=== PATIENT | male | born 1960 | race Caucasian/White ===

== ENCOUNTER 2024-06-27 13:46 | Outpatient (AMB) | payer MEDICARE, MEDICAID, SELFPAY ==
--- NOTE | 2024-06-27 13:50 | A.OFFPC_ITS ---
Vital Signs 06/27/24 13:55 Height 5 ft 8 in Weight 158 lb 8.198 oz BMI 24.1 BP 132/86 Blood Pressure Location Lt brachial Position Sitting Pulse 59 Pulse Source Pulse Oximeter Pulse Oximetry (%) 97 Oxygen Delivery Method Room Air Intake Visit Reasons: establish care Section Housekeeper Required: No Accompanied by: Nephew or Niece Allergies No Known Allergies Allergy (Verified 06/27/24 14:40) Medication List - Last Reconciled 06/27/24 by Kvng Brown MD atorvastatin 20 mg PO DAILY lisinopril 40 mg PO DAILY oxycodone 10 mg PO Q3H PRN pantoprazole 40 mg PO DAILY triamterene 50 mg PO DAILY Tobacco use date assessed: 06/27/24 Fall risk assessment: 1 Fall in past year Last assessed Fall Risk: 06/27/24 Dental Screening Dental Screen Date: 06/27/24 Did you have a dental visit in the last 12 months?: No Did you have a dental problem in the last 6 months where you did not have access to dental care?: No Was dental information given to patient?: No HPI establish care HPI Details Patient comes in today to establish care - is a new patient to the practice Patient states that he moved here recently from [facility] States that his mother has been helping take care of him for years as he is legally blind (lost his eyesight at 32 y/o) but his mother a few months ago and he now has no one to take care of him so he has to move here to [facility] where he has some family He is currently in the office today accompanied by his niece He relates that he's had severe lumbar degenerative disc disease for years (has had 4 disc replacement surgeries in the past) and he has been on his current dose of Oxycodone for the past 17 years now States that he is currently still going to [facility] every 3 months to get his Rx refilled from his previous doctor until he is able to get established with a PCP here He also has (+) Hx of hypertension, hyperlipidemia and GERD and is on medications for these conditions as well Adds that he was getting ready for RTC cuff surgery on his left shoulder last year but had to move when his mother passed so this was done pursued further - he would like to see orthopedics here and revisit the possibility for RTC surgery for his left shoulder Patient denies any headaches or dizziness Denies any chest pains, no increased SOB No nausea/vomiting, no abdominal pain No change in bowel habits noted He denies any acute urinary symptoms Will need most of his current Rx refilled States that he just had his repeat colonoscopy done last year with his previous PCP and will have his next colonoscopy in 10 years (2033) [facility] Medical History (Updated 07/04/24 @ 03:18 by Kvng Brown MD) Legally blind Impaired fasting glucose GERD without esophagitis Pure hypercholesterolemia Essential hypertension Degenerative joint disease of shoulder Lumbar degenerative disc disease Surgical History (Updated 06/27/24 @ 14:59 by Kvng Brown MD) History of umbilical hernia repair History of ankle surgery History of lumbar discectomy History of colonoscopy Family History (Updated 06/27/24 @ 14:03 by OSCAR Branham) Other Diabetes Heart attack Hypertension Prostate cancer Skin cancer Social History Housing: House Patient Tobacco Use Status: Former Tobacco user e-Cigarette/Vaping Use: Never Used service: Yes Current occupational status: disabled Current occupational exposures/hazards: No Cognitive needs: No Hearing needs: No Vision needs: Yes Questionnaire PHQ-9 Over the last 2 weeks, how often have you been bothered by any of the following problems? 1. Little interest or pleasure in doing things: not at all 2. Feeling down, depressed, or hopeless: not at all 3. Trouble falling or staying asleep, or sleeping too much: not at all 4. Feeling tired or having little energy: not at all 5. Poor appetite or overeating: not at all 6. Feeling bad about yourself - or that you are a failure or have let yourself or your family down: not at all 7. Trouble concentrating on things, such as reading the newspaper or watching television: not at all 8. Moving or speaking so slowly that other people could have noticed. Or the opposite - being so fidgety or restless that you have been moving around a lot m ore than usual: not at all 9. Thoughts that you would be better off or of hurting yourself in some way: not at all Total score: 0 Depression Screening Interpretation: Negative Depression Screening Done: Yes 89228 - PHQ-9 Billing: Yes Source: Developed by Drs. Alexi Etienne, Edison Sandy and colleagues, with an educational mai from [employer]. Thrive Questionnaire Date Thrive assessed: 06/27/24 I am a: Patient What is your living situation today?: I have a steady place to live Within the past 12 months, did the food you bought not last and you didn't have the money to get more?: Never true Within the past 12 months, did you worry whether your food would run out before you got money to buy more?: Never true Do you have trouble paying for medicines?: No Do you have trouble getting transportation to medical appointments?: No Do you have trouble paying your heating and electricity bill?: No Do you have trouble taking care of your child, family member or friend?: No Do you have trouble with day-to-day activities such as bathing, preparing meals, shopping, managing finances, etc.?: No Are you currently unemployed and looking for a job?: No Are you interested in more education?: No Please select the resources that you would like help with: None Currently or been in a relationship where the following occur: No concerns reported THRIVE Score: 0 AUDIT C Alcohol Use Questionnaire (AUDIT-C) 1. How often do you have a drink containing alcohol?: Never 3. How often do you have six or more drinks on one occasion?: Never Total Score: 0 Score Reviewed/Action Taken: Yes AILEEN-7 AMB Questionnaire AILEEN-7 Date AILEEN - 7 assessed: 06/27/24 Feeling nervous, anxious, or on edge: 0 = Not at all Not being able to stop or control worryin = Not at all Worrying too much about different things: 0 = Not at all Trouble relaxin = Not at all Being so restless that it is hard to sit still: 0 = Not at all Becoming easily annoyed or irritable: 0 = Not at all Feeling afraid as if something awful might happen: 0 = Not at all Total AILEEN-7 score (0-4 normal; 5-9 mild; 10-14 moderate; 15-21 severe): 0 Source: Developed by Drs. Alexi Etienne, Edison Sandy and colleagues, with an educational mai from [employer]. Review of Systems Const Denies chills, Denies fatigue, Denies fever(s), Denies headache(s), Denies m alaise and Denies weakness Eyes Denies change in vision, Denies irritation, Denies itchy eyes and Reports loss of vision (is legally blind in both eyes - has only light perception) ENT Denies dysphagia, Denies dizziness, Denies otalgia, Denies headache(s), Denies nasal congestion, Denies neck pain, Denies odynophagia and Denies sore throat Card Denies rapid heart rate, Denies irregular heart rhythm, Denies palpitations and Denies dyspnea Resp Denies chest congestion, Denies cough, Denies dyspnea and Denies wheezing GI Denies abdominal pain, Denies bloating, Denies constipation, Denies dysphagia, Denies heartburn, Denies diarrhea, Denies nausea, Denies odynophagia and Denies vomiting Denies hematuria, Denies difficulty urinating, Denies dysuria, Denies urinary frequency and Denies urinary urgency Musc Reports back pain (over the lower back - chronic), Reports arthralgias (both shoulders), Denies joint swelling, Denies muscle weakness and Denies neck pain Skin/Breast Denies change in pigmentation, Denies lesions, Denies rash and Denies unusual bruising Neuro Denies dizziness, Denies headache(s), Reports loss of vision (is legally blind in both eyes - has only light perception), Denies paresthesias and Denies weakness Psych Denies anxiety and Denies depression Endo Denies fatigue and Denies palpitations Aller/Immun Denies itchy eyes and Denies wheezing Physical exam (Primary Care) Vital Signs: Last Vital Signs Pulse 59 06/27/24 13:55 BP 132/86 06/27/24 13:55 Pulse Ox 97 06/27/24 13:55 Oxygen Delivery Method Room Air 06/27/24 13:55 BMI result Body Mass Index 24.1 Tobacco/Smoking Status: Tobacco use Status Tobacco use date assessed 06/27/24 06/27/24 13:52 Patient Tobacco Use Status Former Tobacco user 06/27/24 14:05 e-Cigarette/Vaping Use Never Used 06/27/24 14:05 PHQ-9: PHQ-9 Score PHQ-9: Total score 0 05/20/25 14:46 Depression Screening Interpretation: Negative Thrive Assessment: Date of Thrive Assessment Date Thrive assessed 06/27/24 06/27/24 13:52 Currently or been in a relationship where the following occur: No concerns reported Const General: no acute distress, alert and awake Orientation/consciousness: patient oriented x3 HENMT Head: Yes normocephalic and Yes atraumatic Ears: external ears normal, TM's normal bilaterally and EAC's normal General nose exam: No nasal discharge present Face and sinus: Yes normal facial exam and Yes sinuses nontender Teeth and gingiva: dentition normal Throat: Yes posterior oropharynx normal and Yes tonsils normal (no TP congestion) Eyes Other: eye exam is limited as patient is legally blind Eyelids: Yes eyelids normal Conjunctivae: conjunctivae normal Neck Neck: Yes no lymphadenopathy and Yes supple Thyroid: Thyroid normal Resp Auscultation: clear to auscultation bilaterally, no rales and no wheezes Cardio Rate: regular rate Rhythm: regular rhythm Heart sounds: Murmur heart sound present systolic soft and II/ GI Palpation (GI): Soft to palpation, nontender and No hepatosplenomegaly present Auscultation: normal bowel sounds General: Yes no CVA tenderness Back/Spine/Pelvis Back: no CVA tenderness Thoracic/Lumbar Spine: thoracic and lumbar spine normal to inspection Skin Lesions: no lesions Rashes: no rashes Neuro General: patient oriented x3, moves all extremities, no focal motor deficits and CN's II-XI intact bilaterally Cognition (Neuro): normal cognition Gait exam (Neuro): Normal gait present Extrem General: Yes no clubbing, cyanosis or edema Coding Level of Care Code New Pt Prev Care 40-64y(23822) Diagnoses Annual physical exam Z00.00 Essential hypertension I10 Pure hypercholesterolemia E78.00 GERD without esophagitis K21.9 Cardiac murmur R01.1 Impaired fasting glucose R73.01 Degeneration of intervertebral disc of lumbar region with discogenic back pain M51.360 Disc-related pain type: discogenic back pain only Osteoarthritis of both shoulders, unspecified osteoarthritis type M19.011; M19.012 Osteoarthritis type: unspecified Laterality: bilateral Legally blind H54.8 Additional Codes PHQ-9 - 44962 - PHQ-9 Billing: Yes ([id number]) Assessment & Plan Assessment & Plan (1) Annual physical exam: Code(s): Z00.00 - Encounter for general adult medical examination without abnormal findings Category: Medical Plan: Check labs He is up-to-date with his colon cancer screening - just had his repeat colonoscopy done last year (2023) and he will be due for repeat colonoscopy in 10 years (2033) (2) Essential hypertension: Code(s): I10 - Essential (primary) hypertension Category: Medical Plan: Reinforced low sodium diet - goal is systolic BP of at least 120 mm or less Continue Lisinopril 40 mg QD and Triamterene 50 mg QD (3) Pure hypercholesterolemia: Code(s): E78.00 - Pure hypercholesterolemia, unspecified Category: Medical Plan: Reinforced low cholesterol diet Continue Atorvastatin 20 mg QD Will have patient recheck his labs and fasting lipids TERRI for follow up (4) GERD without esophagitis: Code(s): K21.9 - Gastro-esophageal reflux disease without esophagitis Category: Medical Plan: Dietary restrictions reinforced Continue Pantoprazole 40 mg QD (5) Cardiac murmur: Code(s): R01.1 - Cardiac murmur, unspecified Category: Medical Plan: Patient has a soft, systolic murmur heard on auscultation today, especially over the right sternal border Will send him for echocardiogram for further evaluation (6) Impaired fasting glucose: Code(s): R73.01 - Impaired fasting glucose Category: Medical Plan: Reinforced low carb/low calorie diet Will check his FBS and HgbA1c for further evaluation (7) Lumbar degenerative disc disease: Code(s): M51.369 - Other intervertebral disc degeneration, lumbar region without mention of lumbar back pain or lower extremity pain Category: Medical Qualifiers: Disc-related pain type: discogenic back pain only Qualified Code(s): M51.360 - Other intervertebral disc degeneration, lumbar region with discogenic back pain only Plan: Reinforced activity and weight-lifting restrictions Contine Oxycodone 10 mg Q 3 hours PRN - patient is advised that his current dosing is much higher than what I normally prescribe and much more than what I am comfortable prescribing Will refer him to pain management here for further evaluation and management Have advised patient in the meantime to continue getting his pain med Rx refilled by his previous PCP for now until we can get him to pain management and we receive a copy of his previous medical records for review (8) Degenerative joint disease of shoulder: Code(s): M19.019 - Primary osteoarthritis, unspecified shoulder Category: Medical Qualifiers: Osteoarthritis type: unspecified Laterality: bilateral Qualified Code(s): M19.011 - Primary osteoarthritis, right shoulder; M19.012 - Primary osteoarthritis, left shoulder Plan: Patient states that he was getting ready for rotator cuff surgery in [facility] last year but this did not occur as he had to move over here to [facility] following the passing of his mother He would currently like to revisit this - we will refer him to [facility] for further evaluation and management of his bilateral shoulder issues (9) Legally blind: Code(s): H54.8 - Legal blindness, as defined in [place] Category: Medical Plan: Patient currently only has light perception in both eyes - states that he lost his eyesight at the age of 32 Plan Follow up in 3 months Orders: Orders TSH reflex Free T4 06/27/24 E78.00 - Pure hypercholesterolemia, unspecified Vitamin D 25-OH Total 06/27/24 E55.9 - Vitamin D deficiency, unspecified Prostate Specific Antigen 06/27/24 N40.0 - Benign prostatic hyperplasia without lower urinary tract symptoms Hemoglobin A1c 06/27/24 E11.9 - Type 2 diabetes mellitus without complications Microalbumin, Random (w Creat) 06/27/24 E11.9 - Type 2 diabetes mellitus without complications Complete Blood Count Auto Diff 06/27/24 D64.9 - Anemia, unspecified Comprehensive [place]. Panel Fast 06/27/24 E78.00 - Pure hypercholesterolemia, unspecified Lipid Panel 06/27/24 E78.00 - Pure hypercholesterolemia, unspecified UA CC w/rflx Micro + Cult 06/27/24 R30.0 - Dysuria Vitamin B12 and Folate 06/27/24 E53.8 - Deficiency of other specified B group vitamins CA echo transthoracic complete 06/27/24 R01.1 - Cardiac murmur, unspecified Referrals Pain Management Referral M51.369 - Other intervertebral disc degeneration, lumbar region without mention of lumbar back pain or lower extremity pain Orthopedics Referral M19.019 - Primary osteoarthritis, unspecified shoulder Medications: New atorvastatin 20 mg PO DAILY 90 days 90 tabs 0RF pantoprazole 40 mg PO DAILY 90 days 90 tabs 0RF triamterene 50 mg PO DAILY 90 days 90 caps 0RF lisinopril 40 mg PO DAILY 90 days 90 tabs 0RF
[2024-06-27 13:55] VITALS: BP 132/86; PULSE 59; O2SAT 97; BMI 24.1
--- OUTSIDE RECORDS SUMMARY | 2024-06-27 15:02 | XMS_ITS | Continuity of Care Document ---
Author Organization [facility] Address [address] [place] [address] Phone Care Team Providers Care Senior Integration Developer Name Role Phone Yoly Cunningham MD Unavailable [...] Diagnoses Date Provider [facility] , [address] [place] [address], [facility], tel:[phone] Benign neoplasm of choroid 2012 Octavio Frederick. [address] [place] [address], [facility], . tel:[phone] [facility] , [address] [place] [address], [facility], tel:[phone] Benign neoplasm of choroidBenign neoplasm of choroid 2012 Octavio Frederick. [address] [place] [address], [facility], . tel:[phone] [facility] , [address] [place] [address], [facility], tel:[phone] Acute angle-closure glaucomaAcute angle-closure glaucoma 2010 Elise Yañez. [address] [place] [address], [facility], [place]. tel:[phone] Family History Family Member Type Diagnosis Age At Onset Problem (finding) Family history of catar act Problem (finding) Family history of glauc jackie Payers Payer name Insurance type Covered alliance party ID Authorkelliea tievelyn(s) [place] Medicaid MC [id number] Social History Type Description Quantity Date Captured [...]
== END 2024-06-27 15:15 | disposition home or self-care (01) ==
LOC: HO.HMCH 13:47
PROVIDERS: Visit Provider Internal Medicine
DX: Z00.00 Encounter for general adult medical examination without abnormal findings (principal); I10 Essential (primary) hypertension; E78.00 Pure hypercholesterolemia, unspecified; K21.9 Gastro-esophageal reflux disease without esophagitis; R01.1 Cardiac murmur, unspecified; R73.01 Impaired fasting glucose; M51.360 Other intervertebral disc degeneration, lumbar region with discogenic back pain only; M19.011 Primary osteoarthritis, right shoulder; M19.012 Primary osteoarthritis, left shoulder; H54.8 Legal blindness, as defined in USA

== ENCOUNTER → 2024-06-27 13:46 | Outpatient (BNVA) | payer MEDICARE, MEDICAID, SELFPAY | PROVIDERS: Visit Provider Internal Medicine | DX: Z00.00 Encounter for general adult medical examination without abnormal findings (principal); I10 Essential (primary) hypertension; E78.00 Pure hypercholesterolemia, unspecified; K21.9 Gastro-esophageal reflux disease without esophagitis; R01.1 Cardiac murmur, unspecified; R73.01 Impaired fasting glucose; M51.360 Other intervertebral disc degeneration, lumbar region with discogenic back pain only; M19.011 Primary osteoarthritis, right shoulder; M19.012 Primary osteoarthritis, left shoulder; H54.8 Legal blindness, as defined in USA | CPT/HCPCS: 96127; 99386 ==

== ENCOUNTER 2024-07-06 08:44 | Outpatient (REF) | payer MEDICARE, MEDICAID, SELFPAY ==
--- OUTSIDE RECORDS SUMMARY | 2024-07-06 08:59 | XMS_ITS | Continuity of Care Document ---
Author Organization [facility] Address [address] [place] [address] Phone Care Team Providers Care Deliver Driver Name Role Phone Yoly Cunningham MD Unavailable [...] Date Provider [facility] , [address] [place] [address], [facility], tel:[phone] Benign neoplasm of choroid 2012 Octavio Frederick. [address] [place] [address], [facility], . tel:[phone] [facility] , [address] [place] [address], [facility], tel:[phone] Benign neoplasm of choroidBenign neoplasm of choroid 2012 Octavio Frederick. [address] [place] [address], [facility], . tel:[phone] [facility] , [address] [place] [address], [facility], tel:[phone] Acute angle-closure glaucomaAcute angle-closure glaucoma 2010 Elise Yañez. [address] [place] [address], [facility], [place]. tel:[phone] Family History Family Member Type Diagnosis Age At Onset Problem (finding) Family history of catar act Problem (finding) Family history of glauc jackie Payers Payer name Insurance type Covered libertarian ID Authorkelliea tievelyn(s) [place] MC [id number] Social History Type Description Quantity Date Captured [...]
[2024-07-06 09:05] LABS: MANUAL DIFF FLAG NO
[2024-07-06 09:37] LABS: Basophils Absolute Auto 0.1 X10*3/uL (0.0-0.2); Basophils Percent Auto 1.1 % (0-2); Eosinophils Absolute Auto 0.5 X10*3/uL (0.0-0.4); Eosinophils Percent Auto 6.2 % (0-4); Hemoglobin 14.1 g/dl (14.0-18.0); Imm Gran Abs Auto 0.03 X10*3/uL (0.00-0.03); Imm Gran Pct Auto 0.4 % (0.0-0.4); Lymphocytes Absolute Auto 1.5 X10*3/uL (1.2-4.9); Lymphocytes Percent Auto 18.3 % (20-40); Mean Corpuscular HGB Conc 34.4 g/dl (31.0-36.0); Mean Corpuscular Hemoglobin 32.9 pg (27.0-33.0); Mean Corpuscular Volume 95.8 fL (80.0-98.0); Mean Platelet Volume 9.9 fL (9.4-12.4); Monocytes Absolute Auto 0.9 X10*3/uL (0.1-1.2); Monocytes Percent Auto 11.3 % (2-11); Neutrophils Absolute Auto 5.2 x10*3/uL (2.0-8.3); Neutrophils Percent Auto 62.7 % (45-73); Platelet Count 288 X10*3/uL (160-400); Red Blood Count 4.28 X10*6/uL (4.60-5.80); Red Cell Distribution Width 12.6 % (11.0-16.0); White Blood Count 8.2 X10*3/uL (4.8-10.8)
[2024-07-06 09:49] LABS: Estimated Average Glucose 120 mg/dL; Hemoglobin A1c % 5.8 % (<6.0)
[2024-07-06 10:10] LABS: Alanine Aminotransferase 26 U/L (0-40); Albumin Level 4.6 g/dL (3.5-5.0); Alkaline Phosphatase 91 U/L (39-117); Anion Gap 14 (12-20); Aspartate Amino Transferase 27 U/L (5-37); Bilirubin Total 0.5 mg/dL (0.0-1.0); Blood Urea Nitrogen 32 mg/dL (9-16); Calcium 9.7 mg/dL (8.4-10.2); Carbon Dioxide 26 mmol/L (22-29); Chloride 103 mmol/L (96-108); Cholesterol 162 mg/dL (<200); Estimated Glomerular Filt Rate 40; Glucose Fasting 101 mg/dL (60-99); HDL Cholesterol 52 mg/dL (>40); LDL Cholesterol Calculated 93 mg/dL (<100); Potassium 4.4 mmol/L (3.3-5.1); Sodium 139 mmol/L (135-145); Total Protein 7.3 g/dL (6.5-8.0); Triglycerides 88 mg/dL (<150)
[2024-07-06 10:21] LABS: Appearance Urine Clear; Color Urine Yellow; Glucose Urine UA Negative (Negative); Leukocyte Esterase Urine Negative (Negative); Nitrite Urine Negative (Negative); PH 6.5 (5.0-9.0); Specific Gravity - Urine 1.015 (1.005-1.025); Urine Blood Negative (Negative); Urine Ketones Negative (Negative); Urine Protein Negative (Neg-Trace)
[2024-07-06 10:31] LABS: TSH reflex Free T4 1.52 uIU/mL (0.32-4.0); Vitamin D 25-OH Total 29.7 ng/mL (>30)
[2024-07-06 10:32] LABS: Folate 8.1 ng/mL (> or = 4.0); Prostate Specific Antigen 1.75 ng/mL (<0.05-4.0); Vitamin B12 452 pg/mL (200-900)
[2024-07-06 10:43] LABS: Creatinine Urine 83.43 mg/dL; Microalbumin Urine < 5.0 mg/L
== END 2024-07-06 08:45 | disposition home or self-care (01) ==
LOC: HO.LAB 08:44
PROVIDERS: PCP Internal Medicine; Visit Provider Internal Medicine
DX: D64.9 Anemia, unspecified (principal); E78.00 Pure hypercholesterolemia, unspecified; R30.0 Dysuria; E53.8 Deficiency of other specified B group vitamins; E55.9 Vitamin D deficiency, unspecified; N40.0 Benign prostatic hyperplasia without lower urinary tract symptoms; E11.9 Type 2 diabetes mellitus without complications; Z12.5 Encounter for screening for malignant neoplasm of prostate
CPT/HCPCS: 36415; 80053; 80061; 81003; 82043; 82306; 82570; 82607; 82746; 83036; 84153; 84443; 85025

== ENCOUNTER 2024-08-16 09:52 | Outpatient (AMB) | payer MEDICARE, MEDICAID, SELFPAY ==
--- OUTSIDE RECORDS SUMMARY | 2012-10-28 09:51 | XMS_ITS | Continuity of Care Document ---
Author Organization [facility] Address [address] [place] [address] Phone Care Team Providers Care Nurse Receptionist Name Role Phone Yoly Cunningham MD Unavailable [...] Diagnoses Date Provider [facility] , [address] [place] [address], [facility], tel:[phone] Benign neoplasm of choroid 2012 Octavio Frederick. [address] [place] [address], [facility], . tel:[phone] [facility] , [address] [place] [address], [facility], tel:[phone] Benign neoplasm of choroidBenign neoplasm of choroid 2012 Octavio Frederick. [address] [place] [address], [facility], . tel:[phone] [facility] , [address] [place] [address], [facility], tel:[phone] Acute angle-closure glaucomaAcute angle-closure glaucoma 2010 Elise Yañez. [address] [place] [address], [facility], [place]. tel:[phone] Family History Family Member Type Diagnosis Age At Onset Problem (finding) Family history of catar act Problem (finding) Family history of glauc jackie Payers Payer name Insurance type Covered alliance party ID Authorkelliea tievelyn(s) [place] [id number] Social History Type Description Quantity Date Captured [...]
--- NOTE | 2024-08-16 09:56 | MHC.OFFVIS ---
Vital Signs 08/16/24 09:58 Height 5 ft 8 in Weight 173 lb BMI 26.3 BP 145/69 H Blood Pressure Location Rt brachial Position Sitting Respiration 16 Pulse 74 Pulse Source Pulse Oximeter Pulse Oximetry (%) 95 Oxygen Delivery Method Room Air Intake Visit Reasons: Chronic back pain General Technician Required: No Accompanied by: Nephew or Niece Allergies yellow jackets bees Adverse Reaction (Mild, Uncoded 08/16/24 10:02) Unknown HPI Comments Details: The patient is a 64-year-old male presenting with chronic low back pain. The pain began approximately 17 years ago and has been managed with oxycodone since then. The patient reports that the pain is severe enough to have required frequent emergency room visits in the past. He has also undergone interventional management in the past, did not tolerate well. States he had reactions to injections and he does not wish to retry. He is also not interested in implantable devices. The patient also reports a severe shoulder tear that has been present for over a year, causing significant pain and functional limitation. Additionally, there are two missing cervical discs, which may be contributing to difficulty swallowing liquids and eating. The patient has a history of arthritis, which has led to bone deterioration and has been described as making the bones disappear. The arthritis has been managed with medication, but surgical interventions have been avoided due to the risk of exacerbating the condition. The patient has a congenital heart murmur and reports experiencing chest pains, which are being monitored. The patient has a history of glaucoma, which has resulted in significant vision loss, leaving only partial vision in the left eye. The vision loss has been progressive since childhood, and surgical intervention was not performed early enough to prevent it. - Onset: Pain began approximately 17 years ago. - Quality: Described as severe, burning, and aching like a toothache. - Location: Primarily in the back, with radiation to the leg. - Exacerbating factors: Movement and inability to walk. - Relieving factors: Oxycodone provides some relief. - Interference: Pain interferes with mobility and daily activities. - Affect: Pain impacts mood, causing frustration and irritability. - Analgesia: Managed with oxycodone for 17 years, providing partial relief. - Adverse Effects: Cannot take Aleve, Aspirin, or caffeine due to blood pressure concerns. - Activities of Daily Living: Pain limits mobility and ability to perform daily tasks. - Aberrant Drug Related Behaviors: No evidence of misuse, but reliance on oxycodone noted. [facility] Medical History (Updated 08/16/24 @ 11:40 by Misty Salmeron APRN, ADZING AND BORING MACHINE OPERATOR) Legally blind Impaired fasting glucose GERD without esophagitis Pure hypercholesterolemia Essential hypertension Degenerative joint disease of shoulder Lumbar degenerative disc disease Surgical History (Updated 06/27/24 @ 14:59 by Kvng Brown MD) History of umbilical hernia repair History of ankle surgery History of lumbar discectomy History of colonoscopy Family History (Updated 06/27/24 @ 14:03 by OSCAR Branham) Other Diabetes Heart attack Hypertension Prostate cancer Skin cancer Social History Housing: House Patient Tobacco Use Status: Former Tobacco user e-Cigarette/Vaping Use: Never Used service: Yes Current occupational status: disabled Current occupational exposures/hazards: No Cognitive needs: No Hearing needs: No Vision needs: Yes Review of Systems Const Details: - Musculoskeletal: Reports chronic low back pain and severe shoulder pain. - Neurological: Reports difficulty swallowing liquids and vision loss. - Cardiovascular: Reports chest pain and a history of heart murmur. Physical Exam Vital Signs: Last Vital Signs Pulse 74 08/16/24 09:58 Resp 16 08/16/24 09:58 BP 145/69 H 08/16/24 09:58 Pulse Ox 95 08/16/24 09:58 Oxygen Delivery Method Room Air 08/16/24 09:58 BMI result Body Mass Index 26.3 General: awake, alert, oriented. Answers questions appropriately. Fully engaged in examination. Skin: warm, dry, intact HEENT: Normocephalic. Hearing intact. Legally blind. Cardiac: External chest normal in appearance. Respiratory: No cough, audible wheezing or stridor. Abdomen: without gross distension. MS: No obvious swelling or deformities. Neurological: Oriented to person, place, time and situation. Thought process intact. Ambulates with walking stick. Assisted by family member due to vision impairment. Psychiatric: Appropriate mood and affect. Good judgment and insight. Assessment & Plan Assessment & Plan (1) Chronic back pain: Code(s): M54.9 - Dorsalgia, unspecified; G89.29 - Other chronic pain Category: Medical (2) Chronic prescription opiate use: Code(s): Z79.891 - exterminator helper termite (current) use of opiate analgesic Category: Medical (3) Chronic pain syndrome: Code(s): G89.4 - Chronic pain syndrome Category: Medical (4) Post laminectomy syndrome: Code(s): M96.1 - Postlaminectomy syndrome, not elsewhere classified Category: Medical (5) Lumbar degenerative disc disease: Code(s): M51.369 - Other intervertebral disc degeneration, lumbar region without mention of lumbar back pain or lower extremity pain Category: Medical Qualifiers: Disc-related pain type: discogenic back pain only Qualified Code(s): M51.360 - Other intervertebral disc degeneration, lumbar region with discogenic back pain only Plan The management of the patient's chronic low back pain involves continued use of oxycodone, which has been effective in providing partial relief over the past 17 years. Due to adverse reactions to other medications such as Aleve and Aspirin, alternative pain management strategies are limited. The patient has expressed a strong preference against interventional procedures such as injections or implantable devices due to past negative experiences and personal beliefs. Currently we are not enrolling in a chronic opioid program, he was advised to follow up with his PCP so they can continue to prescribe this for him. Follow up with Orthopedics for his left shoulder pain. The patient's arthritis management will continue with a focus on maintaining comfort and avoiding surgical interventions that could exacerbate the condition. Monitoring of the heart murmur and chest pain is necessary, with potential follow-up with a aircraft machinist helper if symptoms persist or worsen. The patient's glaucoma and vision loss are longstanding issues, and no further surgical interventions are planned at this time. Patient was informed and verbally consented to the use of an ambient scribe for clinic note documentation during this visit. Patient Instructions: - Continue taking oxycodone as prescribed by PCP for pain management. - Avoid Aleve, Aspirin, and caffeine to prevent adverse reactions. - Monitor for any worsening of chest pain or heart murmur symptoms and seek medical attention if needed. - contact the office if you wish to proceed with any interventional management for your chronic back pain Coding Level of Care Code New Pt Level 4 (38318) Complex EM visit Add On G2211 Diagnoses Chronic back pain M54.9; G89.29 Chronic prescription opiate use Z79.891 Chronic pain syndrome G89.4 Post laminectomy syndrome M96.1 Degeneration of intervertebral disc of lumbar region with discogenic back pain M51.360 Disc-related pain type: discogenic back pain only
[2024-08-16 09:58] VITALS: BP 145/69; PULSE 74; RESP 16; O2SAT 95; BMI 26.3
== END 2024-08-16 10:38 | disposition home or self-care (01) ==
LOC: HO.PMC 09:54
PROVIDERS: PCP Internal Medicine; Visit Provider Registered Nurse Emergency
DX: M54.9 Dorsalgia, unspecified (principal); G89.29 Other chronic pain; Z79.891 Long term (current) use of opiate analgesic; G89.4 Chronic pain syndrome; M96.1 Postlaminectomy syndrome, not elsewhere classified; M51.360 Other intervertebral disc degeneration, lumbar region with discogenic back pain only
CPT/HCPCS: 99204; G2211

== ENCOUNTER → 2024-08-16 09:52 | Outpatient (BNVA) | payer OTHER, SELFPAY | PROVIDERS: PCP Internal Medicine; Visit Provider Registered Nurse Emergency | DX: M51.360 Other intervertebral disc degeneration, lumbar region with discogenic back pain only (principal); M96.1 Postlaminectomy syndrome, not elsewhere classified; G89.29 Other chronic pain; Z79.891 Long term (current) use of opiate analgesic | CPT/HCPCS: 99202 ==

== ENCOUNTER → 2024-08-22 07:55 | Outpatient (REF) | payer OTHER, SELFPAY ==
--- OUTSIDE RECORDS SUMMARY | 2012-10-28 09:51 | XMS_ITS | Continuity of Care Document ---
Author Organization [facility] Address [address] [place] [address] Phone Care Team Providers Care Gluten Settling Tender Name Role Phone Yoly Cunningham MD Unavailable [...] Diagnoses Date Provider [facility] , [address] [place] [address], [facility], tel:[phone] Benign neoplasm of choroid 2012 Octavio Frederick. [address] [place] [address], [facility], . tel:[phone] [facility] , [address] [place] [address], [facility], tel:[phone] Benign neoplasm of choroidBenign neoplasm of choroid 2012 Octavio Frederick. [address] [place] [address], [facility], . tel:[phone] [facility] , [address] [place] [address], [facility], tel:[phone] Acute angle-closure glaucomaAcute angle-closure glaucoma 2010 Elise Yañez. [address] [place] [address], [facility], [place]. tel:[phone] Family History Family Member Type Diagnosis Age At Onset Problem (finding) Family history of catar act Problem (finding) Family history of glauc jackie Payers Payer name Insurance type Covered libertarian ID Authorkelliea tievelyn(s) [place] MC [id number] Social History Type Description Quantity Date Captured [...]
--- NOTE | 2024-08-22 07:59 | CA_ITS ---
Transthoracic Echocardiogram Patient (Last, First, Middle): Jean Jewell, Gender: Male Date of : 1960 Age: 64 Procedure Date: 08/22/2024 Procedure Type: Transthoracic Echocardiogram Location: OP Height: 172.72 cm Weight: 78.47 kg BSA: 1.92 m2 Heart Rate: bpm BP: 145 / 69 mmHg Physical Security Specialist: TYRON Referring MD: Kvng Brown MD Symptoms: R01.1 - Cardiac murmur, unspecified Study Quality: Adequate ECG Rhythm: Sinus bradycardia Conclusions: - The left ventricular systolic function is normal. The calculated ejection fraction is 58% by biplane method. - No obvious valvular pathology seen on this study. Findings Left Ventricle Normal left ventricular cavity size. There is normal left ventricular wall thickness. The left ventricular systolic function is normal. The calculated ejection fraction is 58% by biplane method. There is no evidence of regional wall motion abnormalities. Diastolic function is normal for age. Right Ventricle Normal right ventricular cavity size and systolic function. Atria Both atria are normal in size. Aortic Valve There is a normal trileaflet aortic valve. There is no aortic valve stenosis. There is no aortic valve regurgitation. Mitral Valve The mitral valve appears normal. There is trace mitral valve regurgitation. There is no mitral valve stenosis. Pulmonic Valve The pulmonic valve is likely normal. Tricuspid Valve There is mild tricuspid valve regurgitation. There is no evidence of pulmonary hypertension. Great Vessels The asc aorta is normal in size. Venous The inferior vena cava is normal in size and collapses greater than 50% with inspiration. Pericardium/Pleural There is no evidence of pericardial effusion. Prior Study Comparison No prior study available for comparison. Recommendations, Care & Conclusions No obvious valvular pathology seen on this study. Measurements 2D Linear Measurements IVSd: 0.92 0.6-0.9/0.6-1.0 cm LVIDd: 4.61 3.9-5.3/4.2-5.9 cm LVIDd Index: 2.40 2.4-3.2/2.2-3.1 cm/m2 LVIDs: 3.30 2.0-3.6 cm LVPWd: 0.84 0.7-1.1 cm LA Diam: 3.50 2.7-3.8/3.0-4.0 cm LAIDs Index: 1.82 1.5-2.3 cm/m2 LV Mass: 167.56 67-162/88-224 g LV Mass Index: 87.27 43-95/49-115 g/m2 LVOT Diam: 2.10 3.0+(-)1.3 cm 2D Systolic Function EF 4C: 50.50 >55% EF 2C: 63.40 >55% EF BiP: 58.00 >55% Mitral Valve MV Pk E: 0.95 MV PK A: 0.61 MV Decel Time: 201.00 E/A: 1.60 E'Lateral: 15.10 E'Medial: 9.25 E/E' Med: 10.20 E/E' Lat: 6.30 PHT: 59.00 MVA PHT: 3.73 Decel Bath: 4.70 Aortic Valve AoV Pk Justin: 1.34 AoV Mn Justin: 0.91 AoV VTI: 0.36 AoV Pk Grad: 7.00 Aov Mn Grad: 4.00 SERENA Cont.VTI: 2.19 LVOT LVOT Pk Justin: 0.94 LVOT Mn Justin: 0.59 LVOT VTI: 0.23 LVOT Pk Grad: 4.00 LVOT Mn Grad: 2.00 LVOT Diam: 2.10 LVOT Area: 3.46 Diastolic Function MV Pk E: 0.95 MV Pk A: 0.61 E/A: 1.60 E'Medial: 9.25 E/E' Med: 10.20 E' Laterial: 15.10 E/E' Lat: 6.30 Right Ventricle TAPSE (mm): 23.90 TVS' Justin: 11.50 Tricuspid Valve TR Pk Justin: 2.43 TR Pk Grad: 24.00 RA Press: 3.00 RVSP: 27.00 Great Vessels Aorta Sinus of Valsalva: 3.06 2.0-3.[address] [place]: 2.06 1.7-3.4 cm Ao Asc: 2.90 2.1-3.4 cm Updated in Other Vendor System with Status of Final Andrés Lopez MD electronically signed on 08/23/2024 2:05:32 PM with status of Final
== END ==
LOC: HO.CARD 07:55
PROVIDERS: PCP Internal Medicine; Visit Provider Internal Medicine
DX: R01.1 Cardiac murmur, unspecified (principal)
CPT/HCPCS: 93306

== ENCOUNTER → 2024-08-22 07:59 | Outpatient (BNV) | payer OTHER, SELFPAY | PROVIDERS: PCP Internal Medicine; Visit Provider Internal Medicine | DX: R01.1 Cardiac murmur, unspecified (principal); I36.1 Nonrheumatic tricuspid (valve) insufficiency | CPT/HCPCS: 93306 ==

== ENCOUNTER 2024-10-13 06:40 | Outpatient (REF) | payer OTHER, SELFPAY ==
--- OUTSIDE RECORDS SUMMARY | 2007-11-02 09:20 | XMS_ITS | Encounter Summary ---
Author Organization [facility] Address [address] [place] [address] Care Team Providers Care Aoc Plans Intelligence Officer Name Role Phone Unavailable Primary Care Provider Unavailabl e Encounter Details Date Type Department Care Team (Late st Contact Info) Description 11/02/2007 9:20 EDT Hospital Encounter [facility] [address] [place] [address] Rylan Molina MD [address] [facility], [address] [place] [address] Social History Tobacco Use Types [...] place to sleep or slept in a fpc (including now)? No 01/12/2023 Interpersonal Safety Answer [...] your living situation today? I have a [facility] place to live 09/16/2023 Think about [...] does anyone, bj hall family and friends, threaten you with harm? [...] the past 12 months has th e [employer], gas, oil, or water [employer] threatened to shut off services in your home? No 09/16/2023 Education Answer Date Recorded Do you speak a language other than Slovenian at [facility]? No 09/16/2023 Do you want help with [...]
--- OUTSIDE RECORDS SUMMARY | 2008-03-05 08:13 | XMS_ITS | Encounter Summary ---
Author Organization [facility] Address [address] [place] [address] Care Team Providers Care Keymodule Assembly Machine Tender Name Role Phone Unavailable Primary Care Provider Unavailabl e Encounter Details Date Type Department Care Team (Late st Contact Info) Description 03/05/2008 7:13 EST Hospital Encounter [facility] - [place] [address] [place] [address] Ed Lerma MD [address] [place] [address] Social History Tobacco Use Types Packs/Day Years [...] place to sleep or slept in a custodial (including now)? No 01/12/2023 Interpersonal Safety Answer [...] your living situation today? I have a [facility] place to live 09/16/2023 Think about the [...] does anyone, inclu ding family and friends, scream or curse at [...] the past 12 months has th e [employer], gas, oil, or water company threatened to shut off services in your home? No 09/16/2023 Education Answer Date Recorded Do you speak a language other than Citizen [place] at [facility]? No 09/16/2023 Do you want help [...] on file documented as of this encounter Procedures Procedure Name Priority Date/Time Associated Diagnosis Comments NM NUCLEAR STRESS EXERCISE 03/05/2008 10:36 EST NM NUCLEAR STRESS EXERCISE 03/05/2008 8:45 EST documented in this encounter Results * NUCLEAR STRESS TEST (03/05/2008 10:36 EST) Anatomical Region Laterality Modality Other 03/05/2008 10:3 6 EST Narrative 06/25/2008 9:07 EDT chest pain Rest and Stress SPECT Cardiolite Study: If you need to receive a hard copy of this report immediately, please contact the [facility] Cardiology Report line at [phone]. A copy of the CardioChart report will be faxed to the attending, referring, and primary care providers within 48 hours of the date of service. Procedure Note Kev Molina MD - 06/25/2008 chest pain Rest and Stress SPECT Cardiolite Study: If you need to receive a hard copy of this report immediately, please contact the [facility] Cardiology Report line at [phone]. A copy of the CardioChart report will be faxed to the attending, referring, and primary care providers within 48 hours of the date of service. us Ed Lerma MD CARDIAC NM ORDERABLES Claudia wilson Result * NM NUCLEAR STRESS EXERCISE (03/05/2008 8:45 EST) Anatomical Region Laterality Modality Other 03/05/2008 8:45 EST Narrative 03/05/2008 15:31 EST Final Stress Myocardial Perfusion Imaging Report --- PATIENT PRESENTATION --- : 1960 Age: 47 Sex: male Height: 69 in Weight: 185 lb BSA: 2 Pt Type: OP History: 47yo male with recent sx of nocturnal chest pains that awaken him. Discomfort feels like a cramp in the center of his chest ,relieved by drinking ice water or pacing around awhile. Pt is legally blind. PMH of DJD of spine .No pain now Medications: Beta blockers, Omeprazole Cardiovascular Risk Factors: Family history of CAD, Hypertension, Past Smoker (quit > 6 mos ago) Reason for Study: Atypical Chest Pain, ASX with Risk Factors Referring Physician: ED LERMA MD FAX: [phone] --- NUCLEAR IMAGING RESULTS --- PERFUSION AND WALL MOTION Myocardial Perfusion: Normal Ventricular Function (Wall Motion): Global Left: normal Global Right: normal Regional: normal LVEF(%):55 IMPRESSION > normal perfusion and contraction by Nuclear SPECT imaging _ _ _ _ _ _ _ _ _ _ _ _ _ _ _ _ _ _ _ _ _ _ _ _ _ _ _ _ _ _ _ _ _ IA - myocardial infarction JVM - jeopardized viable myocardium LAD - left anterior descending artery RCA - right coronary artery LCx - left circumflex artery _ _ _ _ _ _ _ _ _ _ _ _ _ _ _ _ _ _ _ _ _ _ _ _ _ _ _ _ _ _ _ _ _ PERFUSION AGENT AND IMAGING Stress Protocol: Adenosine Rest Rest Dose (+/- 10%): 10 mCi Tc-99m Sestamibi Imaging Protocol: Rest/Stress 1-day Stress Dose (+/- 10%): 30 mCi Tc-99m Sestamibi Acquisition: SPECT Gated Attenuation Corrected --- STRESS ELECTROCARDIOGRAPHY --- BASELINE Supine HR: 49 Supine BP: 146 / 90 Upright HR: 53 Upright BP: 162 / 92 STRESS TEST Peak HR: 93 Peak BP: 144 / 84 MPHR: 54% Peak Rate-Pressure Product: 40246 Test Stopped Due To: Protocol Symptoms / Pre Scale / Post Scale: Chest pain/neck/bilat arm 5/10 spontaneously 0/10 Comments: Pt given O2 preventitively nasal at 2l during VADIM test.Sats 99-100% ECG Changes: None Performed By: Leonor Burk RN Pre-imaging likelihood of CAD: 16% Post-imaging likelihood of CAD: 3% --- STRESS SUMMARY --- 1. Normal heart rate and normal blood pressure response to Adenosine ,hypertensive at baseline 2. EXERCISE CAPACITY FOR AGE: Not applicable 3. CHEST PAIN: Stress induced anginal quality chest pain SHORTNESS OF BREATH: None 4. STRESS ECG: Negative 5. ARRHYTHMIA: isolated PVC Image Interpretation By: Tracy FULLER, Kev - Attending Radiologist Steven FULLER, Franklin - Attending Nuclear Casket Inspector Stress ECG Interpretation By: Franklin Harris MD - Attending Casket Inspector Kev Molina MD Electronically Signed on 03/05/2008 Finalized on: 03/05/2008 3:31:52 PM This procedure was conducted under the supervision of Rajiv Lozano MD who was readily available at all points throughout the procedure. Copy Report To: Procedure Note 07/24/2009 Final Stress Myocardial Perfusion Imaging Report --- PATIENT PRESENTATION --- : 1960 Age: 47 Sex: male Height: 69 in Weight: 185lb BSA: 2 Pt Type: OP History: 47yo male with recent sx of nocturnal chest pains that awakenhim. Discomfort feels like a cramp in the center of his chest ,relieved bydrinking ice water or pacing around awhile. Pt is legally blind. PMH of DIANA [facility] .No pain now Medications: Beta blockers, Omeprazole Cardiovascular Risk Factors: Family history of CAD, Hypertension, PastSmoker (quit > 6 mos ago) Reason for Study: Atypical Chest Pain, ASX with Risk Factors Referring Physician: ED LERMA MD FAX: [phone] --- NUCLEAR IMAGING RESULTS --- PERFUSION AND WALL MOTION Myocardial Perfusion: Normal Ventricular Function (Wall Motion): Global Left: normal Global Right: normal Regional: normal LVEF(%):55 IMPRESSION > normal perfusion and contraction by Nuclear SPECT imaging _ _ _ _ _ _ _ _ _ _ _ _ _ _ _ _ _ _ _ _ _ _ _ _ _ _ _ _ _ _ _ _ _ IA - myocardial infarction JVM - jeopardized viable myocardium LAD - left anterior descending artery RCA - right coronary artery LCx - left circumflex artery _ _ _ _ _ _ _ _ _ _ _ _ _ _ _ _ _ _ _ _ _ _ _ _ _ _ _ _ _ _ _ _ _ PERFUSION AGENT AND IMAGING Stress Protocol: Adenosine Rest Rest Dose (+/- 10%): 10 mCiTc-99m Sestamibi Imaging Protocol: Rest/Stress 1-day Stress Dose (+/- 10%): 30 mCiTc-99m Sestamibi Acquisition: SPECT Gated Attenuation Corrected --- STRESS ELECTROCARDIOGRAPHY --- BASELINE Supine HR: 49 Supine BP: 146 / 90 Upright HR: 53 Upright BP: 162 / 92 STRESS TEST Peak HR: 93 Peak BP: 144 / 84 MPHR: 54% Peak Rate-Pressure Product: [id number] Test Stopped Due To: Protocol Symptoms / Pre Scale / Post Scale: Chest pain/neck/bilat arm 5/10 spontaneously 0/10 Comments: Pt given O2 preventitively nasal at 2l during VADIM test.[id number]% ECG Changes: None Performed By: Leonor Burk RN Pre-imaging likelihood of CAD: 16% Post-imaging likelihood of CAD:3% --- STRESS SUMMARY --- 1. Normal heart rate and normal blood pressure response to Adenosine ,hypertensive at baseline 2. EXERCISE CAPACITY FOR AGE: Not applicable 3. CHEST PAIN: Stress induced anginal quality chest pain SHORTNESS OF BREATH: None 4. STRESS ECG: Negative 5. ARRHYTHMIA: isolated PVC Image Interpretation By: Kev Molina MD - Attending Radiologist Steven FULLER, Franklin - Attending Nuclear Casket Inspector Stress ECG Interpretation By: Franklin Harris MD - AttendingCardiologist Kev Molina MD Electronically Signed on 03/05/2008 Finalized on: 03/05/2008 3:31:52 PM This procedure was conducted under the supervision of Blake FULLER, Marcwho was readily available at all points throughout the procedure. Copy Report To: us [place] Provider [id number] CARDIAC NM [place] Final Result documented in this encounter Visit Diagnoses Not on filedocumented in this encounter
--- OUTSIDE RECORDS SUMMARY | 2012-10-28 09:51 | XMS_ITS | Continuity of Care Document ---
Author Organization [facility] Address [address] [place] [address] Phone Care Team Providers Care Solution Make Up Operator Name Role Phone Yoly Cunningham MD Unavailable Unavailable Allergies, Adverse Reactions, Alerts Substance Reaction Status Criticality bee venom protein (honey bee) Active No Information Medications Medication Instructions Dosage Effective Dates (start - stop) Status Comments LISINOPRIL (unknown strength) Not Available - Active ATENOLOL (unknown strength) Not Available - Active PRILOSEC (unknown strength) Not Available - Active Procedures Procedure Date EYE EXAM & TREATMENT EYE EXAM WITH PHOTOS Advance Directives Directive Yes / No Effective Date File Name No Information Encounters Encounter Description Practice Location Reason(s) For Visit Diagnoses Date Provider [facility] , [address] [place] [address], [facility], tel:[phone] Benign neoplasm of choroid 2012 Octavio Frederick. [address] [place] [address], [facility], . tel:[phone] [facility] , [address] [place] [address], [facility], tel:[phone] Benign neoplasm of choroidBenign neoplasm of choroid 2012 Octavio Frederick. [address] [place] [address], [facility], . tel:[phone] [facility] , [address] [place] [address], [facility], tel:[phone] Acute angle-closure glaucomaAcute angle-closure glaucoma 2010 Elise Yañez. [address] [place] [address], [facility], [place]. tel:[phone] Family History Family Member Type Diagnosis Age At Onset Problem (finding) Family history of catar act Problem (finding) Family history of glauc jackie Payers Payer name Insurance type Covered alliance party ID Authorkelliea tievelyn(s) [place] MC [id number] Social History Type Description Quantity Date Captured Comments Alcohol Use Details No Caffeine Use Details Unknown Tobacco Use Status No Information Smoking Status No Information Sex Male Chief Complaint And Reason For Visit No Information History Of Present Illness Encounter Date Complaint History Of Prese nt Illness No Information Instructions Date Instruction Additional Infor mation - Return in [address] Cunningham for Complete Exam/DFE. 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 fundus photos today show nevus OD and will plan to follow for change. Related to Choroidal Nevus - Return in [address] 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 appears benign. will recheck and get fundus photo OD in 4 weeks. 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 Vision: NLP OU ?. Symptoms: will continue to monitor. Patient has normal pupil reaction to light - OU: Discussed diagnosis in detail with patient. No treatment is required at this time. Advised patient of condition. Will continue to observe condition and or symptoms. Return in 1 year for cx Related to Angle Closure Glaucoma Assessments Type Assessment Date No Information
--- OUTSIDE RECORDS SUMMARY | 2024-10-11 12:00 | XMS_ITS | Encounter Summary ---
Author Organization [facility] Address [address] [facility] [address] [place] [phone] Phone Care Team Providers Care Foreclosure Clerk Name Role Phone Clarence Goodman DO Primary Care Provider [phone] Reason for Referral * Hospital - Outpatient - Closed Specialty Diagnoses / Procedures Referred By Contac t Referred To Contact Radiology Diagnoses Encounter for abdominal aortic aneurysm (AAA) screening Procedures US Abdominal Aortic Screening Clarence Goodman DO [address] [facility] [address] [place] [address] Phone: tel: fax: [email or web address] Referral ID Status Reason Start Date Expiration Date Visits Re quested Visits Authorized [id number] Closed 10/11/2024 1 1 * Consultation (Within 2 weeks) - New Request Specialty Diagnoses / Procedures Referred By Contac t Referred To Contact Diagnoses Chronic midline low back pain without sciatica Clarence Goodman DO [address] [facility] [address] [place] [address] Phone: tel: fax: [email or web address] Alexei Vargas MD [address] [place] [address] [place] [address] Phone: tel: fax: Referral ID Status Reason Start Date Expiration Date V isits Requested Visits Authorized [id number] New Request 10/11/2024 10/11/2025 1 1 * Consultation (Within 2 weeks) - New Request Specialty Diagnoses / Procedures Referred By Carl gregg Referred To Contact Pain Medicine Diagnoses Chronic midline low back pain without sciatica Clarence Goodman DO [address] [facility] [address] [place] [address] Phone: tel: fax: [email or web address] [address] Phone: tel: Referral ID Status Reason Start Date Expiration Date V isits Requested Visits Authorized [id number] New Request 10/11/2024 10/11/2025 1 1 Reason for Visit * Reason Comments New Patient Encounter Details Date Type Department Care Team (Latest Contact Info) Description 10/11/2024 12:00 PM EDT Office Visit [facility] Medicine [address] [place] [address] Clarence Goodman DO [address] [address] [email or web address] Chronic midline low back pain without sciatica (Primary Dx); Primary hypertension; Dyslipidemia; Overweight; Encounter for abdominal aortic aneurysm (AAA) screening; Need for prophylactic vaccination against Streptococcus pneumoniae (pneumococcus); Screening for prostate cancer; Laboratory examination ordered as part of a routine general medical examination; Screening for condition; Need for hepatitis C screening test; Screening for human immunodeficiency virus; Blindness of left eye, unspecified right eye visual impairment category Social History Tobacco Use Types Packs/Day Years Used Date Smoking Tobacco: Former Cigarettes 0.5 17 1 971 - 1987 Smokeless Tobacco: Never Alcohol Use Standard Drinks/Week Comments Not Currently 0 (1 standard drink = 0.6 oz pur e alcohol) Child or Family Care Answer Date Record ed Do you have problems with on e of the following making it difficult for you to work, study, or receive health care? No 10/11/2024 Education Answer Date Recorded Are you interested in help w ith more adult education (for example, completing high school, GED, job training, learning the Irish language, technical skills, or developing parenting skills)? No 10/11/2024 Are you concerned about learning? Not on file 10/11/2024 No 10/11/2024 Yes 10/11/2024 Food Answer Date Recorded Within the past 6 months we worried whether our food would run out before we got money to buy more. Never True 10/11/2024 Within the past 6 months the food we bought just didn't last and we didn't have enough money to get more. Never True Residential Stability Answer Date Recor ded What is your housing situation today? I am stayi ng with others 10/11/2024 How many times have you move d in the past 12 months? One time 10/11/2024 Paying for Meds Answer Date Recorded Do you have trouble paying for medicines? No 10/11/2024 Paying Utility Bills Answer Date Record ed Do you have trouble paying your heating or elect ricity bill? No 10/11/2024 Transportation Answer Date Recorded Has the lack of transportati on kept you from medical appointments or from getting medications? Yes 10/11/2024 Digital Access Answer Date Recorded No 10/11/2024 Yes 10/11/2024 Do you have reliable internet access at home? Ye s 10/11/2024 Do you have a device (e.g., phone, tablet, computer) with a working camera? Yes 10/11/2024 Intimate Partner Violence Answer Date R ecorded Denied Basic Needs Not on file 10/11/2024 In the past 12 months have y ou been in a relationship with a person who hurts, threatens, or tries to control you? No 10/11/2024 Worried food would run out Not on file 10/11 In the past 12 months have y ou been in a relationship with a person who hurts, threatens, or tries to control you? No 10/11/2024 Sex and Gender Information Value Date Recorded Sex Assigned at Not on file Legal Sex Male 12:30 PM EDT Gender Identity Not on file Sexual Orientation Not on file Occupation Industry Job Start Date Job End Date retired since age of 32- blindness Not on file Not on file Not on file documented as of this encounter Last Filed Vital Signs Vital Sign Reading Time Taken Comments Blood Pressure 124/64 10/11/2024 11:51 AM EDT Pulse 89 10/11/2024 11:51 AM EDT Temperature 36.4 C (97.6 F) 10/11/2024 11:51 AM EDT Respiratory Rate - - Oxygen Saturation 97% 10/11/2024 11:51 AM EDT Inhaled Oxygen Concentration - - Weight 77.7 kg (171 lb 6.4 oz) 10/11/2024 11:51 AM EDT Height 170.2 cm (5' 7.01 ) 10/11/2024 11:51 AM E DT Body Mass Index 26.84 10/11/2024 11:51 AM EDT documented in this encounter Progress Notes * Clarence Goodman, DO - 10/11/2024 12:00 PM EDT HERMANN Jewell presents as a new patient to [place]. he was a previous patient of a PCP in [place]. He then saw a doc in [place] as well. He notes that he is blind. He notes that he gets around with his sister or niece. He lives with his sister. He notes that he needs a primary. He has not been on his oxy for 30 days. He takes the pain meds for back pain- severe and he has arthritis. He is not taking anything for pain right now. He tired gabapentin for pain- no help at all. The oxycodone works best for him. 10 mg 6 a day. He has been to pain management in the past. He has left shoulder pain, he will see a surgeon this Wednesday. He has high blood pressure. He takes meds for this. He has acid reflux- he takes pantoprazole for this. He takes cholesterol meds as well. I reviewed his adult health database form today. he has no other concerns today. Review of Systems Constitutional: Negative. Negative for chills, fever and unexpected weight change. HENT: Negative. Negative for changes in hearing. Eyes: Blind in both eyes. Respiratory: Negative. Negative for cough and shortness of breath. Cardiovascular: Negative. Negative for chest pain and palpitations. Gastrointestinal: Negative for abdominal pain, blood in stool, constipation and diarrhea. Genitourinary: Negative for problems with urination, blood in urine and erectile dysfunction. Neurological: Negative for dizziness, headaches and changes in memory. Psychiatric/Behavioral: Negative. Skin: Negative for persistent rash. Musculoskeletal: Positive for joint pain and back pain. Social History Social History Narrative Retired. He lives with his sister. He likes to draw and he cooks. Vitals: 10/11/24 1151 BP: 124/64 BP Location: Right arm Pulse: 89 Temp: 36.4 ??C (97.6 ??F) SpO2: 97% Weight: 77.7 kg (171 lb 6.4 oz) Height: 170.2 cm (5' 7.01 ) Physical Exam Constitutional: Appearance: Normal appearance. Comments: Male wearing sunglasses and present with a site impaired walking stick, present with his niece today. HENT: Head: Normocephalic. Eyes: Comments: Wearing sunglasses-blind in both eyes. Cardiovascular: Rate and Rhythm: Normal rate and regular rhythm. Pulses: Normal pulses. Heart sounds: Normal heart sounds. No murmur heard. No friction rub. No gallop. Pulmonary: Effort: Pulmonary effort is normal. Breath sounds: Normal breath sounds. No wheezing or rhonchi. Musculoskeletal: General: Tenderness (Of the lower lumbar spine to palpation-light palpation.) present. No swelling or signs of injury. Cervical back: Neck supple. Skin: General: Skin is warm. Neurological: Mental Status: He is alert. Psychiatric: Mood and Affect: Mood normal. Assessment and Plan Hypertension Jean has a history of hypertension he is taking lisinopril as well as triamterene-this is working well for him. His blood pressure is within normal limits and stable. I ordered labs today to be done prior to next [id number] in 2 months for CPE. He understands and agrees. Dyslipidemia Jean has a history of hyperlipidemia-currently not on any medication-I ordered labs to be done prior to next visit and I will update him with the result. He understands and agrees. Overweight Jean has a BMI of 26-he has lost weight recently and is undergoing intermittent fasting. Labs [id number] in 2 months for CPE. He understands and agrees. Backache Jean presents as a new patient to [facility]. I will review his previous medical records in detail once faxed over. I reviewed some of his labs today. He notes that he has chronic low back pain and was taking oxycodone-10 mg tablets up to 6 times a day. He has been without this medication for the past 30 days. He is requesting a refill but I advised him to follow-up with pain manage ment and to see a back specialist regarding his previous MRI of his lower lumbar spine roughly 2-1/2 years ago. I offered gabapentin and other nonopioid medications to help with pain but he declined all of these. He notes that he has tried all these medications in the past and oxycodone works the best. I informed him that I am not comfortable refilling oxycodone today and due to the fact that he has been 30 days without this medication there is no need to refill it urgently. I will see him backin 2 months for a follow-up visit. I informed him to call if there are any other issues or concerns. He understands and agrees. Encounter for abdominal aortic aneurysm (AAA) screening Jean is a male, over 65M with a history of smoking-I ordered an AAA ultrasound today and I will update him with the result. He is appreciative. Laboratory examination ordered as part of a routine general medical examination Jean is due for blood work-he will get this done and I will update him of the result. Need for hepatitis C screening test Jean is due for blood work-he will get this done and I will update him of the result. Need for prophylactic vaccination against Streptococcus pneumoniae (pneumococcus) Jean is due for a pneumonia vaccine-he was in agreement with getting this done today. This was given today in the office. No complications. He was appreciative. Screening for condition Jean is due for blood work-he will get this done and I will update him of the result. Screening for human immunodeficiency virus Jean is due for blood work-he will get this done and I will update him of the result. Screening for prostate cancer Jean is due for blood work-he will get this done and I will update him of the result. Blindness Blind in both eyes. Currently wearing sunglasses. No future appointments. Orders Placed This Encounter Procedures Hepatitis C antibody, qualitative Standing Status: Future Expected Date: 10/11/2024 Expiration Date: 10/11/2025 HIV-1/2 antigen/antibody Standing Status: Future Expected Date: 10/11/2024 Expiration Date: 10/11/2025 Person obtaining voluntary and knowing verbal consent from Patient/Guardian/Health Care Agent:: Obtained by PROVIDER SIGNING ORDER US Abdominal Aortic Screening Standing Status: Future Expected Date: 10/11/2024 Expiration Date: 01/10/2025 Please provide any additional clinical context for this exam (additional indications, different diagnoses, other relevant history):: male, 64, H/O smoking. Where should this procedure be performed?: [facility] Pneumococcal conjugate vaccine PCV20 Comprehensive metabolic panel Standing Status: Future Expected Date: 10/11/2024 Expiration Date: 10/11/2025 Lipid panel Standing Status: Future Expected Date: 10/11/2024 Expiration Date: 10/11/2025 CBC Standing Status: Future Expected Date: 10/11/2024 Expiration Date: 10/11/2025 PSA (screening) Standing Status: Future Expected Date: 10/11/2024 Expiration Date: 10/11/2025 Ambulatory referral to [facility] Referral Priority: Within 2 weeks Referral Type: Consultation Referral Location: [facility] Requested Specialty: Pain Medicine Number of Visits Requested: 1 Expiration Date: 10/11/2025 Ambulatory referral to External Neurology Referral Priority: Within 2 weeks Referral Type: Consultation Referred to Provider: Alexei Vargas MD Number of Visits Requested: 1 Expiration Date: 10/11/2025 Current Outpatient Medications Medication Sig Dispense Refill Last Dispense atorvastatin (LIPITOR) 20 MG tablet Take 20 mg by mouth daily. Unknown (patient-reported) lisinopril (PRINIVIL,ZESTRIL) 40 MG tablet Take 1 tablet by mouth every morning. Unknown (patient-reported) oxyCODONE HCl 10 mg Tab Take 10 mg by mouth every 3 (three) hours as needed. Unknown (patient-reported) pantoprazole (PROTONIX) 40 MG tablet Take 2 tablets by mouth every morning. Unknown (patient-reported) triamterene (DYRENIUM) 50 MG capsule Take 1 capsule by mouth every morning. Unknown (patient-reported) No current facility-administered medications for this visit. documented in this encounter Miscellaneous Notes * Assessment & Plan Note - Clarence Goodman DO - 10/11/2024 12:34 PM EDTAssociated Problem(s): Blindness Blind in both eyes. Currently wearing sunglasses. * Assessment & Plan Note - Clarence Goodman DO - 10/11/2024 12:34 PM EDTAssociated Problem(s): Screening for prostate cancer Jean is due for blood work-he will get this done and I will update him of the result. * Assessment & Plan Note - Clarence Goodman DO - 10/11/2024 12:34 PM EDTAssociated Problem(s): Screening for human immunodeficiency virus Jean is due for blood work-he will get this done and I will update him of the result. * Assessment & Plan Note - Clarence Goodman DO - 10/11/2024 12:34 PM EDTAssociated Problem(s): Screening for condition Jean is due for blood work-he will get this done and I will update him of the result. * Assessment & Plan Note - Clarence Goodman DO - 10/11/2024 12:34 PM EDTAssociated Problem(s): Need for prophylactic vaccination against Streptococcus pneumoniae (pneumococcus) Jean is due for a pneumonia vaccine-he was in agreement with getting this done today. This was given today in the office. No complications. He was appreciative. * Assessment & Plan Note - Clarence Goodman DO - 10/11/2024 12:33 PM EDTAssociated Problem(s): Need for hepatitis C screening test Jean is due for blood work-he will get this done and I will update him of the result. * Assessment & Plan Note - Clarence Goodman DO - 10/11/2024 12:33 PM EDTAssociated Problem(s): Laboratory examination ordered as part of a routine general medical examination Jean is due for blood work-he will get this done and I will update him of the result. * Assessment & Plan Note - Clarence Goodman DO - 10/11/2024 12:33 PM EDTAssociated Problem(s): Encounter for abdominal aortic aneurysm (AAA) screening Jean is a male, over 64M with a history of smoking-I ordered an AAA ultrasound today and I will update him with the result. He is appreciative. * Assessment & Plan Note - Clarence Goodman DO - 10/11/2024 12:33 PM EDTAssociated Problem(s): Backache Jean presents as a new patient to [facility]. I will review his previous medical records in detail once faxed over. I reviewed some of his labs today. He notes that he has chronic low back pain and was taking oxycodone-10 mg tablets up to 6 times a day. He has been without this medication for the past 30 days. He is requesting a refill but I advised him to follow-up with pain manage ment and to see a back specialist regarding his previous MRI of his lower lumbar spine roughly 2-1/2 years ago. I offered gabapentin and other nonopioid medications to help with pain but he declined all of these. He notes that he has tried all these medications in the past and oxycodone works the best. I informed him that I am not comfortable refilling oxycodone today and due to the fact that he has been 30 days without this medication there is no need to refill it urgently. I will see him backin 2 months for a follow-up visit. I informed him to call if there are any other issues or concerns. He understands and agrees. * Assessment & Plan Note - Clarence Goodman DO - 10/11/2024 12:31 PM EDTAssociated Problem(s): Overweight Jean has a BMI of 26-he has lost weight recently and is undergoing intermittent fasting. Labs [id number] in 2 months for CPE. He understands and agrees. * Assessment & Plan Note - Clarence Goodman DO - 10/11/2024 12:31 PM EDTAssociated Problem(s): Dyslipidemia Jean has a history of hyperlipidemia-currently not on any medication-I ordered labs to be done prior to next visit and I will update him with the result. He understands and agrees. * Assessment & Plan Note - Clarence Goodman DO - 10/11/2024 12:30 PM EDTAssociated Problem(s): Hypertension Jean has a history of hypertension he is taking lisinopril as well as triamterene-this is working well for him. His blood pressure is within normal limits and stable. I ordered labs today to be done prior to next [id number] in 2 months for CPE. He understands and agrees. documented in this encounter Plan of Treatment Upcoming Encounters Date Type Department Care Team (Late st Contact Info) Description 10/18/2024 8:15 AM EDT Appointment [address] [address] Clarence Goodman DO [address] [facility] [place] [address] [email or web address] Scheduled Orders Name Type Priority Associated Diagnoses Orde r Schedule Comprehensive metabolic panel Lab Routine Laboratory examination ordered as part of a routine general medical examination Expected: 10/11/2024, Expires: 10/11/2025 Lipid panel Lab Routine Laboratory examination ordered as part of a routine general medical examination Expected: 10/11/2024, Expires: 10/11/2025 CBC Lab Routine Laboratory examination ordered as part of a routine general medical examination Expected: 10/11/2024, Expires: 10/11/2025 PSA (screening) Lab Routine Screening for prostate cancer Expected: 10/11/2024, Expires: 10/11/2025 Hepatitis C antibody, qualitative Microbiology Routine Need for hepatitis C screening test Expected: 10/11/2024, Expires: 10/11/2025 HIV-1/2 antigen/antibody Microbiology Routine Screening for human immunodeficiency virus Expected: 10/11/2024, Expires: 10/11/2025 US Abdominal Aortic Screening Imaging Routine Encounter for abdominal aortic aneurysm (AAA) screening Expected: 10/11/2024, Expires: 01/10/2025 Scheduled Referrals Name Type Priority Associated Diagnoses Order Schedule Ambulatory referral to [facility] Outpatient Referral Routine Chronic midline low back pain without sciatica Ordered: 10/11/2024 Ambulatory referral to External Neurology Outpatient Referral Routine Chronic midline low back pain without sciatica Ordered: 10/11/2024 documented as of this encounter Visit Diagnoses Diagnosis Chronic midline low back pain without sciatica- Primary Primary hypertension Unspecified essential hypertension Dyslipidemia Other and unspecified hyperlipidemia Overweight Encounter for abdominal aortic aneurysm (AAA) screening Need for prophylactic vaccination against Streptococcus pneumoniae (pneumococcus) Need for prophylactic vaccination against streptococcus pneumoniae (pneumococcus) Screening for prostate cancer Special screening for malignant neoplasm of prostate Laboratory examination ordered as part of a routine general medical examination Screening for condition Screening for unspecified condition Need for hepatitis C screening test Special screening examination for other specified viral diseases Screening for human immunodeficiency virus Special screening examination for other specified viral diseases Blindness of left eye, unspecified right eye visual impairment category documented in this encounter Additional Health Concerns Assessment Noted Time PHQ-2 Depression Total Score: 0 10/12/19 25 12:21 PM EDT documented as of this encounter Care Teams Foreclosure Clerk Relationship Specialty Start Date End Date Rex Clarence YueDO [address] [place] [address], [address] [place] [address] [email or web address] PCP - General Family Medicine 10/11/24 documented as of this encounter Additional Source Comments The information contained in this document represents components of the legal health record. It is not the complete legal health record.[facility]
--- OUTSIDE RECORDS SUMMARY | 2024-10-13 06:45 | XMS_ITS | Encounter Summary ---
Author Organization [facility] Address [address] [place] [address] Care Team Providers Care Instructional Materials Director Name Role Phone Vania Larson MD Primary Care Provider [phone] Vania Larson MD Primary Care Provider [phone] Theresa Roberts MD Unavailable [phone] Reason for Visit * Reason Onset Date Comments Medications Refill 06/09/2023 Encounter Details Date Type Department Care Team (Late st Contact Info) Description 06/09/2023 Refill [facility] Primary Care [address] [address] Vania Larson MD [address] [facility] [address] [phone] Medications Refill Social History Tobacco Use Types Packs/Day Years [...] PHQ-2 Answer Date Recorded PHQ-2 SUBTOTAL 0 01/12/2023 Hunger Vital Sign Answer Date Recorded Within [...] place to sleep or slept in a retirement (including now)? No 01/12/2023 Interpersonal Safety Answer Date Record ed How often does anyone, inclmyesha isabel family, hit, punch or physically hurt you? Never 01/12/2023 How often does anyone, rejimyesha isabel family, insult, scream, curse or threaten to hurt you? Never 01/12/2023 Sex and Gender Information Value Date Recorded Sex Assigned at Male 08/19/2022 12:26 EDT Legal Sex Male 18:43 EST Gender Identity Male 06/23/2021 9:01 EDT Sexual Orientation Straight 08/19/2022 12 :26 EDT documented as of this encounter Functional Status * Are you deaf or do you have serious difficulty hearing? Answer Date of Assessment Author No 11/23/2022 14:50 Marlin Galindo RN * Are you blind or do you have serious difficulty seeing, even when wearing glasses? Answer Date of Assessment Author Yes 11/23/2022 14:50 Marlin Galindo RN * Do you have serious difficulty walking or climbing stairs? (5 years old or older) Answer Date of Assessment Author Yes 11/23/2022 14:50 Marlin Galindo RN * Do you have difficulty dressing or bathing? (5 years old or older) Answer Date of Assessment Author No 11/23/2022 14:50 EDT Marlin Lowry RN * Because of a physical, mental, or emotional condition, do you have difficulty doing errands alone such as visiting a doctor's office or shopping? (15 years old or older) Answer Date of Assessment Author Yes 11/23/2022 14:50 EDT Marlin Lowry RN documented as of this encounter Mental Status * Because of a physical, mental, or emotional condition, do you have serious difficulty concentrating, remembering, or making decisions? (5 years old or older) Answer Entry Date Author No 11/23/2022 14:50 EDT Marlin Lowry RN documented in this encounter Ordered Prescriptions Prescription Sig Dispense Quantity Refills Last Filled Start Date End Date oxyCODONE (ROXICODONE) 10 mg immediate release tablet Take 1 Tablet by mouth every 4 hours as needed for Pain. Daily Max: 60 mg 180 Tablet 06/09/2023 07/08/2023 documented in this encounter Miscellaneous Notes * Telephone Encounter - Alena Correa RN - 06/09/2023 1630 EDT This report was requested by: Alena Correa Reference #: [id number] last filled 05/13/23 OV utd Has appt 07/15/23 Last uds 04/13/23 CSA on file * Telephone Encounter - Amanda Buitrago - 06/09/2023 0849 EDT Patient called requesting refill of Oxycodone documented in this encounter Plan of Treatment Not on file documented as of this encounter Visit Diagnoses Not on filedocumented in this encounter Discontinued Medications Medication Sig Discontinue Reason Start Date End Da te oxyCODONE (ROXICODONE) 10 mg immediate release tablet Take 1 Tablet by mouth every 4 hours as needed for Pain. Daily Max: 60 mg Reorder 05/12/2023 06/09/2023 documented as of this encounter Care Teams Instructional Materials Director Relationship Specialty Start Date End Date Vania Larson MD [address] [facility] [address] [place] [address] PCP - General Family Medicine - Primary Care 12/25/21 06/15/23 Vania Larson MD [address] [facility] [address] [place] [address] PCP - General Family Medicine - Primary Care 06/16/23 08/30/24 Theresa Roberts MD [address] [place] [phone] Orthopaedic Surgery 01/18/24 08/30/24 documented as of this encounter
--- OUTSIDE RECORDS SUMMARY | 2024-10-13 06:45 | XMS_ITS | Encounter Summary ---
Author Organization [facility] Address [address] [place] [address] Care Team Providers Care Head Of Global Strategic Partnerships Name Role Phone Vania Larson MD Primary Care Provider [phone] Vania Larson MD Primary Care Provider [phone] Theresa Roberts MD Unavailable [phone] Reason for Visit * Reason Onset Date Comments Medications Refill 02/09/2023 Encounter Details Date Type Department Care Team (Late st Contact Info) Description 02/09/2023 Refill [facility] Primary Care [address] [address] Vania Larson MD [address] [facility] [address], [place] [phone] Medications Refill Social History Tobacco Use Types [...] place to sleep or slept in a residential (including now)? No 01/12/2023 Interpersonal Safety Answer [...] No 11/23/2022 14:50 Marlin Galindo RN * Because of a physical, mental, or emotional condition, do you have difficulty doing errands alone such as visiting a doctor's office or shopping? (15 years old or older) Answer Date of Assessment Author Yes 11/23/2022 14:50 Marlin Galindo RN documented as of this encounter Mental Status * Because of a physical, mental, or emotional condition, do you have serious difficulty concentrating, remembering, or making decisions? (5 years old or older) Answer Entry Date Author No 11/23/2022 14:50 Marlin Galindo RN documented in this encounter Ordered Prescriptions Prescription Sig Dispense Quantity Refills Last Filled Start Date End Date oxyCODONE (ROXICODONE) 10 mg immediate release tablet Take 1 Tablet by mouth every 4 hours as needed for Pain. Daily Max: 60 mg 180 Tablet 02/09/2023 03/12/2023 documented in this encounter Miscellaneous Notes * Telephone Encounter - Brenda Nowak LPN - 02/09/2023 1131 EST Handle Turner checked no concerns * Telephone Encounter - Amanda Buitrago - 02/09/2023 0908 EST Patient called requesting refill of Oxycodone. documented in this encounter Plan of Treatment Not on file documented as of this encounter Visit Diagnoses Not on filedocumented in this encounter Discontinued Medications Medication Sig Discontinue Reason Start Date End Da te oxyCODONE (ROXICODONE) 10 mg immediate release tablet Take 1 Tablet by mouth every 4 hours as needed for Pain. Daily Max: 60 mg Reorder 01/12/2023 02/09/2023 documented as of this encounter Care Teams Head Of Global Strategic Partnerships Relationship Specialty Start Date End Date Vania Larson MD [address] [facility] [address], [place] [address] PCP - General Family Medicine - Primary Care 12/25/21 06/15/23 Vania Larson MD [address] [facility] [address], [place] [address] PCP - General Family Medicine - Primary Care 06/16/23 08/30/24 Theresa Roberts MD [address] [place] [phone] Orthopaedic Surgery 01/18/24 08/30/24 documented as of this encounter
--- OUTSIDE RECORDS SUMMARY | 2024-10-13 06:45 | XMS_ITS | Encounter Summary ---
Author Organization [facility] Address [address] [place] [address] Care Team Providers Care Shop Repairer Name Role Phone Carlos Manuel Cardoso MD Primary Care Provide r Vania Larson MD Primary Care Provider Vania Larson MD Primary Care Provider Vania Larson MD Primary Care Provider Theresa Roberts MD Unavailable [phone] Reason for Visit * Reason Onset Date Comments Medications Refill 07/11/2021 Encounter Details Date Type Department Care Team (Late st Contact Info) Description 07/11/2021 Refill [facility] Primary Care [facility] [address] [facility] [place] [address] Vania Larson MD [address] [facility] [address] [place] [phone] Medications Refill Social History Tobacco Use Types Packs/Day Years Used Date Smoking Tobacco: Former Cigarettes 3 28 0 02/14/1967 - 02/14/1995 Smokeless Tobacco: Never Alcohol Use Standard Drinks/Week Comments Yes 1 (1 standard drink = 0.6 oz pur e alcohol) Sex and Gender Information Value Date Recorded Sex Assigned at Male 08/19/2022 12:26 EDT Legal Sex Male 18:43 EST Gender Identity Male 06/23/2021 9:01 EDT Sexual Orientation Straight 08/19/2022 12 :26 EDT COVID-19 Exposure Response Date Recorded In the last 10 days, have yo u been in contact with someone who was confirmed or suspected to have Coronavirus/COVID-19? No / Unsure 06/24/2021 8:00 EDT documented as of this encounter Ordered Prescriptions Prescription Sig Dispense Quantity Refills Last Filled Start Date End Date oxyCODONE (ROXICODONE) 10 mg immediate release tablet TAKE 1 TABLET BY MOUTH 6 TIMES A DAY. MAXIMUM DAILY DOSE IS 6 TABLETS 180 Tablet 07/14/2021 documented in this encounter Miscellaneous Notes * Telephone Encounter - Brenda Nowak LPN - 07/11/2021 0939 EDT dental services director checked no concerns documented in this encounter Plan of Treatment Not on file documented as of this encounter Visit Diagnoses Not on filedocumented in this encounter Discontinued Medications Medication Sig Discontinue Reason Start Date End Da te oxyCODONE (ROXICODONE) 10 mg immediate release tablet TAKE 1 TABLET BY MOUTH 6 TIMES A DAY. MAXIMUM DAILY DOSE IS 6 TABLETS Reorder 06/12/2021 07/11/2021 documented as of this encounter Care Teams Shop Repairer Relationship Specialty Start Date End Date Carlos Manuel Cardoso MD [address] [place] [address] PCP - General 01/18/12 08/31/21 Vania Larson MD [address] [place] [address], [place] [address] PCP - General Family Medicine - Primary Care 09/01/21 11/12/21 Vania Larson MD [address] [place] [address] [place] [address] PCP - General Family Medicine - Primary Care 12/25/21 06/15/23 Vania Larson MD [address] [address] PCP - General Family Medicine - Primary Care 06/16/23 08/30/24 Theresa Roberts MD [address] [place] [phone] Orthopaedic Surgery 01/18/24 08/30/24 documented as of this encounter
--- OUTSIDE RECORDS SUMMARY | 2024-10-13 06:45 | XMS_ITS | Encounter Summary ---
Author Organization [facility] Address [address] [place] [address] Care Team Providers Care Special Education Associate Name Role Phone Vania Larson MD Primary Care Provider [phone] Theresa Roberts MD Unavailable [phone] Reason for Visit * Reason Onset Date Comments Medications Refill 07/08/2023 Encounter Details Date Type Department Care Team (Late st Contact Info) Description 07/08/2023 Refill [facility] Primary Care [address] [phone] Vania Larson MD [address] [facility] [address], [place] [phone] Medications Refill Social History Tobacco Use Types [...] place to sleep or slept in a intermediate (including now)? No 01/12/2023 Interpersonal Safety Answer Date Record ed How often does anyone, bj isabel family, hit, punch or physically hurt [...] 11/23/2022 14:50 EDT Marlin Lowry RN * Are you blind or do you have serious difficulty seeing, even when wearing glasses? Answer Date of Assessment Author Yes 11/23/2022 14:50 Marlin Galindo RN * Do you have serious difficulty walking or climbing stairs? (5 years old or older) Answer Date of Assessment Author Yes 11/23/2022 14:50 EDT Marlin Lowry RN * Do you have difficulty dressing [...] Date oxyCODONE (ROXICODONE) 10 mg immediate release tabletIndications: Low back pain with sciatica, sciatica laterality unspecified, unspecified back pain laterality, unspecified chronicity Take 1 Tablet by mouth every 4 hours as needed for Pain. Daily Max: 60 mg 180 Tablet 07/08/2023 07/29/2023 documented in this encounter Miscellaneous Notes * Telephone Encounter - Alena Correa RN - 07/08/2023 0933 EDT This report was requested by: Alena Correa Reference #: [id number] Oxycodone last filled 06/11/23 #180 for a 30 day Last pain visit was 06/28/23 Next visit is 07/15/23 Last UDS 04/13/23, pos for oxycodone and MJ CSA on file from 04/13/23 * Telephone Encounter - Amanda Buitrago - 07/08/2023 0848 EDT Patient called requesting refill of Oxycodone documented in this encounter Plan of Treatment Not on file documented as of this encounter Visit Diagnoses Diagnosis Low back pain with sciatica, sciatica laterality unspecified, unspecified back pain laterality, unspecified chronicity- Primary documented in this encounter Discontinued Medications Medication Sig Discontinue Reason Start Date End Da te oxyCODONE (ROXICODONE) 10 mg immediate release tablet Take 1 Tablet by mouth every 4 hours as needed for Pain. Daily Max: 60 mg Reorder 06/09/2023 07/08/2023 documented as of this encounter Care Teams Special Education Associate Relationship Specialty Start Date End Date Vania Larson MD [address] [facility] [address], [place] [address] PCP - General Family Medicine - Primary Care 06/16/23 08/30/24 Theresa Roberts MD [address] [phone] Orthopaedic Surgery 01/18/24 08/30/24 documented as of this encounter
--- OUTSIDE RECORDS SUMMARY | 2024-10-13 06:45 | XMS_ITS | Encounter Summary ---
Author Organization [facility] Address [address] [facility] [address] [place] [address] Phone Care Team Providers Care Skate Hop Name Role Phone Kvng Brown MD Primary Care Provider [phone] Clarence Goodman DO Primary Care Provider [phone] Reason for Visit * Reason Onset Date Yudy Bridge appt 09/14/2024 Encounter Details Date Type Department Care Team (Late st Contact Info) Description 09/14/2024 Telephone [facility] [address] [place] [address] Unknown, Unknown, MD Marlow appt Social History Tobacco Use Types Packs/Day Years Used Date Smoking Tobacco: Never Assessed Child or Family Care Answer Date Record ed Do you have problems with on e of the following making it difficult for you to work, study, or receive health care? No 10/11/2024 Education Answer Date Recorded Are you interested in help w ith more adult education (for example, completing high school, GED, job training, learning the [place] language, technical skills, or developing parenting skills)? [...] on file Sexual Orientation Not on file documented as of this encounter Progress Notes * Addis Milton RN - 10/11/2024 11:17 AM EDT Patient is coming in today. * Christiana Leonardo - 10/11/2024 8:45 AM EDT Pt called back today stating concern about his appointment being switched and wants to make sure that he is fine with today's appointment with .Please contact and advise pt prior to this appointment at noon as pt is blind so needs call. Central Support Video Manager (Please do not reply to this user; this inbox is not monitored.) Thank you. * Clarence Goodman DO - 09/14/2024 2:38 PM EDT Have the patient follow-up with his current PCP on record regarding this. Thank you. To the ED if there are any other issues or concerns. * Mary Lou Olsen LPN - 09/14/2024 2:11 PM EDT How should we proceed with this request? Thanks * Maria Isabel Cross - 09/14/2024 1:24 PM EDT Pt called in stated he was just seen in [facility] ED pt is in withdrawal from Oxycodone. Pt stated that he is on 80 MG of this pt stated he has been on this medication 15-17 Years. Pt stated former refused to continue any further medication Central Support Video Manager (Please do not reply to this user; this inbox is not monitored.) Thank you. documented in this encounter Plan of Treatment Upcoming Encounters Date Type Department Care Team (Late st Contact Info) Description 10/18/2024 8:15 AM EDT Appointment [facility] [address] [place] [address] Clarence Goodman DO [address] [facility], [address] [place] [address] [email or web address] documented as of this encounter Visit Diagnoses Not on filedocumented in this encounter Care Teams Skate Hop Relationship Specialty Start Date End Date Kvng Brown MD [address] [place] [address] Dr RuddILDIA NUNEZ [address] PCP - General Internal Medicine 09/11/24 10/10/24 Clarence Goodman DO [address] [place] [address], [address] [place] [address] [email or web address] PCP - General Family Medicine 10/11/24 documented as of this encounter Additional Source Comments The information contained in this document represents components of the legal health record. It is not the complete legal health record.[facility]
--- OUTSIDE RECORDS SUMMARY | 2024-10-13 06:45 | XMS_ITS | Clinical Summary ---
Author Organization [facility] Address [address] [address] Phone Care Team Providers Care Shuttle Preparation Supervisor Name Role Phone Clarence Goodman DO Primary Care Provider [phone] Allergies Active Allergy Reactions Criticality Noted Date Comments Bee Venom Protein (Honey Bee) Anaphylaxis High 09/14/2024 Corticosteroids (Glucocorticoids) 01/25/2018 Swelling and discoloration Nsaids (Non-Steroidal Anti-Inflammatory Drug) 11/23/2022 [id number] blood pressure Medications atorvastatin (LIPITOR) 20 MG tablet Take 20 mg by mouth daily. 09/13/2024 Active lisinopril (PRINIVIL,ZESTR IL) 40 MG tablet Take 1 tablet by mouth every morning. 08/06/2024 Active oxyCODONE HCl 10 mg Tab Take 10 mg by mouth every 3 (three) hours as needed. 08/10/2024 Active pantoprazole (PROTONIX) 40 MG tablet Take 2 tablets by mouth every morning. 08/13/2024 Active triamterene (DYRENIUM) 50 MG capsule Take 1 capsule by mouth every morning. 09/10/2024 Active Active Problems Problem Noted Date Diagnosed Date Need for hepatitis C screening test 10/11/2024 Assessment & Plan (10/11/2024 12:33 PM EDT): Jean is due for blood work-he will get this done and I will update him of the result. Screening for human immunodeficiency virus 10/11 Assessment & Plan (10/11/2024 12:34 PM EDT): Jean is due for blood work-he will get this done and I will update him of the result. Screening for prostate cancer 10/11/2024 Assessment & Plan (10/11/2024 12:34 PM EDT): Jean is due for blood work-he will get this done and I will update him of the result. Laboratory examination order ed as part of a routine general medical examination 10/11/2024 Assessment & Plan (10/11/2024 12:33 PM EDT): Jean is due for blood work-he will get this done and I will update him of the result. Need for prophylactic vaccin ation against Streptococcus pneumoniae (pneumococcus) 10/11/2024 Assessment & Plan (10/11/2024 12:34 PM EDT): Jean is due for a pneumonia vaccine-he was in agreement with getting this done today. This was given today in the office. No complications. He was appreciative. Screening for condition 10/11/2024 Assessment & Plan (10/11/2024 12:34 PM EDT): Jean is due for blood work-he will get this done and I will update him of the result. Encounter for abdominal aortic aneurysm (AAA) sc reening 10/11/2024 Assessment & Plan (10/11/2024 12:33 PM EDT): Jean is a male, over 65M with a history of smoking-I ordered an AAA ultrasound today and I will update him with the result. He is appreciative. Chronic left shoulder pain 10/26/2023 Pain of left hand 09/16/2023 Hyperglycemia 01/12/2023 Renal insufficiency 01/12/2023 Lumbar radiculopathy 08/19/2022 Prediabetes 08/19/2022 Dyslipidemia 12/26/2021 Assessment & Plan (10/11/2024 12:31 PM EDT): Jean has a history of hyperlipidemia-currently not on any medication-I ordered labs to be done prior to next visit and I will update him with the result. He understands and agrees. 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 Hypertension 06/03/2017 Assessment & Plan (10/11/2024 12:30 PM EDT): Jean has a history of hypertension he is taking lisinopril as well as triamterene-this is working well for him. His blood pressure is within normal limits and stable. I ordered labs today to be done prior to next [id number] in 2 months for CPE. He understands and agrees. Overweight 06/03/2017 Assessment & Plan (10/11/2024 12:31 PM EDT): Jean has a BMI of 26-he has lost weight recently and is undergoing intermittent fasting. Labs [id number] in 2 months for CPE. He understands and agrees. Glaucoma 06/12/2013 Backache 02/15/2012 Assessment & Plan (10/11/2024 12:33 PM EDT): Jean presents as a new patient to [facility]. I will review his previous medical records [...] I advised him to follow-up with pain management and to see a back specialist regarding [...] refill it urgently. I will see him back in 2 months for a follow-up visit. I informed him to call if there are any other issues or concerns. He understands and agrees. Gastroesophageal reflux disease 07/12/2008 Encounters Date Type Department Care Team Description 10/11/2024 12:00 PM EDT Office Visit [facility] [address] [place] [address] Clarence Goodman DO Chronic midline low back pain without sciatica [...] eye, unspecified right eye visual impairment category 09/14/2024 Telephone [facility] [address] [place] [address] Unknown, Unknown, MD Bridge appt 09/11/2024 Nurse Triage [facility] [address] [place] [address] Kerry Tadeo MD Triage (Red+withdrawl); Shaking from Last 3 Months Immunizations Immunization Administration Dates Next Due Pneumococcal conjugate PCV20 10/11/2024 Social History Tobacco Use Types Packs/Day Years [...] high school, GED, job training, learning the [place] language, technical skills, or developing parenting skills)? [...] file Not on file Not on file Last Filed Vital Signs Vital Sign Reading [...] Mass Index 26.84 10/11/2024 11:51 AM EDT Plan of Treatment Upcoming Encounters Date Type Department Care Team (Late st Contact Info) Description 10/18/2024 8:15 AM EDT Appointment [address] [address] Clarence Goodman, DO [address] [facility], [address] [place] [address] [email or web address] Health Maintenance Due Date Last Done Comments Adult Td,Tdap Booster 1959 CREATININE LEVEL 1959 LIPID PANEL 1959 POTASSIUM LEVEL 1959 HEPATITIS C SCREENING 07/06/1977 HIV ONE-TIME SCREENING (18-6 5 YEARS) 07/06/1977 COLOGUARD 07/06/2004 COLONOSCOPY 07/06/2004 FIT TEST 07/06/2004 FOBT 07/06/2004 SIGMOIDOSCOPY 07/06/2004 VIRTUAL COLONOSCOPY 07/06/2004 ZOSTER VACCINES (1 of 2) 07/06/2009 ABDOMINAL AORTIC ANEURYSM (A AA) SCREENING 07/06/2024 INFLUENZA VACCINE (#1) 2024 BLOOD PRESSURE 04/10/2025 10/11/2024 COLORECTAL CANCER SCREENING 10/09/2025 Postponed from 07/06/2004 (Patient Declines / Guardian Declines) COVID-19 VACCINE (2023-2 5 season) 2025 Postponed from 10/09 (Patient Declines / Guardian Declines) DEPRESSION SCREENING 10/11/2025 10/11/2024 SCREENING FOR DIABETES 09/15/2026 09/16/2023 RSV VACCINE (1 - 1-dose 75+ series) 07/06/2034 PNEUMOCOCCAL VACCINES (50+ years) Completed 025 SMOKING STATUS SCREENING (On ce After 26 Yrs) Completed 10/11/2024 HEPATITIS A VACCINES Aged Out No long er eligible based on patient's age to complete this topic HIB VACCINES Aged Out No longer eligi ble based on patient's age to complete this topic MENINGOCOCCAL VACCINES (ACWY) Aged Out No longer eligible based on patient's age to complete this topic MENINGOCOCCAL VACCINES (B) Aged Out N o longer eligible based on patient's age to complete this topic Medical Devices Not on file Insurance [facility] MEDICARE REPLACEMENT Member Subscriber Plan / Payer (Ef fective 2024-Present) Name:Jean Jewell Relation to Subscriber:Self Name:Jean Jewell Payer ID:[id number] (NAIC) Group ID:Not on file Type:Medicare Address: [place] [phone] MEDICARE PART A & B [facility] MEDICARE REPLACEMENT MEDICARE PART A & B [facility] MEDICARE REPLACEMENT MEDICARE PART A & B [facility] MEDICARE REPLACEMENT MEDICARE PART A & B [facility] MEDICARE REPLACEMENT MEDICARE PART A & B [facility] MEDICARE REPLACEMENT MEDICARE PART A & B Care Teams Shuttle Preparation Supervisor Relationship Specialty Start Date End Date Clarence Goodman DO [address] [place] [address] [address] [place] [address] [email or web address] PCP - General Family Medicine 10/11/24 Additional Source Comments The information contained in this document represents components of the legal health record. It is not the complete legal health record.[facility]
--- OUTSIDE RECORDS SUMMARY | 2024-10-13 06:45 | XMS_ITS | Encounter Summary ---
Author Organization [facility] Address [address] [place] [address] Care Team Providers Care Academic Assistant Name Role Phone Vania Larson MD Primary Care Provider [phone] Vania Larson MD Primary Care Provider [phone] Theresa Roberts MD Unavailable [phone] Reason for Visit * Reason Onset Date Comments Medications Refill 03/12/2023 Encounter Details Date Type Department Care Team (Late st Contact Info) Description 03/12/2023 Refill [facility] Primary Care - [place] [address] [place], [place] [phone] Vania Larson MD [address] [facility] [address] [place] [phone] Medications Refill Social History Tobacco Use Types [...] Date Record ed How often does anyone, rejimyesha isabel family, hit, punch or physically hurt [...] Pain. Daily Max: 60 mg 180 Tablet 03/12/2023 04/13/2023 documented in this encounter Miscellaneous Notes * Telephone Encounter - Barbra Fritz LPN - 03/12/2023 1039 EST Last Office Visit: 01/12/2023 Last Urine Drug Screen: not collected Prescription Agreement: 08/19/2022 Next Office Visit: 04/13/2023 TAIL BOARD WORKER checked no concerns noted This report was requested by: Barbra Fritz Reference #: [id number] * Telephone Encounter - Misty Bacon - 03/12/2023 0903 EST Oxycodone jonatan documented in this encounter Plan of Treatment Not on file documented as of this encounter Visit Diagnoses Not on filedocumented in this encounter Discontinued Medications Medication Sig Discontinue Reason Start Date End Da te oxyCODONE (ROXICODONE) 10 mg immediate release tablet Take 1 Tablet by mouth every 4 hours as needed for Pain. Daily Max: 60 mg Reorder 02/09/2023 03/12/2023 documented as of this encounter Care Teams Academic Assistant Relationship Specialty Start Date End Date Vania Larson MD [address] [facility] [address] [place] [address] PCP - General Family Medicine - Primary Care 12/25/21 06/15/23 Vania Larson MD [address] [facility] [address] [place] [address] PCP - General Family Medicine - Primary Care 06/16/23 08/30/24 Theresa Roberts MD [address] [place] [phone] Orthopaedic Surgery 01/18/24 08/30/24 documented as of this encounter
--- OUTSIDE RECORDS SUMMARY | 2024-10-13 06:45 | XMS_ITS | Encounter Summary ---
Author Organization [facility] Address [address] [place] [address] Care Team Providers Care Machine Fur Cleaner Name Role Phone Vania Larson MD Primary Care Provider [phone] Vania Larson MD Primary Care Provider [phone] Theresa Roberts MD Unavailable [phone] Reason for Visit * Reason Onset Date Comments Medication Questions 04/10/2022 Encounter Details Date Type Department Care Team (Late st Contact Info) Description 04/10/2022 Telephone [facility] Primary Care - [address] [place] [address] Jil Beard Medication Questions Social History Tobacco Use Types Packs/Day Years Used Date Smoking Tobacco: Former Cigarettes 3 28 0 02/14/1967 - 02/14/1995 Smokeless Tobacco: Never Alcohol Use Standard Drinks/Week Comments Yes 1 (1 standard drink = 0.6 oz pur e alcohol) PHQ-2 Answer Date Recorded PHQ-2 SUBTOTAL 0 04/08/2022 Sex and Gender Information Value Date Recorded Sex Assigned at Male 08/19/2022 12:26 EDT Legal Sex Male 18:43 EST Gender Identity Male 06/23/2021 9:01 EDT Sexual Orientation Straight 08/19/2022 12 :26 EDT COVID-19 Exposure Response Date Recorded In the last 10 days, have yo u been in contact with someone who was confirmed or suspected to have Coronavirus/COVID-19? No / Unsure 04/08/2022 10:13 EST documented as of this encounter Functional Status * Are you deaf or do you have serious difficulty hearing? Answer Date of Assessment Author No 08/30/2021 7:06 Khoi Price RN * Is this person blind or does he/she have serious difficulty seeing even when wearing glasses? Answer Date of Assessment Author Yes 04/08/2022 10:13 EST * Because of a physical, mental, or emotional condition, does this person have difficulty doing errands alone such as visiting a doctor's office or shopping? Answer Date of Assessment Author No 04/08/2022 10:13 EST documented as of this encounter Mental Status * Because of a physical, mental, or emotional condition, does this person have serious difficulty concentrating, remembering, or making decisions? Answer Entry Date Author No 04/08/2022 10:13 EST documented in this encounter Miscellaneous Notes * Telephone Encounter - Brenda Nowak LPN - 04/16/2022 1357 EST Pt aware * Telephone Encounter - Jil Beard - 04/10/2022 0831 EST Pt's insurance does not cover Lidocaine patches that were prescribed. Is there something else that could be prescribed for pt? [facility] [place] documented in this encounter Plan of Treatment Not on file documented as of this encounter Visit Diagnoses Not on filedocumented in this encounter Care Teams Machine Fur Cleaner Relationship Specialty Start Date End Date Vania Larson MD [address] [facility] [address] [address] PCP - General Family Medicine - Primary Care 12/25/21 06/15/23 Vania Larson MD [address] [facility] [address] [place] [address] PCP - General Family Medicine - Primary Care 06/16/23 08/30/24 Theresa Roberts MD [address] [place] [phone] Orthopaedic Surgery 01/18/24 08/30/24 documented as of this encounter
--- OUTSIDE RECORDS SUMMARY | 2024-10-13 06:45 | XMS_ITS | Encounter Summary ---
Author Organization [facility] Address [address] [place] [address] Care Team Providers Care Grinding And Polishing Laborer Name Role Phone Vania Larson MD Primary Care Provider [phone] Vania Larson MD Primary Care Provider Theresa Roberts MD Unavailable [phone] Reason for Visit * Reason Onset Date Comments Medications Refill 03/17/2022 Encounter Details Date Type Department Care Team (Late st Contact Info) Description 03/17/[address] [facility] Primary Care - [place] [address] [place] [address] Vania Larson MD [address] [facility] [address] [place] [phone] Medications Refill Social History Tobacco Use Types Packs/Day Years Used Date Smoking Tobacco: Former Cigarettes 3 28 0 02/14/1967 - 02/14/1995 Smokeless Tobacco: Never Alcohol Use Standard Drinks/Week Comments Yes 1 (1 standard drink = 0.6 oz pur e alcohol) PHQ-2 Answer Date Recorded PHQ-2 SUBTOTAL 0 09/24/2021 Sex and Gender Information Value Date Recorded Sex Assigned at Male 08/19/2022 12:26 EDT Legal Sex Male 18:43 EST Gender Identity Male 06/23/2021 9:01 EDT Sexual Orientation Straight 08/19/2022 12 :26 EDT documented as of this encounter Functional Status * Are you deaf or do you have serious difficulty hearing? Answer Date of Assessment Author No 08/30/2021 7:06 DANIELT Khoi Lopez, RN documented as of this encounter Plan of Treatment Not on file documented as of this encounter Visit Diagnoses Not on filedocumented in this encounter Care Teams Grinding And Polishing Laborer Relationship Specialty Start Date End Date Vania Larson MD [address] [facility] [address] [place] [address] PCP - General Family Medicine - Primary Care 12/25/21 06/15/23 Vania Larson MD [address] [facility] [address] [place] [address] PCP - General Family Medicine - Primary Care 06/16/23 08/30/24 Theresa Roberts MD [address] [place] [phone] Orthopaedic Surgery 01/18/24 08/30/24 documented as of this encounter
--- OUTSIDE RECORDS SUMMARY | 2024-10-13 06:45 | XMS_ITS | Encounter Summary ---
Author Organization [facility] Address [address] [place] [address] Care Team Providers Care Edge Bander Hand Name Role Phone Vania Larson MD Primary Care Provider [phone] Vania Larson MD Primary Care Provider [phone] Theresa Roberts MD Unavailable [phone] Reason for Visit * Reason Onset Date Comments Medications Refill 05/12/2023 Encounter Details Date Type Department Care Team (Late st Contact Info) Description 05/12/2023 Refill [facility] Primary Care [address] [address] Vania Larson MD [address] [facility] [address], [place] [phone] Medications Refill Social History Tobacco Use Types [...] place to sleep or slept in a [place] health care facility (including now)? No 01/12/2023 Interpersonal Safety Answer [...] Pain. Daily Max: 60 mg 180 Tablet 05/12/2023 06/09/2023 documented in this encounter Miscellaneous Notes * Telephone Encounter - Roberto Max MA - 05/12/2023 1309 EDT This report was requested by: Roberto Middleton Reference #: [id number] [facility] database for controlled substances checked. No concerns noted. This report was requested by: ROBERTO MAX MA Reference #: Last Fill:04/14/2023 Last Office Visit: 04/13/2023 Next Office Visit: 07/15/2023 Last Urine Drug Screen:04/13/2023 Prescription Agreement:04/13/2023 * Telephone Encounter - Amanda Buitrago - 05/12/2023 0923 EDT Patient called requesting refill of Oxycodone to be sent to [facility] in [place] documented in this encounter Plan of Treatment Not on file documented as of this encounter Visit Diagnoses Not on filedocumented in this encounter Discontinued Medications Medication Sig Discontinue Reason Start Date End Da te oxyCODONE (ROXICODONE) 10 mg immediate release tablet Take 1 Tablet by mouth every 4 hours as needed for Pain. Daily Max: 60 mg Reorder 04/13/2023 05/12/2023 documented as of this encounter Care Teams Edge Bander Hand Relationship Specialty Start Date End Date Vania Larson MD [address] [facility] [address] [place] [address] PCP - General Family Medicine - Primary Care 12/25/21 06/15/23 Vania Larson MD [address] [address] PCP - General Family Medicine - Primary Care 06/16/23 08/30/24 Theresa Roberts MD [address] [place] [phone] Orthopaedic Surgery 01/18/24 08/30/24 documented as of this encounter
--- OUTSIDE RECORDS SUMMARY | 2024-10-13 06:45 | XMS_ITS | Encounter Summary ---
Author Organization [facility] Address [address] [place] [address] Care Team Providers Care Elderly Companion Name Role Phone Vania Larson MD Primary Care Provider [phone] Vania Larson MD Primary Care Provider [phone] Theresa Roberts MD Unavailable [phone] Reason for Visit * Reason Onset Date Comments Other 05/04/2022 Pt called he is very upset- His mother just . Just wanted to let you be aware. Encounter Details Date Type Department Care Team (Late st Contact Info) Description 05/04/2022 Telephone [facility] Primary Care - [place] [address] [facility] [place] [address] Vania Larson MD [address] [facility] [address] [place] [phone] Other (Pt called he is very upset- His mother just . Just wanted to let you be aware. ) Social History Tobacco Use Types Packs/Day Years [...] Date of Assessment Author No 08/30/2021 7:06 EDT Khoi Lopez RN * Is this person blind or [...] 04/08/2022 10:13 EST documented in this encounter Plan of Treatment Not on file documented as of this encounter Visit Diagnoses Not on filedocumented in this encounter Care Teams Elderly Companion Relationship Specialty Start Date End Date Vania Larson MD [address] [facility] [address] [place] [address] PCP - General Family Medicine - Primary Care 12/25/21 06/15/23 Vania Larson MD [address] [facility] [address] [place] [address] PCP - General Family Medicine - Primary Care 06/16/23 08/30/24 Theresa Roberts MD [address] [facility] [address] [place] [phone] Orthopaedic Surgery 01/18/24 08/30/24 documented as of this encounter
--- OUTSIDE RECORDS SUMMARY | 2024-10-13 06:45 | XMS_ITS | Encounter Summary ---
Author Organization [facility] Address [address] [place] [address] Care Team Providers Care Duplicating Machine Operator Name Role Phone Vania Larson MD Primary Care Provider [phone] Theresa Roberts MD Unavailable [phone] Reason for Visit * Reason Onset Date Comments Medications Refill 07/29/2023 Encounter Details Date Type Department Care Team (Late st Contact Info) Description 07/29/[address] [facility] Primary Care [address] [phone] Vania Larson MD [address] [facility] [address], [place] [phone] Medications Refill Social History Tobacco Use Types [...] place to sleep or slept in a halfway (including now)? No 01/12/2023 Interpersonal Safety Answer [...] Pain. Daily Max: 60 mg 180 Tablet 07/29/2023 08/27/2023 documented in this encounter Miscellaneous Notes * Telephone Encounter - Alena Correa RN - 07/29/2023 1037 EDT This report was requested by: Alena Correa Reference #: [id number] oxycodone last filled 07/09/23 # 150 for a 25 day Last OV 07/15/23 Next OV 09/16/23 Last UDS pos for oxycodone, [facility]J CSA on file from 07/15/23 * Telephone Encounter - Amanda Buitrago - 07/29/2023 0924 EDT Patient called requesting refill of Oxycodone documented in this encounter Plan of Treatment Not on file documented as of this encounter Visit Diagnoses Diagnosis Low back pain with sciatica, sciatica laterality unspecified, unspecified back pain laterality, unspecified chronicity documented in this encounter Discontinued Medications Medication Sig Discontinue Reason Start Date End Da te oxyCODONE (ROXICODONE) 10 mg immediate release tabletIndications:Low back pain with sciatica, sciatica laterality unspecified, unspecified back pain laterality, unspecified chronicity Take 1 Tablet by mouth every 4 hours as needed for Pain. Daily Max: 60 mg Reorder 07/08/2023 07/29/2023 documented as of this encounter Care Teams Duplicating Machine Operator Relationship Specialty Start Date End Date Vania Larson MD [address] [facility] [address], [place] [address] PCP - General Family Medicine - Primary Care 06/16/23 08/30/24 Theresa Roberts MD [address] [place] [phone] Orthopaedic Surgery 01/18/24 08/30/24 documented as of this encounter
--- OUTSIDE RECORDS SUMMARY | 2024-10-13 06:45 | XMS_ITS | Encounter Summary ---
Author Organization [facility] Address [address] [place] [address] Care Team Providers Care Com Writer Name Role Phone Carlos Manuel Cardoso MD Primary Care Provide r Vania Larson MD Primary Care Provider Vania Larson MD Primary Care Provider Vania Larson MD Primary Care Provider Theresa Roberts MD Unavailable [phone] Reason for Visit * Reason Comments Other Encounter Details Date Type Department Care Team (Late st Contact Info) Description 08/07/2021 [facility] - [place] [address] [facility] [place] [address] Vania Larson MD [address] [facility] [address] [place] [phone] Other Social History Tobacco Use Types Packs/Day Years [...] :26 EDT documented as of this encounter Ordered Prescriptions Prescription Sig Dispense Quantity Refills Last Filled Start Date End Date pantoprazole (PROTONIX) 40 mg tablet TAKE 2 TABLETS BY MOUTH EVERY DAY 180 Tablet 2 08/08/2021 2 documented in this encounter Plan of Treatment Not on file documented as of this encounter Visit Diagnoses Not on filedocumented in this encounter Discontinued Medications Medication Sig Discontinue Reason Start Date End Da te pantoprazole (PROTONIX) 40 mg tablet Take 80 mg by mouth daily. 05/09/2021 08/07/2021 documented as of this encounter Care Teams Com Writer Relationship Specialty Start Date End Date Carlos Manuel Cardoso MD [address] [place] [address] PCP - General 01/18/12 08/31/21 Vania Larson MD [address] [address] PCP - General Family Medicine - Primary Care 09/01/21 11/12/21 Vania Larson MD [address] [address] PCP - General Family Medicine - Primary Care 12/25/21 06/15/23 Vania Larson MD [address] [address] PCP - General Family Medicine - Primary Care 06/16/23 08/30/24 Theresa Roberts MD [address] [place] [phone] Orthopaedic Surgery 01/18/24 08/30/24 documented as of this encounter
--- OUTSIDE RECORDS SUMMARY | 2024-10-13 06:45 | XMS_ITS | Encounter Summary ---
Author Organization [facility] Address [address] [place] [address] Care Team Providers Care Office Machine Installer Name Role Phone Carlos Manuel Cardoso MD Primary Care Provide r Vania Larson MD Primary Care Provider Vania Larson MD Primary Care Provider Vania Larson MD Primary Care Provider Theresa Roberts MD Unavailable [phone] Reason for Visit * Reason Onset Date Comments Medications Refill 08/08/2021 Encounter Details Date Type Department Care Team (Late st Contact Info) Description 08/08/2021 Refill [facility] Primary Care [facility] [address] [facility] [place] [address] Vania Larson MD [address] [facility] [address] [place] [phone] Medications Refill Social History Tobacco Use Types [...] DAILY DOSE IS 6 TABLETS 180 Tablet 08/09/2021 documented in this encounter Plan of Treatment Not on file documented as of this encounter Visit Diagnoses Not on filedocumented in this encounter Discontinued Medications Medication Sig Discontinue Reason Start Date End Da te oxyCODONE (ROXICODONE) 10 mg immediate release tablet TAKE 1 TABLET BY MOUTH 6 TIMES A DAY. MAXIMUM DAILY DOSE IS 6 TABLETS Reorder 07/14/2021 08/08/2021 documented as of this encounter Care Teams Office Machine Installer Relationship Specialty Start Date End Date Carlos Manuel Cardoso MD [address] [place] [address] PCP - General 01/18/12 08/31/21 Vania Larson MD [address] [facility] [address] [place] [address] PCP - General Family Medicine - Primary Care 09/01/21 11/12/21 Vania Larson MD [address] [facility] [address] [place] [address] PCP - General Family Medicine - Primary Care 12/25/21 06/15/23 Vania Larson MD [address] [facility] [address] [place] [address] PCP - General Family Medicine - Primary Care 06/16/23 08/30/24 Theresa Roberts MD [address] [place] [phone] Orthopaedic Surgery 01/18/24 08/30/24 documented as of this encounter
--- OUTSIDE RECORDS SUMMARY | 2024-10-13 06:46 | XMS_ITS | Encounter Summary ---
Author Organization [facility] Address [address] [place] [address] Care Team Providers Care Naturalist Name Role Phone Vania Larson MD Primary Care Provider [phone] Theresa Roberts MD Unavailable [phone] Reason for Visit * Reason Comments Medications Refill Encounter Details Date Type Department Care Team (Late st Contact Info) Description 10/30/2023 Refill [facility] Primary Care [facility] [address] [facility] [place] [address] Vania Larson MD [address] [facility] [address] [place] [phone] Medications Refill Social History Tobacco Use Types [...] place to sleep or slept in a mcc (including now)? No 01/12/2023 Interpersonal Safety Answer [...] your living situation today? I have a [facility] place to live 09/16/2023 Think about [...] harm? Never 09/16/2023 How often does anyone, bj hall family and friends, scream or curse at [...] In the past 12 months has th [employer], [employer], oil, or water [employer] threatened to shut off services in your home? No 09/16/2023 Education Answer Date Recorded Do you speak a language other than Kiswahili at [facility]? No [...] Refills Last Filled Start Date End Date triamterene-hydroc hlorothiazide (DYAZIDE) 37.5-25 mg per capsule TAKE 1 CAPSULE BY MOUTH EVERY DAY 90 Capsule 3 11/01/2023 documented in this encounter Plan of Treatment Not on file documented as of this encounter Visit Diagnoses Not on filedocumented in this encounter Discontinued Medications Medication Sig Discontinue Reason Start Date End Da te triamterene-hydrochlorot hiazide (DYAZIDE) 37.5-25 mg per capsule TAKE 1 CAPSULE BY MOUTH EVERY DAY 11/06/2022 11/01/2023 documented as of this encounter Care Teams Naturalist Relationship Specialty Start Date End Date Vania Larson MD [address] [facility] [address] [place] [address] PCP - General Family Medicine - Primary Care 06/16/23 08/30/24 Theresa Roberts MD [address] [phone] Orthopaedic Surgery 01/18/24 08/30/24 documented as of this encounter
--- OUTSIDE RECORDS SUMMARY | 2024-10-13 06:46 | XMS_ITS | Encounter Summary ---
Author Organization [facility] Address [address] [place] [address] Care Team Providers Care Photographer Apprentice Name Role Phone Carlos Manuel Cardoso MD Primary Care Provide r Vania Larson MD Primary Care Provider Vania Larson MD Primary Care Provider Vania Larson MD Primary Care Provider Theresa Roberts MD Unavailable [phone] Encounter Details Date Type Department Care Team (Late st Contact Info) Description 03/25/2021 Historical Results Only [facility] HIST DATA CONV MS Unknown, Provider, MD Social History Tobacco Use Types Packs/Day Years Used Date Smoking Tobacco: Former Cigarettes 3 28 0 02/14/1967 - 02/14/1995 Alcohol Use Standard Drinks/Week Comments Yes 1 (1 standard drink = 0.6 oz pur e alcohol) Sex and Gender Information Value Date Recorded Sex Assigned at Male 08/19/2022 12:26 EDT Legal Sex Male 18:43 EST Gender Identity Male 06/23/2021 9:01 EDT Sexual Orientation Straight 08/19/2022 12 :26 EDT documented as of this encounter Plan of Treatment Not on file documented as of this encounter Procedures Procedure Name Priority Date/Time Associated Diagnosis Comments TSH W/ REFLEX FT4 - [facility] Routine 03/25/2021 9:00 EST documented in this encounter Results * TSH W/ REFLEX FT4 - [facility] (03/25/2021 9:00 EST) TSH W FT4 REFLEX - [facility] 1.82 L=0.36 H=3.74 uIU/mL [facility] Comment:03/25/21.1259.AM .CO MPLETE 03/25/2021 9:00 EST us Provider Unknown CHEMISTRY & BLOOD GAS ORDERA BLES Final Result [facility] [address] [place] [address] documented in this encounter Visit Diagnoses Not on filedocumented in this encounter Care Teams Photographer Apprentice Relationship Specialty Start Date End Date Carlos Manuel Cardoso MD [address] [place] [address] PCP - General 01/18/12 08/31/21 Vania Larson MD [address] [facility] [address] [place] [address] PCP - General Family Medicine - Primary Care 09/01/21 11/12/21 Vania Larson MD [address] [facility] [address] [place] [address] PCP - General Family Medicine - Primary Care 12/25/21 06/15/23 Vania Larson MD [address] [facility] [address] [place] [address] PCP - General Family Medicine - Primary Care 06/16/23 08/30/24 Theresa Roberts MD [address] [phone] Orthopaedic Surgery 01/18/24 08/30/24 documented as of this encounter
--- OUTSIDE RECORDS SUMMARY | 2024-10-13 06:46 | XMS_ITS | Encounter Summary ---
Author Organization [facility] Address [address] [place] [address] Care Team Providers Care Music Artist Name Role Phone Vania Larson MD Primary Care Provider [phone] Theresa Roberts MD Unavailable [phone] Reason for Visit * Reason Onset Date Comments Medications Refill 06/13/2024 Encounter Details Date Type Department Care Team (Late st Contact Info) Description 06/13/2024 Refill [facility] Primary Care - [place] [address] [facility] [place] [address] Vania Larson MD [address] [facility] [address] [place] [address] Medications Refill Social History Tobacco Use Types [...] place to sleep or slept in a fci (including now)? No 01/12/2023 Interpersonal Safety Answer [...] your living situation today? I have a [facility] place to live 09/16/2023 Think [...] Recorded In the past 12 months has [employer], [employer], oil, or water [employer] threatened to shut off services in your home? No 09/16/2023 Education Answer Date Recorded Do you speak a language other than Vietnamese at [facility]? No 09/16/2023 Do you want help with [...] Refills Last Filled Start Date End Date atorvastatin (LIPITOR) 20 mg tablet Take 1 Tablet by mouth daily. 90 Tablet 3 06/13/2024 documented in this encounter Miscellaneous Notes * Telephone Encounter - Misty Bacon - 06/13/2024 1332 EDT Atorvastatin [id number] - [place] - [address] [facility] SUN[facility] [[id number]] documented in this encounter Plan of Treatment Not on file documented as of this encounter Visit Diagnoses Not on filedocumented in this encounter Discontinued Medications Medication Sig Discontinue Reason Start Date End Da te atorvastatin (LIPITOR) 20 mg tablet Take 1 Tablet by mouth daily. Reorder 05/10/2024 06/13/2024 documented as of this encounter Care Teams Music Artist Relationship Specialty Start Date End Date Vania Larson MD [address] [facility] [address] [place] [address] PCP - General Family Medicine - Primary Care 06/16/23 08/30/24 Theresa Roberts MD [address] [facility] [address] [place] [phone] Orthopaedic Surgery 01/18/24 08/30/24 documented as of this encounter
--- OUTSIDE RECORDS SUMMARY | 2024-10-13 06:46 | XMS_ITS | Encounter Summary ---
Author Organization [facility] Address [address] [place] [address] Care Team Providers Care Adobe Flex Developer Name Role Phone Vania Larson MD Primary Care Provider [phone] Theresa Roberts MD Unavailable [phone] Reason for Visit * Reason Comments Medications Refill Encounter Details Date Type Department Care Team (Late st Contact Info) Description 08/01/2023 Refill [facility] Primary Care [facility] [address] [facility] [place] [address] Vania Larson MD [address] [facility] [address] [place] [phone] Medications Refill Social History Tobacco Use Types [...] place to sleep or slept in a alf (including now)? No 01/12/2023 Interpersonal Safety Answer Date Record ed How often does anyone, rejimyesha isabel family, hit, punch or physically hurt you? Never 01/12/2023 How often does anyone, inclmyesha isabel family, insult, scream, curse or threaten [...] End Date pantoprazole (PROTONIX) 40 mg tablet Take 2 Tablets by mouth daily. 180 Tablet 3 08/02/2023 documented in this encounter Plan of Treatment Not on file documented as of this encounter Visit Diagnoses Not on filedocumented in this encounter Discontinued Medications Medication Sig Discontinue Reason Start Date End Da te pantoprazole (PROTONIX) 40 mg tablet TAKE 2 TABLETS BY MOUTH DAILY 08/12/2022 08/02/2023 documented as of this encounter Care Teams Adobe Flex Developer Relationship Specialty Start Date End Date Vania Larson MD [address] [address] PCP - General Family Medicine - Primary Care 06/16/23 08/30/24 Theresa Roberts MD [address] [place] [phone] Orthopaedic Surgery 01/18/24 08/30/24 documented as of this encounter
--- OUTSIDE RECORDS SUMMARY | 2024-10-13 06:46 | XMS_ITS | Encounter Summary ---
Author Organization [facility] Address [address] [place] [address] Care Team Providers Care Manager Paid Name Role Phone Vania Larson MD Primary Care Provider [phone] Vania Larson MD Primary Care Provider [phone] Theresa Roberts MD Unavailable [phone] Reason for Visit * Reason Onset Date Comments Medications Refill 12/09/2022 Encounter Details Date Type Department Care Team (Late st Contact Info) Description 12/09/2022 Telephone [facility] Primary Care - [address] [place] [address] Jil Beard Medications Refill Social History Tobacco Use Types [...] food, housing, medical care, and heating? Not very hard 07/09/2022 PHQ-2 Answer Date Recorded PHQ-2 SUBTOTAL 0 11/11/2022 Hunger Vital Sign Answer Date Recorded Within the past 12 months, y ou worried that your food would run out before you got the money to buy more. Never true Within the past 12 months, t he food you bought just didn't last and you didn't have money to get more. Sometimes true 02/2022 PRAPARE - Transportation Answer Date Re corded In the past 12 months, has l ack of transportation kept you from medical appointments or from getting medications? No 02/2022 In the past 12 months, has l ack of transportation kept you from meetings, work, or from getting things needed for daily living? No 07/09/2022 Housing Stability Vital Sign Answer Parker e Recorded In the last 12 months, was t here a time when you were not able to pay the mortgage or rent on time? No 07/09/2022 Number of Places Lived in the Last Year Not on f ile 07/09/2022 In the last 12 months, was t here a time when you did not have a steady place to sleep or slept in a intermediate (including now)? No 07/09/2022 Interpersonal Safety Answer Date Record ed How often does anyone, bj hall family, hit, punch or physically hurt you? Never 11/11/2022 How often does anyone, bj isabel family, insult, scream, curse or threaten to hurt you? Never 11/11/2022 Sex and Gender Information Value Date Recorded [...] of Assessment Author Yes 11/23/2022 14:50 Marlin Galinod RN * Do you have serious difficulty [...] Marlin Lowry RN documented in this encounter Miscellaneous Notes * Telephone Encounter - Barbra Fritz LPN - 12/09/2022 1639 EDT Pt made aware he is too early * Telephone Encounter - Jil Beard - 12/09/2022 0805 EDT Refill of oxycodone sent to [facility] [place] documented in this encounter Plan of Treatment Not on file documented as of this encounter Visit Diagnoses Not on filedocumented in this encounter Care Teams Manager Paid Relationship Specialty Start Date End Date Vania Larson MD [address] [facility] [address] [place] [address] PCP - General Family Medicine - Primary Care 12/25/21 06/15/23 Vania Larson MD [address] [facility] [address] [place] [address] PCP - General Family Medicine - Primary Care 06/16/23 08/30/24 Theresa Roberts MD [address] [place] [address] [place] [phone] Orthopaedic Surgery 01/18/24 08/30/24 documented as of this encounter
--- OUTSIDE RECORDS SUMMARY | 2024-10-13 06:46 | XMS_ITS | Encounter Summary ---
Author Organization [facility] Address [address] [place] [address] Care Team Providers Care Mds Nurse Name Role Phone Carlos Manuel Cardoso MD Primary Care Provide r Vania Larson MD Primary Care Provider Vania Larson MD Primary Care Provider Vania Larson MD Primary Care Provider Theresa Roberts MD Unavailable [phone] Encounter Details Date Type Department Care Team (Late st Contact Info) Description 2018 Historical Results Only [facility] Radiology Results [address] [place] [address] Mayela Gibbons MD [address] [place] [address] Social History Tobacco Use Types Packs/Day Years [...] Procedure Name Priority Date/Time Associated Diagnosis Comments BASIC METABOLIC PANEL,RANDOM - PMC Routine 2018 1:35 EDT TROPONIN I Routine 2018 1:35 EDT COMPLETE BLOOD COUNT AND DIFFERENTIAL Routine 2018 1:[address] HEAD WO CONTRAST 2018 1 :05 EDT documented in this encounter Results * (ABNORMAL) COMPLETE BLOOD COUNT AND DIFFERENTIAL (2018 1:35 EDT) WBC 9.1 4.0 - 10.5 2018 1:44 [facility] RBC 4.32(L) 4.70 - 6.00 2018 1:44 [facility] Hemoglobin 14.4 13.5 - 18.0 2018 1:44 [facility] HCT 40.9(L) 42.0 - 52.0 2018 1:44 [facility] MCV 94.7 78 - 100 2018 1:44 [facility] MCH 33.3(H) 27 - 31 2018 1:44 [facility] MCHC 35.2 32 - 36 2018 1:44 [facility] RDW-CV - PMC 12.2 11.5 - 14.0 2018 1:44 [facility] PLATELET COUNT - PMC 248 150 - 450 2018 1:44 [facility] NEUTROPHILS % (AUTO) - PMC 69.9 42.0 - 75.0 2018 1:44 [facility] LYMPHOCYTES % (AUTO) - PMC 16.4 16.0 - 52.0 2018 1:44 [facility] MONOCYTES % (AUTO) - PMC 10.6 1.0 - 11.0 2018 1:44 [facility] EOSINOPHILS % (AUTO) - PMC 1.4 0.0 - 7.0 2018 1:44 [facility] BASOPHILS % (AUTO) - PMC 1.0 0.0 - 4.0 2018 1:44 [facility] NUCLEATED RBC % (AUTO) - PMC 0.0 <1 2018 1:44 [facility] NEUTROPHILS # (AUTO) - PMC 6.3 1.5 - 6.6 2018 1:44 [facility] LYMPHOCYTES # (AUTO) - PMC 1.5 1.0 - 3.5 2018 1:44 [facility] MONOCYTES # (AUTO) - PMC 1.0 <1.0 2018 1:44 [facility] EOSINOPHILS # (AUTO) - PMC 0.1 <0.7 2018 1:44 [facility] BASOPHILS # (AUTO) - PMC 0.1 <0.1 2018 1:44 [facility] NUCLEATED RBC # (AUTO) - PMC 0.00 <1 2018 1:44 [facility] 2018 1:35 EDT 2018 1:40 EDT us Mayela Gibbons MD PACKAGES & DNA PROBE ORDERA BLES Final Result [facility] * TROPONIN I (2018 1:35 EDT) Troponin I (ng/mL) <0.05 <0.10 2018 2:07 T [facility] Comment: REFERENCE RANGE: Negative: <0.10 ng/mL Indeterminate: 0.10-0.80 ng/mL Positive: >0.80 ng/mL ........................................... The results of this assay can be falsely decreased due to the consumption of Biotin. 2018 1:35 EDT 2018 1:41 EDT [facility] - 2018 2:16 EDT Collected by venipuncture by a member of the ED staff. us Mayela Gibbons MD CHEMISTRY & BLOOD GAS ORDER MADELIN Final Result [facility] * (ABNORMAL) BASIC METABOLIC PANEL,RANDOM - PMC (2018 1:35 EDT) Sodium 138 136 - 145 2018 2:07 [facility] Potassium 3.5 3.5 - 5.1 2018 2:07 [facility] Chloride 104 96 - 107 2018 2:07 [facility] CO2 Total 22.3 21 - 32 2018 2:07 [facility] Anion Gap 11.7 2018 2:07 [facility] BUN 20 7 - 25 2018 2:07 [facility] Creatinine 0.99 0.7 - 1.30 2018 2:07 [facility] Estimated GFR >60 >60 2018 2:07 [facility] Comment: EGFR UNITS: mL/min/1.73 m 2 CKD-EPI Equation used to calculate. Glucose 118 70 - 180 2018 2:07 [facility] Calcium 8.4(L) 8.5 - 10.5 2018 2:07 [facility] 2018 1:35 EDT 2018 1:41 EDT [facility] - 2018 2:16 EDT Collected by venipuncture by a member of the ED staff. us Mayela Gibbons MD CHEMISTRY & BLOOD GAS ORDER MADELIN Final Result Performing Organization Address City/[facility]/ZIP Co de Phone Number [facility] * CT HEAD WO CONTRAST (2018 1:05 EDT) Anatomical Region Laterality Modality Head Other 2018 1:05 EDT Narrative 2018 1:05 EDT [facility] [address] [address] Diagnostic Imaging Report Signed Patient Name:JEAN JEWELL JR Date of :1960 MR Number:[id number] Age:58 Sex:M Category: CT Date of Exam:07/07/18 Procedure: CT: Head; without contrast Ordering Physician: Mayela Gibbons MD CC: Provider, Optional Mayela Gibbons MD EXAM: CT Head Without Contrast EXAM DATE/TIME: 2018 1:05 AM CLINICAL HISTORY: 58 years old, male; Signs and symptoms; Dizziness; Additional info: Vertigo TECHNIQUE: Imaging protocol: Axial computed tomography images of the head without contrast. Coronal and sagittal reformatted images were created and reviewed. Radiation optimization: All CT scans at this facility use at least one of these dose optimization techniques: automated exposure control; mA and/or kV adjustment per patient size (includes targeted exams where dose is matched to clinical indication); or iterative reconstruction. COMPARISON: No relevant prior studies available. FINDINGS: Brain: There is mild diffuse heterogeneity of the white matter attenuation, consistent with chronic white matter microangiopathic ischemic changes. There is mild diffuse cerebral atrophy present. There is no evidence of intracranial hemorrhage. There is no evidence of acute intracranial injury or other pathologic process. There is no evidence of an acute ischemic event. Ventricles: The ventricular system is normal in size and distribution. Bones/joints: The orbits are normal without evidence of fracture. The bony cranium shows no evidence of injury or other acute pathologic processes. Sinuses: There is no evidence of fluid levels, mucoperiosteal thickening, or opacification to suggest acute or chronic sinusitis. Mastoid air cells: The mastoid aircells are normal. Orbits: There is no evidence of retro-bulbar hemorrhage. There is no evidence of globe or lens injury. Soft tissues: The extracranial soft tissues are normal. IMPRESSION: No evidence of an acute intracranial abnormality. Report signed by: Ladarius Phillips On 2018 01:50:00 Dictated by: Ladarius Phillips MD D/ 0105 Transcribed by: YENNY DamianT: E-Signed by: Ladarius Phillips MD D/ 0150 Procedure Note Ladarius Phillips MD - 11/08/2018 [facility] [address] [id number] Diagnostic Imaging Report Signed Patient Name:JEAN JEWELL JRAccount Number:[id number] Date of :1960 MRNumber:[id number] Age:58 Sex:M Category: CT Date ofExam:07/07/18 Procedure: CT: Head; without contrastAccession: [id number] Ordering Physician: Mayela Gibbons MD CC: Provider, Optional Mayela Gibbons MD EXAM: CT Head Without Contrast EXAM DATE/TIME: 2018 1:05 AM CLINICAL HISTORY: 58 years old, male; Signs and symptoms; Dizziness; Additional info:Vertigo TECHNIQUE: Imaging protocol: Axial computed tomography images of the head without contrast. Coronal and sagittal reformatted images were created andreviewed. Radiation optimization: All CT scans at this facility use at least oneof these dose optimization techniques: automated exposure control; mA and/orkV adjustment per patient size (includes targeted exams where dose is matchedto clinical indication); or iterative reconstruction. COMPARISON: No relevant prior studies available. FINDINGS: Brain: There is mild diffuse heterogeneity of the white matterattenuation, consistent with chronic white matter microangiopathic ischemic changes.There is mild diffuse cerebral atrophy present. There is no evidence ofintracranial hemorrhage. There is no evidence of acute intracranial injury or other pathologic process. There is no evidence of an acute ischemic event. Ventricles: The ventricular system is normal in size and distribution. Bones/joints: The orbits are normal without evidence of fracture. Thebony cranium shows no evidence of injury or other acute pathologic processes. Sinuses: There is no evidence of fluid levels, mucoperiosteal thickening,or opacification to suggest acute or chronic sinusitis. Mastoid air cells: The mastoid aircells are normal. Orbits: There is no evidence of retro-bulbar hemorrhage. There is noevidence of globe or lens injury. Soft tissues: The extracranial soft tissues are normal. IMPRESSION: No evidence of an acute intracranial abnormality. Report signed by: Ladarius Phillips On 2018 01:50:00 Dictated by: Ladarius Phillips MDD/ 0105 Transcribed by: FLAVIA/T: E-Signed by: Ladarius Phillips MDD/ 0150 us Mayela Gibbons MD IMG CT ORDERABLES Final Res ult documented in this encounter Visit Diagnoses Not on filedocumented in this encounter Care Teams Mds Nurse Relationship Specialty Start Date End Date Carlos Manuel Cardoso MD [address] [place] [phone] PCP - General 01/18/12 08/31/21 Vania Larson MD [address] [facility] [address] [place] [address] PCP - General Family Medicine - Primary Care 09/01/21 11/12/21 Vania Larson MD [address] [facility] [address] [place] [address] PCP - General Family Medicine - Primary Care 12/25/21 06/15/23 Vania Larson MD [address] [facility] [address] [place] [address] PCP - General Family Medicine - Primary Care 06/16/23 08/30/24 Theresa Roberts MD [address] [place] [phone] Orthopaedic Surgery 01/18/24 08/30/24 documented as of this encounter
--- OUTSIDE RECORDS SUMMARY | 2024-10-13 06:46 | XMS_ITS | Encounter Summary ---
Author Organization [facility] Address [address] [place] [address] Care Team Providers Care School Fundraising Director Name Role Phone Vania Larson MD Primary Care Provider [phone] Theresa Roberts MD Unavailable [phone] Reason for Visit * Reason Onset Date Comments Medications Refill 09/27/2023 Orders (Non Pre-visit) 09/27/2023 Encounter Details Date Type Department Care Team (Late st Contact Info) Description 09/27/2023 Refill [facility] Primary Care [address] [phone] Vania Larson MD [address] [facility] [address] [place] [phone] Medications Refill; Orders (Non Pre-visit) Social History Tobacco Use Types Packs/Day Years [...] place to sleep or slept in a longterm (including now)? No 01/12/2023 Interpersonal Safety Answer [...] your living situation today? I have a [facility] place to live 09/16/2023 Think about [...] Recorded In the past 12 months has iodine, gas, oil, or water [employer] threatened to shut off services in your home? No 09/16/2023 Education Answer Date Recorded Do you speak a language other than Italian at [facility]? No 09/16/2023 Do you want [...] Pain. Daily Max: 60 mg 180 Tablet 09/27/2023 10/26/2023 documented in this encounter Miscellaneous Notes * Telephone Encounter - Alena Correa RN - 09/27/2023 1246 EDT This report was requested by: Alena Correa Reference #: [id number] Oxycodone last filled 09/01/23 Last OV 09/16/2023 Next OV 12/15/2023 Last UDS 07/16/23, pos for oxycodone and MJ Last CSA signed 07/15/2023 * Telephone Encounter - BriannaKeeley Amanda - 09/27/2023 0843 EDT Patient called requesting refill of Oxycodone. Patient is also requesting an order for MRI of his left shoulder based on 09/16/23 visit. documented in this encounter Plan of Treatment [...] for Pain. Daily Max: 60 mg Reorder 08/31/2023 09/27/2023 documented as of this encounter Care Teams School Fundraising Director Relationship Specialty Start Date End Date Vania Larson MD [address] [address] PCP - General Family Medicine - Primary Care 06/16/23 08/30/24 Theresa Roberts MD [address] [place] [phone] Orthopaedic Surgery 01/18/24 08/30/24 documented as of this encounter
--- OUTSIDE RECORDS SUMMARY | 2024-10-13 06:46 | XMS_ITS | Encounter Summary ---
Author Organization [facility] Address [address] [place] [address] Care Team Providers Care Trailer Steerer Name Role Phone Vania Larson MD Primary Care Provider [phone] Theresa Roberts MD Unavailable [phone] Reason for Visit * Reason Onset Date Comments Medications Refill 12/20/2023 Encounter Details Date Type Department Care Team (Late st Contact Info) Description 12/20/2023 Refill [facility] Primary Care [address] [phone] Vania Larson MD [address] [facility] [address], [place] [phone] Medications Refill Social History Tobacco Use Types [...] your living situation today? I have a [facility] place to live 09/16/2023 Think [...] Date Record ed How often does anyone, inclu ding family and friends, physically hurt you? Never [...] Recorded In the past 12 months has [employer], [employer], oil, or water [employer] threatened to shut off services in your home? No 09/16/2023 Education Answer Date Recorded Do you speak a language other than Ivorian at [facility]? No 09/16/2023 Do you want help with [...] Pain. Daily Max: 60 mg 180 Tablet 12/20/2023 01/18/2024 documented in this encounter Miscellaneous Notes * Telephone Encounter - Alena Correa RN - 12/20/2023 1324 EST This report was requested by: lAena Correa Reference #: [id number] Oxycodone last filled 11/24/2023 Last OV 10/26/2023 Next OV 12/24/2023 Last UDS 07/16/2023 positive for oxycodone and cannabinoids Last CSA signed 07/15/2023 * Telephone Encounter - BriannaCrowAquilesAmanda gregg - 12/20/2023 1314 EST Patient requesting refill of Oxycodone to be sent to [facility] documented in this encounter Plan of Treatment [...] for Pain. Daily Max: 60 mg Reorder 11/22/2023 12/20/2023 documented as of this encounter Care Teams Trailer Steerer Relationship Specialty Start Date End Date Vania Larson MD [address] [facility] [address], [place] [address] PCP - General Family Medicine - Primary Care 06/16/23 08/30/24 Theresa Roberts MD [address] [place] [address] [place] [phone] Orthopaedic Surgery 01/18/24 08/30/24 documented as of this encounter
--- OUTSIDE RECORDS SUMMARY | 2024-10-13 06:46 | XMS_ITS | Encounter Summary ---
Author Organization [facility] Address [address] [place] [address] Care Team Providers Care Patroller Name Role Phone Carlos Manuel Cardoso MD Primary Care Provide r Vania Larson MD Primary Care Provider [phone] Vania Larson MD Primary Care Provider Vania Larson MD Primary Care Provider Theresa Roberts MD Unavailable [phone] Encounter Details Date Type Department Care Team (Late st Contact Info) Description 12/25/2020 Historical Results Only [facility] HIST DATA CONV OR Unknown, Provider, MD Social History Tobacco Use [...] Procedure Name Priority Date/Time Associated Diagnosis Comments TROPONIN I HS - [facility] Routine 12/25/2020 9:00 EST documented in this encounter Results * TROPONIN I HS - [facility] (12/25/2020 9:00 EST) Troponin I (ng/L) <60 L=0 H=60 ng/L [facility] Comment: Normal <60 ng/L Greater than or equal to 60ng/L Value consistent with myocardial injury,clinical and laboratory correlation is recommended. 120ng/L Critical Highly predictive value for Myocardial Infarction, clinical and laboratory correlation is recommended. Biotin, dextrose, mouse monoclonal antibody interference (For patients being administered mouse monoclonal antibodies interpret results with care. Recommend serial testing to verify results). 12/25/20.1246.KM .COMPLETE 12/25/2020 9:00 EST us Provider Unknown CHEMISTRY & BLOOD GAS ORDERA BLES Final Result [facility] [address] [place] [address] documented in this encounter Visit Diagnoses Not on filedocumented in this encounter Care Teams Patroller Relationship Specialty Start Date End Date Carlos Manuel Cardoso MD [address] [place] [address] PCP - General 01/18/12 08/31/21 Vania Larson MD [address] [place] [address] [place] [address] PCP - General Family Medicine - Primary Care 09/01/21 11/12/21 Vania Larson MD [address] [place] [address], [place] [address] PCP - General Family Medicine - Primary Care 12/25/21 06/15/23 Vania Larson MD [address] [place] [address], [place] [address] PCP - General Family Medicine - Primary Care 06/16/23 08/30/24 Theresa Roberts MD [address] [place] [phone] Orthopaedic Surgery 01/18/24 08/30/24 documented as of this encounter
--- OUTSIDE RECORDS SUMMARY | 2024-10-13 06:46 | XMS_ITS | Encounter Summary ---
Author Organization [facility] Address [address] [place] [address] Care Team Providers Care Customer Service Engineer Name Role Phone Carlos Manuel Cardoso MD Primary Care Provide r Vania Larson MD Primary Care Provider Vania Larson MD Primary Care Provider Vania Larson MD Primary Care Provider Theresa Roberts MD Unavailable [phone] Encounter Details Date Type Department Care Team (Late st Contact Info) Description 10/19/2018 Historical Results Only [facility] HIST DATA CONV ME Unknown, Provider, MD Social History Tobacco Use [...] Procedure Name Priority Date/Time Associated Diagnosis Comments MR LUMBAR SPINE WO CONTRAST 10/19/2018 0:00 EDT documented in this encounter Results * MR LUMBAR SPINE WO CONTRAST (10/19/2018 0:00 EDT) Anatomical Region Laterality Modality Spine Magnetic Resonan ce 10/19/2018 us Provider Unknown MD [facility] MRI ORDERABLES Final Res ult documented in this encounter Visit Diagnoses Not on filedocumented in this encounter Care Teams Customer Service Engineer Relationship Specialty Start Date End Date Carlos Manuel Cardoso MD [address] [place] [address] PCP - General 01/18/12 08/31/21 Vania Larson MD [address] [facility] [address] [place] [address] PCP - General Family Medicine - Primary Care 09/01/21 11/12/21 Vania Larson MD [address] [facility] [address] [place] [address] PCP - General Family Medicine - Primary Care 12/25/21 06/15/23 Vania Larson MD [address] [facility] [address] [place] [address] PCP - General Family Medicine - Primary Care 06/16/23 08/30/24 Theresa Roberts MD [address] [place] [phone] Orthopaedic Surgery 01/18/24 08/30/24 documented as of this encounter
--- OUTSIDE RECORDS SUMMARY | 2024-10-13 06:46 | XMS_ITS | Encounter Summary ---
Author Organization [facility] Address [address] [place] [address] Care Team Providers Care Reprographics Associate Name Role Phone Vania Larson MD Primary Care Provider [phone] Theresa Roberts MD Unavailable [phone] Reason for Visit * Reason Comments Medications Refill Encounter Details Date Type Department Care Team (Late st Contact Info) Description 05/01/2024 Refill [facility] [facility] [place] [address] Vania Larson MD [address] [facility] [address] [place] [phone] Medications Refill Social History Tobacco Use Types [...] place to sleep or slept in a usp (including now)? No 01/12/2023 Interpersonal Safety Answer [...] your living situation today? I have a [facility] place to live 09/16/2023 Think about [...] In the past 12 months has th [employer], [employer], oil, or water [employer] threatened to shut off services in your home? No 09/16/2023 Education Answer Date Recorded Do you speak a language other than Polish at [facility]? No 09/16/2023 Do you want help with [...] End Date atorvastatin (LIPITOR) 20 mg tablet TAKE 1 TABLET BY MOUTH DAILY 90 Tablet 3 05/01/2024 05/10/2024 documented in this encounter Plan of Treatment Not on file documented as of this encounter Visit Diagnoses Not on filedocumented in this encounter Discontinued Medications Medication Sig Discontinue Reason Start Date End Da te atorvastatin (LIPITOR) 20 mg tablet TAKE 1 TABLET BY MOUTH DAILY 11/01/2023 05/01/2024 documented as of this encounter Care Teams Reprographics Associate Relationship Specialty Start Date End Date Vania Larson MD [address] [facility] [address] [place] [address] PCP - General Family Medicine - Primary Care 06/16/23 08/30/24 Theresa Roberts MD [address] [place] [address] [place] [phone] Orthopaedic Surgery 01/18/24 08/30/24 documented as of this encounter
--- OUTSIDE RECORDS SUMMARY | 2024-10-13 06:46 | XMS_ITS | Encounter Summary ---
Author Organization [facility] Address [address] [place] [address] Care Team Providers Care Decay Control Operator Name Role Phone Carlos Manuel Cardoso MD Primary Care Provide r Vania Larson MD Primary Care Provider [phone] Vania Larson MD Primary Care Provider Vania Larson MD Primary Care Provider [phone] Theresa Roberts MD Unavailable [phone] Encounter Details Date Type Department Care Team (Late st Contact Info) Description 01/14/2018 Historical Results Only [facility] HIST DATA CONV PA Unknown, Provider, MD Social History Tobacco Use [...] Procedure Name Priority Date/Time Associated Diagnosis Comments XR THORACIC SPINE 2 VIEWS 01/14/2018 0:00 EST documented in this encounter Results * XR THORACIC SPINE 2 VIEWS (01/14/2018 0:00 EST) Anatomical Region Laterality Modality Spine Computed Radiogr aphy 01/14/2018 us Provider Unknown MD [facility] ORDER MADELIN Final Result documented in this encounter Visit Diagnoses Not on filedocumented in this encounter Care Teams Decay Control Operator Relationship Specialty Start Date End Date Carlos Manuel Cardoso MD [address] [place] [address] PCP - General 01/18/12 08/31/21 Vania Larson MD [address] [facility] [address] [place] [address] PCP - General Family Medicine - Primary Care 09/01/21 11/12/21 Vania Larson MD [address] [facility] [address] [place] [address] PCP - General Family Medicine - Primary Care 12/25/21 06/15/23 Vania Larson MD [address] [facility] [address] [place] [address] PCP - General Family Medicine - Primary Care 06/16/23 08/30/24 Theresa Roberts MD [address] [place] [phone] Orthopaedic Surgery 01/18/24 08/30/24 documented as of this encounter
--- OUTSIDE RECORDS SUMMARY | 2024-10-13 06:46 | XMS_ITS | Encounter Summary ---
Author Organization [facility] Address [address] [place] [address] Care Team Providers Care Mems Integration Engineer Name Role Phone Vania Larson MD Primary Care Provider [phone] Theresa Roberts MD Unavailable [phone] Reason for Visit * Reason Comments Medications Refill Encounter Details Date Type Department Care Team (Late st Contact Info) Description 02/01/2024 Refill [facility] Primary Care [facility] [address] [facility] [place] [address] Vania Larson MD [address] [facility] [address] [place] [phone] Medications Refill Social History Tobacco Use Types [...] place to sleep or slept in a nursing home (including now)? No 01/12/2023 Interpersonal Safety [...] your living situation today? I have a [facility] place to live 09/16/2023 Think about [...] In the past 12 months has th [employer], [employer], oil, or water [employer] threatened to shut off services in your home? No 09/16/2023 Education Answer Date Recorded Do you speak a language other than Yi at [facility]? No 09/16/2023 Do you want help with [...] Refills Last Filled Start Date End Date lisinopriL (PRINIVIL) 40 mg tablet TAKE 1 TABLET BY MOUTH DAILY 90 Tablet 3 02/01/2024 05/01/2024 documented in this encounter Plan of Treatment Not on file documented as of this encounter Visit Diagnoses Not on filedocumented in this encounter Discontinued Medications Medication Sig Discontinue Reason Start Date End Da te lisinopriL (PRINIVIL) 40 mg tablet Take 1 Tablet by mouth daily. 01/12/2023 02/01/2024 documented as of this encounter Care Teams Mems Integration Engineer Relationship Specialty Start Date End Date Vania Larson MD [address] [facility] [address], [place] [address] PCP - General Family Medicine - Primary Care 06/16/23 08/30/24 Theresa Roberts MD [address] [place] [phone] Orthopaedic Surgery 01/18/24 08/30/24 documented as of this encounter
--- OUTSIDE RECORDS SUMMARY | 2024-10-13 06:46 | XMS_ITS | Encounter Summary ---
Author Organization [facility] Address [address] [place] [address] Care Team Providers Care Vocational Examiner Name Role Phone Vania Larson MD Primary Care Provider [phone] Theresa Roberts MD Unavailable [phone] Reason for Visit * Reason Comments Medications Refill Encounter Details Date Type Department Care Team (Late st Contact Info) Description 11/01/2023 Refill [facility] Primary Care [facility] [address] [facility] [place] [address] Vania Larson MD [address] [facility] [address] [place] [phone] Medications Refill Social History Tobacco Use Types [...] your living situation today? I have a [facility] place to live 09/16/2023 Think about the [...] In the past 12 months has th [employer], [employer], oil, or water [employer] threatened to shut off services in your home? No 09/16/2023 Education Answer Date Recorded Do you speak a language other than Tamazight at [facility]? No 09/16/2023 Do you want help [...] TABLET BY MOUTH DAILY 90 Tablet 3 11/01/2023 05/01/2024 documented in this encounter Plan of Treatment Not on file documented as of this encounter Visit Diagnoses Not on filedocumented in this encounter Discontinued Medications Medication Sig Discontinue Reason Start Date End Da te atorvastatin (LIPITOR) 20 mg tablet TAKE 1 TABLET BY MOUTH DAILY 11/06/2022 11/01/2023 documented as of this encounter Care Teams Vocational Examiner Relationship Specialty Start Date End Date Vania Larson MD [address] [facility] [address] [place] [address] PCP - General Family Medicine - Primary Care 06/16/23 08/30/24 Theresa Roberts MD [address] [place] [address] [place] [phone] Orthopaedic Surgery 01/18/24 08/30/24 documented as of this encounter
--- OUTSIDE RECORDS SUMMARY | 2024-10-13 06:46 | XMS_ITS | Encounter Summary ---
Author Organization [facility] Address [address] [place] [address] Care Team Providers Care Offset Press Assistant Name Role Phone Carlos Manuel Cardoso MD Primary Care Provide r Vania Larson MD Primary Care Provider Vania Larson MD Primary Care Provider Vania Larson MD Primary Care Provider Theresa Roberts MD Unavailable [phone] Encounter Details Date Type Department Care Team (Late st Contact Info) Description 12/25/2020 Historical Results Only [facility] HIST DATA CONV CT Unknown, Provider, MD Social History Tobacco Use [...] Procedure Name Priority Date/Time Associated Diagnosis Comments T4 FREE Routine 12/25/2020 9:00 EST documented in this encounter Results * T4 FREE (12/25/2020 9:00 EST) T4, Free 1.05 L=0.76 H=1.46 ng/dL [facility] Comment:12/25/20.1301.KM .CO MPLETE 12/25/2020 9:00 EST us Provider Unknown MD CHEMISTRY & BLOOD GAS ORDERA BLES Final Result [facility] [address] [place] [address] documented in this encounter Visit Diagnoses Not on filedocumented in this encounter Care Teams Offset Press Assistant Relationship Specialty Start Date End Date Carlos Manuel Cardoso MD [address] [place] [address] PCP - General 01/18/12 08/31/21 Vania Larson MD [address] [facility] [address] [place] [address] PCP - General Family Medicine - Primary Care 09/01/21 11/12/21 Vania Larson MD [address] [facility] [address] [place] [address] PCP - General Family Medicine - Primary Care 12/25/21 06/15/23 Vania Larson MD [address] [facility] [address] [place] [address] PCP - General Family Medicine - Primary Care 06/16/23 08/30/24 Theresa Roberts MD [address] [place] [phone] Orthopaedic Surgery 01/18/24 08/30/24 documented as of this encounter
--- OUTSIDE RECORDS SUMMARY | 2024-10-13 06:46 | XMS_ITS | Encounter Summary ---
Author Organization [facility] Address [address] [place] [address] Care Team Providers Care Pediatric Dermatologist Name Role Phone Carlos Manuel Cardoso MD Primary Care Provide r Vania Larson MD Primary Care Provider Vania Larson MD Primary Care Provider Vania Larson MD Primary Care Provider [phone] Theresa Roberts MD Unavailable [phone] Encounter Details Date Type Department Care Team (Late st Contact Info) Description 12/25/2020 Historical Results Only [facility] HIST DATA CONV [place] Unknown, Provider, MD Social History Tobacco Use [...] TSH W/ REFLEX FT4 - [facility] Routine 12/25/2020 9:00 EST documented in this encounter Results * (ABNORMAL) TSH W/ REFLEX FT4 - [facility] (12/25/2020 9:00 EST) TSH W FT4 REFLEX - [facility] 4.88(H) L=0.36 H=3.74 uIU/mL [facility] Comment:12/25/20.1246.KM .CO MPLETE 12/25/2020 9:00 EST us Provider Unknown MD CHEMISTRY & BLOOD GAS ORDERA BLES Final Result [facility] [address] [place] [address] documented in this encounter Visit Diagnoses Not on filedocumented in this encounter Care Teams Pediatric Dermatologist Relationship Specialty Start Date End Date Carlos Manuel Cardoso MD [address] [place] [phone] PCP - General 01/18/12 08/31/21 Vania Larson MD [address] [facility] [address] [place] [address] PCP - General Family Medicine - Primary Care 09/01/21 11/12/21 Vania Larson MD [address] [facility] [address] [place] [address] PCP - General Family Medicine - Primary Care 12/25/21 06/15/23 Vania Larson MD [address] [facility] [address] [place] [address] PCP - General Family Medicine - Primary Care 06/16/23 08/30/24 Theresa Roberts MD [address] [place] [phone] Orthopaedic Surgery 01/18/24 08/30/24 documented as of this encounter
--- OUTSIDE RECORDS SUMMARY | 2024-10-13 06:46 | XMS_ITS | Encounter Summary ---
Author Organization [facility] Address [address] [place] [address] Care Team Providers Care Director Fixed Income Name Role Phone Vania Larson MD Primary Care Provider [phone] Theresa Roberts MD Unavailable [phone] Reason for Visit * Reason Onset Date Comments Orders (Non Pre-visit) 10/07/2023 Encounter Details Date Type Department Care Team (Late st Contact Info) Description 10/07/2023 Telephone [facility] Primary Care [address] [phone] Vania Larson MD [address] [facility] [address] [place] [phone] Orders (Non Pre-visit) Social History Tobacco Use [...] your living situation today? I have a [facility] place to live 09/16/2023 Think about the [...] Recorded In the past 12 months has [employer], gas, oil, or water [employer] threatened to shut off services in your home? No 09/16/2023 Education Answer Date Recorded Do you speak a language other than Hebrew at [facility]? No 09/16/2023 Do you want help [...] Marlin Galindo RN documented in this encounter Miscellaneous Notes * Telephone Encounter - Amanda Buitrago - 10/07/2023 0850 EDT Patient called requesting MRI of left shoulder documented in this encounter Plan of Treatment Not on file documented as of this encounter Visit Diagnoses Not on filedocumented in this encounter Care Teams Director Fixed Income Relationship Specialty Start Date End Date Vania Larson MD [address] [facility] [address], [place] [address] PCP - General Family Medicine - Primary Care 06/16/23 08/30/24 Theresa Roberts MD [address] [place] [phone] Orthopaedic Surgery 01/18/24 08/30/24 documented as of this encounter
--- OUTSIDE RECORDS SUMMARY | 2024-10-13 06:46 | XMS_ITS | Encounter Summary ---
Author Organization [facility] Address [address] [place] [address] Care Team Providers Care Cosmetic Counselor Name Role Phone Carlos Manuel Cardoso MD Primary Care Provide r Vania Larson MD Primary Care Provider Vania Larson MD Primary Care Provider Vania Larson MD Primary Care Provider [phone] Theresa Roberts MD Unavailable [phone] Encounter Details Date Type Department Care Team (Late st Contact Info) Description 04/01/2020 Historical Results Only [facility] HIST DATA CONV [...] Name Priority Date/Time Associated Diagnosis Comments XR HIP 1 VIEW WITH ORTHOPELVIS RIGHT 04/01/2020 0:00 EST documented in this encounter Results * XR HIP 1 VIEW WITH ORTHOPELVIS RIGHT (04/01/2020 0:00 EST) Anatomical Region Laterality Modality Lower Extremities Right Computed Radio graphy 04/01/2020 us Provider Unknown MD [facility] ORDER MADELIN Final Result documented in this encounter Visit Diagnoses Not on filedocumented in this encounter Care Teams Cosmetic Counselor Relationship Specialty Start Date End Date Carlos Manuel Cardoso MD [address] [place] [address] PCP - General 01/18/12 08/31/21 Vania Larson MD [address] [facility] [address] [place] [address] PCP - General Family Medicine - Primary Care 09/01/21 11/12/21 Vania Larson MD [address] [facility] [address] [place] [address] PCP - General Family Medicine - Primary Care 12/25/21 06/15/23 Vania Larson MD [address] [address] PCP - General Family Medicine - Primary Care 06/16/23 08/30/24 Theresa Roberts MD [address] [place] [phone] Orthopaedic Surgery 01/18/24 08/30/24 documented as of this encounter
--- OUTSIDE RECORDS SUMMARY | 2024-10-13 06:46 | XMS_ITS | Encounter Summary ---
Author Organization [facility] Address [address] [place] [address] Care Team Providers Care Mixer Operator Tablets Name Role Phone Carlos Manuel Cardoso MD Primary Care Provide r Vania Larson MD Primary Care Provider Vania Larson MD Primary Care Provider Vania Larson MD Primary Care Provider Theresa Roberts MD Unavailable [phone] Encounter Details Date Type Department Care Team (Late st Contact Info) Description 12/25/2020 Historical Results Only [facility] HIST DATA CONV [place] Unknown, Provider, MD Social History Tobacco Use [...] Procedure Name Priority Date/Time Associated Diagnosis Comments COMPLETE BLOOD COUNT AND DIFFERENTIAL Routine 12/25/2020 9:00 EST documented in this encounter Results * (ABNORMAL) COMPLETE BLOOD COUNT AND DIFFERENTIAL (12/25/2020 9:00 EST) WBC 8 L=4.0 H=10.5 10^3/uL [facility] RBC 4.56(L) L=4.70 H=6.00 10^6/uL [facility] Hemoglobin 14.7 L=13.5 H=18.0 g/dl [facility] HCT 45.2 L=42.0 H=52.0 % [facility] MCV 99 L=78 H=100 fl [facility] MCH 32(H) L=27 H=31 pg [facility] MCHC 33 L=32 H=36 g/dl [facility] RDW-SD 13.5 L=11.5 H=14.0 % [facility] PLT 279 L=150 H=450 10^3 [facility] % Neutrophils 53 L=36.0 H=66.0 % [facility] Lymphocytes 28.8 L=24.0 H=44.0 % [facility] % Monocytes 13.6(H) L=0.0 H=10.0 % [facility] % Eosinophils 3.3(H) L=0.0 H=3.0 % [facility] % Basophils 0.9 L=0.0 H=1.0 % [facility] Immature Grans 0.4 L=0.0 H=2.0 % [facility] ABS Neutrophils 4.24 L=1.500 H=7.200 10^3 [facility] Diff Type NOT INDICATED [facility] Comment: IG% equals immature granulocyte which are metas, myelos, and pros. Performed at [place] [address] [address] [place] [address] 12/25/20.1845.CB .COMPLETE 12/25/2020 9:00 EST Narrative [facility] - 12/25/2020 18:45 EST M COMPLETE BLOOD COUNT us Provider Unknown PACKAGES & DNA PROBE ORDERAB LES Final Result [facility] [address] [place] [address] documented in this encounter Visit Diagnoses Not on filedocumented in this encounter Care Teams Mixer Operator Tablets Relationship Specialty Start Date End Date Carlos Manuel Cardoso MD [address] [place] [address] PCP - General 01/18/12 08/31/21 Vania Larson MD [address] [address] PCP - General Family Medicine - Primary Care 09/01/21 11/12/21 Vania Larson MD [address] [address] PCP - General Family Medicine - Primary Care 12/25/21 06/15/23 Vania Larson MD [address] [address] PCP - General Family Medicine - Primary Care 06/16/23 08/30/24 Theresa Roberts MD [address] [place] [phone] Orthopaedic Surgery 01/18/24 08/30/24 documented as of this encounter
--- OUTSIDE RECORDS SUMMARY | 2024-10-13 06:46 | XMS_ITS | Encounter Summary ---
Author Organization [facility] Address [address] [place] [address] Care Team Providers Care Wet Process Miller Name Role Phone Vania Larson MD Primary Care Provider [phone] Theresa Roberts MD Unavailable [phone] Reason for Visit * Reason Onset Date Comments Medications Refill 01/18/2024 Medication Management 01/18/2024 Encounter Details Date Type Department Care Team (Late st Contact Info) Description 01/18/2024 Refill [facility] Primary Care [address] [address] Vania Larson MD [address] [facility] [address] [place] [phone] Medications Refill; Medication Management Social History Tobacco Use Types Packs/Day Years [...] your living situation today? I have a [facility] place to live 09/16/2023 Think about the [...] Recorded In the past 12 months has [employer], gas, oil, or water [employer] threatened to shut off services in your home? No 09/16/2023 Education Answer Date Recorded Do you speak a language other than South Korean at [facility]? No 09/16/2023 Do you want help [...] Pain. Daily Max: 60 mg 180 Tablet 01/19/2024 02/15/2024 oxyCODONE (ROXICODONE) 10 mg immediate release tabletIndications: Low back pain with sciatica, sciatica laterality unspecified, unspecified back pain laterality, unspecified chronicity Take 1 Tablet by mouth every 4 hours as needed for Pain. Daily Max: 60 mg 180 Tablet 01/18/2024 01/18/2024 documented in this encounter Miscellaneous Notes * Telephone Encounter - Christal Wilkes - 01/18/2024 4899 EST [facility] in [place] calls because they do not have the Oxycodone 10 mg in stock. The patient doesn't want to wait until they can get it. Verde Information Operator Mamadou LEWIS, I added to his list of pharmacies. * Telephone Encounter - Alena Correa RN - 01/18/2024 1050 EST This report was requested by: Alena Correa Reference #: [id number] Oxycodone last filled Last OV 12/24/2023 Next OV 03/23/2024 Last UDS 07/16/2023 pos for oxycodone and cannabinoids Last CSA signed 07/15/2023 * Telephone Encounter - Amanda Buitrago - 01/18/2024 0948 EST Patient called requesting refill of Oxycodone to be sent to Ellie at [address] [facility] [address] documented in this encounter Plan of Treatment [...] for Pain. Daily Max: 60 mg Reorder 12/20/2023 01/18/2024 oxyCODONE (ROXICODONE) 10 mg immediate release tabletIndications:Low back pain with sciatica, sciatica laterality unspecified, unspecified back pain laterality, unspecified chronicity Take 1 Tablet by mouth every 4 hours as needed for Pain. Daily Max: 60 mg Reorder 01/18/2024 01/18/2024 documented as of this encounter Care Teams Wet Process Miller Relationship Specialty Start Date End Date Vanai Larson MD 6097 [facility] 9[place], [place] [address] PCP - General Family Medicine - Primary Care 06/16/23 08/30/24 Theresa Roberts MD [address] [place] [phone] Orthopaedic Surgery 01/18/24 08/30/24 documented as of this encounter
--- OUTSIDE RECORDS SUMMARY | 2024-10-13 06:46 | XMS_ITS | Encounter Summary ---
Author Organization [facility] Address [address] [place] [address] Care Team Providers Care Dobby Loom Chain Pegger Name Role Phone Vania Larson MD Primary Care Provider [phone] Theresa Roberts MD Unavailable [phone] Reason for Visit * Reason Onset Date Comments Medications Refill 02/17/2024 Encounter Details Date Type Department Care Team (Late st Contact Info) Description 02/17/2024 Refill [facility] Primary Care [address] [phone] Vania Larson MD 6[address] [facility] 9[place], [place] [phone] Medications Refill Social History Tobacco Use Types [...] your living situation today? I have a [facility] place to live 09/16/2023 Think about the [...] Recorded In the past 12 months has [employer], [facility], oil, or water [employer] threatened to shut off services in your home? No 09/16/2023 Education Answer Date Recorded Do you speak a language other than Namibian at [facility]? No 09/16/2023 Do you want help [...] Date triamterene-hydroc hlorothiazide (DYAZIDE) 37.5-25 mg per capsuleIndications :Hypertension, unspecified type TAKE 1 CAPSULE BY MOUTH EVERY DAY 90 Capsule 3 02/17/2024 documented in this encounter Miscellaneous Notes * Telephone Encounter - Amanda Buitrago - 02/17/2024 1144 EST Patient called requesting refill of Triamterene to be sent to [facility] in [facility] documented in this encounter Plan of Treatment Not on file documented as of this encounter Visit Diagnoses Diagnosis Hypertension, unspecified type- Primary documented in this encounter Discontinued Medications Medication Sig Discontinue Reason Start Date End Da te triamterene-hydrochlorot hiazide (DYAZIDE) 37.5-25 mg per capsule TAKE 1 CAPSULE BY MOUTH EVERY DAY Reorder 11/01/2023 02/17/2024 documented as of this encounter Care Teams Dobby Loom Chain Pegger Relationship Specialty Start Date End Date Vania Larson MD [address] [facility] [address], [place] [address] PCP - General Family Medicine - Primary Care 06/16/23 08/30/24 Theresa Roberts MD [address] [place] [phone] Orthopaedic Surgery 01/18/24 08/30/24 documented as of this encounter
--- OUTSIDE RECORDS SUMMARY | 2024-10-13 06:46 | XMS_ITS | Encounter Summary ---
Author Organization [facility] Address [address] [place] [address] Care Team Providers Care Inside Steward/Stewardess Name Role Phone Vania Larson MD Primary Care Provider [phone] Theresa Roberts MD Unavailable [phone] Reason for Visit * Reason Onset Date Comments Medications Refill 11/22/2023 Encounter Details Date Type Department Care Team (Late st Contact Info) Description 11/22/2023 Refill [facility] Primary Care [address] [phone] Vania Larson MD [address] [facility] 9[place], [place] [phone] Medications Refill Social History Tobacco Use Types [...] place to sleep or slept in a prison (including now)? No 01/12/2023 Interpersonal Safety Answer [...] your living situation today? I have a [facility] place to live 09/16/2023 Think about [...] Recorded In the past 12 months has [employer], [employer], oil, or water [employer] threatened to shut off services in your home? No 09/16/2023 Education Answer Date Recorded Do you speak a language other than Scottish at [facility]? No 09/16/2023 Do you want [...] Pain. Daily Max: 60 mg 180 Tablet 11/22/2023 12/20/2023 documented in this encounter Miscellaneous Notes * Telephone Encounter - Floridalma Benoit RN - 11/22/2023 1224 EDT Patient requesting refill of Oxycodone 10mg This report was requested by: Alena Correa Reference #: [id number] canvas marker checked no discrepancies noted. Last Fill:10/26/23 Next office visit Next Appointment: 12/15/23 Last Office Visit: 09/16/23 UDS:07/16/23 positive for oxy and cannabinoids Controlled substance agreement: 07/15/23 FLORIDALMA BENOIT RN 11/22/2023 12:25 * Telephone Encounter - BriannaTorie Cottrellily - 11/22/2023 0817 EDT Patient called requesting refill of Oxycodone to be sent to [facility] documented in this encounter Plan [...] for Pain. Daily Max: 60 mg Reorder 10/26/2023 11/22/2023 documented as of this encounter Care Teams Inside Steward/Stewardess Relationship Specialty Start Date End Date Vania Larson MD [address] [facility] [address], [place] [address] PCP - General Family Medicine - Primary Care 06/16/23 08/30/24 Theresa Roberts MD [address] [place] [phone] Orthopaedic Surgery 01/18/24 08/30/24 documented as of this encounter
--- OUTSIDE RECORDS SUMMARY | 2024-10-13 06:46 | XMS_ITS | Encounter Summary ---
Author Organization [facility] Address [address] [place] [address] Care Team Providers Care Bio Medical Technician Name Role Phone Carlos Manuel Cardoso MD Primary Care Provide r Vania Larson MD Primary Care Provider Vania Larson MD Primary Care Provider Vania Larson MD Primary Care Provider Theresa Roberts MD Unavailable [phone] Encounter Details Date Type Department Care Team (Late st Contact Info) Description 12/25/2020 Historical Results Only [facility] HIST DATA CONV TN Unknown, Provider, MD Social History Tobacco Use [...] Procedure Name Priority Date/Time Associated Diagnosis Comments HEMOGLOBIN A1C Routine 12/25/2020 9:00 EST documented in this encounter Results * (ABNORMAL) HEMOGLOBIN A1C (12/25/2020 9:00 EST) Hemoglobin A1c 6(H) L=3.8 H=5.6 % [facility] Comment: New ranges are effective 05/04/2019. The Guidelines remain the same If your A1C is this: Your average mean daily plasma blood sugar approximately this: % mg/dl 12.0% 345 11.0% 310 10.0% 275 9.0% 240 8.0% 205 7.0% 170 6.0% 135 5.0% 100 4.0% 65 Source:[place] [employer].\ITLo\Diabetes Care\ITLx\25:275-278,2002. 12/25/20.1258.KM .COMPLETE 12/25/2020 9:00 EST us Provider Unknown CHEMISTRY & BLOOD GAS ORDERA BLES Final Result [facility] [address] [place] [address] documented in this encounter Visit Diagnoses Not on filedocumented in this encounter Care Teams Bio Medical Technician Relationship Specialty Start Date End Date Carlos Manuel Cardoso MD [address] [place] [address] PCP - General 01/18/12 08/31/21 Vania Larson MD [address] [facility] [address] [place] [address] PCP - General Family Medicine - Primary Care 09/01/21 11/12/21 Vania Larson MD [address] [facility] [address] [place] [address] PCP - General Family Medicine - Primary Care 12/25/21 06/15/23 Vania Larson MD [address] [place] [address] [place] [address] PCP - General Family Medicine - Primary Care 06/16/23 08/30/24 Theresa Roberts MD [address] [place] [phone] Orthopaedic Surgery 01/18/24 08/30/24 documented as of this encounter
--- OUTSIDE RECORDS SUMMARY | 2024-10-13 06:46 | XMS_ITS | Clinical Summary ---
Author Organization [facility] Address [address] [place] [address] Care Team Providers Care Clinical Manager Name Role Phone Unavailable Primary Care Provider Unavailabl e Allergies Active Allergy Reactions Criticality Noted Date Comments Corticosteroids (Glucocorticoids) 01/25/2018 Swelling and discoloration Nsaids (Non-Steroidal Anti-Inflammatory Drug) 11/23/2022 [id number] blood pressure Other - See Comments High 01/25/2018 Other reaction(s): swelling and discoloration Other reaction(s): swelling and respiratory distress Yellow jackets swelling and respiratiory distress- 01/25/2018 Venom-Honey Bee Anaphylaxis High 08/04/2010 Medications senna (SENOKOT) 8.6 mg tablet Take 1 Tablet by mouth 2 times daily. 30 Tablet 1 3 Active polyethylene glycol 3350 (MIRALAX) 17 gram packet Take 17 g by mouth 2 times daily. You may take as needed rather than daily once regular bowel movements restored. 20 Packet 1 3 Active EPINEPHrine (EPIPEN) 0.3 mg/0.3 mL injection Use as directed 2 Each 1 4 Active triamterene-hydr ochlorothiazide (DYAZIDE) 37.5-25 mg per capsuleIndicatio ns:Hypertension, unspecified type TAKE 1 CAPSULE BY MOUTH EVERY DAY 90 Capsule 3 5 Active pantoprazole (PROTONIX) 40 mg tablet Take 2 Tablets by mouth daily. 180 Tablet 3 5 Active lisinopriL (PRINIVIL) 40 mg tablet Take 1 Tablet by mouth daily. 90 Tablet 3 5 Active docusate sodium (COLACE) 100 mg capsule Take 1 Capsule by mouth 2 times daily. 20 Capsule 1 5 Active atorvastatin (LIPITOR) 20 mg tablet Take 1 Tablet by mouth daily. 90 Tablet 3 5 Active oxyCODONE (ROXICODONE) 10 mg immediate release tabletIndication s:Low back pain with sciatica, sciatica laterality unspecified, unspecified back pain laterality, unspecified chronicity Take 1 Tablet by mouth every 3 hours as needed for up to 30 days for Pain. Daily Max: 80 mg 210 Tablet 5 Active Active Problems Patient Care Coordination No te Formatting of this note migh t be different from the original. Patient has given permission for the to verbally discuss the following information with Melida Milton and Shanelle Irvin who has the following relationship to the patient: [phone] sister [phone] niece Scheduling/Appt/Billing/Payment Information (does not include clinical information unless specifically indicated with separate option) Medical Information including symptoms, diagnosis, medications, test results and treatment plan (does not include Mental Health unless specifically indicated with separate option) Mental Health (Behavioral,Psychiatric,Chemical Dependency) health information, including my symptoms, diagnosis, medications and treatment plan Permission remains in effect until the patient elects to revoke it. Problem Noted Date Diagnosed Date Rhinosinusitis 12/24/2023 Right otitis media 12/24/2023 Chronic left shoulder pain 10/26/2023 Pain of left hand 09/16/2023 Initial Medicare annual wellness visit 4 Hyperglycemia 01/12/2023 Renal insufficiency 01/12/2023 Other spondylosis with radiculopathy, lumbar reg ion 11/23/2022 Preoperative examination 11/11/2022 Prediabetes 08/19/2022 Lumbar radiculopathy 08/19/2022 Dyslipidemia 12/26/2021 Abnormal thyroid function test 12/26/2021 Medication management 09/24/2021 Skin lesion 09/24/2021 Abnormal finding on thyroid function test 2021 Epigastric pain 12/25/2020 Chest pain 12/25/2020 Hip pain, right 03/29/2020 Encounter for other administrative examinations 06/19/2019 Encounter for wound re-check 06/19/2019 Dizziness 07/12/2018 Blindness 05/10/2018 Skin rash 05/02/2018 Hypertension 06/03/2017 Overweight 06/03/2017 Low back pain 06/03/2017 Glaucoma 06/12/2013 Sciatica 06/12/2013 Backache 02/15/2012 Abdominal pain, acute, generalized 08/04/2010 Overview (11/08/2014): ICD10 Update Auto Replacement Gastroesophageal reflux disease 07/12/2008 Noninfectious gastroenteritis 07/12/2008 Resolved Problems Problem Noted Date Diagnosed Date Resolved Date Chronic left shoulder pain 09/16/2023 0 10/26/2023 Hyperlipidemia 09/07/2008 12/26/2021 Encounters Date Type Department Care Team Description 08/31/[address] [place] [address] Vania Larson MD Medications Refill 08/03/[address] [place] [address] Vania Larson MD Medications Refill from Last 3 Months Immunizations Immunization Administration Dates Next Due Covid-19 mRNA Vaccine (MODER NA COVID-19) PF 0.5 ml IM (12 yrs+) 02/25/2021,05/22/2020,05/04/2020 Historical Influenza Vaccine , Unspecified 09/30/2023,11/19/2021,10/30/2020,2019,11/03/2018,10/27/2016,11/20/2011 Influenza Vaccine =>3yo Split IM 017,10/12/2015,09/17/2013,2011 Influenza Vaccine MDCK Quad (FLUCELVAX) PF 0.5 ml IM (6 mos+) 11/06/2022 Influenza Vaccine Quad (AFLU LESLIE) PF 0.5 ml IM (3 yrs+) 11/19/2021,10/30/2020,10/27/2016 RSV Vaccine, PreF, Subunit, Bivalent (ABRYSVO) PF 0.5 mL IM (60 yrs+, 32-36 wks preg) 09/30/2023 Shingrix (Zoster Vaccine, Recombinant) IM 01/22/2022,11/21/2021 Td (Adult) 5 Lf Vaccine (TEN IVAC) Preservative Free =>7yo IM 11/20/2004 Tdap Vaccine =>7YO IM 10/13/2018 Surgical History Surgery Date Site/Laterality Comments ANKLE SURGERY ANKLE SURGERY Right ankle ligament reconstruction HERNIA REPAIR WISDOM TOOTH EXTRACTION Medical History Medical History Date Comments Abdominal pain, other specified site 08/04/2010 GERD (gastroesophageal reflux disease) Hypertension Low back pain DDD/DDJ Blindness [place] History of general anesthesia Hyperlipidemia Heart murmur Back pain Arthritis Neck pain Family History Medical History Relation Comments Arthritis-Osteo Father Cancer Mother Heart Disease Mother Relation Status Comments Father Mother Social History Tobacco Use Types Packs/Day Years Used Date Smoking Tobacco: Former Cigarettes 3 28 0 02/14/1967 - 02/14/1995 Smokeless Tobacco: Never Tobacco Cessation:Counseling Given: Not Answered Alcohol Use Standard Drinks/Week Comments Not Currently [...] Never 01/12/2023 How often does anyone, bj ahll family, insult, scream, curse or threaten to [...] your living situation today? I have a [facility] place to live 09/16/2023 Think about [...] Recorded In the past 12 months has e electric, gas, oil, or water company threatened to shut off services in your home? No 09/16/2023 Education Answer Date Recorded Do you [facility] a language other than [facility]? No 09/16/2023 Do you want help [...] Sexual Orientation Straight 08/19/2022 12 :26 EDT Obstetrics History Last Filed Vital Signs Vital Sign Reading Time Taken Comments Blood Pressure 114/74 07/05/2024 1106 EDT Pulse 48 07/05/2024 1106 EDT Temperature 36.4 C (97.6 F) 07/05/2024 1106 EDT Respiratory Rate 20 07/05/2024 1106 EDT Oxygen Saturation 98% 07/05/2024 1106 EDT Inhaled Oxygen Concentration - - Weight 79.8 kg (176 lb) 07/05/2024 1106 EDT Height 172.7 cm (5' 8 ) 07/05/2024 1106 EDT Body Mass Index 26.76 07/05/2024 1106 EDT Plan of Treatment Health Maintenance Due Date Last Done Comments Hepatitis C Screen 1959 HIV Screening 1975 Preventive Care Visit 07/06/1977 Cologuard (Colon Cancer Screening) 07/06/2004 FIT Test (Colon Cancer Screening) 07/06/2004 Sigmoidoscopy (Colon Cancer Screening) 07/06/2004 Pneumococcal Immunization (50+) (1 of 1 - PCV) 07/06/2009 COVID-19 Vaccine ( - season) 2023 02/25/2021, 05/22/2020, 05/04/2020 Abdominal Aortic Aneurysm (AAA Screen) 07/06/2024 Fall Risk Screening 07/06/2024 06/28/2023 Urine Drug Screen 07/14/2024 07/15/2023, 04/13/2023 Depression Screening 09/15/2024 09/16/2023, 01/12/2023, 11/11/2022, Additional history exists Social Determinants Of Health (SDOH) 09/15/2024 09/16/2023, 01/12/2023, 01/12/2023 Influenza Immunization (Adult) (#1) 2024 09/30/2023, 11/06/2022, 11/19/2021, Additional history exists Advance Directive 12/23/2024 Postponed from 07/06/1977 (Other) Prescription Agreement 07/05/2025 , 07/15/2023, 04/13/2023, Additional history exists Colonoscopy (Colon Cancer Screening) 01/20/2028 01/19/2018 Colorectal Cancer Screening 01/20/2028 Lipid Profile Screening (Cholesterol) 07/15/2028 07/16/2023, 04/13/2023, 12/26/2021, Additional history exists Tetanus (Adult) Immunization 10/13/2028 10/13/2018, 11/20/2004 Pertussis (Adult) Immunization Completed 10/13/2018 Shingles Immunization Completed 01/22/2022, 022 RSV Immunization ( or 60+ Years) Completed 09/30/2023 Meningococcal B Vaccine Aged Out No l onger eligible based on patient's age to complete this topic Procedures Procedure Name Priority Date/Time Associated Diagnosis Comments LIPID PROFILE (INCLUDES CHOLESTEROL, TRIGLYCERIDES, HDL, LDL) Routine 07/16/2023 7:01 EDT Dyslipidemia from Last 3 Months or Most Recently Relevant to Health Maintenance Results * LIPID PROFILE (INCLUDES CHOLESTEROL, TRIGLYCERIDES, HDL, LDL) (07/16/2023 7:01 EDT) Cholesterol 184 <200 mg/dL 07/16/2023 7:41 EDT [facility] HDL 70 >=40 mg/dl 07/16/2023 7:41 [facility] LDL, Calculated 91 <160 mg/dL 7:41 [facility] Triglyceride 113 <=150 mg/dL 07/16/2023 7:41 [facility] Comment:Note that therapeuti c goals will differ between patients based on cardiac risk factors and current medical therapy. Chol/HDL Ratio 2.6 See Note 07/16/2023 7:41 [facility] Comment:No reference range h as been established for CHOL/HDL ratio. Non HDL Cholesterol 114 <160 mg/dL 07/16/2023 7:41 [facility] Blood VENOUS BLOOD / Unknown Venipuncture / Unknown 07/16/2023 7:01 EDT 07/16/2023 7:11 EDT Vania Larson MD CHEMISTRY & BLOOD GAS ORDER MADELIN Final Result [facility] [address] [place] [address] from Last 3 Months or Most Recently Relevant to Health Maintenance Insurance [employer] MEDICARE Advance Directives For more information, please contact: [phone] * Full Code (Latest Code Status on File) Date Activated Date Inactivated Comments 11/23/2022 6:05 11/26/2022 16:45 Question Answer Comments When the patient has NO PULSE: Full Code / CPR [facility]: Refer to current pap er/scanned MOLST for order details.
--- OUTSIDE RECORDS SUMMARY | 2024-10-13 06:46 | XMS_ITS | Encounter Summary ---
Author Organization [facility] Address [address] [place] [address] Care Team Providers Care Micro Computer Specialist Name Role Phone Carlos Manuel Cardoso MD Primary Care Provide r Vania Larson MD Primary Care Provider Vania Larson MD Primary Care Provider Vania Larson MD Primary Care Provider [phone] Theresa Roberts MD Unavailable [phone] Encounter Details Date Type Department Care Team (Late st Contact Info) Description 12/25/2020 Historical Results Only [facility] HIST DATA CONV ID Unknown, Provider, MD Social History Tobacco Use [...] PROFILE (INCLUDES CHOLESTEROL, TRIGLYCERIDES, HDL, LDL) Routine 12/25/2020 9:00 EST documented in this encounter Results * (ABNORMAL) LIPID PROFILE (INCLUDES CHOLESTEROL, TRIGLYCERIDES, HDL, LDL) (12/25/2020 9:00 EST) Fasting? R [facility] Cholesterol 191 L=100 H=200 mg/dL [facility] HDL 49 L=40 H=60 mg/dL [facility] Triglyceride 166(H) L=30 H=150 mg/dL [facility] LDL, Calculated 109(H) L=0 H=100 mg/dL [facility] Chol/HDL Ratio 3.9 [facility] LDL/HDL - ECH 2.22 [facility] Comment: ARTHEROSCLEROSIS RISK RATIOS FOR LDL, HDL & TOTAL CHOLESTEROL MALE FEMALE RISK LDL/HDL CHOL/HDL RISK LDL/HDL CHOL/HDL 1/2 AVG 1.00 3.43 1/2 AVG 1.47 3.27 AVERAGE 3.55 4.97 AVERAGE 3.22 4.44 2X AVG 6.25 9.55 2X AVG 5.03 7.05 3X AVG 7.99 13.39 3X AVG 6.14 11.04 Average risk implies a 20-25% chance of developing CHD by age 60. 12/25/20.1245.KM .COMPLETE 12/25/2020 9:00 EST Narrative [facility] - 12/25/2020 12:45 EST LIPID PANEL us Provider Unknown CHEMISTRY & BLOOD GAS ORDERA BLES Final Result [facility] [address] [place] [address] documented in this encounter Visit Diagnoses Not on filedocumented in this encounter Care Teams Micro Computer Specialist Relationship Specialty Start Date End Date Carlos Manuel Cardoso MD [address] [place] [phone] PCP - General 01/18/12 08/31/21 Vania Larson MD [address] [facility] [address] [place] [address] PCP - General Family Medicine - Primary Care 09/01/21 11/12/21 Vania Larson MD [address] [facility] [address] [place] [address] PCP - General Family Medicine - Primary Care 12/25/21 06/15/23 Vania Larson MD [address] [facility] [address] [place] [address] PCP - General Family Medicine - Primary Care 06/16/23 08/30/24 Theresa Roberts MD [address] [place] [phone] Orthopaedic Surgery 01/18/24 08/30/24 documented as of this encounter
--- OUTSIDE RECORDS SUMMARY | 2024-10-13 06:46 | XMS_ITS | Encounter Summary ---
Author Organization [facility] Address [address] [place] [address] Care Team Providers Care Piano Tuner Name Role Phone Carlos Manuel Cardoso MD Primary Care Provide r Vania Larson MD Primary Care Provider Vania Larson MD Primary Care Provider Vania Larson MD Primary Care Provider Theresa Roberts MD Unavailable [phone] Reason for Visit * Reason Comments Other Encounter Details Date Type Department Care Team (Late st Contact Info) Description 06/24/2021 [facility] Primary Care - [place] [address] [facility] [address] [place] [address] Vania Larson MD [address] [facility] [address] [place] [phone] Other Social History Tobacco Use Types Packs/Day [...] Refills Last Filled Start Date End Date nabumetone (RELAFEN) 500 mg tabletIndications: Chronic bilateral low back pain with right-sided sciatica Take 1 Tablet by mouth 3 times daily as needed for up to 180 days for Pain. 270 Tablet 1 06/24/2021 08/30/2021 documented in this encounter Plan of Treatment Not on file documented as of this encounter Visit Diagnoses Diagnosis Chronic bilateral low back pain with right-sided sciatica documented in this encounter Discontinued Medications Medication Sig Discontinue Reason Start Date End Da te nabumetone (RELAFEN) 500 mg tabletIndications:Chroni c bilateral low back pain with right-sided sciatica Take 1 Tablet by mouth 3 times daily as needed for up to 30 days for Pain. 06/24/2021 06/24/2021 documented as of this encounter Care Teams Piano Tuner Relationship Specialty Start Date End Date Carlos Manuel Cardoso MD [address] [place] [phone] PCP - General 01/18/12 08/31/21 Vania Larson MD [address] [facility] [address] [place] [address] PCP - General Family Medicine - Primary Care 09/01/21 11/12/21 Vania Larson MD [address] [facility] [address] [place] [address] PCP - General Family Medicine - Primary Care 12/25/21 06/15/23 Vania Larson MD [address] [facility] [address] [place] [address] PCP - General Family Medicine - Primary Care 06/16/23 08/30/24 Theresa Roberts MD [address] [place] [phone] Orthopaedic Surgery 01/18/24 08/30/24 documented as of this encounter
--- OUTSIDE RECORDS SUMMARY | 2024-10-13 06:46 | XMS_ITS | Encounter Summary ---
Author Organization [facility] Address [address] [place] [address] Care Team Providers Care Conditioning Coach Name Role Phone Vania Larson MD Primary Care Provider [phone] Vania Larson MD Primary Care Provider [phone] Vania Larson MD Primary Care Provider Theresa Roberts MD Unavailable [phone] Reason for Visit * Reason Onset Date Comments Follow-up 09/01/2021 Encounter Details Date Type Department Care Team ([facility] st Contact Info) Description 09/01/2021 Telephone [facility] Primary Care [address] [address] Karyna Stahl, MARCELA Follow-up Social History Tobacco Use Types Packs/Day Years [...] suspected to have Coronavirus/COVID-19? No / Unsure 08/30/2021 7:11 EDT documented as of this encounter Functional Status * Are you deaf or do you have serious difficulty hearing? Answer Date of Assessment Author No 08/30/2021 7:06 EDT Khoi Lopez RN documented as of this encounter Miscellaneous Notes * Telephone Encounter - Karyna Stahl RN - 09/01/2021 1058 EDT I called patient to check on him and he states he is doing much better. He informed me that we are no longer his PCP office anymore. He has an appt in September with is PCP * Telephone Encounter - Karyna Stahl RN - 09/01/2021 0831 EDT Need for ER visit follow up call ER visit date:08/30/21 Reason for Visit:Patient presents secondary to 4 days of chest pain. Patient notes he began across his chest and worse with breathing with acute onset. He notes with every deep breath the pain was worse. Intermittently the patient notes he is got pain on his left neck. Pain worse with motion and motor. Patient does not shortness of breath and episodes where it feels like his arms are cramping andnumb. He denies any fevers chills. Had nausea once. No vomiting. Baseline cough no change with thisevent. No production. No change in rhinorrhea. No radiation to his arms from his baseline rheumatoid arthritis. Patient is on oxycodone. Patient is non-smoker with a history of smoking in the past. Patient is on oxycodone 10 mg tablets patient notes he takes 2 at a time. He has not taken any pain medications for the last 4 days of unsure how it is going to affect his chest pain. Patient noted didwalk the dog today and ambulation walking the dog has no effect on his chest discomfort. Patient notes he is walking mowing the lawn even though he has difficulty seeing and normal activities with nochest pain prior to this event. ? Concerns: documented in this encounter Plan of Treatment Not on file documented as of this encounter Visit Diagnoses Not on filedocumented in this encounter Care Teams Conditioning Coach Relationship Specialty Start Date End Date Vania Larson MD [address] [facility] [address] [place] [address] PCP - General Family Medicine - Primary Care 09/01/21 11/12/21 Vania Larson MD 6[address] [facility] [address] [place] [address] PCP - General Family Medicine - Primary Care 12/25/21 06/15/23 Vania Larson MD [address] [facility] [address] [place] [address] PCP - General Family Medicine - Primary Care 06/16/23 08/30/24 Theresa Roberts MD [address] [place] [address] [place] [phone] Orthopaedic Surgery 01/18/24 08/30/24 documented as of this encounter
--- OUTSIDE RECORDS SUMMARY | 2024-10-13 06:46 | XMS_ITS | Encounter Summary ---
Author Organization [facility] Address [address] [place] [address] Care Team Providers Care Non Destructive Testing Inspector Name Role Phone Vania Larson MD Primary Care Provider [phone] Theresa Roberts MD Unavailable [phone] Reason for Visit * Reason Onset Date Comments Medications Refill 03/21/2024 Encounter Details Date Type Department Care Team (Late st Contact Info) Description 03/21/2024 Refill [facility] Primary Care [address] [id number] Vania Larson MD [address] [facility] [address] [phone] Medications Refill Social History Tobacco Use Types [...] place to sleep or slept in a assisted (including now)? No 01/12/2023 Interpersonal Safety Answer [...] your living situation today? I have a [facility] place to live 09/16/2023 Think [...] Recorded In the past 12 months has [employer], [employer], oil, or water [employer] threatened to shut off services in your home? No 09/16/2023 Education Answer Date Recorded Do you speak a language other than Mauritian at [facility]? No 09/16/2023 Do you want help [...] Entry Date Author No 11/23/2022 14:50 Marlin Glaindo RN documented in this encounter Ordered Prescriptions Prescription Sig Dispense Quantity Refills Last Filled Start Date End Date oxyCODONE (ROXICODONE) 10 mg immediate release tabletIndications: Low back pain with sciatica, sciatica laterality unspecified, unspecified back pain laterality, unspecified chronicity Take 1 Tablet by mouth every 4 hours as needed for Pain. Daily Max: 60 mg 180 Tablet 03/22/2024 04/03/2024 documented in this encounter Miscellaneous Notes * Telephone Encounter - Alena Correa RN - 03/21/2024 1537 EST This report was requested by: Alena Correa Reference #: [id number] Oxycodone last filled 02/20/24 Last OV 12/24/2023 Next OV 03/23/2024 Last UDS 07/16/23 pos for oxycodone and cannabinoids Last CSA signed 07/15/23 * Telephone Encounter - Brianna-Aquiles, Amanda - 03/21/2024 1436 EST Patient requesting refill of Oxycodone [facility] [place] documented in this encounter Plan of Treatment [...] for Pain. Daily Max: 60 mg Reorder 02/16/2024 03/21/2024 documented as of this encounter Care Teams Non Destructive Testing Inspector Relationship Specialty Start Date End Date Vania Larson MD [address] [facility] [address] [address] PCP - General Family Medicine - Primary Care 06/16/23 08/30/24 Theresa Roberts MD [address] [facility] [address] [place] [phone] Orthopaedic Surgery 01/18/24 08/30/24 documented as of this encounter
--- OUTSIDE RECORDS SUMMARY | 2024-10-13 06:46 | XMS_ITS | Encounter Summary ---
Author Organization [facility] Address [address] [place] [address] Care Team Providers Care Calliope Player Name Role Phone Carlos Manuel Cardoso MD Primary Care Provide r Vania Larson MD Primary Care Provider Vania Larson MD Primary Care Provider Vania Larson MD Primary Care Provider Theresa Roberts MD Unavailable [phone] Encounter Details Date Type Department Care Team (Late st Contact Info) Description 12/25/2020 Historical Results Only [facility] HIST DATA CONV LA Unknown, Provider, MD Social History Tobacco Use [...] Procedure Name Priority Date/Time Associated Diagnosis Comments COMPREHENSIVE METABOLIC PANEL (CMP) Routine 12/25/2020 9:00 EST documented in this encounter Results * (ABNORMAL) COMPREHENSIVE METABOLIC PANEL (CMP) (12/25/2020 9:00 EST) Fasting? R [facility] Total Protein 7.1 L=6.4 H=8.2 g/dL [facility] Albumin 4.2 L=3.4 H=5.0 g/dL [facility] GLOBULIN - ECH 2.9 L=1.5 H=4.5 g/dL [facility] TBI - ECH 0.5 L=0.2 H=1.0 mg/dL [facility] Alkaline Phosphatase 67 L=46 H=116 U/L [facility] AST 26 L=11 H=33 U/L [facility] ALT 40 L=12 H=78 U/L [facility] Glucose 86 L=74 H=106 mg/dL [facility] BUN 27(H) L=7 H=18 mg/dL [facility] Creatinine 1.35(H) L=0.70 H=1.30 mg/dL [facility] Calcium 8.8 L=8.5 H=10.1 mg/dL [facility] Sodium 137 L=136 H=145 mEq/L [facility] Potassium 4.2 L=3.5 H=5.1 mEq/L [facility] Chloride 101 L=98 H=107 mEq/L [facility] CO2 Total 27 L=21 H=32 mEq/L [facility] AGE - ECH 60 years [facility] GFR Afr-Am - ECH 65 L=60 H=137 [facility] GFR Non-AfrAm - ECH 54(L) L=60 H=137 [facility] Comment: Units for the GFR are defined as mL/min/1.73m2 12/25/20.1245.KM .COMPLETE 12/25/2020 9:00 EST Narrative [facility] - 12/25/2020 12:42 EST COMPREHENSIVE METABOLIC PANEL us Provider Unknown CHEMISTRY & BLOOD GAS ORDERA BLES Final Result [facility] [address] [place] [address] documented in this encounter Visit Diagnoses Not on filedocumented in this encounter Care Teams Calliope Player Relationship Specialty Start Date End Date Carlos Manuel Cardoso MD [address] [place] [phone] PCP - General 01/18/12 08/31/21 Vania Larson MD [address] [facility] [address] [place] [address] PCP - General Family Medicine - Primary Care 09/01/21 11/12/21 Vania Larson MD [address] [address] PCP - General Family Medicine - Primary Care 12/25/21 06/15/23 Vania Larson MD [address] [address] PCP - General Family Medicine - Primary Care 06/16/23 08/30/24 Theresa Roberts MD [address] [place] [phone] Orthopaedic Surgery 01/18/24 08/30/24 documented as of this encounter
--- OUTSIDE RECORDS SUMMARY | 2024-10-13 06:46 | XMS_ITS | Encounter Summary ---
Author Organization [facility] Address [address] [place] [address] Care Team Providers Care Sandwich Machine Operator Name Role Phone Vania Larson MD Primary Care Provider [phone] Theresa Roberts MD Unavailable [phone] Reason for Visit * Reason Onset Date Comments Medications Refill 02/15/2024 Encounter Details Date Type Department Care Team (Late st Contact Info) Description 02/15/2024 Refill [facility] Primary Care - [place] [address] [facility] [place] [address] Vania Larson MD [address] [facility] [address] [place] [address] Medications Refill Social History Tobacco Use Types [...] place to sleep or slept in a fdc (including now)? No 01/12/2023 Interpersonal Safety Answer [...] your living situation today? I have a [facility] place to live 09/16/2023 Think about [...] Recorded In the past 12 months has [employer], [employer], oil, or water [employer] threatened to shut off services in your home? No 09/16/2023 Education Answer Date Recorded Do you speak a language other than Welsh at [facility]? No 09/16/2023 [...] Pain. Daily Max: 60 mg 180 Tablet 02/16/2024 03/21/2024 oxyCODONE (ROXICODONE) 10 mg immediate release tabletIndications: Low back pain with sciatica, sciatica laterality unspecified, unspecified back pain laterality, unspecified chronicity Take 1 Tablet by mouth every 4 hours as needed for Pain. Daily Max: 60 mg 180 Tablet 02/15/2024 02/16/2024 documented in this encounter Miscellaneous Notes * Telephone Encounter - Alena Correa RN - 02/15/2024 1012 EST This report was requested by: Alena Correa Reference #: [id number] Oxycodone last filled 01/22/24 Last OV 12/24/2023 Next OV 03/23/2024 Last UDS 07/16/2023 pos for oxycodone and cannabinoids Last CSA signed 07/15/2023 * Telephone Encounter - Misty Bacon - 02/15/2024 0941 EST Oxycodone Lisinopril Atorvastatin documented in this encounter Plan of Treatment [...] for Pain. Daily Max: 60 mg Reorder 01/19/2024 02/15/2024 oxyCODONE (ROXICODONE) 10 mg immediate release tabletIndications:Low back pain with sciatica, sciatica laterality unspecified, unspecified back pain laterality, unspecified chronicity Take 1 Tablet by mouth every 4 hours as needed for Pain. Daily Max: 60 mg Reorder 02/15/2024 02/16/2024 documented as of this encounter Care Teams Sandwich Machine Operator Relationship Specialty Start Date End Date Vania Larson MD [address] [facility] [address], [place] [address] PCP - General Family Medicine - Primary Care 06/16/23 08/30/24 Theresa Roberts MD [address] [place] [address] [place] [phone] Orthopaedic Surgery 01/18/24 08/30/24 documented as of this encounter
--- OUTSIDE RECORDS SUMMARY | 2024-10-13 06:46 | XMS_ITS | Encounter Summary ---
Author Organization [facility] Address [address] [place] [address] Care Team Providers Care Test Skein Winder Name Role Phone Vania Larson MD Primary Care Provider [phone] Theresa Roberts MD Unavailable [phone] Reason for Visit * Reason Comments Medications Refill Encounter Details Date Type Department Care Team (Late st Contact Info) Description 05/01/2024 Refill [facility] Primary Care [facility] [address] [facility] [place] [address] Vania Larson MD [address] [facility] [address] [phone] Medications Refill Social History Tobacco Use Types [...] your living situation today? I have a [facility] place to live 09/16/2023 Think about [...] In the past 12 months has th [employer], [employer], oil, or water [employer] threatened to shut off services in your home? No 09/16/2023 Education Answer Date Recorded Do you speak a language other than [facility]? No 09/16/2023 Do you [...] BY MOUTH DAILY 90 Tablet 3 05/01/2024 5 pantoprazole (PROTONIX) 40 mg tablet TAKE 2 TABLETS BY MOUTH DAILY 180 Tablet 3 05/01/2024 5 documented in this encounter Plan of Treatment Not on file documented as of this encounter Visit Diagnoses Not on filedocumented in this encounter Discontinued Medications Medication Sig Discontinue Reason Start Date End Da te pantoprazole (PROTONIX) 40 mg tablet Take 2 Tablets by mouth daily. 08/02/2023 05/01/2024 lisinopriL (PRINIVIL) 40 mg tablet TAKE 1 TABLET BY MOUTH DAILY 02/01/2024 05/01/2024 documented as of this encounter Care Teams Test Skein Winder Relationship Specialty Start Date End Date Vania Larson MD [address] [facility] [address] [place] [address] PCP - General Family Medicine - Primary Care 06/16/23 08/30/24 Theresa Roberts MD [address] [place] [phone] Orthopaedic Surgery 01/18/24 08/30/24 documented as of this encounter
--- OUTSIDE RECORDS SUMMARY | 2024-10-13 06:46 | XMS_ITS | Encounter Summary ---
Author Organization [facility] Address [address] [place] [address] Care Team Providers Care Road Train Driver Name Role Phone Carlos Manuel Cardoso MD Primary Care Provide r Vania Larson MD Primary Care Provider Vania Larson MD Primary Care Provider Vania Larson MD Primary Care Provider Theresa Roberts MD Unavailable [phone] Encounter Details Date Type Department Care Team (Late st Contact Info) Description 05/24/2017 Historical Results Only [facility] HIST DATA CONV NE Unknown, Provider, MD Social History Tobacco Use [...] Diagnosis Comments MR LUMBAR SPINE WO CONTRAST 05/24/2017 0:00 EDT documented in this encounter Results * MR LUMBAR SPINE WO CONTRAST (05/24/2017 0:00 EDT) Anatomical Region Laterality Modality Spine Magnetic Resonan ce 05/24/2017 us Provider Unknown MD LUKE MRI ORDERABLES Final Res ult documented in this encounter Visit Diagnoses Not on filedocumented in this encounter Care Teams Road Train Driver Relationship Specialty Start Date End Date Calros Manuel Cardoso MD [address] [place] [address] PCP - General 01/18/12 08/31/21 Vania Larson MD [address] [facility] [address] [place] [address] PCP - General Family Medicine - Primary Care 09/01/21 11/12/21 Vania Larson MD [address] [facility] [address] [place] [address] PCP - General Family Medicine - Primary Care 12/25/21 06/15/23 Vania Larson MD [address] [facility] [address] [place] [address] PCP - General Family Medicine - Primary Care 06/16/23 08/30/24 Theresa Roberts MD [address] [place] [phone] Orthopaedic Surgery 01/18/24 08/30/24 documented as of this encounter
--- OUTSIDE RECORDS SUMMARY | 2024-10-13 06:46 | XMS_ITS | Clinical Summary ---
Author Organization [facility] Address [address] [place] [address] Phone Care Team Providers Care Manager Metal Name Role Phone Physician, No Pcp Primary Care Provider Unavaila ble Allergies Active Allergy Reactions Criticality Noted Date Comments Bee Venom Protein (Honey Bee) Anaphylaxis High 09/14 Medications No known medications Encounters Date Type Department Care Team Description 09/14/2024 12:05 PM EDT - 09/14/2024 1:14 PM EDT Emergency [facility] Emergency [address] [place] [address] Chronic low back pain without sciatica, unspecified back pain laterality (Primary Dx) Discharge Disposition: Home or Self Care from Last 3 Months Surgical History Surgery Date Site/Laterality Comments BACK SURGERY Medical History Medical History Date Comments Hypertension GERD (gastroesophageal reflux disease) Hypercholesteremia Back pain Social History Tobacco Use Types Packs/Day Years Used Date Smoking Tobacco: Every Day Cigarettes Smokeless Tobacco: Never Tobacco Cessation:Ready to Q uit: Not Asked; Counseling Given: Not Answered Alcohol Use Standard Drinks/Week Comments Not Currently 0 (1 standard drink = 0.6 oz pur e alcohol) Sex and Gender Information Value Date Recorded Sex Assigned at Not on file Legal Sex Male 11:50 AM EDT Gender Identity Not on file Sexual Orientation Not on file Obstetrics History Last Filed Vital Signs Vital Sign Reading Time Taken Comments Blood Pressure 143/78 09/14/2024 11:59 AM EDT Pulse 77 09/14/2024 11:59 AM EDT Temperature 36.7 C (98.1 F) 09/14/2024 11:59 AM EDT Respiratory Rate 16 09/14/2024 11:59 AM EDT Oxygen Saturation 99% 09/14/2024 11:59 AM EDT Inhaled Oxygen Concentration - - Weight 79.8 kg (176 lb) 09/14/2024 11:59 AM EDT Height 172.7 cm (5' 8 ) 09/14/2024 11:59 AM EDT Body Mass Index 26.76 09/14/2024 11:59 AM EDT Plan of Treatment Health Maintenance Due Date Last Done Comments Pneumococcal Vaccine: 50+ Years (1 of 2 - PCV) [birth year]06/1979 Depression Screening 02/09/2024 Abdominal Aortic Aneurysm (AAA) Screen 09/14/2024 Cholesterol Screening (Lipid Panel) 09/14/2024 Colorectal Cancer Screening: Colonoscopy 09/14/2024 Falls Risk Assessment 09/14/2024 Hepatitis C Screening 09/14/2024 Hypertension/CHF/CAD Annual BMP Blood Test 09/14/2024 Lung Cancer Screening (Low Dose CT) 09/14/2024 Medicare Annual Wellness Visit 09/14/2024 Social Influencers of Health Screening 09/14/2024 COVID-19 Vaccine ( season) 2024 02/25/2021, 05/22/2020, 05/04/2020 Influenza Vaccine (#1) 2024 , 11/06/2022, 11/19/2021, Additional history exists DTaP,Tdap,and Td Vaccines (3 - Td or Tdap) 10/13/2028 10/13/2018, 11/20/2004 Zoster Vaccines Completed 01/22/2022, 11/21/2021 RSV Immunization Adult Patients Completed 09/30/2023 HIB Vaccines Aged Out No longer eligi ble based on patient's age to complete this topic HPV Vaccines Aged Out No longer eligi ble based on patient's age to complete this topic Hepatitis A Vaccines Aged Out No long er eligible based on patient's age to complete this topic Hepatitis B Vaccines Aged Out No long er eligible based on patient's age to complete this topic IPV Vaccines Aged Out No longer eligi ble based on patient's age to complete this topic MMR Vaccines Aged Out No longer eligi ble based on patient's age to complete this topic Meningococcal ACWY Vaccine Aged Out N o longer eligible based on patient's age to complete this topic Meningococcal B Vaccine Aged Out No l onger eligible based on patient's age to complete this topic RSV Immunization Patients Under 20 months Aged Out No longer eligible based on patient's age to complete this topic Varicella Vaccines Aged Out No longer eligible based on patient's age to complete this topic Insurance MEDICAID - [place] [employer] MEDICARE Care Teams Manager Metal Relationship Specialty Start Date End Date Physician, No Pcp PCP - General 09/14/24
== END 2024-10-13 06:41 | disposition home or self-care (01) ==
LOC: HO.HOSX 06:40
PROVIDERS: Visit Provider Physician Assistant
DX: Z13.89 Encounter for screening for other disorder (principal)

== ENCOUNTER 2024-10-13 11:30 | Outpatient (AMB) | payer OTHER, SELFPAY ==
--- NOTE | 2024-10-13 11:38 | MHC.OFFVIS ---
Vital Signs 10/13/24 11:57 Height 5 ft 8 in Weight 173 lb BMI 26.3 Intake Visit Reasons: OCCUPATIONAL HEALTH SPECIALIST-Left shoulder Pain Intake Note: Jean is a 64 year old male who is visually impaired presents today as a new patient for an evaluation of left shoulder pain. MRI done in [place]. Patient reports that he injured his shoulder about 3 years ago after her was pulling on a rope. He was prescribed oxycodone previously that helped with his discomfort. He complains of constant pain and difficulty with sleeping. Limited ROM. He mentions 2 discs missing in his neck and a history of back surgery. Allergies Corticosteroids (Glucocorticoids) Adverse Reaction (Verified 10/13/24 12:00) swelling, discolored NSAIDS (Non-Steroidal Anti-Inflamma Adverse Reaction (Verified 10/13/24 12:00) elevated blood pressure yellow jackets bees Adverse Reaction (Mild, Uncoded 10/13/24 12:00) Unknown Medication List - Last Reconciled 10/13/24 by Dale Pollack PA-C atorvastatin 20 mg PO DAILY 90 days lisinopril 40 mg PO DAILY 90 days pantoprazole 40 mg PO DAILY 90 days triamterene 50 mg PO DAILY 90 days HPI HPI OCCUPATIONAL HEALTH SPECIALIST-Left shoulder Pain: Details: Patient is a 64-year-old gentleman with a longstanding history of opiate dependence on oxycodone times 15 years presents to the office today for ongoing left shoulder pain. Patient is legally blind as a result of glaucoma. Patient explains he has had multiple positions in the work force throughout his life that have apparently put a lot of strain on his body including his back and his shoulder. He was recently living in [place] when he was being treated for his left shoulder and had an MRI which was significant for a full-thickness rotator cuff tear with some retraction. He states he was scheduled for a surgery but move back to [place] and needed to reestablish himself with a provider. He was seeing Dr. Brown for his primary care whom the patient states refused to refill his oxycodone. The patient was also seen by pain management here at [facility]. Treatment options were discussed such as injections and also implantable devices which the patient declines. Pain management was also not willing to provide the patient with an opiate contract. Patient was then referred to our office for left shoulder pain. Patient states the pain is constant and it keeps him from performing daily activities. He states he is significantly limited in function with the left arm because he is unable to lift it off or carry objects. He needs to constantly keep his left arm close to his body. He states it does not sleep due to the pain. He states he can not take steroid injections because of a bad reaction. He can not take anti-inflammatories because of his blood pressure. States he has tried [id number] pain creams which are not helpful. [facility] Medical History (Updated 10/13/24 @ 12:51 by Dale Pollack PA-C) Legally blind Impaired fasting glucose GERD without esophagitis Pure hypercholesterolemia Essential hypertension Degenerative joint disease of shoulder Lumbar degenerative disc disease Surgical History History of umbilical hernia repair History of ankle surgery History of lumbar discectomy History of colonoscopy Family History (Updated 06/27/24 @ 14:03 by OSCAR Branham) Other Diabetes Heart attack Hypertension Prostate cancer Skin cancer Social History (Updated 10/13/24 @ 11:49 by OSCAR Martinez) Housing: House Patient Tobacco Use Status: Former Tobacco user e-Cigarette/Vaping Use: Never Used service: Yes Current occupational status: disabled Current occupation: right hand dominant Current occupational exposures/hazards: No Cognitive needs: No Hearing needs: No Vision needs: Yes Review of Systems Const All systems reviewed & are unremarkable except as noted in HPI and below Physical Exam Vital Signs: BMI result Body Mass Index 26.3 Const General: cooperative and no acute distress Orientation/consciousness: patient oriented x3 Resp Effort & Inspection: normal respiratory effort and able to speak in complete sentences Cardio Peripheral pulses: Peripheral pulses 2+ throughout Neuro General: patient oriented x3 Extrem Other: Patient in the office today seen holding his left arm in a guarded position trembling in pain. In an attempt to palpate the proximal humerus and biceps tendon the patient has severe hypersensitivity to touch. In an attempt to passively flex the arm to 90 degrees he is able to somewhat tolerate this but upon descending he has extreme pain. Results Reviewed Results Reviewed: X-rays of the left shoulder obtained in the office today and reviewed by me show some sclerotic changes under the acromion. Joint space is well-preserved. He does have some AC joint arthritis. Assessment & Plan Assessment & Plan (1) Left rotator cuff tear: Code(s): M75.102 - Unspecified rotator cuff tear or rupture of left shoulder, not specified as traumatic Category: Medical (2) Arthritis of left acromioclavicular joint: Code(s): M19.012 - Primary osteoarthritis, left shoulder Category: Medical Plan I explained to the patient controlling his pain is going to be relatively difficult because he has been on oxycodone for up to 15 years and he is unable to tolerate other treatment modalities such as injections or anti-inflammatories. I explained to the patient while a surgery may be possible it is often not successful when you are in constant pain. The patient did express understanding to the point. At the very least, we can order an MRI of the left shoulder to further evaluate the rotator cuff and determine to what extent it is retracted and if there is any fatty atrophy. This will allow me to better determine if there is in fact and treatment option. I did reiterate the fact that surgery would not be an option if he continues to have constant pain and expect surgery to cure his pain. Surgery is for function; not pain. Patient does express understanding. I told him to reach out to his primary care for any narcotic medication as we do not prescribe this. Patient understands and will see me back once the scan is complete. Orders: Orders MR shoulder LT wo con Today S46.009A - Unspecified injury of muscle(s) and tendon(s) of the rotator cuff of unspecified shoulder, initial encounter XR shoulder LT min 2V Today M25.512 - Pain in left shoulder Coding Level of Care Code New Pt Level 3 (24389) Complex EM visit Add On G2211 Diagnoses Left rotator cuff tear M75.102 Arthritis of left acromioclavicular joint M19.012
[2024-10-13 11:57] VITALS: BMI 26.3
== END 2024-10-13 12:12 | disposition home or self-care (01) ==
LOC: HO.HOS 11:30
PROVIDERS: PCP Internal Medicine; Visit Provider Physician Assistant
DX: M75.102 Unspecified rotator cuff tear or rupture of left shoulder, not specified as traumatic (principal); M19.012 Primary osteoarthritis, left shoulder
CPT/HCPCS: 99203

== ENCOUNTER → 2024-10-13 11:32 | Outpatient (BNV) | payer OTHER, SELFPAY | PROVIDERS: Visit Provider Radiology Diagnostic Radiology | DX: M25.512 Pain in left shoulder (principal) | CPT/HCPCS: 73030 ==

== ENCOUNTER → 2024-11-04 09:16 | Outpatient (BNV) | payer OTHER, SELFPAY | PROVIDERS: Visit Provider Radiology Diagnostic Radiology | DX: S46.812A Strain of other muscles, fascia and tendons at shoulder and upper arm level, left arm, initial encounter (principal); M19.012 Primary osteoarthritis, left shoulder | CPT/HCPCS: 73221 ==

== ENCOUNTER 2024-11-04 09:17 | Outpatient (REF) | payer OTHER, SELFPAY ==
--- OUTSIDE RECORDS SUMMARY | 2007-11-02 09:20 | XMS_ITS | Encounter Summary ---
Author Organization [facility] Address [address] [place] [address] Care Team Providers Care Director Hedis Name Role Phone Unavailable Primary Care Provider Unavailabl e Encounter Details Date Type Department Care Team (Late st Contact Info) Description 11/02/2007 9:20 EDT Hospital Encounter [facility] [address] [place] [address] Rylan Molina MD [address] [facility], [address] [place] [address] Social History Tobacco Use Types [...] your living situation today? I have a [facility] place to live 09/16/2023 Think about [...] the past 12 months has th e [employer], gas, oil, or water [employer] threatened to shut off services in your home? No 09/16/2023 Education Answer Date Recorded Do you speak a language other than Hebrew at [facility]? No 09/16/2023 Do you want help [...]
--- OUTSIDE RECORDS SUMMARY | 2008-03-05 08:13 | XMS_ITS | Encounter Summary ---
Author Organization [facility] Address [address] [place] [address] Care Team Providers Care Name Plate Stamping Machine Operator Name Role Phone Unavailable Primary Care Provider Unavailabl e Encounter Details Date Type Department Care Team (Late st Contact Info) Description 03/05/2008 7:13 EST Hospital Encounter [facility] - [place] [address] [place] [address] Ed Lerma MD [address] [place] [address] Social History Tobacco Use Types Packs/Day Years [...] your living situation today? I have a [facility] place to live 09/16/2023 Think about the [...] the past 12 months has th e [employer], gas, oil, or water company threatened to shut off services in your home? No 09/16/2023 Education Answer Date Recorded Do you speak a language other than Dominican at [facility]? No 09/16/2023 Do you want help with [...] of this report immediately, please contact the [facility] Cardiology Report line at [phone]. A copy of the CardioChart report will be faxed to the attending, referring, and primary care providers within 48 hours of the date of service. Procedure Note Kev Molina MD - 06/25/2008 chest pain Rest and Stress SPECT Cardiolite Study: If you need to receive a hard copy of this report immediately, please contact the [facility] Cardiology Report line at [phone]. A copy of the CardioChart report will [...] Factors Referring Physician: ED LERMA MD FAX: [phone] --- NUCLEAR IMAGING RESULTS --- PERFUSION AND [...] _ _ _ _ _ _ _ OK - myocardial infarction JVM - jeopardized viable [...] / 84 MPHR: 54% Peak Rate-Pressure Product: 48847 Test Stopped Due To: Protocol Symptoms / [...] Radiologist Steven FULLER, Franklin - Attending Nuclear Crown Wheel Assembler Stress ECG Interpretation By: Franklin Harris MD - Attending Crown Wheel Assembler Kev Molina MD Electronically Signed on 03/05/2008 [...] Pt is legally blind. PMH of DIANA [facility] .No pain now Medications: Beta blockers, Omeprazole Cardiovascular Risk Factors: Family history of CAD, Hypertension, PastSmoker (quit > 6 mos ago) Reason for Study: Atypical Chest Pain, ASX with Risk Factors Referring Physician: ED LERMA MD FAX: [phone] --- NUCLEAR IMAGING RESULTS --- PERFUSION AND [...] _ _ _ _ _ _ _ OK - myocardial infarction JVM - jeopardized viable [...] / 84 MPHR: 54% Peak Rate-Pressure Product: 41240 Test Stopped Due To: Protocol Symptoms / Pre Scale / Post Scale: Chest pain/neck/bilat arm 5/10 spontaneously 0/10 Comments: Pt given O2 preventitively nasal at 2l during VADIM test.[id number]% ECG Changes: None Performed By: Leonor Burk [...] Radiologist Steven FULLER, Franklin - Attending Nuclear Crown Wheel Assembler Stress ECG Interpretation By: Franklin Harris MD - AttendingCardiologist Kev Molina MD Electronically Signed on 03/05/2008 Finalized on: 03/05/2008 3:31:52 PM This procedure was conducted under the supervision of Blake FULLER, Rajivwho was readily available at all points throughout the procedure. Copy Report To: us [place] Provider [id number] CARDIAC NM [place] Final Result documented in this encounter Visit Diagnoses Not on filedocumented in this encounter
--- OUTSIDE RECORDS SUMMARY | 2012-10-28 09:51 | XMS_ITS | Continuity of Care Document ---
Author Organization [facility] Address [address] [place] [address] Phone Care Team Providers Care Treasury Director Name Role Phone Yoly Cunningham MD Unavailable [...] Diagnoses Date Provider [facility] , [address] [place] [address], [facility], tel:[phone] Benign neoplasm of choroid 2012 Octavio Frederick. [address] [place] [address], [facility], . tel:[phone] [facility] , [address] [place] [address], [facility], tel:[phone] Benign neoplasm of choroidBenign neoplasm of choroid 2012 Octavio Frederick. [address] [place] [address], [facility], . tel:[phone] [facility] , [address] [place] [address], [facility], tel:[phone] Acute angle-closure glaucomaAcute angle-closure glaucoma 2010 Elise Yañez. [address] [place] [address], [facility], [place]. tel:[phone] Family History Family Member Type Diagnosis Age At Onset Problem (finding) Family history of catar act Problem (finding) Family history of glauc jackie Payers Payer name Insurance type Covered green party ID Authorkelliea tievelyn(s) [place] MC [id number] Social History Type Description Quantity Date Captured [...]
--- NOTE | ~2024-11-04 | MR_ITS ---
CLINICAL HISTORY: S46.009A - Unspecified injury of muscle(s) and tendon(s) of the rotator ... Exam: MRI of the left shoulder without intravenous contrast. Comparison: Radiographs October 13, 2024. Findings: Extensive partial-thickness bursal surface tear seen at the far distal portion of the supraspinatus tendon of the rotator cuff. This involves approximately 80% of the tendon thickness. There is a small portion of the articular surface of the distal supraspinatus tendon which remains intact. There is moderate tendinopathy of the distal supraspinatus tendon with slight extension into the anterior fibers of the distal infraspinatus tendon. Teres minor and subscapularis tendons are intact. No tears of the glenoid labrum. The tendon of the long head of the biceps is appropriately positioned within the bicipital groove. Mild lateral downsloping of the acromion as seen on the patient's radiographs. There is a type 2 acromion. Moderate AC joint DJD with juxta-articular edema. Glenohumeral joint is well-maintained. Impression: 1. Extensive partial-thickness bursal surface tear of the distal supraspinatus tendon as above. Associated supraspinatus and infraspinatus tendinopathy. 2. Lateral downsloping of the acromion with moderate AC joint DJD. This document has been electronically signed by: Cristhian Walters MD on 11/06/2024 23:04:06
--- OUTSIDE RECORDS SUMMARY | 2024-11-04 09:23 | XMS_ITS | Encounter Summary ---
Author Organization [facility] Address [address] [place] [address] Care Team Providers Care Food Mobile Driver Name Role Phone Vania Larson MD Primary Care Provider [phone] Theresa Roberts MD Unavailable [phone] Reason for Visit * Reason Onset Date Comments Medications Refill 01/18/2024 Medication Management 01/18/2024 Encounter Details Date Type Department Care Team (Late st Contact Info) Description 01/18/2024 Refill [facility] Primary Care [address] [address] Vania Larson MD 1839 [facility] [address] [place] [phone] Medications Refill; Medication Management Social History Tobacco [...] place to sleep or slept in a mcfp (including now)? No 01/12/2023 Interpersonal Safety Answer [...] your living situation today? I have a [facility] place to live 09/16/2023 Think about [...] Recorded In the past 12 months has [employer], gas, oil, or water [employer] threatened to shut off services in your home? No 09/16/2023 Education Answer Date Recorded Do you speak a language other than Turkmen at [employer]? No 09/16/2023 Do you want help with [...] Telephone Encounter - Christal Wilkes - 01/18/2024 7139 EST Ellie in [place] calls because they do not have the Oxycodone 10 mg in stock. The patient doesn't want to wait until they can get it. Verde Quantitative Analyst Mamadou LEWIS, I added to his list of pharmacies. * Telephone Encounter - Alena Correa RN - 01/18/2024 1050 EST This report was requested by: Alena Correa Reference #: [id number] Oxycodone last filled Last OV 12/24/2023 Next OV 03/23/2024 Last UDS 07/16/2023 pos for oxycodone and cannabinoids Last CSA signed 07/15/2023 * Telephone Encounter - Amanda Buitrago - 01/18/2024 0948 EST Patient called requesting refill of Oxycodone to be sent to [facility] at [address] [facility] [address] documented in this encounter Plan of Treatment [...] documented as of this encounter Care Teams Food Mobile Driver Relationship Specialty Start Date End Date Vania Larson MD [address] [address] PCP - General Family Medicine - Primary Care 06/16/23 08/30/24 Theresa Roberts MD [address] [place] [phone] Orthopaedic Surgery 01/18/24 08/30/24 documented as of this encounter
--- OUTSIDE RECORDS SUMMARY | 2024-11-04 09:23 | XMS_ITS | Encounter Summary ---
Author Organization [facility] Address [address] [place] [address] Care Team Providers Care Russian Rubber Name Role Phone Vania Larson MD Primary Care Provider [phone] Vania Larson MD Primary Care Provider [phone] Theresa Roberts MD Unavailable [phone] Reason for Visit * Reason Onset Date Comments Medication Questions 04/10/2022 Encounter Details Date Type Department Care Team (Late st Contact Info) Description 04/10/2022 Telephone [facility] Primary Care - [address] [place] [address] Jil Beard Medication Questions Social History Tobacco [...] on filedocumented in this encounter Care Teams Russian Rubber Relationship Specialty Start Date End Date Vania Larson MD [address] [facility] [address], [place] [address] PCP - General Family Medicine - Primary Care 12/25/21 06/15/23 Vania Larson MD [address] [facility] [address], [place] [address] PCP - General Family Medicine - Primary Care 06/16/23 08/30/24 Theresa Roberts MD [address] [place] [phone] Orthopaedic Surgery 01/18/24 08/30/24 documented as of this encounter
--- OUTSIDE RECORDS SUMMARY | 2024-11-04 09:23 | XMS_ITS | Encounter Summary ---
Author Organization [facility] Address [address] [place] [address] Care Team Providers Care Fish Housekeeper Name Role Phone Carlos Manuel Cardoso MD Primary Care Provide r Vania Larson MD Primary Care Provider Vania Larson MD Primary Care Provider Vania Larson MD Primary Care Provider Theresa Roberts MD Unavailable [phone] Encounter Details Date Type Department Care Team (Late st Contact Info) Description 12/25/2020 Historical Results Only [facility] HIST DATA CONV SC Unknown, Provider, MD Social History Tobacco Use [...] 9:00 EST) WBC 8 L=4.0 H=10.5 10^3/uL [facility] RBC 4.56(L) L=4.70 H=6.00 10^6/uL [facility] Hemoglobin 14.7 L=13.5 H=18.0 g/dl [facility] HCT 45.2 L=42.0 H=52.0 % [facility] MCV 99 L=78 H=100 fl [facility] MCH 32(H) L=27 H=31 pg [facility] MCHC 33 L=32 H=36 g/dl [facility] RDW-SD 13.5 L=11.5 H=14.0 % [facility] PLT 279 L=150 H=450 10^3 [facility] % Neutrophils 53 L=36.0 H=66.0 % [facility] Lymphocytes 28.8 L=24.0 H=44.0 % [facility] % Monocytes 13.6(H) L=0.0 H=10.0 % [facility] % Eosinophils 3.3(H) L=0.0 H=3.0 % [facility] % Basophils 0.9 L=0.0 H=1.0 % [facility] Immature Grans 0.4 L=0.0 H=2.0 % [facility] ABS Neutrophils 4.24 L=1.500 H=7.200 10^3 [facility] Diff Type NOT INDICATED [facility] Comment: IG% equals immature granulocyte which are metas, myelos, and pros. Performed at [place] [address] [address] [place] [address] 12/25/20.1845.CB .COMPLETE 12/25/2020 9:00 EST Narrative [facility] - 12/25/2020 18:45 EST M COMPLETE BLOOD COUNT us Provider Unknown PACKAGES & DNA PROBE ORDERAB LES Final Result [facility] [address] [place] [address] documented in this encounter Visit Diagnoses Not on filedocumented in this encounter Care Teams Fish Housekeeper Relationship Specialty Start Date End Date Carlos Manuel Cardoso MD [address] [place] [address] PCP - General 01/18/12 08/31/21 Vania Larson MD 6097 [facility] [address] [place] [address] PCP - General Family Medicine - Primary Care 09/01/21 11/12/21 Vania Larson MD [address] [address] PCP - General Family Medicine - Primary Care 12/25/21 06/15/23 Vania Larson MD [address] [address] PCP - General Family Medicine - Primary Care 06/16/23 08/30/24 Theresa Roberts MD [address] [place] [phone] Orthopaedic Surgery 01/18/24 08/30/24 documented as of this encounter
--- OUTSIDE RECORDS SUMMARY | 2024-11-04 09:23 | XMS_ITS | Encounter Summary ---
Author Organization [facility] Address [address] [place] [address] Care Team Providers Care Environmental Maintenance Worker Name Role Phone Carlos Manuel Cardoso MD Primary Care Provide r Vania Larson MD Primary Care Provider Vania Larson MD Primary Care Provider Vania Larson MD Primary Care Provider Theresa Roberts MD Unavailable [phone] Encounter Details Date Type Department Care Team (Late st Contact Info) Description 04/01/2020 Historical Results Only [facility] HIST DATA CONV MA Unknown, Provider, MD Social History Tobacco Use [...] on filedocumented in this encounter Care Teams Environmental Maintenance Worker Relationship Specialty Start Date End Date Carlos Manuel Cardoso MD [address] [place] [address] PCP - General 01/18/12 08/31/21 Vania Larson MD 6[address] [facility] [address] [place] [address] PCP - General Family Medicine - Primary Care 09/01/21 11/12/21 Vania Larson MD 6[address] [facility] [address] [place] [address] PCP - General Family Medicine - Primary Care 12/25/21 06/15/23 Vania Larson MD [address] [address] PCP - General Family Medicine - Primary Care 06/16/23 08/30/24 Theresa Roberts MD [address] [place] [phone] Orthopaedic Surgery 01/18/24 08/30/24 documented as of this encounter
--- OUTSIDE RECORDS SUMMARY | 2024-11-04 09:23 | XMS_ITS | Encounter Summary ---
Author Organization [facility] Address [address] [place] [address] Care Team Providers Care Carton Lettering Machine Operator Name Role Phone Vania Larson MD Primary Care Provider [phone] Theresa Roberts MD Unavailable [phone] Reason for Visit * Reason Comments Medications Refill Encounter Details Date Type Department Care Team (Late st Contact Info) Description 05/01/2024 Refill [facility] Primary Care [facility] 6[address] [facility] [place] [address] Vania Larson MD 6[address] [facility] [address] [place] [phone] Medications Refill Social History Tobacco Use Types [...] Never 09/16/2023 How often does anyone, bj hlal family and friends, threaten you with harm? [...] the past 12 months has th e [employer], gas, oil, or water [employer] threatened to shut off services in your home? No 09/16/2023 Education Answer Date Recorded Do you speak a language other than Ukrainian at [facility]? No 09/16/2023 Do you want [...] documented as of this encounter Care Teams Carton Lettering Machine Operator Relationship Specialty Start Date End Date Vania Larson MD [address] [facility] [address], [place] [address] PCP - General Family Medicine - Primary Care 06/16/23 08/30/24 Theresa Roberts MD 206 [facility] [address] [place] [phone] Orthopaedic Surgery 01/18/24 08/30/24 documented as of this encounter
--- OUTSIDE RECORDS SUMMARY | 2024-11-04 09:23 | XMS_ITS | Encounter Summary ---
Author Organization [facility] Address [address] [place] [address] Care Team Providers Care Information Technology Architect Name Role Phone Carlos Manuel Cardoso MD Primary Care Provide r Vania Larson MD Primary Care Provider [phone] Vania Larson MD Primary Care Provider Vania Larson MD Primary Care Provider Theresa Roberts MD Unavailable [phone] Reason for Visit * Reason Comments Other Encounter Details Date Type Department Care Team (Late st Contact Info) Description 08/07/2021 [facility] Primary Care [facility] 6097 [facility] [place] [address] Vania Larson MD [address] [facility] [address] [place] [phone] Other Social History Tobacco Use Types Packs/Day [...] documented as of this encounter Care Teams Information Technology Architect Relationship Specialty Start Date End Date Carlos Manuel Cardoso MD [address] [place] [address] PCP - General 01/18/12 08/31/21 Vania Larson MD [address] [facility] [address] [place] [address] PCP - General Family Medicine - Primary Care 09/01/21 11/12/21 Vania Larson MD [address] [address] PCP - General Family Medicine - Primary Care 12/25/21 06/15/23 Vania Larson MD 6[address] [facility] [address] [place] [address] PCP - General Family Medicine - Primary Care 06/16/23 08/30/24 Theresa Roberts MD [address] [place] [phone] Orthopaedic Surgery 01/18/24 08/30/24 documented as of this encounter
--- OUTSIDE RECORDS SUMMARY | 2024-11-04 09:23 | XMS_ITS | Encounter Summary ---
Author Organization [facility] Address [address] [place] [address] Care Team Providers Care Cyber Incident Handler Name Role Phone Carlos Manuel Cardoso MD Primary Care Provide r Vania Larson MD Primary Care Provider Vania Larson MD Primary Care Provider [phone] Vania Larson MD Primary Care Provider Theresa Roberts MD Unavailable [phone] Encounter Details Date Type Department Care Team (Late st Contact Info) Description 2018 Historical Results Only [facility] Radiology Results [address] [place] [address] Mayela Gibbons MD [address] [place] [address] Social History Tobacco Use Types [...] WBC 9.1 4.0 - 10.5 2018 1:44 [facility] RBC 4.32(L) 4.70 - 6.00 2018 1:44 [facility] Hemoglobin 14.4 13.5 - 18.0 2018 1:44 [facility] HCT 40.9(L) 42.0 - 52.0 2018 1:44 [facility] MCV 94.7 78 - 100 2018 1:44 [facility] MCH 33.3(H) 27 - 31 2018 1:44 [facility] MCHC 35.2 32 - 36 2018 1:44 [facility] RDW-CV - PMC 12.2 11.5 - 14.0 2018 1:44 [facility] PLATELET COUNT - PMC 248 150 - 450 2018 1:44 [facility] NEUTROPHILS % (AUTO) - PMC 69.9 42.0 - 75.0 2018 1:44 [facility] LYMPHOCYTES % (AUTO) - PMC 16.4 16.0 - 52.0 2018 1:44 [facility] MONOCYTES % (AUTO) - PMC 10.6 1.0 - 11.0 2018 1:44 [facility] EOSINOPHILS % (AUTO) - PMC 1.4 0.0 - 7.0 2018 1:44 [facility] BASOPHILS % (AUTO) - PMC 1.0 0.0 - 4.0 2018 1:44 [facility] NUCLEATED RBC % (AUTO) - PMC 0.0 <1 2018 1:44 [facility] NEUTROPHILS # (AUTO) - PMC 6.3 1.5 - 6.6 2018 1:44 [facility] LYMPHOCYTES # (AUTO) - PMC 1.5 1.0 - 3.5 2018 1:44 [facility] MONOCYTES # (AUTO) - PMC 1.0 <1.0 2018 1:44 [facility] EOSINOPHILS # (AUTO) - PMC 0.1 <0.7 2018 1:44 [facility] BASOPHILS # (AUTO) - PMC 0.1 <0.1 2018 1:44 [facility] NUCLEATED RBC # (AUTO) - PMC 0.00 <1 2018 1:44 [facility] 2018 1:35 EDT 2018 1:40 EDT us Mayela Gibbons MD PACKAGES & DNA PROBE ORDERA BLES Final Result [facility] * TROPONIN I (2018 1:35 EDT) Troponin I (ng/mL) <0.05 <0.10 2018 2:07 T [facility] Comment: REFERENCE RANGE: Negative: <0.10 ng/mL Indeterminate: 0.10-0.80 ng/mL Positive: >0.80 ng/mL ........................................... The results of this assay can be falsely decreased due to the consumption of Biotin. 2018 1:35 EDT 2018 1:41 EDT [facility] - 2018 2:16 EDT Collected by venipuncture by a member of the ED staff. us Mayela Gibbons MD CHEMISTRY & BLOOD GAS ORDER MADELIN Final Result [facility] * (ABNORMAL) BASIC METABOLIC PANEL,RANDOM - PMC (2018 1:35 EDT) Sodium 138 136 - 145 2018 2:07 [facility] Potassium 3.5 3.5 - 5.1 2018 2:07 [facility] Chloride 104 96 - 107 2018 2:07 [facility] CO2 Total 22.3 21 - 32 2018 2:07 [facility] Anion Gap 11.7 2018 2:07 [facility] BUN 20 7 - 25 2018 2:07 [facility] Creatinine 0.99 0.7 - 1.30 2018 2:07 [facility] Estimated GFR >60 >60 2018 2:07 [facility] Comment: EGFR UNITS: mL/min/1.73 m 2 CKD-EPI Equation used to calculate. Glucose 118 70 - 180 2018 2:07 [facility] Calcium 8.4(L) 8.5 - 10.5 2018 2:07 [facility] 2018 1:35 EDT 2018 1:41 EDT [facility] - 2018 2:16 EDT Collected by venipuncture by a member of the ED staff. us Mayela Gibbons MD CHEMISTRY & BLOOD GAS ORDER MADELIN Final Result Performing Organization Address City/[facility]/ZIP Co de Phone Number [facility] * CT HEAD WO CONTRAST (2018 1:05 EDT) Anatomical Region Laterality Modality Head Other 2018 1:05 EDT Narrative 2018 1:05 EDT [facility] [address] [address] Diagnostic Imaging Report Signed Patient Name:JEAN JEWELL JR Date of :1960 MR Number:[id number] Age:58 Sex:M Category: CT Date of Exam:07/07/18 [...] Procedure Note Ladarius Phillips MD - 11/08/2018 [facility] [address] [id number] Diagnostic Imaging Report Signed Patient Name:JEAN JEWELL JRAccount Number:[id number] Date of :1960 MRNumber:[id number] Age:58 Sex:M Category: CT Date ofExam:07/07/18 Procedure: CT: Head; without contrastAccession: [id number] Ordering Physician: Mayela Gibbons MD CC: Provider, [...] by: Ladarius Phillips MDD/ 0105 Transcribed by: ANTHONYLED/T: E-Signed by: Ladarius Phillips MDD/ 0150 us Mayela Gibbons MD IMG CT ORDERABLES Final Res ult documented in this encounter Visit Diagnoses Not on filedocumented in this encounter Care Teams Cyber Incident Handler Relationship Specialty Start Date End Date Carlos Manuel Cardoso MD [address] [place] [address] PCP - General 01/18/12 08/31/21 Vania Larson MD 6097 [facility] [address] [place] [address] PCP - General Family Medicine - Primary Care 09/01/21 11/12/21 Vania Larson MD 6097 [facility] [address] [place] [address] PCP - General Family Medicine - Primary Care 12/25/21 06/15/23 Vania Larson MD 6097 [facility] [address] [place] [address] PCP - General Family Medicine - Primary Care 06/16/23 08/30/24 Theresa Roberts MD [address] [place] [phone] Orthopaedic Surgery 01/18/24 08/30/24 documented as of this encounter
--- OUTSIDE RECORDS SUMMARY | 2024-11-04 09:23 | XMS_ITS | Encounter Summary ---
Author Organization [facility] Address [address] [place] [address] Care Team Providers Care Title Abstractor Name Role Phone Carlos Manuel Cardoso MD Primary Care Provide r Vania Larson MD Primary Care Provider Vania Larson MD Primary Care Provider Vania Larson MD Primary Care Provider [phone] Theresa Roberts MD Unavailable [phone] Encounter Details Date Type Department Care Team (Late st Contact Info) Description 01/14/2018 Historical Results Only [facility] HIST DATA CONV GA Unknown, Provider, MD Social History Tobacco Use [...] on filedocumented in this encounter Care Teams Title Abstractor Relationship Specialty Start Date End Date Carlos Manuel Cardoso MD [address] [place] [address] PCP - General 01/18/12 08/31/21 Vania Larson MD [address] [facility] [address] [place] [address] PCP - General Family Medicine - Primary Care 09/01/21 11/12/21 Vania Larson MD [address] [facility] [address] [place] [address] PCP - General Family Medicine - Primary Care 12/25/21 06/15/23 Vania Larson MD [address] [facility] [address] [place] [address] PCP - General Family Medicine - Primary Care 06/16/23 08/30/24 Theresa Roberts MD [address] [place] [phone] Orthopaedic Surgery 01/18/24 08/30/24 documented as of this encounter
--- OUTSIDE RECORDS SUMMARY | 2024-11-04 09:23 | XMS_ITS | Encounter Summary ---
Author Organization [facility] Address [address] [place] [address] Care Team Providers Care Supervisor Metal Cans Name Role Phone Carlos Manuel Cardoso MD Primary Care Provide r Vania Larson MD Primary Care Provider [phone] Vania Larson MD Primary Care Provider Vania Larson MD Primary Care Provider Theresa Roberts MD Unavailable [phone] Reason for Visit * Reason Onset Date Comments Medications Refill 08/08/2021 Encounter Details Date Type Department Care Team (Late st Contact Info) Description 08/08/2021 Refill [facility] Primary Care [facility] 6097 [facility] [place] [address] Vania Larson MD 6097 [facility] [address] [place] [phone] Medications Refill Social History Tobacco Use Types [...] documented as of this encounter Care Teams Supervisor Metal Cans Relationship Specialty Start Date End Date Carlos Manuel Cardoso MD [address] [place] [address] PCP - General 01/18/12 08/31/21 Vania Larson MD 6097 [facility] [address] [place] [address] PCP - General Family Medicine - Primary Care 09/01/21 11/12/21 Vania Larson MD 6[address] [facility] [address] [place] [address] PCP - General Family Medicine - Primary Care 12/25/21 06/15/23 Vania Larson MD 6[address] [facility] [address] [place] [address] PCP - General Family Medicine - Primary Care 06/16/23 08/30/24 Theresa Roberts MD [address] [place] [phone] Orthopaedic Surgery 01/18/24 08/30/24 documented as of this encounter
--- OUTSIDE RECORDS SUMMARY | 2024-11-04 09:23 | XMS_ITS | Encounter Summary ---
Author Organization [facility] Address [address] [place] [address] Care Team Providers Care Peanut Picker Name Role Phone Vania Larson MD Primary Care Provider [phone] Theresa Roberts MD Unavailable [phone] Reason for Visit * Reason Onset Date Comments Medications Refill 07/08/2023 Encounter Details Date Type Department Care Team (Late st Contact Info) Description 07/08/2023 Refill [facility] Primary Care [address] [phone] Vania Larson MD 6037 [facility] [address] [phone] Medications Refill Social History Tobacco Use Types [...] Never 01/12/2023 How often does anyone, bj isabel family, [...] Date of Assessment Author Yes 11/23/2022 14:50 DANIELT Marlin Lowry RN documented as of this [...] was requested by: Alena Correa Reference #: [id number] Oxycodone last filled 06/11/23 #180 for a [...] documented as of this encounter Care Teams Peanut Picker Relationship Specialty Start Date End Date Vania Larson MD 6097 [facility] [address] [place] [address] PCP - General Family Medicine - Primary Care 06/16/23 08/30/24 Theresa Roberts MD [address] [place] [phone] Orthopaedic Surgery 01/18/24 08/30/24 documented as of this encounter
--- OUTSIDE RECORDS SUMMARY | 2024-11-04 09:23 | XMS_ITS | Encounter Summary ---
Author Organization [facility] Address [address] [place] [address] Care Team Providers Care Psychologist Experimental Name Role Phone Vania Larson MD Primary Care Provider [phone] Vania Larson MD Primary Care Provider [phone] Theresa Roberts MD Unavailable [phone] Reason for Visit * Reason Onset Date Comments Medications Refill 03/12/2023 Encounter Details Date Type Department Care Team (Late st Contact Info) Description 03/12/2023 Refill [facility] Primary Care - [place] [address] [place], [place] [phone] Vania Larson MD [address] [facility] [address] [place] [phone] Medications Refill Social History Tobacco Use Types [...] Prescription Agreement: 08/19/2022 Next Office Visit: 04/13/2023 ACCOUNTS RECEIVABLE EXECUTIVE checked no concerns noted This report was requested by: Barbra Fritz Reference #: [id number] * Telephone Encounter - Misty Bacon - [...] documented as of this encounter Care Teams Psychologist Experimental Relationship Specialty Start Date End Date Vania Larson MD [address] [facility] [address] [place] [address] PCP - General Family Medicine - Primary Care 12/25/21 06/15/23 Vania Larson MD [address] [facility] [address] [place] [address] PCP - General Family Medicine - Primary Care 06/16/23 08/30/24 Theresa Roberts MD [address] [place] [phone] Orthopaedic Surgery 01/18/24 08/30/24 documented as of this encounter
--- OUTSIDE RECORDS SUMMARY | 2024-11-04 09:23 | XMS_ITS | Encounter Summary ---
Author Organization [facility] Address [address] [place] [address] Care Team Providers Care Welfare Manager Name Role Phone Carlos Manuel Cardoso MD Primary Care Provide r Vania Larson MD Primary Care Provider Vania Larson MD Primary Care Provider [phone] Vania aLrson MD Primary Care Provider Theresa Roberts MD Unavailable [phone] Encounter Details Date Type Department Care [...] Magnetic Resonan ce 05/24/2017 us Provider Unknown IMKarina MRI ORDERABLES Final Res ult documented in this encounter Visit Diagnoses Not on filedocumented in this encounter Care Teams Welfare Manager Relationship Specialty Start Date End Date Carlos Manuel Cardoso MD [address] [place] [address] PCP - General 01/18/12 08/31/21 Vania Larson MD [address] [facility] [address] [place] [address] PCP - General Family Medicine - Primary Care 09/01/21 11/12/21 Vania Larson MD [address] [facility] [address] [place] [address] PCP - General Family Medicine - Primary Care 12/25/21 06/15/23 Vania Larson MD [address] [facility] [address] [place] [address] PCP - General Family Medicine - Primary Care 06/16/23 08/30/24 Theresa Roberts MD [address] [place] [phone] Orthopaedic Surgery 01/18/24 08/30/24 documented as of this encounter
--- OUTSIDE RECORDS SUMMARY | 2024-11-04 09:23 | XMS_ITS | Encounter Summary ---
Author Organization [facility] Address [address] [place] [address] Care Team Providers Care Lacemaker Name Role Phone Carlos Manuel Cardoso MD Primary Care Provide r Vania Larson MD Primary Care Provider Vania Larson MD Primary Care Provider [phone] Vania Larson MD Primary Care Provider Theresa Roberts MD Unavailable [phone] Encounter Details Date Type Department Care Team (Late st Contact Info) Description 12/25/2020 Historical Results Only [facility] HIST DATA CONV [place] Unknown, Provider, MD Social History Tobacco Use [...] EST) T4, Free 1.05 L=0.76 H=1.46 ng/dL [facility] Comment:12/25/20.1301.KM .CO MPLETE 12/25/2020 9:00 EST us Provider Unknown MD CHEMISTRY & BLOOD GAS ORDERA BLES Final Result [facility] [address] [place] [address] documented in this encounter Visit Diagnoses Not on filedocumented in this encounter Care Teams Lacemaker Relationship Specialty Start Date End Date Carlos Manuel Cardoso MD [address] [place] [address] PCP - General 01/18/12 08/31/21 Vania Larson MD 6097 [facility] [address] [place] [address] PCP - General Family Medicine - Primary Care 09/01/21 11/12/21 Vania Larson MD 6[address] [facility] [address] [place] [address] PCP - General Family Medicine - Primary Care 12/25/21 06/15/23 Vania Larson MD 6[address] [facility] [address] [place] [address] PCP - General Family Medicine - Primary Care 06/16/23 08/30/24 Theresa Roberts MD [address] [place] [phone] Orthopaedic Surgery 01/18/24 08/30/24 documented as of this encounter
--- OUTSIDE RECORDS SUMMARY | 2024-11-04 09:23 | XMS_ITS | Encounter Summary ---
Author Organization [facility] Address [address] [place] [address] Care Team Providers Care Cleaning Validation Consultant Name Role Phone Carlos Manuel Cardoso MD Primary Care Provide r Vania Larson MD Primary Care Provider Vania Larson MD Primary Care Provider Vania Larson MD Primary Care Provider Theresa Roberts MD Unavailable [phone] Encounter Details Date Type Department Care Team (Late st Contact Info) Description 12/25/2020 Historical Results Only [facility] HIST DATA CONV [place] Unknown, Provider, MD Social History Tobacco Use [...] EST) Hemoglobin A1c 6(H) L=3.8 H=5.6 % [facility] Comment: New ranges are effective 05/04/2019. The Guidelines remain the same If your A1C is this: Your average mean daily plasma blood sugar approximately this: % mg/dl 12.0% 345 11.0% 310 10.0% 275 9.0% 240 8.0% 205 7.0% 170 6.0% 135 5.0% 100 4.0% 65 Source:[place] [employer].\ITLo\Diabetes Care\ITLx\25:275-278,2002. 12/25/20.1258.KM .COMPLETE 12/25/2020 9:00 EST us Provider Unknown CHEMISTRY & BLOOD GAS ORDERA BLES Final Result [facility] [address] [place] [address] documented in this encounter Visit Diagnoses Not on filedocumented in this encounter Care Teams Cleaning Validation Consultant Relationship Specialty Start Date End Date Carlos Manuel Cardoso MD [address] [place] [address] PCP - General 01/18/12 08/31/21 Vania Larson MD 6097 [facility] [address] [place] [address] PCP - General Family Medicine - Primary Care 09/01/21 11/12/21 Vania Larson MD 6[address] [facility] [address] [place] [address] PCP - General Family Medicine - Primary Care 12/25/21 06/15/23 Vania Larson MD 6[address] [facility] [address] [place] [address] PCP - General Family Medicine - Primary Care 06/16/23 08/30/24 Theresa Roberts MD [address] [place] [phone] Orthopaedic Surgery 01/18/24 08/30/24 documented as of this encounter
--- OUTSIDE RECORDS SUMMARY | 2024-11-04 09:23 | XMS_ITS | Encounter Summary ---
Author Organization [facility] Address [address] [place] [address] Care Team Providers Care Senior Business Process Analyst Name Role Phone aVnia Larson MD Primary Care Provider [phone] Vania Larson MD Primary Care Provider [phone]- [phone] Theresa Roberts MD Unavailable [phone] Reason for Visit * Reason Onset Date Comments Medications Refill 06/09/2023 Encounter Details Date Type Department Care Team (Late st Contact Info) Description 06/09/2023 Refill [facility] Primary Care [address] [phone] Vania Larson MD [address] [facility] [address] [place] [phone] Medications Refill Social History Tobacco Use Types [...] was requested by: Alena Correa Reference #: [id number] last filled 05/13/23 OV utd Has appt [...] documented as of this encounter Care Teams Senior Business Process Analyst Relationship Specialty Start Date End Date Vania Larson MD 6[address] [facility] [address] [place] [address] PCP - General Family Medicine - Primary Care 12/25/21 06/15/23 Vania Larson MD 6[address] [facility] [address] [place] [address] PCP - General Family Medicine - Primary Care 06/16/23 08/30/24 Theresa Roberts MD [address] [place] [phone] Orthopaedic Surgery 01/18/24 08/30/24 documented as of this encounter
--- OUTSIDE RECORDS SUMMARY | 2024-11-04 09:23 | XMS_ITS | Encounter Summary ---
Author Organization [facility] Address [address] [place] [address] Care Team Providers Care Mincemeat Maker Name Role Phone Vania Larson MD Primary Care Provider [phone] Vania Larson MD Primary Care Provider [phone] Theresa Roberts MD Unavailable [phone] Reason for Visit * Reason Onset Date Comments Medications Refill 02/09/2023 Encounter Details Date Type Department Care Team (Late st Contact Info) Description 02/09/2023 Refill [facility] Primary Care [address] [phone] Vania Larson MD [address] [facility] [address] [place] [phone] Medications Refill Social History Tobacco Use Types [...] Brenda Nowak LPN - 02/09/2023 1131 EST Foreign Banknote Teller checked no concerns * Telephone Encounter - [...] documented as of this encounter Care Teams Mincemeat Maker Relationship Specialty Start Date End Date Vania Larson MD [address] [facility] [address] [address] PCP - General Family Medicine - Primary Care 12/25/21 06/15/23 Vania Larson MD [address] [facility] [address] [address] PCP - General Family Medicine - Primary Care 06/16/23 08/30/24 Theresa Roberts MD [address] [place] [phone] Orthopaedic Surgery 01/18/24 08/30/24 documented as of this encounter
--- OUTSIDE RECORDS SUMMARY | 2024-11-04 09:23 | XMS_ITS | Encounter Summary ---
Author Organization [facility] Address [address] [place] [address] Care Team Providers Care Director Mission Name Role Phone Vania Larson MD Primary Care Provider [phone] Theresa Roberts MD Unavailable [phone] Reason for Visit * Reason Onset Date Comments Medications Refill 07/29/2023 Encounter Details Date Type Department Care Team (Late st Contact Info) Description 07/29/[address] [facility] Primary Care [address] [phone] Vania Larson MD 6059 [facility] [address] [phone] Medications Refill Social History Tobacco Use Types [...] was requested by: Alena Correa Reference #: [id number] oxycodone last filled 07/09/23 # 150 for [...] documented as of this encounter Care Teams Director Mission Relationship Specialty Start Date End Date Vania Larson MD 6097 [facility] [address] [address] PCP - General Family Medicine - Primary Care 06/16/23 08/30/24 Theresa Roberts MD [address] [place] [phone] Orthopaedic Surgery 01/18/24 08/30/24 documented as of this encounter
--- OUTSIDE RECORDS SUMMARY | 2024-11-04 09:23 | XMS_ITS | Encounter Summary ---
Author Organization [facility] Address [address] [place] [address] Care Team Providers Care Lockstitch Zipper Setter Name Role Phone Carlos Manuel Cardoso MD Primary Care Provide r Vania Larson MD Primary Care Provider Vania Larson MD Primary Care Provider Vania Larson MD Primary Care Provider Theresa Roberts MD Unavailable [phone] Reason for Visit * Reason Onset Date Comments Medications Refill 07/11/2021 Encounter Details Date Type Department Care Team (Late st Contact Info) Description 07/11/2021 Refill [facility] Primary Care [facility] 6097 [facility] [place] [address] Vania Larson MD 6097 [facility] [address] [place] [phone] Medications Refill Social History Tobacco Use Types [...] Brenda Nowak LPN - 07/11/2021 0939 EDT hatchery 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 documented in this encounter [...] documented as of this encounter Care Teams Lockstitch Zipper Setter Relationship Specialty Start Date End Date Carlos Manuel Cardoso MD [address] [place] [address] PCP - General 01/18/12 08/31/21 Vania Larson MD [address] [place] [address] [place] [address] PCP - General Family Medicine - Primary Care 09/01/21 11/12/21 Vania Larson MD [address] [place] [address] [place] [address] PCP - General Family Medicine - Primary Care 12/25/21 06/15/23 Vania Larson MD [address] [address] PCP - General Family Medicine - Primary Care 06/16/23 08/30/24 Theresa Roberts MD [address] [place] [phone] Orthopaedic Surgery 01/18/24 08/30/24 documented as of this encounter
--- OUTSIDE RECORDS SUMMARY | 2024-11-04 09:23 | XMS_ITS | Encounter Summary ---
Author Organization [facility] Address [address] [place] [address] Care Team Providers Care Oven Operator Automatic Name Role Phone Carlos Manuel Cardoso MD Primary Care Provide r Vania Larson MD Primary Care Provider Vania Larson MD Primary Care Provider Vania Larson MD Primary Care Provider Theresa Roberts MD Unavailable [phone] Reason for Visit * Reason Comments Other Encounter Details Date Type Department Care Team (Late st Contact Info) Description [facility] 6097 [facility] [place] [address] Vania Larson MD [address] [facility] [address] [place] [phone] Other Social History Tobacco Use Types Packs/Day [...] documented as of this encounter Care Teams Oven Operator Automatic Relationship Specialty Start Date End Date Carlos Manuel Cardoso MD [address] [place] [address] PCP - General 01/18/12 08/31/21 Vania Larson MD [address] [facility] [address] [place] [address] PCP - General Family Medicine - Primary Care 09/01/21 11/12/21 Vania Larson MD [address] [facility] [address] [place] [address] PCP - General Family Medicine - Primary Care 12/25/21 06/15/23 Vania Larson MD [address] [facility] [address] [place] [address] PCP - General Family Medicine - Primary Care 06/16/23 08/30/24 Theresa Roberts MD [address] [place] [phone] Orthopaedic Surgery 01/18/24 08/30/24 documented as of this encounter
--- OUTSIDE RECORDS SUMMARY | 2024-11-04 09:23 | XMS_ITS | Encounter Summary ---
Author Organization [facility] Address [address] [place] [address] Care Team Providers Care Scheduling Administrator Name Role Phone Vania Larson MD Primary Care Provider [phone] Vania aLrson MD Primary Care Provider [phone] Theresa Roberts MD Unavailable [phone] Reason for Visit * Reason Onset Date Comments Medications Refill 05/12/2023 Encounter Details Date Type Department Care Team (Late st Contact Info) Description 05/12/2023 Refill [facility] Primary Care [address] [phone] Vania Larson MD [address] [facility] [address] [place] [phone] Medications Refill Social History Tobacco Use Types [...] place to sleep or slept in a care home (including now)? No 01/12/2023 Interpersonal Safety [...] was requested by: Roberto Middleton Reference #: [id number] [facility] database for controlled substances checked. No concerns noted. This report was requested by: ROBERTO MAX MA Reference #: Last Fill:04/14/2023 Last Office Visit: 04/13/2023 Next Office Visit: 07/15/2023 Last Urine Drug Screen:04/13/2023 Prescription Agreement:04/13/2023 * Telephone Encounter - Amanda Buitrago - 05/12/2023 0911 EDT Patient called requesting refill of Oxycodone to be sent to [facility] in [place] documented in this encounter Plan of Treatment [...] documented as of this encounter Care Teams Scheduling Administrator Relationship Specialty Start Date End Date Vania Larson MD 6097 [facility] [address] [place] [address] PCP - General Family Medicine - Primary Care 12/25/21 06/15/23 Vania Larson MD [address] [address] PCP - General Family Medicine - Primary Care 06/16/23 08/30/24 Theresa Roberts MD [address] [place] [phone] Orthopaedic Surgery 01/18/24 08/30/24 documented as of this encounter
--- OUTSIDE RECORDS SUMMARY | 2024-11-04 09:23 | XMS_ITS | Encounter Summary ---
Author Organization [facility] Address [address] [place] [address] Care Team Providers Care Care Specialist Name Role Phone Vania Larson MD Primary Care Provider [phone]- [phone] Vania Larson MD Primary Care Provider [phone]- [phone] Theresa Roberts MD Unavailable [phone] Reason for Visit * Reason Onset Date Comments Medications Refill 12/09/2022 Encounter Details Date Type Department Care Team (Late st Contact Info) Description 12/09/2022 Telephone [facility] Primary Care - [address] [place] [address] Jil Beard Medications Refill Social History Tobacco [...] slept in a fci (including now)? No 07/09/2022 Interpersonal Safety Answer Date Record ed How often does anyone, bj hall family, hit, punch or physically hurt you? Never 11/11/2022 How often does anyone, bj hall family, [...] 0805 EDT Refill of oxycodone sent to [facility] [place] documented in this encounter Plan of Treatment Not on file documented as of this encounter Visit Diagnoses Not on filedocumented in this encounter Care Teams Care Specialist Relationship Specialty Start Date End Date Vania Larson MD 6097 [facility] [address] [place] [address] PCP - General Family Medicine - Primary Care 12/25/21 06/15/23 Vania Larson MD 6097 [facility] [address] [place] [address] PCP - General Family Medicine - Primary Care 06/16/23 08/30/24 Theresa Roberts MD [address] [facility] [address] [place] [phone] Orthopaedic Surgery 01/18/24 08/30/24 documented as of this encounter
--- OUTSIDE RECORDS SUMMARY | 2024-11-04 09:23 | XMS_ITS | Encounter Summary ---
Author Organization [facility] Address [address] [place] [address] Care Team Providers Care Hand Router Operator Name Role Phone Vania Larson MD Primary Care Provider [phone] Vania Larson MD Primary Care Provider Theresa Roberts MD Unavailable [phone] Reason for Visit * Reason Onset Date Comments Medications Refill 03/17/2022 Encounter Details Date Type Department Care Team (Late st Contact Info) Description 03/17/2022 Refill [facility] Primary Care - [place] [address] [place] [address] Vania Larson MD 6097 [facility] [address] [place] [address] Medications Refill Social History Tobacco Use Types [...] of Assessment Author No 08/30/2021 7:06 Khoi Price, MARCELA documented as of this encounter Plan of Treatment Not on file documented as of this encounter Visit Diagnoses Not on filedocumented in this encounter Care Teams Hand Router Operator Relationship Specialty Start Date End Date Vania Larson MD 6097 [facility] [address] [place] [address] PCP - General Family Medicine - Primary Care 12/25/21 06/15/23 Vania Larson MD 6[address] [facility] [address] [place] [address] PCP - General Family Medicine - Primary Care 06/16/23 08/30/24 Theresa Roberts MD [address] [place] [phone] Orthopaedic Surgery 01/18/24 08/30/24 documented as of this encounter
--- OUTSIDE RECORDS SUMMARY | 2024-11-04 09:23 | XMS_ITS | Encounter Summary ---
Author Organization [facility] Address [address] [place] [address] Care Team Providers Care Director Franchise Sales Name Role Phone Carlos Manuel Cardoso MD Primary Care Provide r Vania Larson MD Primary Care Provider Vania Larson MD Primary Care Provider Vania Larson MD Primary Care Provider Theresa Roberts MD Unavailable [phone] Encounter Details Date Type Department Care Team (Late st Contact Info) Description 12/25/2020 Historical Results Only [facility] HIST DATA CONV [place] Unknown, Provider, MD Social History Tobacco Use [...] Troponin I (ng/L) <60 L=0 H=60 ng/L [facility] Comment: Normal <60 ng/L Greater than [...] & BLOOD GAS ORDERA BLES Final Result [facility] [address] [place] [address] documented in this encounter Visit Diagnoses Not on filedocumented in this encounter Care Teams Director Franchise Sales Relationship Specialty Start Date End Date Carlos Manuel Cardoso MD [address] [place] [address] PCP - General 01/18/12 08/31/21 Vania Larson MD [address] [place] [address], [place] [address] PCP - General Family Medicine - Primary Care 09/01/21 11/12/21 Vania Larson MD [address] [address], [place] [address] PCP - General Family Medicine - Primary Care 12/25/21 06/15/23 Vania Larson MD [address] [place] [address], [place] [address] PCP - General Family Medicine - Primary Care 06/16/23 08/30/24 Theresa Roberts MD [address] [place] [phone] Orthopaedic Surgery 01/18/24 08/30/24 documented as of this encounter
--- OUTSIDE RECORDS SUMMARY | 2024-11-04 09:23 | XMS_ITS | Encounter Summary ---
Author Organization [facility] Address [address] [place] [address] Care Team Providers Care Reference Librarian Name Role Phone Carlos Manuel Cardoso MD Primary Care Provide r Vania Larson MD Primary Care Provider Vania Larson MD Primary Care Provider Vania Larson MD Primary Care Provider [phone] Theresa Roberts MD Unavailable [phone] Encounter Details Date Type Department Care Team (Late st Contact Info) Description 12/25/2020 Historical Results Only [facility] HIST DATA CONV [place] Unknown, Provider, MD Social History Tobacco Use [...] REFLEX - ECH 4.88(H) L=0.36 H=3.74 uIU/mL [facility] Comment:12/25/20.1246.KM .CO MPLETE 12/25/2020 9:00 EST us Provider Unknown CHEMISTRY & BLOOD GAS ORDERA BLES Final Result [facility] [address] [place] [address] documented in this encounter Visit Diagnoses Not on filedocumented in this encounter Care Teams Reference Librarian Relationship Specialty Start Date End Date Carlos Manuel Cardoso MD [address] [place] [address] PCP - General 01/18/12 08/31/21 Vania Larson MD 6[address] [facility] [address] [place] [address] PCP - General Family Medicine - Primary Care 09/01/21 11/12/21 Vania Larson MD [address] [facility] [address] [place] [address] PCP - General Family Medicine - Primary Care 12/25/21 06/15/23 Vania Larson MD [address] [facility] [address] [place] [address] PCP - General Family Medicine - Primary Care 06/16/23 08/30/24 Theresa Roberts MD [address] [place] [phone] Orthopaedic Surgery 01/18/24 08/30/24 documented as of this encounter
--- OUTSIDE RECORDS SUMMARY | 2024-11-04 09:23 | XMS_ITS | Encounter Summary ---
Author Organization [facility] Address [address] [place] [address] Care Team Providers Care Mule Operator Name Role Phone Vania Larson MD Primary Care Provider [phone] Vania Larson MD Primary Care Provider [phone] Theresa Roberts MD Unavailable [phone] Reason for Visit * Reason Onset Date Comments Other 05/04/2022 Pt called he is very upset- His mother just . Just wanted to let you be aware. Encounter Details Date Type Department Care Team (Late st Contact Info) Description 05/04/2022 Telephone [facility] Primary Care - [place] 6097 [facility] [place] [address] Vania Larson MD 6[address] [facility] [address] [place] [address] Other (Pt called he is very upset- [...] on filedocumented in this encounter Care Teams Mule Operator Relationship Specialty Start Date End Date Vania Larson MD 6097 [facility] [address] [place] [address] PCP - General Family Medicine - Primary Care 12/25/21 06/15/23 Vania Larson MD [address] [facility] [address] [place] [address] PCP - General Family Medicine - Primary Care 06/16/23 08/30/24 Theresa Roberts MD [address] [place] [phone] Orthopaedic Surgery 01/18/24 08/30/24 documented as of this encounter
--- OUTSIDE RECORDS SUMMARY | 2024-11-04 09:23 | XMS_ITS | Encounter Summary ---
Author Organization [facility] Address [address] [place] [address] Care Team Providers Care Biosolids Management Technician Name Role Phone Carlos Manuel Cardoso MD Primary Care Provide r Vania Larson MD Primary Care Provider Vania Larson MD Primary Care Provider Vania Larson MD Primary Care Provider Theresa Roberts MD Unavailable [phone] Encounter Details Date Type Department Care Team (Late st Contact Info) Description 12/25/2020 Historical Results Only E[facility] HIST DATA CONV [place] Unknown, Provider, MD Social History Tobacco Use [...] PANEL (CMP) (12/25/2020 9:00 EST) Fasting? R [facility] Total Protein 7.1 L=6.4 H=8.2 g/dL [facility] Albumin 4.2 L=3.4 H=5.0 g/dL [facility] GLOBULIN - ECH 2.9 L=1.5 H=4.5 g/dL [facility] TBI - ECH 0.5 L=0.2 H=1.0 mg/dL [facility] Alkaline Phosphatase 67 L=46 H=116 U/L [facility] AST 26 L=11 H=33 U/L [facility] ALT 40 L=12 H=78 U/L [facility] Glucose 86 L=74 H=106 mg/dL [facility] BUN 27(H) L=7 H=18 mg/dL [facility] Creatinine 1.35(H) L=0.70 H=1.30 mg/dL [facility] Calcium 8.8 L=8.5 H=10.1 mg/dL [facility] Sodium 137 L=136 H=145 mEq/L [facility] Potassium 4.2 L=3.5 H=5.1 mEq/L [facility] Chloride 101 L=98 H=107 mEq/L [facility] CO2 Total 27 L=21 H=32 mEq/L [facility] AGE - ECH 60 years [facility] GFR Afr-Am - ECH 65 L=60 H=137 [facility] GFR Non-AfrAm - ECH 54(L) L=60 H=137 [facility] Comment: Units for the GFR are defined as mL/min/1.73m2 12/25/20.1245.KM .COMPLETE 12/25/2020 9:00 EST Narrative [facility] - 12/25/2020 12:42 EST COMPREHENSIVE METABOLIC PANEL us Provider Unknown CHEMISTRY & BLOOD GAS ORDERA BLES Final Result [facility] [address] [place] [address] documented in this encounter Visit Diagnoses Not on filedocumented in this encounter Care Teams Biosolids Management Technician Relationship Specialty Start Date End Date Carlos Manuel Cardoso MD [address] [place] [address] PCP - General 01/18/12 08/31/21 Vania Larson MD [address] [facility] [address] [place] [address] PCP - General Family Medicine - Primary Care 09/01/21 11/12/21 Vania Larson MD [address] [address] PCP - General Family Medicine - Primary Care 12/25/21 06/15/23 Vania Larson MD [address] [address] PCP - General Family Medicine - Primary Care 06/16/23 08/30/24 Theresa Roberts MD [address] [place] [phone] Orthopaedic Surgery 01/18/24 08/30/24 documented as of this encounter
--- OUTSIDE RECORDS SUMMARY | 2024-11-04 09:23 | XMS_ITS | Encounter Summary ---
Author Organization [facility] Address [address] [place] [address] Care Team Providers Care Avionics Installer Name Role Phone Carlos Manuel Cardoso MD Primary Care Provide r Vania Larson MD Primary Care Provider Vania Larson MD Primary Care Provider Vania Larson MD Primary Care Provider Theresa Roberts MD Unavailable [phone] Encounter Details Date Type Department Care Team (Late st Contact Info) Description 10/19/2018 Historical Results Only E[facility] HIST DATA CONV [place] Unknown, Provider, MD Social History Tobacco Use [...] Magnetic Resonan ce 10/19/2018 us Provider Unknown IMKarina MRI ORDERABLES Final Res ult documented in this encounter Visit Diagnoses Not on filedocumented in this encounter Care Teams Avionics Installer Relationship Specialty Start Date End Date Carlos Manuel Cardoso MD [address] [place] [address] PCP - General 01/18/12 08/31/21 Vania Larson MD [address] [facility] [address] [place] [address] PCP - General Family Medicine - Primary Care 09/01/21 11/12/21 Vania Larson MD [address] [facility] [address] [place] [address] PCP - General Family Medicine - Primary Care 12/25/21 06/15/23 Vania Larson MD [address] [facility] [address] [place] [address] PCP - General Family Medicine - Primary Care 06/16/23 08/30/24 Theresa Roberts MD [address] [place] [phone] Orthopaedic Surgery 01/18/24 08/30/24 documented as of this encounter
--- OUTSIDE RECORDS SUMMARY | 2024-11-04 09:23 | XMS_ITS | Encounter Summary ---
Author Organization [facility] Address [address] [place] [address] Care Team Providers Care Welder Railcar Mechanic Name Role Phone Vania Larson MD Primary Care Provider [phone] Theresa Roberts MD Unavailable [phone] Reason for Visit * Reason Onset Date Comments Medications Refill 06/13/2024 Encounter Details Date Type Department Care Team (Late st Contact Info) Description 06/13/[address] [facility] Primary Care - [place] [address] [facility] [place] [address] Vania Larson MD [address] [facility] [address] [place] [address] Medications Refill Social History Tobacco Use Types [...] the money to buy more. Never true 12/05/20 23 Within the past 12 months, t [...] place to sleep or slept in a skilled nursing (including now)? No 01/12/2023 Interpersonal Safety Answer [...] your living situation today? I have a [facility] place to live 09/16/2023 Think about [...] Recorded In the past 12 months has [employer], [employer], oil, or water [employer] threatened to shut off services in your home? No 09/16/2023 Education Answer Date Recorded Do you speak a language other than Italian at [facility]? No 09/16/2023 Do you want [...] Misty Bacon - 06/13/2024 1332 EDT Atorvastatin [id number] - [place] - [address] SUN[address] [facility] SUNDAY [[id number]] documented in this encounter Plan of Treatment Not on file documented as of this encounter Visit Diagnoses Not on filedocumented in this encounter Discontinued Medications Medication Sig Discontinue Reason Start Date End Da te atorvastatin (LIPITOR) 20 mg tablet Take 1 Tablet by mouth daily. Reorder 05/10/2024 06/13/2024 documented as of this encounter Care Teams Welder Railcar Mechanic Relationship Specialty Start Date End Date Vania Larson MD [address] [facility] [address] [place] [address] PCP - General Family Medicine - Primary Care 06/16/23 08/30/24 Theresa Roberts MD [address] [facility] [address] [place] [phone] Orthopaedic Surgery 01/18/24 08/30/24 documented as of this encounter
--- OUTSIDE RECORDS SUMMARY | 2024-11-04 09:23 | XMS_ITS | Encounter Summary ---
Author Organization [facility] Address [address] [place] [address] Care Team Providers Care Church History Teacher Name Role Phone Vania Larson MD Primary Care Provider [phone] Theresa Roberts MD Unavailable [phone] Reason for Visit * Reason Onset Date Comments Medications Refill 03/21/2024 Encounter Details Date Type Department Care Team (Late st Contact Info) Description 03/21/2024 Refill [facility] Primary Care [address] [phone] Vania Larson MD 6009 [facility] [address], [place] [phone] Medications Refill Social History Tobacco Use Types [...] place to sleep or slept in a half-way (including now)? No 01/12/2023 Interpersonal Safety Answer [...] your living situation today? I have a [facility] place to live 09/16/2023 Think about [...] Recorded In the past 12 months has [employer], oil, or water [employer] threatened to shut off services in your home? No 09/16/2023 Education Answer Date Recorded Do you speak a language other than Macedonian at [facility]? No 09/16/2023 Do you want help [...] was requested by: Alena Correa Reference #: [id number] Oxycodone last filled 02/20/24 Last OV 12/24/2023 Next OV 03/23/2024 Last UDS 07/16/23 pos for oxycodone and cannabinoids Last CSA signed 07/15/23 * Telephone Encounter - Torie Buitragoily - 03/21/2024 1436 EST Patient requesting ref[facility] of [facility] [place] documented in this encounter Plan of Treatment [...] documented as of this encounter Care Teams Church History Teacher Relationship Specialty Start Date End Date Vania Larson MD [address] [address] PCP - General Family Medicine - Primary Care 06/16/23 08/30/24 Theresa Roberts MD [address] [phone] Orthopaedic Surgery 01/18/24 08/30/24 documented as of this encounter
--- OUTSIDE RECORDS SUMMARY | 2024-11-04 09:23 | XMS_ITS | Encounter Summary ---
Author Organization [facility] Address [address] [place] [address] Care Team Providers Care Drying Room Supervisor Name Role Phone Vania Larson MD Primary Care Provider [phone] Theresa Roberts MD Unavailable [phone] Reason for Visit * Reason Onset Date Comments Medications Refill 02/15/2024 Encounter Details Date Type Department Care Team (Late st Contact Info) Description 02/15/2024 Refill [facility] Primary Care - [place] 6097 [facility] [place] [address] Vania Larson MD [address] [facility] [address] [place] [address] Medications Refill Social History Tobacco Use Types [...] your living situation today? I have a [facility] place to live 09/16/2023 Think about [...] Recorded In the past 12 months has [employer], [employer], oil, or water [employer] threatened to shut off services in your home? No 09/16/2023 Education Answer Date Recorded Do you speak a language other than Nigerian at [facility]? No 09/16/2023 Do you [...] was requested by: Alena Correa Reference #: [id number] Oxycodone last filled 01/22/24 Last OV 12/24/2023 Next OV 03/23/2024 Last UDS 07/16/2023 pos for oxycodone and cannabinoids Last CSA signed 07/15/2023 * Telephone Encounter - [place] SummitMisty Fernández - 02/15/2024 0940 EST Oxycodone Lisinopril Atorvastatin documented in this [...] documented as of this encounter Care Teams Drying Room Supervisor Relationship Specialty Start Date End Date Vania Larson MD [address] [facility] [address] [address] PCP - General Family Medicine - Primary Care 06/16/23 08/30/24 Theresa Roberts MD [address] [place] [address] [place] [phone] Orthopaedic Surgery 01/18/24 08/30/24 documented as of this encounter
--- OUTSIDE RECORDS SUMMARY | 2024-11-04 09:23 | XMS_ITS | Encounter Summary ---
Author Organization [facility] Address [address] [place] [address] Care Team Providers Care Clerk Cashier Name Role Phone Vania Larson MD Primary Care Provider [phone] Vania Larson MD Primary Care Provider [phone] Vania Larson MD Primary Care Provider Theresa Roberts MD Unavailable [phone] Reason for Visit * Reason Onset Date Comments Follow-up 09/01/2021 Encounter Details Date Type Department Care Team (Late st Contact Info) Description 09/01/2021 Telephone [facility] Primary Care [address] [address] Karyna Stahl, MARCELA Follow-up Social History Tobacco [...] on filedocumented in this encounter Care Teams Clerk Cashier Relationship Specialty Start Date End Date Vania Larson MD 6097 [facility] [address] [place] [address] PCP - General Family Medicine - Primary Care 09/01/21 11/12/21 Vania Larson MD 6[address] [facility] [address] [place] [address] PCP - General Family Medicine - Primary Care 12/25/21 06/15/23 Vania Larson MD 6[address] [facility] [address] [place] [address] PCP - General Family Medicine - Primary Care 06/16/23 08/30/24 Theresa Roberts MD [address] [place] [phone] Orthopaedic Surgery 01/18/24 08/30/24 documented as of this encounter
--- OUTSIDE RECORDS SUMMARY | 2024-11-04 09:23 | XMS_ITS | Encounter Summary ---
Author Organization [facility] Address [address] [place] [address] Care Team Providers Care Finisher Accordion Name Role Phone Vania Larson MD Primary Care Provider [phone] Theresa Roberts MD Unavailable [phone] Reason for Visit * Reason Comments Medications Refill Encounter Details Date Type Department Care Team (Late st Contact Info) Description 02/01/2024 Refill [facility] Primary Care [facility] 6097 [facility] [place] [address] Vania Larson MD 6[address] [facility] [address] [place] [phone] Medications Refill Social History Tobacco Use Types [...] your living situation today? I have a [facility] place to live 09/16/2023 Think [...] the past 12 months has th e [employer]), gas, oil, or water [employer] threatened to shut off services in your home? No 09/16/2023 Education Answer Date Recorded Do you speak a language other than Swedish at [facility]? No 09/16/2023 Do you want help [...] documented as of this encounter Care Teams Finisher Accordion Relationship Specialty Start Date End Date Vania Larson MD 6097 [facility] 9[place], [place] [address] PCP - General Family Medicine - Primary Care 06/16/23 08/30/24 Theresa Roberts MD [address] [place] [phone] Orthopaedic Surgery 01/18/24 08/30/24 documented as of this encounter
--- OUTSIDE RECORDS SUMMARY | 2024-11-04 09:23 | XMS_ITS | Clinical Summary ---
Author Organization [facility] Address [address] [place] [address] Care Team Providers Care Can Sealer Name Role Phone Unavailable Primary Care Provider Unavailabl e Allergies Active Allergy Reactions Criticality Noted Date Comments Corticosteroids (Glucocorticoids) 01/25/2018 Swelling and discoloration Nsaids (Non-Steroidal Anti-Inflammatory Drug) 11/23/2022 [id number] blood pressure Other - See Comments High [...] original. Patient has given permission for the [facility] to verbally discuss the following information with Melida Milton and Shanelle Irvin who has the following relationship to the patient: [phone] sister [phone] niece Scheduling/Appt/Billing/Payment Information (does not include clinical [...] Type Department Care Team Description 08/31/2024 Telephone [facility] [address] [place] [place] [address] Vania Larson MD Medications Refill from Last [...] place to sleep or slept in a long-term (including now)? No 01/12/2023 Interpersonal Safety Answer [...] your living situation today? I have a [facility] place to live 09/16/2023 Think about [...] Recorded In the past 12 months has [employer], gas, oil, or water company threatened to shut off services in your home? No 09/16/2023 Education Answer Date Recorded Do you speak a language other than Ukrainian at [facility]? No 09/16/2023 Do you [...] 1 - PCV) 07/06/2009 COVID-19 Vaccine ( season) 2023 02/25/2021, 05/22/2020, 05/04/2020 Abdominal Aortic [...] Cholesterol 184 <200 mg/dL 07/16/2023 7:41 EDT [facility] HDL 70 >=40 mg/dl 07/16/2023 7:41 [facility] LDL, Calculated 91 <160 mg/dL 7:41 [facility] Triglyceride 113 <=150 mg/dL 07/16/2023 7:41 [facility] Comment:Note that therapeuti c goals will differ between patients based on cardiac risk factors and current medical therapy. Chol/HDL Ratio 2.6 See Note 07/16/2023 7:41 [facility] Comment:No reference range h as been established for CHOL/HDL ratio. Non HDL Cholesterol 114 <160 mg/dL 07/16/2023 7:41 [facility] Blood VENOUS BLOOD / Unknown Venipuncture / Unknown 07/16/2023 7:01 EDT 07/16/2023 7:11 EDT Vania Larson MD CHEMISTRY & BLOOD GAS ORDER MADELIN Final Result [facility] [address] [place] [address] from Last 3 Months or Most Recently Relevant to Health Maintenance Insurance [facility] Advance Directives For more information, please contact: [phone] * Full Code (Latest Code Status on File) Date Activated Date Inactivated Comments 11/23/2022 6:05 11/26/2022 16:45 Question Answer Comments When the patient has NO PULSE: Full Code / CPR [facility]: Refer to current pap er/scanned MOLST for order details.
--- OUTSIDE RECORDS SUMMARY | 2024-11-04 09:23 | XMS_ITS | Encounter Summary ---
Author Organization [facility] Address [address] [place] [address] Care Team Providers Care Bushing And Broach Operator Name Role Phone Vania Larson MD Primary Care Provider [phone] Theresa Roberts MD Unavailable [phone] Reason for Visit * Reason Onset Date Comments Medications Refill 02/17/2024 Encounter Details Date Type Department Care Team (Late st Contact Info) Description 02/17/2024 Refill [facility] Primary Care [address] [phone] Vania Larson MD 6068 [facility] 9[place], [place] [phone] Medications Refill Social History Tobacco Use Types [...] place to sleep or slept in a jail (including now)? No 01/12/2023 Interpersonal Safety Answer [...] your living situation today? I have a [facility] place to live 09/16/2023 Think about [...] Recorded In the past 12 months has [employer], [employer], oil, or water [employer] threatened to shut off services in your home? No 09/16/2023 Education Answer Date Recorded Do you speak a language other than Urdu at [facility]? No 09/16/2023 Do [...] refill of Triamterene to be sent to [facility] in [facility] documented in this encounter Plan of Treatment Not on file documented as of this encounter Visit Diagnoses Diagnosis Hypertension, unspecified type- Primary documented in this encounter Discontinued Medications Medication Sig Discontinue Reason Start Date End Da te triamterene-hydrochlorot hiazide (DYAZIDE) 37.5-25 mg per capsule TAKE 1 CAPSULE BY MOUTH EVERY DAY Reorder 11/01/2023 02/17/2024 documented as of this encounter Care Teams Bushing And Broach Operator Relationship Specialty Start Date End Date Vania Larson MD 6097 [facility] [address] [place] [address] PCP - General Family Medicine - Primary Care 06/16/23 08/30/24 Theresa Roberts MD [address] [place] [phone] Orthopaedic Surgery 01/18/24 08/30/24 documented as of this encounter
--- OUTSIDE RECORDS SUMMARY | 2024-11-04 09:23 | XMS_ITS | Encounter Summary ---
Author Organization [facility] Address [address] [place] [address] Care Team Providers Care Jury Consultant Name Role Phone Carlos Manuel Cardoso MD Primary Care Provide r Vania Larson MD Primary Care Provider [phone] Vania Larson MD Primary Care Provider Vania Larson MD Primary Care Provider [phone] Theresa Roberts MD Unavailable [phone] Encounter Details Date Type Department Care [...] HDL, LDL) (12/25/2020 9:00 EST) Fasting? R [facility] Cholesterol 191 L=100 H=200 mg/dL [facility] HDL 49 L=40 H=60 mg/dL [facility] Triglyceride 166(H) L=30 H=150 mg/dL [facility] LDL, Calculated 109(H) L=0 H=100 mg/dL [facility] Chol/HDL Ratio 3.9 [facility] LDL/HDL - ECH 2.22 [facility] Comment: ARTHEROSCLEROSIS RISK RATIOS FOR LDL, [...] 60. 12/25/20.1245.KM .COMPLETE 12/25/2020 9:00 EST Narrative [facility] - 12/25/2020 12:45 EST LIPID PANEL us Provider Unknown CHEMISTRY & BLOOD GAS ORDERA BLES Final Result [facility] [address] [place] [address] documented in this encounter Visit Diagnoses Not on filedocumented in this encounter Care Teams Jury Consultant Relationship Specialty Start Date End Date Carlos Manuel Cardoso MD [address] [place] [phone] PCP - General 01/18/12 08/31/21 Vania Larson MD 6[address] [facility] [address] [place] [address] PCP - General Family Medicine - Primary Care 09/01/21 11/12/21 Vania Larson MD [address] [facility] [address] [place] [address] PCP - General Family Medicine - Primary Care 12/25/21 06/15/23 Vania Larson MD [address] [facility] [address] [place] [address] PCP - General Family Medicine - Primary Care 06/16/23 08/30/24 Theresa Roberts MD [address] [place] [phone] Orthopaedic Surgery 01/18/24 08/30/24 documented as of this encounter
--- OUTSIDE RECORDS SUMMARY | 2024-11-04 09:24 | XMS_ITS | Encounter Summary ---
Author Organization [facility] Address [address] [place] [address] Care Team Providers Care Water Plumber Name Role Phone Vania Larson MD Primary Care Provider [phone] Theresa Roberts MD Unavailable [phone] Reason for Visit * Reason Comments Medications Refill Encounter Details Date Type Department Care Team (Late st Contact Info) Description 08/01/2023 Refill [facility] Primary Care [facility] 6097 [facility] [place] [address] Vania Larson MD [address] [facility] [address] [place] [phone] Medications Refill Social History Tobacco Use Types [...] Date of Assessment Author Yes 11/23/2022 14:50 aMrlin Galindo RN documented as of this encounter [...] documented as of this encounter Care Teams Water Plumber Relationship Specialty Start Date End Date Vania Larson MD [address] [address] PCP - General Family Medicine - Primary Care 06/16/23 08/30/24 Theresa Roberts MD [address] [place] [phone] Orthopaedic Surgery 01/18/24 08/30/24 documented as of this encounter
--- OUTSIDE RECORDS SUMMARY | 2024-11-04 09:24 | XMS_ITS | Encounter Summary ---
Author Organization [facility] Address [address] [place] [address] Care Team Providers Care Booster Pump Oiler Name Role Phone Vania Larson MD Primary Care Provider [phone] Theresa Roberts MD Unavailable [phone] Reason for Visit * Reason Onset Date Comments Orders (Non Pre-visit) 10/07/2023 Encounter Details Date Type Department Care Team (Late st Contact Info) Description 10/07/[address] [facility] Primary Care [address] [phone] Vania Larson MD 6[address] [facility] [address] [place] [phone] Orders (Non Pre-visit) Social History Tobacco Use [...] place to sleep or slept in a correction (including now)? No 01/12/2023 Interpersonal Safety Answer [...] your living situation today? I have a [facility] place to live 09/16/2023 Think about [...] Recorded In the past 12 months has [employer], gas, oil, or water [employer] threatened to shut off services in your home? No 09/16/2023 Education Answer Date Recorded Do you speak a language other than Thai at [facility]? No [...] on filedocumented in this encounter Care Teams Booster Pump Oiler Relationship Specialty Start Date End Date Vania Larson MD 6097 [facility] [address], [place] [address] PCP - General Family Medicine - Primary Care 06/16/23 08/30/24 Theresa Roberts MD [address] [place] [phone] Orthopaedic Surgery 01/18/24 08/30/24 documented as of this encounter
--- OUTSIDE RECORDS SUMMARY | 2024-11-04 09:24 | XMS_ITS | Clinical Summary ---
Author Organization [facility] Address [address] [place] [address] Phone Care Team Providers Care Hiv Nurse Name Role Phone Physician, No Pcp Primary Care Provider Unavaila ble Allergies Active Allergy Reactions Criticality Noted Date Comments Bee Venom Protein (Honey Bee) Anaphylaxis High 09/14 Medications No known medications Encounters Date Type Department Care Team Description 09/14/2024 12:05 PM EDT - 09/14/2024 1:14 PM EDT Emergency [facility] Emergency [address] [place] [address] Chronic low back pain without [...] - [place] [employer] [place] Care Teams Hiv Nurse Relationship Specialty Start Date End Date Physician, No Pcp PCP - General 09/14/24
--- OUTSIDE RECORDS SUMMARY | 2024-11-04 09:24 | XMS_ITS | Encounter Summary ---
Author Organization [facility] Address [address] [place] [address] Care Team Providers Care Server Programmer Name Role Phone Vania Larson MD Primary Care Provider [phone] Theresa Roberts MD Unavailable [phone] Reason for Visit * Reason Comments Medications Refill Encounter Details Date Type Department Care Team (Late st Contact Info) Description 10/30/2023 Refill [facility] Primary Care [facility] [address] [facility] [place] [address] Vania Larson MD [address] [facility] [address] [place] [phone] Medications Refill Social History Tobacco Use Types [...] your living situation today? I have a [facility] place to live 09/16/2023 Think about [...] the past 12 months has th e [employer], gas, oil, or water [employer] threatened to shut off services in your home? No 09/16/2023 Education Answer Date Recorded Do you speak a language other than Lao at [facility]? No 09/16/2023 Do you want [...] documented as of this encounter Care Teams Server Programmer Relationship Specialty Start Date End Date Vania Larson MD [address] [facility] [address] [place] [address] PCP - General Family Medicine - Primary Care 06/16/23 08/30/24 Theresa Roberts MD [address] [phone] Orthopaedic Surgery 01/18/24 08/30/24 documented as of this encounter
--- OUTSIDE RECORDS SUMMARY | 2024-11-04 09:24 | XMS_ITS | Encounter Summary ---
Author Organization [facility] Address [address] [place] [address] Care Team Providers Care Application Services Manager Name Role Phone Carlos Manuel Cardoso MD Primary Care Provide r Vania Larson MD Primary Care Provider Vania Larson MD Primary Care Provider Vania Larson MD Primary Care Provider Theresa Roberts MD Unavailable [phone] Encounter Details Date Type Department Care Team (Late st Contact Info) Description 03/25/2021 Historical Results Only [facility] HIST DATA CONV [place] Unknown, Provider, MD Social History Tobacco Use [...] REFLEX - E[facility] 1.82 L=0.36 H=3.74 uIU/mL [facility] Comment:03/25/21.1259.AM .CO MPLETE 03/25/2021 9:00 EST us Provider Unknown CHEMISTRY & BLOOD GAS ORDERA BLES Final Result [facility] [address] [place] [address] documented in this encounter Visit Diagnoses Not on filedocumented in this encounter Care Teams Application Services Manager Relationship Specialty Start Date End Date Carlos Manuel Cardoso MD [address] [place] [address] PCP - General 01/18/12 08/31/21 Vania Larson MD [address] [facility] [address] [place] [address] PCP - General Family Medicine - Primary Care 09/01/21 11/12/21 Vania Larson MD [address] [facility] [address] [place] [address] PCP - General Family Medicine - Primary Care 12/25/21 06/15/23 Vania Larson MD [address] [facility] [address] [place] [address] PCP - General Family Medicine - Primary Care 06/16/23 08/30/24 Theresa Roberts MD [address] [place] [phone] (work) Orthopaedic Surgery 01/18/24 08/30/24 documented as of this encounter
--- OUTSIDE RECORDS SUMMARY | 2024-11-04 09:24 | XMS_ITS | Encounter Summary ---
Author Organization [facility] Address [address] [place] [address] Care Team Providers Care Assistant Womens Volleyball Coach Name Role Phone Vania Larson MD Primary Care Provider [phone] Theresa Roberts MD Unavailable [phone] Reason for Visit * Reason Onset Date Comments Medications Refill 11/22/2023 Encounter Details Date Type Department Care Team (Late st Contact Info) Description 11/22/2023 Refill [facility] Primary Care [address] [phone] Vania Larson MD [address] [facility] [address] [phone] Medications Refill Social History Tobacco Use Types [...] your living situation today? I have a [facility] place to live 09/16/2023 Think about [...] Recorded In the past 12 months has [employer], [employer] oil, or water [employer] threatened to shut off services in your home? No 09/16/2023 Education Answer Date Recorded Do you speak a language other than Greek at [facility]? No 09/16/2023 Do [...] was requested by: Alena Correa Reference #: [id number] practice professional checked no discrepancies noted. Last Fill:10/26/23 Next office visit Next Appointment: 12/15/23 Last Office Visit: 09/16/23 UDS:07/16/23 positive for oxy and cannabinoids Controlled substance agreement: 07/15/23 FLORIDALMA BENOIT RN 11/22/2023 12:25 * Telephone Encounter - BriannaRonit Amanda - 11/22/2023 0817 EDT Patient called requesting refill of Oxycodone to be sent to [facility] documented in this encounter Plan of [...] documented as of this encounter Care Teams Assistant Womens Volleyball Coach Relationship Specialty Start Date End Date Vania Larson MD [address] [facility] [address], [place] [address] PCP - General Family Medicine - Primary Care 06/16/23 08/30/24 Theresa Roberts MD [address] [place] [phone] Orthopaedic Surgery 01/18/24 08/30/24 documented as of this encounter
--- OUTSIDE RECORDS SUMMARY | 2024-11-04 09:24 | XMS_ITS | Encounter Summary ---
Author Organization [facility] Address [address] [place] [address] Care Team Providers Care Rug Cleaner Helper Name Role Phone Vania Larson MD Primary Care Provider [phone] Theresa Roberts MD Unavailable [phone] Reason for Visit * Reason Comments Medications Refill Encounter Details Date Type Department Care Team (Late st Contact Info) Description 11/01/2023 Refill [facility] Primary Care [facility] [address] [facility] [place] [address] Vania Larson MD [address] [facility] [address] [place] [phone] Medications Refill Social History Tobacco Use Types [...] place to sleep or slept in a long term (including now)? No 01/12/2023 Interpersonal Safety Answer [...] your living situation today? I have a [facility] place to live 09/16/2023 Think about [...] the past 12 months has th e [employer], gas, oil, or water [employer] threatened to shut off services in your home? No 09/16/2023 Education Answer Date Recorded Do you speak a language other than Yi at [facility]? No 09/16/2023 [...] Date of Assessment Author No 11/23/2022 14:50 Marlni Galindo RN * Are you blind or [...] documented as of this encounter Care Teams Rug Cleaner Helper Relationship Specialty Start Date End Date Vania Larson MD [address] [facility] [address], [place] [address] PCP - General Family Medicine - Primary Care 06/16/23 08/30/24 Theresa Roberts MD [address] [facility] [address] [place] [phone] Orthopaedic Surgery 01/18/24 08/30/24 documented as of this encounter
--- OUTSIDE RECORDS SUMMARY | 2024-11-04 09:24 | XMS_ITS | Encounter Summary ---
Author Organization [facility] Address [address] [place] [address] Care Team Providers Care Labor Operator Name Role Phone Vania Larson MD Primary Care Provider [phone] Theresa Roberts MD Unavailable [phone] Reason for Visit * Reason Onset Date Comments Medications Refill 09/27/2023 Orders (Non Pre-visit) 09/27/2023 Encounter Details Date Type Department Care Team (Late st Contact Info) Description 09/27/2023 Refill [facility] Primary Care [address] [phone] Vania Larson MD [address] [facility] [address] [place] [phone] Medications Refill; Orders (Non Pre-visit) Social History [...] your living situation today? I have a [facility] place to live 09/16/2023 Think [...] Recorded In the past 12 months has [employer], gas, oil, or water [employer] threatened to shut off services in your home? No 09/16/2023 Education Answer Date Recorded Do you speak a language other than Japanese at [facility]? No 09/16/2023 Do you want [...] was requested by: Alena Correa Reference #: [id number] Oxycodone last filled 09/01/23 Last OV 09/16/2023 Next OV 12/15/2023 Last UDS 07/16/23, pos for oxycodone and MJ Last CSA signed 07/15/2023 * Telephone Encounter - BriannaRonit Amanda - 09/27/2023 0843 EDT Patient called [...] documented as of this encounter Care Teams Labor Operator Relationship Specialty Start Date End Date Vania Larson MD [address] [facility] [address], [place] [address] PCP - General Family Medicine - Primary Care 06/16/23 08/30/24 Theresa Roberts MD [address] [place] [phone] Orthopaedic Surgery 01/18/24 08/30/24 documented as of this encounter
--- OUTSIDE RECORDS SUMMARY | 2024-11-04 09:24 | XMS_ITS | Encounter Summary ---
Author Organization [facility] Address [address] [place] [address] Care Team Providers Care International Representative Name Role Phone Vania Larson MD Primary Care Provider [phone] Theresa Roberts MD Unavailable [phone] Reason for Visit * Reason Onset Date Comments Medications Refill 12/20/2023 Encounter Details Date Type Department Care Team (Late st Contact Info) Description 12/20/2023 Refill [facility] Primary Care [address] [phone] Vania Larson MD [address] [facility] 9[place], [place] [phone] Medications Refill Social History Tobacco Use Types [...] your living situation today? I have a [facility] place to live 09/16/2023 Think about [...] Recorded In the past 12 months has [employer], [employer], oil, or water [employer] threatened to shut off services in your home? No 09/16/2023 Education Answer Date Recorded Do you speak a language other than Tamazight at [facility]? No 09/16/2023 Do you want [...] 1324 EST This report was requested by: Alena Correa Reference #: [id number] Oxycodone last filled 11/24/2023 Last OV 10/26/2023 Next OV 12/24/2023 Last UDS 07/16/2023 positive for oxycodone and cannabinoids Last CSA signed 07/15/2023 * Telephone Encounter - BriannaKeeley Amanda - 12/20/2023 1314 EST Patient requesting refill of Oxycodone to be sent to [facility] documented in this encounter Plan of [...] documented as of this encounter Care Teams International Representative Relationship Specialty Start Date End Date Vania Larson MD [address] [facility] [address], [place] [address] PCP - General Family Medicine - Primary Care 06/16/23 08/30/24 Theresa Roberts MD [address] [phone] Orthopaedic Surgery 01/18/24 08/30/24 documented as of this encounter
--- OUTSIDE RECORDS SUMMARY | 2024-11-04 09:24 | XMS_ITS | Encounter Summary ---
Author Organization [facility] Address [address] [place] [address] Care Team Providers Care Echocardiograph Tech Name Role Phone Vania Larson MD Primary Care Provider [phone] Theresa Roberts MD Unavailable [phone] Reason for Visit * Reason Comments Medications Refill Encounter Details Date Type Department Care Team (Late st Contact Info) Description 05/01/[address] [facility] Primary Care [facility] [address] [facility] [place] [address] Vania Larson MD [address] [facility] [address] [place] [phone] Medications Refill Social History Tobacco Use Types [...] place to sleep or slept in a senior living (including now)? No 01/12/2023 Interpersonal Safety Answer [...] your living situation today? I have a [facility] place to live 09/16/2023 Think about the [...] the past 12 months has th e [employer], gas, oil, or water [employer] threatened to shut off services in your home? No 09/16/2023 Education Answer Date Recorded Do you speak a language other than Spanish at [facility]? No 09/16/2023 Do you want [...] documented as of this encounter Care Teams Echocardiograph Tech Relationship Specialty Start Date End Date Vania Larson MD [address] [facility] [address] [place] [address] PCP - General Family Medicine - Primary Care 06/16/23 08/30/24 Theresa Roberts MD [address] [place] [phone] Orthopaedic Surgery 01/18/24 08/30/24 documented as of this encounter
== END 2024-11-04 09:18 | disposition home or self-care (01) ==
LOC: HO.MRI 09:17
PROVIDERS: Visit Provider Physician Assistant
DX: S46.002A Unspecified injury of muscle(s) and tendon(s) of the rotator cuff of left shoulder, initial encounter (principal)
CPT/HCPCS: 73221

== ENCOUNTER 2024-11-27 09:03 | Outpatient (AMB) | payer OTHER, SELFPAY ==
--- OUTSIDE RECORDS SUMMARY | 2007-11-02 09:20 | XMS_ITS | Encounter Summary ---
Author Organization [facility] Address [address] [place] [address] Care Team Providers Care Aircraft Servicer Name Role Phone Unavailable Primary Care Provider Unavailabl e Encounter Details Date Type Department Care Team (Late st Contact Info) Description 11/02/2007 9:[address] [facility] [address] [place] [address] Rylan Molina MD [address] [facility], [address] [place] [address] Social History Tobacco Use Types Packs/Day Years Used Date Smoking Tobacco: Former Cigarettes 3 28 0 02/14/1967 - 02/14/1995 Smokeless Tobacco: Never Alcohol Use Standard Drinks/Week Comments Not Currently 1 (1 standard drink = 0.6 oz pur e alcohol) Overall Financial Resource Strain (CARDIA) Answe r Date Recorded How hard is it for you to pa y for the very basics like food, housing, medical care, and heating? Not hard at all 01/12/2023 PHQ-2 Answer Date Recorded PHQ-2 SUBTOTAL 0 09/16/2023 Hunger Vital Sign Answer Date Recorded Within the past 12 months, y ou worried that your food would run out before you got the money to buy more. Never true 01/13/20 23 Within the past 12 months, t he food you bought just didn't last and you didn't have money to get more. Never true 01/12/2023 PRAPARE - Transportation Answer Date Re corded In the past 12 months, has l ack of transportation kept you from medical appointments or from getting medications? No 06/2022 In the past 12 months, has l ack of transportation kept you from meetings, work, or from getting things needed for daily living? No 01/12/2023 Housing Stability Vital Sign Answer Parker e Recorded In the last 12 months, was t here a time when you were not able to pay the mortgage or rent on time? No 01/12/2023 Number of Places Lived in the Last Year Not on f ile 01/12/2023 In the last 12 months, was t here a time when you did not have a steady place to sleep or slept in a chcf (including now)? No 01/12/2023 Interpersonal Safety Answer Date Record ed How often does anyone, bj hall family, hit, punch or physically hurt you? Never 01/12/2023 How often does anyone, bj hall family, insult, scream, curse or threaten to hurt you? Never 01/12/2023 Employment Answer Date Recorded Do you want help finding or keeping work or a job? I do not need or want help 09/16/2023 Financial Strain Answer Date Recorded How hard is it for you to pa y for the very basics like food, housing, medical care, and heating? Would you say it is: Not hard at all 09/16/2023 Living Situation Answer Date Recorded What is your living situation today? I have a [facility] place to live 09/16/[address] you li ve. Do you have problems with any of the following? None of the above 09/16/2023 Family & Community Support Answer Date Recorded If for any reason you need h elp with day-to-day activities such as bathing, preparing meals, shopping, managing finances, etc., do you get the help you need? I don't need any help 09/16/2023 How often do you feel lonely or isolated from those around you? Never 09/16/2023 Interpersonal Safety Answer Date Record ed How often does anyone, bj hall family and friends, physically hurt you? Never 09/16/2023 How often does anyone, bj hall family and friends, insult or talk down to you? Never 09/16/2023 How often does anyone, inclu ding family and friends, threaten you with harm? Never 09/16/2023 How often does anyone, inclu isabel family and friends, scream or curse at you? Never 09/16/2023 Food Answer Date Recorded Within the past 12 months, y ou worried that your food would run out before you got money to buy more. Never true 09/16/2023 Within the past 12 months, t he food you bought just didn't last and you didn't have money to get more. Never true 09/16/2023 Transportation Answer Date Recorded In the past 12 months, has l ack of reliable transportation kept you from medical appointments, meetings, work or from getting things needed for daily living? No 09/16/2023 Utilities Answer Date Recorded In the past 12 months has th e Pull, gas, oil, or water [employer] threatened to shut off services in your home? No 09/16/2023 Education Answer Date Recorded Do you speak a language other than Frisian at [facility]? No 09/16/2023 Do you want help with school or training? For example, starting or completing job training or getting a high school diploma, GED or equivalent. No 09/16/2023 Physical Activity Answer Date Recorded In the last 30 days, other t pascal the activities you did for work, on average, how many days per week did you engage in moderate exercise (like walking fast, running, jogging, dancing, swimming, biking, or other similar activities)? 0 2023 On average, how many minutes did you usually spend exercising at this level on one of those days? 0 09/16/2023 Sex and Gender Information Value Date Recorded Sex Assigned at Male 08/19/2022 12:26 EDT Legal Sex Male 18:43 EST Gender Identity Male 06/23/2021 9:01 EDT Sexual Orientation Straight 08/19/2022 12 :26 EDT COVID-19 Exposure Response Date Recorded In the last 10 days, have yo u been in contact with someone who was confirmed or suspected to have Coronavirus/COVID-19? No / Unsure 08/19/2022 8:06 EDT documented as of this encounter Functional Status documented as of this encounter Plan of Treatment Not on file documented as of this encounter Visit Diagnoses Not on filedocumented in this encounter
--- OUTSIDE RECORDS SUMMARY | 2008-03-05 08:13 | XMS_ITS | Encounter Summary ---
Author Organization [facility] Address [address] [place] [address] Care Team Providers Care Financial Analysis Manager Name Role Phone Unavailable Primary Care Provider Unavailabl e Encounter Details Date Type Department Care Team (Late st Contact Info) Description 03/05/2008 7:13 EST Hospital Encounter [facility] - [place] [address] [place] [address] Ed Lerma MD [address] [place] [address] Social History Tobacco Use Types Packs/Day Years [...] place to sleep or slept in a group home (including now)? No 01/12/2023 Interpersonal Safety Answer [...] your living situation today? I have a [facility] place to live 09/16/2023 Think about the [...] the past 12 months has th e [employer], gas, oil, or water company threatened to shut off services in your home? No 09/16/2023 Education Answer Date Recorded Do you speak a language other than Ecuadorean at [facility]? No 09/16/2023 Do you want help [...] of this report immediately, please contact the [facility] Cardiology Report line at [phone]. A copy of the CardioChart report will be faxed to the attending, referring, and primary care providers within 48 hours of the date of service. Procedure Note Kev Molina MD - 06/25/2008 chest pain Rest and Stress SPECT Cardiolite Study: If you need to receive a hard copy of this report immediately, please contact the [facility] Cardiology Report line at [phone]. A copy of the CardioChart report will [...] Factors Referring Physician: ED LERMA MD FAX: [phone] --- NUCLEAR IMAGING RESULTS --- PERFUSION AND [...] _ _ _ _ _ _ _ [place] - myocardial infarction JVM - jeopardized viable [...] / 84 MPHR: 54% Peak Rate-Pressure Product: [id number] Test Stopped Due To: Protocol Symptoms / [...] Radiologist Steven FULLER, Franklin - Attending Nuclear Hat Brim And Crown Laminating Operator Stress ECG Interpretation By: Franklin Harris MD - Attending Hat Brim And Crown Laminating Operator Kev Molina MD Electronically Signed on 03/05/2008 [...] Pt is legally blind. PMH of DIANA [facility] .No pain now Medications: Beta blockers, Omeprazole Cardiovascular Risk Factors: Family history of CAD, Hypertension, PastSmoker (quit > 6 mos ago) Reason for Study: Atypical Chest Pain, ASX with Risk Factors Referring Physician: ED LERMA MD FAX: [phone] --- NUCLEAR IMAGING RESULTS --- PERFUSION AND [...] _ _ _ _ _ _ _ [place] - myocardial infarction JVM - jeopardized viable [...] / 84 MPHR: 54% Peak Rate-Pressure Product: 39630 Test Stopped Due To: Protocol Symptoms / Pre Scale / Post Scale: Chest pain/neck/bilat arm 5/10 spontaneously 0/10 Comments: Pt given O2 preventitively nasal at 2l during VADIM test.[id number]% ECG Changes: None Performed By: Leonor Burk [...] Radiologist Steven FULLER, Franklin - Attending Nuclear Hat Brim And Crown Laminating Operator Stress ECG Interpretation By: Franklin Harris MD - AttendingCardiologist Kev Molina MD Electronically Signed on 03/05/2008 Finalized on: 03/05/2008 3:31:52 PM This procedure was conducted under the supervision of Blake FULLER, Rajivwho was readily available at all points throughout the procedure. Copy Report To: us [place] Provider [id number] CARDIAC NM [place] Final Result documented in this encounter Visit Diagnoses Not on filedocumented in this encounter
[2024-11-27 09:07] VITALS: BMI 26.3
--- NOTE | 2024-11-27 09:07 | MHC.OFFVIS ---
Vital Signs 11/27/24 09:07 Height 5 ft 8 in Weight 173 lb BMI 26.3 Intake Visit Reasons: OV-Left shoulder MRI review Intake Note: Jean is a 64 year old male who presents today for an MRI review of his left shoulder. Patient reports his symptoms are getting worse, he has not been able to sleep on his right side, and is unable to sleep on his back due to previous surgeries. He complains of right arm soreness due to overuse compensating his left arm. Allergies Corticosteroids (Glucocorticoids) Adverse Reaction (Verified 11/27/24 09:17) swelling, discolored NSAIDS (Non-Steroidal Anti-Inflamma Adverse Reaction (Verified 11/27/24 09:17) elevated blood pressure yellow jackets bees Adverse Reaction (Mild, Uncoded 11/27/24 09:17) Unknown Medication List - Last Reconciled 11/27/24 by Dale Pollack PA-C atorvastatin 20 mg PO DAILY 90 days lisinopril 40 mg PO DAILY 90 days pantoprazole 40 mg PO DAILY 90 days triamterene 50 mg PO DAILY 90 days HPI HPI OV-Left shoulder MRI review: Details: 64-year-old gentleman returns to the office today for a follow-up left shoulder pain status post MRI. The patient states since his last visit he did obtain a new primary care doctor who referred him to a new pain management provider. He continues to take oxycodone for his pain. He states he continues to have significant limitations in both his shoulders which prevent him from sleeping or performing daily activities. [facility] Medical History (Updated 10/13/24 @ 12:51 by Dale Pollack PA-C) Legally blind Impaired fasting glucose GERD without esophagitis Pure hypercholesterolemia Essential hypertension Degenerative joint disease of shoulder Lumbar degenerative disc disease Surgical History History of umbilical hernia repair History of ankle surgery History of lumbar discectomy History of colonoscopy Family History (Updated 06/27/24 @ 14:03 by OSCAR Branham) Other Diabetes Heart attack Hypertension Prostate cancer Skin cancer Social History Housing: House Patient Tobacco Use Status: Former Tobacco user e-Cigarette/Vaping Use: Never Used service: Yes Current occupational status: disabled Current occupation: right hand dominant Current occupational exposures/hazards: No Cognitive needs: No Hearing needs: No Vision needs: Yes Physical Exam Vital Signs: BMI result Body Mass Index 26.3 Extrem Other: Left shoulder normal to inspection with limitations of range of motion due to pain. Results Reviewed Results Reviewed: Impression: 1. Extensive partial-thickness bursal surface tear of the distal supraspinatus tendon as above. Associated supraspinatus and infraspinatus tendinopathy. 2. Lateral downsloping of the acromion with moderate AC joint DJD. Assessment & Plan Assessment & Plan (1) Degenerative joint disease of shoulder: Code(s): M19.019 - Primary osteoarthritis, unspecified shoulder Category: Medical Qualifiers: Laterality: bilateral Osteoarthritis type: unspecified Qualified Code(s): M19.011 - Primary osteoarthritis, right shoulder; M19.012 - Primary osteoarthritis, left shoulder (2) Left rotator cuff tear: Code(s): M75.102 - Unspecified rotator cuff tear or rupture of left shoulder, not specified as traumatic Category: Medical Plan I discussed with the patient the treatment plan is typically working with physical therapy to restore his function of the rotator cuff and scapular stabilization techniques. Given his chronic pain the surgery would not alleviate his chronic pain and this should be cared for as a priority with pain management. I did place an order for physical therapy for him to work on rotator cuff and periscapular strengthening exercises. Patient is content with this plan and will see us back as needed. Orders: Orders PT Evaluation and Treatment Today M19.011 - Primary osteoarthritis, right shoulder, M19.012 - Primary osteoarthritis, left shoulder, M75.102 - Unspecified rotator cuff tear or rupture of left shoulder, not specified as traumatic Coding Level of Care Code Est Pt Level 3 (21988) Complex EM visit Add On G2211 Diagnoses Osteoarthritis of both shoulders, unspecified osteoarthritis type M19.011; M19.012 Laterality: bilateral Osteoarthritis type: unspecified Left rotator cuff tear M75.102
--- OUTSIDE RECORDS SUMMARY | 2024-11-27 10:17 | XMS_ITS | Encounter Summary ---
Author Organization [facility] Address [address] [place] [address] Care Team Providers Care Over Short And Damage Clerk Name Role Phone Vania Larson MD Primary Care Provider [phone] Vania Larson MD Primary Care Provider [phone] Theresa Roberts MD Unavailable [phone] Reason for Visit * Reason Onset Date Comments Medication Questions 04/10/2022 Encounter Details Date Type Department Care Team (Late st Contact Info) Description 04/10/2022 Telephone [facility] Primary Care - [address] [place] [address] Jil Beard Medication Questions Social History Tobacco [...] on filedocumented in this encounter Care Teams Over Short And Damage Clerk Relationship Specialty Start Date End Date Vania Larson MD [address] [facility] [address], [place] [address] PCP - General Family Medicine - Primary Care 12/25/21 06/15/23 Vania Larson MD [address] [facility] [address], [place] [address] PCP - General Family Medicine - Primary Care 06/16/23 08/30/24 Theresa Roberts MD [address] [place] [phone] Orthopaedic Surgery 01/18/24 08/30/24 documented as of this encounter
--- OUTSIDE RECORDS SUMMARY | 2024-11-27 10:18 | XMS_ITS | Clinical Summary ---
Author Organization [facility] Address [address] [address] Phone Care Team Providers Care Us Marketing Director Name Role Phone Clarence Goodman DO Primary Care Provider [phone] Allergies Active Allergy Reactions Criticality Noted Date Comments Bee Venom Protein (Honey Bee) Anaphylaxis High 09/14/2024 Corticosteroids (Glucocorticoids) 01/25/2018 Swelling and discoloration Nsaids (Non-Steroidal Anti-Inflammatory Drug) 11/23/2022 [id number] blood pressure Medications oxyCODONE HCl 10 mg Tab Take 10 mg by mouth every 3 (three) hours as needed. 5 Active triamterene (DYRENIUM) 50 MG capsule Take 1 capsule by mouth every morning. 5 Active atorvastatin (LIPITOR) 20 MG tablet Take 1 tablet (20 mg total) by mouth daily. 90 tablet 3 5 Active lisinopril (PRINIVIL,ZESTR IL) 40 MG tablet Take 1 tablet (40 mg total) by mouth every morning. 90 tablet 3 5 Active pantoprazole (PROTONIX) 40 MG tablet Take 2 tablets (80 mg total) by mouth every morning. 90 tablet 3 5 Active atorvastatin (LIPITOR) 20 MG tablet Take 20 mg by mouth daily. 5 11/08/19 25 Discontinu ed(Reorder ) lisinopril (PRINIVIL,ZESTR IL) 40 MG tablet Take 1 tablet by mouth every morning. 5 11/08/19 25 Discontinu ed(Reorder ) pantoprazole (PROTONIX) 40 MG tablet Take 2 tablets by mouth every morning. 5 11/08/19 25 Discontinu ed(Reorder ) Active Problems Problem Noted Date Diagnosed Date Generalized skin lesions 11/13/2024 Assessment & Plan (11/13/2024 11:53 AM EDT): Multiple seborrheic keratosis noted throughout and skin tags. He would like to see a asbestos shingle roofer-referral placed today. He was appreciative. Chronic cough 11/13/2024 Assessment & Plan (11/13/2024 11:52 AM EDT): Jean notes that he has a chronic cough. He notes that he smoked when he was younger but no smoking recently. I ordered a chest x-ray to rule out pneumonia-decreased lung sounds throughout with rhonchi at the bases bilaterally-I will update him with the results of the x-ray. I also ordered PFTs and I will update him with the results. I informed him to call if there are any other issues or concerns. He understands and agrees. Need for prophylactic vaccin ation and inoculation against influenza 11/13/2024 Assessment & Plan (11/13/2024 11:53 AM EDT): Jean would like to have his flu vaccine today. This was given today in the office. No complications. He was appreciative. Need for hepatitis C screening test 10/11/2024 [...] Encounter for abdominal aortic aneurysm (AAA) sc guillaumening 10/11/2024 Assessment & Plan (10/11/2024 12:33 PM EDT): Jean is a male, over 65M with a history of smoking-I ordered an AAA ultrasound today and I will update him with the result. He is appreciative. Chronic left shoulder pain 10/26/2023 Pain of left hand 09/16/2023 Hyperglycemia 01/12/2023 Assessment & Plan (11/13/2024 11:53 AM EDT): Normal last glucose on CMP. Renal insufficiency 01/12/2023 Lumbar radiculopathy 08/19/2022 Prediabetes 08/19/2022 Dyslipidemia 12/26/2021 Assessment & Plan (11/13/2024 11:45 AM EDT): Jean Jewell has hypercholesterolemia and he is taking the above medication as directed without any side effects. his most recent cholesterol labs were reviewed. he will follow up as directed. Assessment & Plan (10/11/2024 12:31 PM EDT): Jean has a history of hyperlipidemia-currently not on any medication-I ordered labs to be done prior to next visit and I will update him with the result. He understands and agrees. 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 Hypertension 06/03/2017 Assessment & Plan (11/13/2024 11:54 AM EDT): Jean Jewell has hypertension and he is taking the above medication as directed without any side effects. his blood pressure is within normal limits and stable. he will follow up as directed. I have maintained a long-term relationship with the patient, overseeing the care of their HTN. This has significantly influenced my decision-making and treatment plans during today's encounter. Assessment & Plan (10/11/2024 12:30 PM EDT): Jean has a history of hypertension he is taking lisinopril as well as triamterene-this is working well for him. His blood pressure is within normal limits and stable. I ordered labs today to be done prior to next [id number] in 2 months for CPE. He understands and agrees. Overweight 06/03/2017 Assessment & Plan (10/11/2024 12:31 PM EDT): Jean has a BMI of 26-he has lost weight recently and is undergoing intermittent fasting. Labs [id number] in 2 months for CPE. He understands and agrees. Glaucoma 06/12/2013 Backache 02/15/2012 Assessment & Plan (11/13/2024 11:53 AM EDT): Jean has ongoing back and joint pains. I messaged my nurses to call pain management and spine - he has not heard back from these referral yet. He was appreciative of this. Assessment & Plan (10/11/2024 12:33 PM EDT): Jean presents as a new patient to [facility]. I will review his previous medical [...] Encounters Date Type Department Care Team Description 11/13/2024 11:30 AM EDT Office Visit [facility] [address] [place] [address] Clarence Goodman DO Chronic cough (Primary Dx); Generalized skin lesions; Primary hypertension; Hyperglycemia; Dyslipidemia; Chronic bilateral low back pain without sciatica; Need for prophylactic vaccination and inoculation against influenza 11/13/2024 Telephone [facility] [address] [place] [address] Clarence Goodman DO 11/09/2024 Telephone [facility] [address], [address] [place] [address] Unknown, Rufus, 11/07/2024 Refill [facility] [address] [place] [address] Annia Cross MA Medication Refill 11/06/2024 Orders Only [facility] [address] [place] [address] Geeta Wilson MA 10/18/2024 8:11 AM EDT - 10/18/2024 11:59 PM EDT Hospital Encounter [facility] [address] [place] [address] Clarence Goodman, Discharge Disposition: Home or Self Care 10/18/2024 Telephone [facility] [address] [place] [address] Clarence Goodman DO 10/16/2024 9:19 AM EDT - 10/16/2024 11:59 PM EDT Hospital Encounter [facility] [address] [place] [address] [place] [address] Clarence Goodman DO Discharge Disposition: Home or Self Care 10/16/[address] [address] Clarence Goodman DO 10/11/2024 12:00 PM EDT Office Visit [address] [address] Clarence Goodman, Chronic midline low back pain without sciatica [...] right eye visual impairment category 09/14/[address] [address] Unknown, Unknown, Bridge appt 09/11/2024 Nurse Triage [address] [address] Kerry Tadeo MD Triage (Red+withdrawl); Shaking from Last 3 Months Immunizations Immunization Administration Dates Next Due COVID-19 (Pre-11/30) Moderna Vaccine, mRNA, PF 02/25/2021,05/22/2020,05/04/2020 INFLUENZA, SPLIT VIRUS, TRIV ALENT W/ PRESERVATIVE IM 10/28/2016,10/12/2015,09/17/2013,2011 Influenza High-Dose Trivalen t Preservative Free IM 11/13/2024 Influenza Quadrivalent MDCK Preservative Free IM 11/06/2022 Influenza Quadrivalent Prese rvative Free IM 11/19/2021,10/30/2020,10/27/2016 Influenza, Unspecified Formulation 09/29,11/19/2021,10/30/2020,2019,11/03/2018,10/27/2016,11/20/2011 Pneumococcal conjugate PCV20 10/11/2024 RSV Vaccine (bivalent) 09/30/2023 Td (adult) 5 Lf Tetanus Toxo id, PF, Adsorbed 11/20/2004 Tdap 10/13/2018 Zoster recombinant 01/22/2022,11/21/2021 Social History Tobacco Use Types Packs/Day Years Used Date Smoking Tobacco: Former Cigarettes 0.5 17 1 971 - 1988 Smokeless Tobacco: Never Alcohol Use Standard Drinks/Week [...] high school, GED, job training, learning the [place] language, technical skills, or developing parenting skills)? [...] Sign Reading Time Taken Comments Blood Pressure 124/74 11/13/2024 11:30 AM EDT Pulse 64 11/13/2024 11:30 AM EDT Temperature 36.9 C (98.4 F) 11/13/2024 11:30 AM EDT Respiratory Rate - - Oxygen Saturation 98% 11/13/2024 11:30 AM EDT Inhaled Oxygen Concentration - - Weight 77.7 kg (171 lb 6.4 oz) 10/11/2024 11:51 AM EDT Height 170.2 cm (5' 7.01 ) 11/13/2024 11:30 AM E DT Body Mass Index 26.84 10/11/2024 11:51 AM EDT Plan of Treatment Upcoming Encounters Date Type Department Care Team (Late st Contact Info) Description 11/13/2024 Procedure [facility], [facility] - [address] [address] 12/18/2024 10:35 AM EST Appointment [facility], [facility] [address] [place] [address] Clarence Goodman, DO 234 [facility], [facility] [address] [place] [address] 12/25/2024 11:00 AM EST Appointment [facility] [address], [address] [place] [address] Noreen Carbone MD [address] [facility] [address] [place] [address] [email or web address] 12/26/2024 11:30 AM EST Office Visit [facility] [address] [place] [address] Clarence Goodman, DO 234 [facility] [address] [place] [address] [email or web address] 02/13/2025 9:45 AM EST Office Visit [address] [address] Clarence Goodman, 234 [facility] 7 [place] [address] [email or web address] Health Maintenance Due Date Last Done Comments COLOGUARD 07/06/2004 COLONOSCOPY 07/06/2004 FIT TEST 07/06/2004 FOBT 07/06/2004 SIGMOIDOSCOPY 07/06/2004 VIRTUAL COLONOSCOPY 07/06/2004 BLOOD PRESSURE 05/14/2025 11/13/2024 COLORECTAL CANCER SCREENING 10/09/2025 Postponed from 07/06/2004 (Patient Declines / Guardian Declines) COVID-19 VACCINE ( season) 2025 02/25/2021, 05/22/2020, 05/04/2020 Postponed from 10/09/2024 (Patient Declines / Guardian Declines) DEPRESSION SCREENING 10/11/2025 10/11/2024 CREATININE LEVEL 10/16/2025 10/16/2024 POTASSIUM LEVEL 10/16/2025 10/16/2024 SCREENING FOR DIABETES 10/17/2027 10/16/2024, 2023 Adult Td,Tdap Booster 10/13/2028 10/13/2018, 005 LIPID PANEL 10/16/2029 10/16/2024 ZOSTER VACCINES Completed 01/22/2022, 11/21/2021 RSV VACCINE Completed 09/30/2023 PNEUMOCOCCAL VACCINES (50+ years) Completed 10/11/2024 SMOKING STATUS SCREENING (Once After 26 Yrs) Completed 10/11/2024 HEPATITIS C SCREENING Completed 10/16/2024 HIV ONE-TIME SCREENING (18-65 YEARS) Completed 10/16/2024 ABDOMINAL AORTIC ANEURYSM (AAA) SCREENING Completed 10/18/2024 INFLUENZA VACCINE Completed 11/13/2024, , 11/06/2022, Additional history exists HEPATITIS A VACCINES Aged Out No long [...] this topic Medical Devices Not on file Procedures Procedure Name Priority Date/Time Associated Diagnosis Comments US ABDOMINAL AORTIC SCREENING Routine 10/18/2024 8:57 AM EDT Encounter for abdominal aortic aneurysm (AAA) screening OUTSIDE PATHOLOGY 10/17/2024 OUTSIDE PATHOLOGY 10/17/2024 OUTSIDE PROCEDURE 10/17/2024 OUTSIDE PROCEDURE 10/17/2024 OUTSIDE PROCEDURE 10/17/2024 OUTSIDE PROCEDURE 10/17/2024 COMPREHENSIVE METABOLIC PANEL Routine 10/16/2024 9:42 AM EDT Laboratory examination ordered as part of a routine general medical examination LIPID PANEL Routine 10/16/2024 9:42 AM EDT Laboratory examination ordered as part of a routine general medical examination CBC Routine 10/16/2024 9:42 AM EDT Laboratory examination ordered as part of a routine general medical examination PSA (SCREENING) Routine 10/16/2024 9:42 AM EDT Screening for prostate cancer HEPATITIS C ANTIBODY, QUALITATIVE Routine 10/16/2024 9:42 AM EDT Need for hepatitis C screening test HIV-1/2 ANTIGEN/ANTIBODY Routine 10/16/2024 9:42 AM EDT Screening for human immunodeficiency virus from Last 3 Months Results * US Abdominal Aortic Screening (10/18/2024 8:57 AM EDT) Anatomical Region Laterality Modality Abdomen Ultrasound 10/18/2024 8:59 AM EDT Narrative 10/18/2024 9:13 AM EDT US ABDOMINAL AORTIC SCREENING Referring clinician's provided indication for this examination in Epic: AAA screening, smoking history; male, 64, H/O smoking. TECHNIQUE: A duplex ultrasound evaluation of the abdominal aorta and iliac arteries as well as the inferior vena cava was performed using a combination of rose scale imaging, color duplex and spectral Doppler analysis. COMPARISON: None FINDINGS: Exam Quality: Technically limited exam demonstrates: GENERAL: Color Doppler flow fills the lumen of the imaged aorta with no mural clot demonstrated. Spectral Doppler analysis demonstrates normal high resistive flow pattern. Aorta: Proximal: Ectatic Mid: Ectatic Distal: Normal IVC: Patent with normal spectral Doppler waveforms. 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 Procedure Note Pam Ferrer MBBS - 10/18/2024 US ABDOMINAL AORTIC SCREENING Referring clinician's provided indication for this examination in Epic:AAA screening, smoking history; male, 64, H/O smoking. TECHNIQUE: A duplex ultrasound evaluation of the abdominal aorta and iliacarteries as well as the inferior vena cava was performed using acombination of rose scale imaging, color duplex and spectral Doppleranalysis. COMPARISON: None FINDINGS: Exam Quality: Technically limited exam demonstrates: GENERAL: Color Doppler flow fills the lumen of the imaged aorta with nomural clot demonstrated. Spectral Doppler analysis demonstrates normalhigh resistive flow pattern. Aorta: Proximal: Ectatic Mid: Ectatic Distal: Normal IVC: Patent with normal spectral Doppler waveforms. 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 Clarence Goodman DO IMG US ABDOMEN Final Result * Outside Procedure (10/17/2024) us Scanning Interface Provider PROCEDURE/MINOR SURG ICAL PERFORMABLES Final Result * Outside Procedure (10/17/2024) us Scanning Interface Provider PROCEDURE/MINOR SURG ICAL PERFORMABLES Final Result * Outside Procedure (10/17/2024) us Scanning Interface Provider PROCEDURE/MINOR SURG ICAL PERFORMABLES Final Result * Outside Procedure (10/17/2024) us Scanning Interface Provider PROCEDURE/MINOR SURG ICAL PERFORMABLES Final Result * Outside Pathology (10/17/2024) Only the most recent of2 resultswithin the time period is included. us Scanning Interface Provider PATHOLOGY ORDERABLES Final Result * (ABNORMAL) Comprehensive metabolic panel (10/16/2024 9:42 AM EDT) SODIUM 137 133 - 146 mmol/L [facility] POTASSIUM 4.8 3.3 - 5.1 mmol/L [facility] CHLORIDE 101 96 - 108 mmol/L [facility] CO2 23 21 - 35 mmol/L [facility] BUN 22(H) 6 - 19 mg/dL [facility] CREATININE 1.30 0.5 - 1.5 mg/dL [facility] GLUCOSE 94 70 - 99 mg/dL [facility] ALBUMIN 4.8 3.9 - 4.8 g/dL [facility] TOTAL PROTEIN 7.6 6.5 - 8.0 g/dL [facility] CALCIUM 9.9 8.4 - 10.3 mg/dL [facility] ALKALINE PHOSPHATASE 100 39 - 117 U/L [facility] TOTAL BILIRUBIN 0.6 0.0 - 1.2 mg/dL [facility] AST 26 0 - 37 U/L [facility] ALT 19 0 - 40 U/L [facility] GLOBULIN 2.8 1 - 4.8 g/dL [facility] EGFR 61 >59 mL/min/1.7 3m2 [facility] Comment:Estimated glomerular filtration rate calculated using the CKD-EPI refit equation. ANION GAP 18 10 - 20 mmol/L [facility] Blood 10/16/2024 9:42 AM EDT 10/16/2024 9:48 AM EDT us Clarence Goodman DO LAB BLOOD ORDERABLES Final Resul t Performing Organization Address [facility]/ZIP Co de Phone Number [address] [address] * HIV-1/2 antigen/antibody (10/16/2024 9:42 AM EDT) HIV-1/2 Antigen/Antibo dy NON-REACTI VE NON-REACTI VE [facility] Blood 10/16/2024 9:42 AM EDT 10/16/2024 9:48 AM EDT us Clarence Goodman DO LAB BLOOD ORDERABLES Final Resul t Performing Organization Address [facility] Co de Phone Number [address] [address] * Hepatitis C antibody, qualitative (10/16/2024 9:42 AM EDT) HCV NON-REACTIV E NON-REACTI VE [facility] Blood 10/16/2024 9:42 AM EDT 10/16/2024 9:48 AM EDT us Clarence Goodman DO LAB BLOOD ORDERABLES Final Resul t Performing Organization Address [facility] Co de Phone Number [address] [address] * (ABNORMAL) CBC (10/16/2024 9:42 AM EDT) WBC 9.30 4.00 - 11.00 K/uL [facility] RBC 4.80 4.50 - 5.90 M/uL [facility] HGB 15.9 13.5 - 17.5 g/dL [facility] HCT 47.3 41.0 - 53.0 % [facility] PLT 307 150 - 450 K/uL [facility] MCV 98.5 80.0 - 100.0 fL [facility] MCH 33.1(H) 27.0 - 31.0 pg [facility] MCHC 33.6 32.0 - 36.0 g/dL [facility] RDW 12.5 11.5 - 14.5 % [facility] MPV 10.0 8.4 - 12.0 [facility] NRBC 0.00 0.00 /100 WBCs [facility] ABSOLUTE NRBC 0.00 0.00 K/uL [facility] Blood 10/16/2024 9:42 AM EDT 10/16/2024 9:48 AM EDT Clarence Goodman DO LAB BLOOD ORDERABLES Final Resul t Performing Organization Address City/[facility] Co de Phone Number [address] [address] * (ABNORMAL) PSA (screening) (10/16/2024 9:42 AM EDT) PSA 4.23(H) 0 - 4.00 ng/mL [facility] Comment: Test Methodology Jt [id number] Patient results determined by assays using different manufacturers or methods may not be comparable. Blood 10/16/2024 9:42 AM EDT 10/16/2024 9:49 AM EDT Clarence Goodman DO LAB BLOOD ORDERABLES Final Resul t Performing Organization Address City/[facility] Co de Phone Number [address] [address] * (ABNORMAL) Lipid panel (10/16/2024 9:42 AM EDT) HDL 68 mg/dL [facility] Comment: Interpretation <40 mg/dL: Low HDL cholesterol (major risk factor for CHD) Greater than or equal to 60 mg/dL: High HDL cholesterol ( negative risk factor for CHD) HDL - cholesterol is affected by a number of factors, e.g. smoking, excerise, hormones, sex and age. CHOLESTEROL 160 0 - 240 mg/dL [facility] TRIGLYCERIDES 96 30 - 160 mg/dL [facility] LDL 73 50 - 129 mg/dL [facility] Comment: LDL levels in terms of risk for coronary heart disease: <100 mg/dL: Optimal 100-129 mg/dL: Near or above optimal 130-159 mg/dL: Borderline high 160-189 mg/dL: High >190 mg/dL: Very High CARDIAC RISK RATIO 2.4(L) 3.4 - 5.0 [facility] Blood 10/16/2024 9:42 AM EDT 10/16/2024 9:48 AM EDT us Clarence Goodman DO LAB BLOOD ORDERABLES Final Resul t [facility] [address] [place] [address] from Last 3 Months Insurance [facility] MEDICARE REPLACEMENT MEDICARE PART A & B [facility] MEDICARE REPLACEMENT MEDICARE PART A & B [facility] MEDICARE [facility]PLACEMENT MEDICARE PART A & B [facility] MEDICARE REPLACEMENT MEDICARE PART A & B [facility] MEDICARE REPLACEMENT MEDICARE PART A & B [facility] MEDICARE REPLACEMENT MEDICARE PART A & B Care Teams Us Marketing Director Relationship Specialty Start Date End Date Clarence Goodman DO [address] [place] [address], [address] [place] [address] PCP - General Family Medicine 10/11/24 Additional Source Comments The information contained in this document represents components of the legal health record. It is not the complete legal health record.[facility]
--- OUTSIDE RECORDS SUMMARY | 2024-11-27 10:18 | XMS_ITS | Encounter Summary ---
Author Organization [facility] Address [address] [place] [address] Care Team Providers Care Administrative Underwriter Name Role Phone Carlos Manuel Cardoso MD Primary Care Provide r Vania Larson MD Primary Care Provider Vania Larson MD Primary Care Provider [phone] Vania Larson MD Primary Care Provider Theresa Roberts MD Unavailable [phone] Reason for Visit * Reason Onset Date Comments Medications Refill 07/11/2021 Encounter Details Date Type Department Care Team (Late st Contact Info) Description 07/11/2021 Refill [facility] Primary Care [facility] [address] [facility] [place] [address] Vania Larson MD [address] [facility] [address] [place] [id number] Medications Refill Social History Tobacco Use Types [...] Brenda Nowak LPN - 07/11/2021 0939 EDT small order cutter checked no concerns documented in this encounter [...] documented as of this encounter Care Teams Administrative Underwriter Relationship Specialty Start Date End Date Carlos Manuel Cardoso MD [address] [place] [address] PCP - General 01/18/12 08/31/21 Vania Larson MD [address] [place] [address] PCP - General Family Medicine - Primary Care 09/01/21 11/12/21 Vania Larson MD [address] [place] [address] PCP - General Family Medicine - Primary Care 12/25/21 06/15/23 Vania Larson MD [address] [address] PCP - General Family Medicine - Primary Care 06/16/23 08/30/24 Theresa Roberts MD [address] [place] [phone] Orthopaedic Surgery 01/18/24 08/30/24 documented as of this encounter
--- OUTSIDE RECORDS SUMMARY | 2024-11-27 10:18 | XMS_ITS | Encounter Summary ---
Author Organization [facility] Address [address] [place] [address] Care Team Providers Care Pick Pulling Machine Tender Name Role Phone Vania Larson MD Primary Care Provider [phone] Vania Larson MD Primary Care Provider [phone] Theresa Roberts MD Unavailable [phone] Reason for Visit * Reason Onset Date Comments Medications Refill 03/12/2023 Encounter Details Date Type Department Care Team (Late st Contact Info) Description 03/12/2023 Refill [facility] Primary Care - [place] [address] [place], [place] [phone] Vania Larson MD [address] [facility] [address] [place] [phone] Medications Refill Social History Tobacco Use Types [...] Prescription Agreement: 08/19/2022 Next Office Visit: 04/13/2023 ONION FARMER checked no concerns noted This report was requested by: Barbra Fritz Reference #: [id number] * Telephone Encounter - Misty Bacon - [...] documented as of this encounter Care Teams Pick Pulling Machine Tender Relationship Specialty Start Date End Date Vania Larson MD [address] [facility] [address] [place] [address] PCP - General Family Medicine - Primary Care 12/25/21 06/15/23 Vania Larson MD [address] [facility] [address] [place] [address] PCP - General Family Medicine - Primary Care 06/16/23 08/30/24 Theresa Roberts MD [address] [place] [phone] Orthopaedic Surgery 01/18/24 08/30/24 documented as of this encounter
--- OUTSIDE RECORDS SUMMARY | 2024-11-27 10:18 | XMS_ITS | Encounter Summary ---
Author Organization [facility] Address [address] [place] [address] Care Team Providers Care Ob/Gyn Nurse Name Role Phone Vania Larson MD Primary Care Provider +1- [phone] Vania Larson MD Primary Care Provider +1- [phone] Theresa Roberts MD Unavailable [phone] Reason for Visit * Reason Onset Date Comments Medications Refill 06/09/2023 Encounter Details Date Type Department Care Team (Late st Contact Info) Description 06/09/2023 Refill [facility] Primary Care [address] [phone] Vania Larson MD 8[address] [facility] [address] [place] [phone] Medications Refill Social History Tobacco Use Types [...] was requested by: Alena Correa Reference #: [id number] last filled 05/13/23 OV utd Has appt [...] documented as of this encounter Care Teams Ob/Gyn Nurse Relationship Specialty Start Date End Date Vania Larson MD 6097 [facility] [address] [place] [address] PCP - General Family Medicine - Primary Care 12/25/21 06/15/23 Vania Larson MD 6097 [facility] [address] [place] [address] PCP - General Family Medicine - Primary Care 06/16/23 08/30/24 Theresa Roberts MD [address] [place] [phone] Orthopaedic Surgery 01/18/24 08/30/24 documented as of this encounter
--- OUTSIDE RECORDS SUMMARY | 2024-11-27 10:18 | XMS_ITS | Encounter Summary ---
Author Organization [facility] Address [address] [place] [address] Care Team Providers Care Dealmaker Name Role Phone Vania Larson MD Primary Care Provider +1- [phone] Theresa Roberts MD Unavailable [phone] Reason for Visit * Reason Onset Date Comments Medications Refill 07/08/2023 Encounter Details Date Type Department Care Team (Late st Contact Info) Description 07/08/2023 Refill [facility] Primary Care [address] [phone] Vania Larson MD 6081 [facility] [address] [phone] Medications Refill Social History Tobacco Use Types [...] was requested by: Alena Correa Reference #: [id number] Oxycodone last filled 06/11/23 #180 for a [...] documented as of this encounter Care Teams Dealmaker Relationship Specialty Start Date End Date Vania Larson MD 6097 [facility] [address] [place] [address] PCP - General Family Medicine - Primary Care 06/16/23 08/30/24 Theresa Roberts MD [address] [place] [phone] Orthopaedic Surgery 01/18/24 08/30/24 documented as of this encounter
--- OUTSIDE RECORDS SUMMARY | 2024-11-27 10:18 | XMS_ITS | Encounter Summary ---
Author Organization [facility] Address [address] [place] [address] Care Team Providers Care Service Department Manager Name Role Phone Carlos Manuel Cardoso MD Primary Care Provide r Vania Larson MD Primary Care Provider [phone] Vania Larson MD Primary Care Provider [phone] Vania Larson MD Primary Care Provider [phone] Theresa Roberts MD Unavailable [phone] Reason for Visit * Reason Onset Date Comments Medications Refill 08/08/2021 Encounter Details Date Type Department Care Team (Late st Contact Info) Description 08/08/2021 Refill [facility] Primary Care [facility] 6097 [facility] [place] [address] Vania Larson MD 6097 [facility] [address] [place] [phone] Medications Refill Social History Tobacco Use Types [...] documented as of this encounter Care Teams Service Department Manager Relationship Specialty Start Date End Date Carlos Manuel Cardoso MD [address] [place] [address] PCP - General 01/18/12 08/31/21 Vania Larson MD 6097 [facility] [address] [place] [address] PCP - General Family Medicine - Primary Care 09/01/21 11/12/21 Vania Larson MD 6097 [facility] [address] [place] [address] PCP - General Family Medicine - Primary Care 12/25/21 06/15/23 Vania Larson MD 6[address] [facility] [address] [place] [address] PCP - General Family Medicine - Primary Care 06/16/23 08/30/24 Theresa Roberts MD [address] [place] [phone] Orthopaedic Surgery 01/18/24 08/30/24 documented as of this encounter
--- OUTSIDE RECORDS SUMMARY | 2024-11-27 10:18 | XMS_ITS | Encounter Summary ---
Author Organization [facility] Address [address] [place] [address] Care Team Providers Care Cement Breaker Name Role Phone Vania Larson MD Primary Care Provider +1- [phone] Vania Larson MD Primary Care Provider [phone]- [phone] Theresa Roberts MD Unavailable [phone] Reason for Visit * Reason Onset Date Comments Medications Refill 02/09/2023 Encounter Details Date Type Department Care Team (Late st Contact Info) Description 02/09/2023 Refill [facility] Primary Care [address] [phone] Vania Larson MD 6[address] [facility] [address] [place] [phone] Medications Refill Social History Tobacco Use Types [...] Brenda Nowak LPN - 02/09/2023 1131 EST Gristmill Operator checked no concerns * Telephone Encounter - [...] documented as of this encounter Care Teams Cement Breaker Relationship Specialty Start Date End Date Vania Larson MD [address] [facility] [address], [place] [address] PCP - General Family Medicine - Primary Care 12/25/21 06/15/23 Vania Larson MD [address] [facility] [address], [place] [address] PCP - General Family Medicine - Primary Care 06/16/23 08/30/24 Theresa Roberts MD [address] [place] [phone] Orthopaedic Surgery 01/18/24 08/30/24 documented as of this encounter
--- OUTSIDE RECORDS SUMMARY | 2024-11-27 10:18 | XMS_ITS | Encounter Summary ---
Author Organization [facility] Address [address] [place] [address] Care Team Providers Care Surface Hydrologist Name Role Phone Vania Larson MD Primary Care Provider [phone]- [phone] Vania Larson MD Primary Care Provider +1- [phone] Theresa Roberts MD Unavailable [phone] Reason for Visit * Reason Onset Date Comments Medications Refill 05/12/2023 Encounter Details Date Type Department Care Team (Late st Contact Info) Description 05/12/2023 Refill [facility] Primary Care [address] [phone] Vania Larson MD 5849 [facility] [address] [place] [phone] Medications Refill Social History Tobacco Use Types [...] was requested by: Roberto Middleton Reference #: [id number] [facility] database for controlled substances checked. No concerns noted. This report was requested by: ROBERTO MAX MA Reference #: Last Fill:04/14/2023 Last Office Visit: 04/13/2023 Next Office Visit: 07/15/2023 Last Urine Drug Screen:04/13/2023 Prescription Agreement:04/13/2023 * Telephone Encounter - Amanda Buitrago - 05/12/2023 0924 EDT Patient called requesting refill of Oxycodone to be sent to [facility] in [place] documented in this encounter Plan of Treatment [...] documented as of this encounter Care Teams Surface Hydrologist Relationship Specialty Start Date End Date Vania Larson MD 6097 [facility] [address] [place] [address] PCP - General Family Medicine - Primary Care 12/25/21 06/15/23 Vania Larson MD [address] [address] PCP - General Family Medicine - Primary Care 06/16/23 08/30/24 Theresa Roberts MD [address] [place] [phone] Orthopaedic Surgery 01/18/24 08/30/24 documented as of this encounter
--- OUTSIDE RECORDS SUMMARY | 2024-11-27 10:18 | XMS_ITS | Encounter Summary ---
Author Organization [facility] Address [address] [place] [address] Care Team Providers Care Class A Lineman Name Role Phone Vania Larson MD Primary Care Provider [phone]- [phone] Theresa Roberts MD Unavailable [phone] Reason for Visit * Reason Onset Date Comments Medications Refill 07/29/2023 Encounter Details Date Type Department Care Team (Late st Contact Info) Description 07/29/2023 Refill [facility] Primary Care [address] [phone] Vania Larson MD 60[address] [facility] 9[place] [phone] Medications Refill Social History Tobacco Use Types [...] was requested by: Alena Correa Reference #: [id number] oxycodone last filled 07/09/23 # 150 for [...] documented as of this encounter Care Teams Class A Lineman Relationship Specialty Start Date End Date Vania Larson MD 6097 [facility] 9[place] [address] PCP - General Family Medicine - Primary Care 06/16/23 08/30/24 Theresa Roberts MD [address] [place] [phone] Orthopaedic Surgery 01/18/24 08/30/24 documented as of this encounter
--- OUTSIDE RECORDS SUMMARY | 2024-11-27 10:18 | XMS_ITS | Encounter Summary ---
Author Organization [facility] Address [address] [place] [address] Care Team Providers Care Referral Management Liaison Name Role Phone Vania Larson MD Primary Care Provider +1- [phone] Vania Larson MD Primary Care Provider +1- [phone] Theresa Roberts MD Unavailable [phone] Reason for Visit * Reason Onset Date Comments Other 05/04/2022 Pt called he is very upset- His mother just . Just wanted to let you be aware. Encounter Details Date Type Department Care Team (Late st Contact Info) Description 05/04/2022 Telephone [facility] Primary Care - [place] 6097 [facility] [place] [address] Vania Larson MD 6097 [facility] [address] [place] [address] Other (Pt called he is [...] on filedocumented in this encounter Care Teams Referral Management Liaison Relationship Specialty Start Date End Date Vania Larson MD 6097 [facility] [address] [place] [address] PCP - General Family Medicine - Primary Care 12/25/21 06/15/23 Vania Larson MD 6097 [facility] [address] [place] [address] PCP - General Family Medicine - Primary Care 06/16/23 08/30/24 Theresa Roberts MD [address] [place] [phone] Orthopaedic Surgery 01/18/24 08/30/24 documented as of this encounter
--- OUTSIDE RECORDS SUMMARY | 2024-11-27 10:18 | XMS_ITS | Encounter Summary ---
Author Organization [facility] Address [address] [place] [address] Care Team Providers Care Tumblers Supervisor Name Role Phone Vania Larson MD Primary Care Provider [phone]- [phone] Vania Larson MD Primary Care Provider Theresa Roberts MD Unavailable [phone] Reason for Visit * Reason Onset Date Comments Medications Refill 03/17/2022 Encounter Details Date Type Department Care Team (Late st Contact Info) Description 03/17/2022 Refill [facility] Primary Care - [place] [facility] [place] [address] Vania Larson MD 6097 [facility] [address] [place] [address] Medications Refill Social History Tobacco Use Types [...] on filedocumented in this encounter Care Teams Tumblers Supervisor Relationship Specialty Start Date End Date Vania Larson MD [address] [facility] [address] [place] [address] PCP - General Family Medicine - Primary Care 12/25/21 06/15/23 Vania Larson MD 6[address] [facility] [address] [place] [address] PCP - General Family Medicine - Primary Care 06/16/23 08/30/24 Theresa Roberts MD [address] [place] [phone] Orthopaedic Surgery 01/18/24 08/30/24 documented as of this encounter
--- OUTSIDE RECORDS SUMMARY | 2024-11-27 10:19 | XMS_ITS | Encounter Summary ---
Author Organization [facility] Address [address] [place] [address] Care Team Providers Care Tele Rn Name Role Phone Carlos Maunel Cardoso MD Primary Care Provide r Vania Larson MD Primary Care Provider Vania Larson MD Primary Care Provider [phone] Vania Larson MD Primary Care Provider [phone] Theresa Roberts MD Unavailable [phone] Encounter Details Date Type Department Care [...] PANEL (CMP) (12/25/2020 9:00 EST) Fasting? R [facility] Total Protein 7.1 L=6.4 H=8.2 g/dL [facility] Albumin 4.2 L=3.4 H=5.0 g/dL [facility] GLOBULIN - ECH 2.9 L=1.5 H=4.5 g/dL [facility] TBI - ECH 0.5 L=0.2 H=1.0 mg/dL [facility] Alkaline Phosphatase 67 L=46 H=116 U/L [facility] AST 26 L=11 H=33 U/L [facility] ALT 40 L=12 H=78 U/L [facility] Glucose 86 L=74 H=106 mg/dL [facility] BUN 27(H) L=7 H=18 mg/dL [facility] Creatinine 1.35(H) L=0.70 H=1.30 mg/dL [facility] Calcium 8.8 L=8.5 H=10.1 mg/dL [facility] Sodium 137 L=136 H=145 mEq/L [facility] Potassium 4.2 L=3.5 H=5.1 mEq/L [facility] Chloride 101 L=98 H=107 mEq/L [facility] CO2 Total 27 L=21 H=32 mEq/L [facility] AGE - ECH 60 years [facility] GFR Afr-Am - ECH 65 L=60 H=137 [facility] GFR Non-AfrAm - ECH 54(L) L=60 H=137 [facility] Comment: Units for the GFR are defined as mL/min/1.73m2 12/25/20.1245.KM .COMPLETE 12/25/2020 9:00 EST Narrative [facility] - 12/25/2020 12:42 EST COMPREHENSIVE METABOLIC PANEL us Provider Unknown CHEMISTRY & BLOOD GAS ORDERA BLES Final Result [facility] [address] [place] [address] documented in this encounter Visit Diagnoses Not on filedocumented in this encounter Care Teams Tele Rn Relationship Specialty Start Date End Date Carlos Manuel Cardoso MD [address] [place] [address] PCP - General 01/18/12 08/31/21 Vania Larson MD 6097 [facility] [address] [place] [address] PCP - General Family Medicine - Primary Care 09/01/21 11/12/21 Vania Larson MD [address] [address] PCP - General Family Medicine - Primary Care 12/25/21 06/15/23 Vania Larson MD [address] [address] PCP - General Family Medicine - Primary Care 06/16/23 08/30/24 Theresa Roberts MD [address] [place] [phone] Orthopaedic Surgery 01/18/24 08/30/24 documented as of this encounter
--- OUTSIDE RECORDS SUMMARY | 2024-11-27 10:19 | XMS_ITS | Encounter Summary ---
Author Organization [facility] Address [address] [place] [address] Care Team Providers Care Tobacco Checkout Clerk Name Role Phone Vania Larson MD Primary Care Provider [phone]- [phone] Vania Larson MD Primary Care Provider [phone]- [phone] Vania Larson MD Primary Care Provider Theresa Roberts MD Unavailable [phone] Reason for Visit * Reason Onset Date Comments Follow-up 09/01/2021 Encounter Details Date Type Department Care Team (Late st Contact Info) Description 09/01/2021 Telephone [facility] Primary Care [address] [address] Karyna Stahl, MARCELA Follow-up Social History Tobacco [...] on filedocumented in this encounter Care Teams Tobacco Checkout Clerk Relationship Specialty Start Date End Date Vania Larson MD 6097 [facility] [address] [place] [address] PCP - General Family Medicine - Primary Care 09/01/21 11/12/21 Vania Larson MD 6097 [facility] [address] [place] [address] PCP - General Family Medicine - Primary Care 12/25/21 06/15/23 Vania Larson MD 6[address] [facility] [address] [place] [address] PCP - General Family Medicine - Primary Care 06/16/23 08/30/24 Theresa Roberts MD [address] [place] [phone] Orthopaedic Surgery 01/18/24 08/30/24 documented as of this encounter
--- OUTSIDE RECORDS SUMMARY | 2024-11-27 10:19 | XMS_ITS | Encounter Summary ---
Author Organization [facility] Address [address] [place] [address] Care Team Providers Care General Assignment Reporter Name Role Phone Vania Larson MD Primary Care Provider [phone]- [phone] Theresa Roberts MD Unavailable [phone] Reason for Visit * Reason Onset Date Comments Medications Refill 02/15/2024 Encounter Details Date Type Department Care Team (Late st Contact Info) Description 02/15/2024 Refill [facility] Primary Care - [place] 6097 [facility]/[address] [place] [address] Vania Larson MD 6097 [facility] [address] [place] [address] Medications Refill Social History Tobacco Use Types [...] your living situation today? [facility] 09/16/2023 Think about [...] Recorded In the past 12 months has [employer], [employer], oil, or water [employer] threatened to shut off services in your home? No 09/16/2023 Education Answer Date Recorded Do you speak a language other than Chinese at [facility]? No 09/16/2023 Do you want help with [...] was requested by: Alena Correa Reference #: [id number] Oxycodone last filled 01/22/24 Last OV 12/24/2023 Next OV 03/23/2024 Last UDS 07/16/2023 pos for oxycodone and cannabinoids Last CSA signed 07/15/2023 * Telephone Encounter - Walnut ShadeMisty Fernández - 02/15/2024 0993 EST Oxycodone Lisinopril Atorvastatin documented in this [...] documented as of this encounter Care Teams General Assignment Reporter Relationship Specialty Start Date End Date Vania Larson MD [address] [facility] [address], [place] [address] PCP - General Family Medicine - Primary Care 06/16/23 08/30/24 Theresa Roberts MD [address] [place] [address] [place] [phone] Orthopaedic Surgery 01/18/24 08/30/24 documented as of this encounter
--- OUTSIDE RECORDS SUMMARY | 2024-11-27 10:19 | XMS_ITS | Encounter Summary ---
Author Organization [facility] Address [address] [place] [address] Care Team Providers Care Expressive Music Therapist Name Role Phone Carlos Manuel Cardoso MD Primary Care Provide r Vania Larson MD Primary Care Provider Vania Larson MD Primary Care Provider Vania Larson MD Primary Care Provider [phone] Theresa Roberts MD Unavailable [phone] Encounter Details Date Type Department Care Team (Late st Contact Info) Description 10/19/2018 Historical Results Only [facility] HIST DATA CONV HI Unknown, Provider, MD Social History Tobacco Use [...] on filedocumented in this encounter Care Teams Expressive Music Therapist Relationship Specialty Start Date End Date Carlos Manuel Cardoso MD [address] [place] [address] PCP - General 01/18/12 08/31/21 Vania Larson MD 6097 [facility] [address] [place] [address] PCP - General Family Medicine - Primary Care 09/01/21 11/12/21 Vania Larson MD 6097 [facility] [address] [place] [address] PCP - General Family Medicine - Primary Care 12/25/21 06/15/23 Vania Larson MD 6097 [facility] [address] [place] [address] PCP - General Family Medicine - Primary Care 06/16/23 08/30/24 Theresa Roberts MD [address] [place] [phone] Orthopaedic Surgery 01/18/24 08/30/24 documented as of this encounter
--- OUTSIDE RECORDS SUMMARY | 2024-11-27 10:19 | XMS_ITS | Encounter Summary ---
Author Organization [facility] Address [address] [place] [address] Care Team Providers Care Supervisor Reinforced Steel Placing Name Role Phone Vania Larson MD Primary Care Provider [phone]- [phone] Theresa Roberts MD Unavailable [phone] Reason for Visit * Reason Comments Medications Refill Encounter Details Date Type Department Care Team (Late st Contact Info) Description 02/01/2024 Refill [facility] Primary Care [facility] 6097 [facility] [place] [address] Vania Larson MD 6097 [facility] [address] [place] [address] Medications Refill Social History Tobacco Use Types [...] the past 12 months has th e [employer], gas, oil, or water [employer] threatened to shut off services in your home? No 09/16/2023 Education Answer Date Recorded Do you speak a language other than Romanian at [facility]? No 09/16/2023 Do you want help [...] as of this encounter Care Teams Supervisor Reinforced Steel Placing Relationship Specialty Start Date End Date Vania Larson MD 6097 [facility] [address], [place] [address] PCP - General Family Medicine - Primary Care 06/16/23 08/30/24 Theresa Roberts MD [address] [place] [phone] Orthopaedic Surgery 01/18/24 08/30/24 documented as of this encounter
--- OUTSIDE RECORDS SUMMARY | 2024-11-27 10:19 | XMS_ITS | Encounter Summary ---
Author Organization [facility] Address [address] [place] [address] Care Team Providers Care Back Hoe Operator Name Role Phone Vania Larson MD Primary Care Provider [phone]- [phone] Theresa Roberts MD Unavailable [phone] Reason for Visit * Reason Onset Date Comments Medications Refill 01/18/2024 Medication Management 01/18/2024 Encounter Details Date Type Department Care Team (Late st Contact Info) Description 01/18/2024 Refill [facility] Primary Care [address] [address] Vania Larson MD 5665 [facility] [address] [place] [phone] Medications Refill; Medication Management Social History Tobacco [...] your living situation today? I have a [facility] place to live 09/16/2023 Think about [...] Recorded In the past 12 months has [employer], gas, oil, or water [employer] threatened to shut off services in your home? No 09/16/2023 Education Answer Date Recorded Do you speak a language other than Dominican at [facility]? No 09/16/2023 Do you [...] Telephone Encounter - Christal Wilkes - 01/18/2024 0009 EST [facility] in [place] calls because they do not have the Oxycodone 10 mg in stock. The patient doesn't want to wait until they can get it. [employer] C[employer] Spec Mamadou LEWIS, I added to his list of pharmacies. * Telephone Encounter - Alena Correa RN - 01/18/2024 1050 EST This report was requested by: Alena Correa Reference #: [id number] Oxycodone last filled Last OV 12/24/2023 Next OV 03/23/2024 Last UDS 07/16/2023 pos for oxycodone and cannabinoids Last CSA signed 07/15/2023 * Telephone Encounter - Amanda Buitrago - 01/18/2024 0948 EST Patient called requesting refill of Oxycodone to be sent to [facility] at [facility] [address] documented in this encounter Plan of Treatment [...] documented as of this encounter Care Teams Back Hoe Operator Relationship Specialty Start Date End Date Vania Larson MD [address] [address] PCP - General Family Medicine - Primary Care 06/16/23 08/30/24 Theresa Roberts MD [address] [place] [phone] Orthopaedic Surgery 01/18/24 08/30/24 documented as of this encounter
--- OUTSIDE RECORDS SUMMARY | 2024-11-27 10:19 | XMS_ITS | Encounter Summary ---
Author Organization [facility] Address [address] [place] [address] Care Team Providers Care Relay Man Name Role Phone Carlos Manuel Cardoso MD Primary Care Provide r Vania Larson MD Primary Care Provider Vania Larson MD Primary Care Provider Vania Larson MD Primary Care Provider [phone] Theresa Roberts MD Unavailable [phone] Reason for Visit * Reason Comments Other Encounter Details Date Type Department Care Team (Late st Contact Info) Description 06/24/[facility] [address] [facility] [place] [address] Vania Larson MD [address] [facility] [address] [place] [address] Other Social History Tobacco Use Types Packs/Day [...] documented as of this encounter Care Teams Relay Man Relationship Specialty Start Date End Date Carlos Manuel Cardoso MD [address] [place] [address] PCP - General 01/18/12 08/31/21 Vania Larson MD [address] [facility] [address] [place] [address] PCP - General Family Medicine - Primary Care 09/01/21 11/12/21 Vania Larson MD 6[address] [facility] [address] [place] [address] PCP - General Family Medicine - Primary Care 12/25/21 06/15/23 Vania Larson MD [address] [facility] [address] [place] [address] PCP - General Family Medicine - Primary Care 06/16/23 08/30/24 Theresa Roberts MD [address] [place] [phone] Orthopaedic Surgery 01/18/24 08/30/24 documented as of this encounter
--- OUTSIDE RECORDS SUMMARY | 2024-11-27 10:19 | XMS_ITS | Encounter Summary ---
Author Organization [facility] Address [address] [place] [address] Care Team Providers Care Fibrous Plasterer Name Role Phone Vania Larson MD Primary Care Provider [phone] Vania Larson MD Primary Care Provider [phone] Theresa Roberts MD Unavailable [phone] Reason for Visit * Reason Onset Date Comments Medications Refill 12/09/2022 Encounter Details Date Type Department Care Team (Late st Contact Info) Description 12/09/2022 Telephone [facility] Primary Care - [address] [place] [address] Jil Beard Medications Refill Social History Tobacco [...] [place] [facility] ([facility])? No 07/09/2022 Interpersonal Safety Answer [...] 0805 EDT Refill of oxycodone sent to [facility] in [place] documented in this encounter Plan of Treatment Not on file documented as of this encounter Visit Diagnoses Not on filedocumented in this encounter Care Teams Fibrous Plasterer Relationship Specialty Start Date End Date Vania Larson MD [address] [facility] [address] [place] [address] PCP - General Family Medicine - Primary Care 12/25/21 06/15/23 Vania Larson MD 6[address] [facility] [address] [place] [address] PCP - General Family Medicine - Primary Care 06/16/23 08/30/24 Theresa Roberts MD 206 [facility] [address] [place] [phone] Orthopaedic Surgery 01/18/24 08/30/24 documented as of this encounter
--- OUTSIDE RECORDS SUMMARY | 2024-11-27 10:19 | XMS_ITS | Encounter Summary ---
Author Organization [facility] Address [address] [place] [address] Care Team Providers Care Coupling Machine Operator Name Role Phone Carlos Manuel Cardoso MD Primary Care Provide r Vania Larson MD Primary Care Provider Vania Larson MD Primary Care Provider Vania Larson MD Primary Care Provider Theresa Roberts MD Unavailable [phone] Encounter Details Date Type Department Care [...] on filedocumented in this encounter Care Teams Coupling Machine Operator Relationship Specialty Start Date End Date Carlos Manuel Cardoso MD [address] [place] [address] PCP - General 01/18/12 08/31/21 Vania Larson MD 6097 [facility] [address] [place] [address] PCP - General Family Medicine - Primary Care 09/01/21 11/12/21 Vania Larson MD 6097 [facility] [address] [place] [address] PCP - General Family Medicine - Primary Care 12/25/21 06/15/23 Vania Larson MD [address] [address] PCP - General Family Medicine - Primary Care 06/16/23 08/30/24 Theresa Roberts MD [address] [place] [phone] Orthopaedic Surgery 01/18/24 08/30/24 documented as of this encounter
--- OUTSIDE RECORDS SUMMARY | 2024-11-27 10:19 | XMS_ITS | Encounter Summary ---
Author Organization [facility] Address [address] [place] [address] Care Team Providers Care Respooler Name Role Phone Vania Larson MD Primary Care Provider [phone] Theresa Roberts MD Unavailable [phone] Reason for Visit * Reason Onset Date Comments Medications Refill 02/17/2024 Encounter Details Date Type Department Care Team (Late st Contact Info) Description 02/17/2024 Refill [facility] Primary Care [address] [phone] Vania Larson MD 6079 [facility] [address], [place] [phone] Medications Refill Social History Tobacco Use Types [...] your living situation today? I have a [facility] place to live 09/16/2023 Think about [...] Recorded In the past 12 months has [employer], [employer], oil, or water [employer] threatened to shut off services in your home? No 09/16/2023 Education Answer Date Recorded Do you speak a language other than Welsh at [facility]? No 09/16/2023 Do you want help [...] refill of Triamterene to be sent to [facility] in [facility] documented in this encounter Plan of Treatment Not on file documented as of this encounter Visit Diagnoses Diagnosis Hypertension, unspecified type- Primary documented in this encounter Discontinued Medications Medication Sig Discontinue Reason Start Date End Da te triamterene-hydrochlorot hiazide (DYAZIDE) 37.5-25 mg per capsule TAKE 1 CAPSULE BY MOUTH EVERY DAY Reorder 11/01/2023 02/17/2024 documented as of this encounter Care Teams Respooler Relationship Specialty Start Date End Date Vania Larson MD [address] [facility] [address] [place] [address] PCP - General Family Medicine - Primary Care 06/16/23 08/30/24 Theresa Roberts MD [address] [place] [phone] Orthopaedic Surgery 01/18/24 08/30/24 documented as of this encounter
--- OUTSIDE RECORDS SUMMARY | 2024-11-27 10:19 | XMS_ITS | Encounter Summary ---
Author Organization [facility] Address [address] [place] [address] Care Team Providers Care Receivable Clerk Name Role Phone Carlos Manuel Cardoso MD Primary Care Provide r Vania Larson MD Primary Care Provider Vania Larson MD Primary Care Provider Vania Larson MD Primary Care Provider Theresa Roberts MD Unavailable [phone] Encounter Details Date Type Department Care Team (Late st Contact Info) Description 01/14/2018 Historical Results Only [facility] HIST DATA CONV IN Unknown, Provider, MD Social History Tobacco Use [...] on filedocumented in this encounter Care Teams Receivable Clerk Relationship Specialty Start Date End Date Carlos Manuel Cardoso MD [address] [place] [address] PCP - General 01/18/12 08/31/21 Vania Larson MD 6097 [facility] [address] [place] [address] PCP - General Family Medicine - Primary Care 09/01/21 11/12/21 Vania Larson MD 6097 [facility] [address] [place] [address] PCP - General Family Medicine - Primary Care 12/25/21 06/15/23 Vania Larson MD 6[address] [facility] [address] [place] [address] PCP - General Family Medicine - Primary Care 06/16/23 08/30/24 Theresa Roberts MD [address] [place] [phone] Orthopaedic Surgery 01/18/24 08/30/24 documented as of this encounter
--- OUTSIDE RECORDS SUMMARY | 2024-11-27 10:19 | XMS_ITS | Encounter Summary ---
Author Organization [facility] Address [address] [place] [address] Care Team Providers Care Urologist Md Name Role Phone Carlos Manuel Cardoso MD Primary Care Provide r Vania Larson MD Primary Care Provider Vania Larson MD Primary Care Provider Vania Larson MD Primary Care Provider Theresa Roberts MD Unavailable [phone] Encounter Details Date Type Department Care [...] on filedocumented in this encounter Care Teams Urologist Md Relationship Specialty Start Date End Date Carlos Manuel Cardoso MD [address] [place] [address] PCP - General 01/18/12 08/31/21 Vania Larson MD 6097 [facility] [address] [place] [address] PCP - General Family Medicine - Primary Care 09/01/21 11/12/21 Vania Larson MD 6097 [facility] [address] [place] [address] PCP - General Family Medicine - Primary Care 12/25/21 06/15/23 Vania Larson MD 6097 [facility] [address] [place] [address] PCP - General Family Medicine - Primary Care 06/16/23 08/30/24 Theresa Roberts MD [address] [place] [phone] Orthopaedic Surgery 01/18/24 08/30/24 documented as of this encounter
--- OUTSIDE RECORDS SUMMARY | 2024-11-27 10:19 | XMS_ITS | Encounter Summary ---
Author Organization [facility] Address [address] [place] [address] Care Team Providers Care Mens Locker Room Attendant Name Role Phone Carlos Manuel Cardoso MD Primary Care Provide r Vania Larson MD Primary Care Provider Vania Larson MD Primary Care Provider Vania Larson MD Primary Care Provider Theresa Roberts MD Unavailable [phone] Reason for Visit * Reason Comments Other Encounter Details Date Type Department Care Team (Late st Contact Info) Description 08/07/2021 [facility] Primary Care [facility] 6097 [facility] [place] [address] Vania Larson MD 6097 [facility] [address] [place] [phone] Other Social History Tobacco Use Types Packs/Day [...] documented as of this encounter Care Teams Mens Locker Room Attendant Relationship Specialty Start Date End Date Carlos Manuel Cardoso MD [address] [place] [address] PCP - General 01/18/12 08/31/21 Vania Larson MD 6[address] [facility] [address] [place] [address] PCP - General Family Medicine - Primary Care 09/01/21 11/12/21 Vania Larson MD [address] [address] PCP - General Family Medicine - Primary Care 12/25/21 06/15/23 Vania Larson MD 6097 [facility] [address] [place] [address] PCP - General Family Medicine - Primary Care 06/16/23 08/30/24 Theresa Roberts MD [address] [place] [phone] Orthopaedic Surgery 01/18/24 08/30/24 documented as of this encounter
--- OUTSIDE RECORDS SUMMARY | 2024-11-27 10:19 | XMS_ITS | Encounter Summary ---
Author Organization [facility] Address [address] [place] [address] Care Team Providers Care Securities Broker Name Role Phone Vania Larson MD Primary Care Provider [phone] Theresa Roberts MD Unavailable [phone] Reason for Visit * Reason Comments Medications Refill Encounter Details Date Type Department Care Team (Late st Contact Info) Description 05/01/2024 Refill [facility] Primary Care [facility] 6097 [facility] [place] [address] Vania Larson MD 6097 [facility] [address] [place] [phone] Medications Refill Social History Tobacco Use Types [...] living situation today? I have a [facility] place to live 09/16/2023 Think [...] the past 12 months has th e [employer], gas, oil, or water [employer] threatened to shut off services in your home? No 09/16/2023 Education Answer Date Recorded Do you speak a language other than Turkish at [facility]? No 09/16/2023 Do you [...] documented as of this encounter Care Teams Securities Broker Relationship Specialty Start Date End Date Vania Larson MD 6097 [facility] [address], [place] [address] PCP - General Family Medicine - Primary Care 06/16/23 08/30/24 Theresa Roberts MD 206 [facility] [address] [place] [phone] Orthopaedic Surgery 01/18/24 08/30/24 documented as of this encounter
--- OUTSIDE RECORDS SUMMARY | 2024-11-27 10:19 | XMS_ITS | Encounter Summary ---
Author Organization [facility] Address [address] [place] [address] Care Team Providers Care Hostel Parent Name Role Phone Vania Larson MD Primary Care Provider [phone] Theresa Roberts MD Unavailable [phone] Reason for Visit * Reason Onset Date Comments Medications Refill 03/21/2024 Encounter Details Date Type Department Care Team (Late st Contact Info) Description 03/21/2024 Refill [facility] Primary Care [address] [phone] Vania Larson MD 6048 [facility] 9[place] [phone] Medications Refill Social History Tobacco Use Types [...] your living situation today? I have a [facility] place to live 09/16/2023 Think about [...] Recorded In the past 12 months has [employer], [employer], oil, or water [employer] threatened to shut off services in your home? No 09/16/2023 Education Answer Date Recorded Do you speak a language other than Nepali at [facility]? No 09/16/2023 [...] was requested by: Alena Correa Reference #: [id number] Oxycodone last filled 02/20/24 Last OV 12/24/2023 Next OV 03/23/2024 Last UDS 07/16/23 pos for oxycodone and cannabinoids Last CSA signed 07/15/23 * Telephone Encounter - Torie Buitragoily - 03/21/2024 1436 EST Patient requesting refill of Oxy[facility] [place] documented in this encounter Plan of Treatment [...] documented as of this encounter Care Teams Hostel Parent Relationship Specialty Start Date End Date Vania Larson MD [address] [address] PCP - General Family Medicine - Primary Care 06/16/23 08/30/24 Theresa Roberts MD [address] [address] Orthopaedic Surgery 01/18/24 08/30/24 documented as of this encounter
--- OUTSIDE RECORDS SUMMARY | 2024-11-27 10:19 | XMS_ITS | Clinical Summary ---
Author Organization [facility] Address [address] [place] [address] Care Team Providers Care Liquid Waste Treatment Plant Operator Name Role Phone Unavailable Primary Care Provider Unavailabl e Allergies Active Allergy Reactions Criticality Noted Date Comments Corticosteroids (Glucocorticoids) 01/25/2018 Swelling and discoloration Nsaids (Non-Steroidal Anti-Inflammatory Drug) 11/23/2022 [id number] blood pressure Other - See Comments High [...] original. Patient has given permission for the [facility] to verbally discuss the following information with Melida Milton and Shanelle Irvin who has the following relationship to the patient: [phone] sister [phone] niece Scheduling/Appt/Billing/Payment Information (does not include clinical [...] Type Department Care Team Description 08/31/2024 Telephone [facility] Care [facility] [address] [place] [place] [address] Vania Larson MD Medications Refill from Last [...] your living situation today? I have a [facility] place to live 09/16/2023 Think about the [...] Recorded In the past 12 months has [employer], gas, oil, or water company threatened to shut off services in your home? No 09/16/2023 Education Answer Date Recorded Do you speak a language other than [place] at [facility]? No 09/16/2023 Do you want help [...] Cholesterol 184 <200 mg/dL 07/16/2023 7:41 EDT [facility] HDL 70 >=40 mg/dl 07/16/2023 7:41 [facility] LDL, Calculated 91 <160 mg/dL 7:41 [facility] Triglyceride 113 <=150 mg/dL 07/16/2023 7:41 [facility] Comment:Note that therapeuti c goals will differ between patients based on cardiac risk factors and current medical therapy. Chol/HDL Ratio 2.6 See Note 07/16/2023 7:41 [facility] Comment:No reference range h as been established for CHOL/HDL ratio. Non HDL Cholesterol 114 <160 mg/dL 07/16/2023 7:41 [facility] Blood VENOUS BLOOD / Unknown Venipuncture / Unknown 07/16/2023 7:01 EDT 07/16/2023 7:11 EDT Vania Larson MD CHEMISTRY & BLOOD GAS ORDER MADELIN Final Result [facility] [address] [place] [address] from Last 3 Months or Most Recently Relevant to Health Maintenance Insurance [facility] MEDIC[facility] Advance Directives For more information, please contact: [phone] * Full Code (Latest Code Status on File) Date Activated Date Inactivated Comments 11/23/2022 6:05 11/26/2022 16:45 Question Answer Comments When the patient has NO PULSE: Full Code / CPR [facility]: Refer to current pap er/scanned MOLST for order details.
--- OUTSIDE RECORDS SUMMARY | 2024-11-27 10:20 | XMS_ITS | Encounter Summary ---
Author Organization [facility] Address [address] [facility] [address] [place] [phone] Phone Care Team Providers Care Smoke Room Operator Name Role Phone Rex Clarence Turner DO Primary Care Provider [phone] Encounter Details Date Type Department Care Team ([facility] st Contact Info) Description 11/06/2024 Orders Only [facility] [address] [place] [address] [place], [place] [address] [place] [address] Social History Tobacco Use Types Packs/Day Years [...] high school, GED, job training, learning the Indian language, technical skills, or developing parenting skills)? [...] on file documented as of this encounter Plan of Treatment Upcoming Encounters Date Type Department Care Team (Late st Contact Info) Description 11/13/2024 Procedure Pass [address] [address] 12/18/2024 10:35 AM EST Appointment [address] [address] Clarence Goodman, DO 234 [facility], [address] [place] [address] 12/25/2024 11:00 AM EST Appointment [facility] [address] [facility], [address] [place] [address] Noreen Carbone MD [address] [facility] [address] [place] [address] [email or web address] 12/26/2024 11:30 AM EST Office Visit [facility] [address] [place] [address] Clarence Goodman DO [address] [address] 02/13/2025 9:45 AM EST Office Visit [facility] [address] [place] [address] Clarence Goodman DO 234 [facility] 7 [place] [address] [email or web address] documented as of this encounter Visit Diagnoses Not on filedocumented in this encounter Additional Health Concerns Assessment Noted Time PHQ-2 Depression Total Score: 0 10/12/19 25 12:21 PM EDT documented as of this encounter Care Teams Smoke Room Operator Relationship Specialty Start Date End Date Clarence Goodman DO 234 [facility] 7 [place] [address] [email or web address] PCP - General Family Medicine 10/11/24 documented as of this encounter Additional Source Comments The information contained in this document represents components of the legal health record. It is not the complete legal health record.[facility]
--- OUTSIDE RECORDS SUMMARY | 2024-11-27 10:20 | XMS_ITS | Encounter Summary ---
Author Organization [facility] Address [address] [place] [address] Care Team Providers Care Crane Helper Name Role Phone Vania Larson MD Primary Care Provider [phone] Theresa Roberts MD Unavailable [phone] Reason for Visit * Reason Onset Date Comments Medications Refill 06/13/2024 Encounter Details Date Type Department Care Team (Late st Contact Info) Description 06/13/2024 Refill [facility] Primary Care - [place] 6097 [facility] [place] [address] Vania Larson MD [address] [facility] [address] [place] [address] Medications Refill Social History Tobacco Use Types [...] your living situation today? I have a [facility] place to live 09/16/2023 Think [...] Recorded In the past 12 months has [employer], [employer], oil, or water [employer] threatened to shut off services in your home? No 09/16/2023 Education Answer Date Recorded Do you speak a language other than Saudi Arabian at [facility]? No 09/16/2023 Do you want [...] Misty Bacon - 06/13/2024 1332 EDT Atorvast[id number] - [place] - [address] [facility] SUNDAY [[id number]] documented in this encounter Plan of Treatment Not on file documented as of this encounter Visit Diagnoses Not on filedocumented in this encounter Discontinued Medications Medication Sig Discontinue Reason Start Date End Da te atorvastatin (LIPITOR) 20 mg tablet Take 1 Tablet by mouth daily. Reorder 05/10/2024 06/13/2024 documented as of this encounter Care Teams Crane Helper Relationship Specialty Start Date End Date Vania Larson MD [address] [facility] [address] [place] [address] PCP - General Family Medicine - Primary Care 06/16/23 08/30/24 Theresa Roberts MD 206 [facility] [address] [place] [phone] Orthopaedic Surgery 01/18/24 08/30/24 documented as of this encounter
--- OUTSIDE RECORDS SUMMARY | 2024-11-27 10:20 | XMS_ITS | Encounter Summary ---
Author Organization [facility] Address [address] [place] [address] Care Team Providers Care Supply Chain Planner Name Role Phone Carlos Manuel Cardoso MD Primary Care Provide r Vania Larson MD Primary Care Provider Vania Larson MD Primary Care Provider Vania Larson MD Primary Care Provider Theresa Roberts MD Unavailable [phone] Encounter Details Date Type Department Care Team (Late st Contact Info) Description 12/25/2020 Historical Results Only [facility] HIST DATA CONV AR Unknown, Provider, MD Social History Tobacco Use [...] EST) T4, Free 1.05 L=0.76 H=1.46 ng/dL [facility] Comment:12/25/20.1301.KM .CO MPLETE 12/25/2020 9:00 EST us Provider Unknown MD CHEMISTRY & BLOOD GAS ORDERA BLES Final Result [facility] [address] [place] [address] documented in this encounter Visit Diagnoses Not on filedocumented in this encounter Care Teams Supply Chain Planner Relationship Specialty Start Date End Date Carlos Manuel Cardoso MD [address] [place] [address] PCP - General 01/18/12 08/31/21 Vania Larson MD 6097 [facility] [address] [place] [address] PCP - General Family Medicine - Primary Care 09/01/21 11/12/21 Vania Larson MD 6097 [facility] [address] [place] [address] PCP - General Family Medicine - Primary Care 12/25/21 06/15/23 Vania Larson MD 6097 [facility] [address] [place] [address] PCP - General Family Medicine - Primary Care 06/16/23 08/30/24 Theresa Roberts MD [address] [place] [phone] Orthopaedic Surgery 01/18/24 08/30/24 documented as of this encounter
--- OUTSIDE RECORDS SUMMARY | 2024-11-27 10:20 | XMS_ITS | Clinical Summary ---
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 09/14 Medications No known medications Encounters Date Type Department Care Team Description 09/14/2024 12:05 PM EDT - 09/14/2024 1:14 PM EDT Emergency [facility] Emergency [address] [place] [address] Chronic low back pain without [...] Health Maintenance Due Date Last Done Comments Colorectal Cancer Screening: Colonoscopy 1960 Pneumococcal Vaccine: 50+ Years (1 of 2 - PCV) 07/06/1978 Depression Screening 02/09/2024 Abdominal Aortic Aneurysm (AAA) Screen 09/14/2024 Cholesterol Screening (Lipid Panel) 09/14/2024 Falls Risk Assessment 09/14/2024 Hepatitis C [...] - [place] [employer] [place] Care Teams Executive Vice President And Chief Financial Officer Relationship Specialty Start Date End Date Physician, No Pcp PCP - General 09/14/24
--- OUTSIDE RECORDS SUMMARY | 2024-11-27 10:20 | XMS_ITS | Encounter Summary ---
Author Organization [facility] Address [address] [place] [address] Care Team Providers Care Mortgage Loan Counselor Name Role Phone Carlos Manuel Cardoso MD Primary Care Provide r Vania Larson MD Primary Care Provider Vania Larson MD Primary Care Provider [phone] Vania Larson MD Primary Care Provider Theresa Roberts MD Unavailable [phone] Encounter Details Date Type Department Care Team (Late st Contact Info) Description 2018 Historical Results Only [facility] Radiology Results [address] [place] [address] Mayela Gibbons MD [address] [place] [address] Social History Tobacco Use Types [...] WBC 9.1 4.0 - 10.5 2018 1:44 [facility] RBC 4.32(L) 4.70 - 6.00 2018 1:44 [facility] Hemoglobin 14.4 13.5 - 18.0 2018 1:44 [facility] HCT 40.9(L) 42.0 - 52.0 2018 1:44 [facility] MCV 94.7 78 - 100 2018 1:44 [facility] MCH 33.3(H) 27 - 31 2018 1:44 [facility] MCHC 35.2 32 - 36 2018 1:44 [facility] RDW-CV - PMC 12.2 11.5 - 14.0 2018 1:44 [facility] PLATELET COUNT - PMC 248 150 - 450 2018 1:44 [facility] NEUTROPHILS % (AUTO) - PMC 69.9 42.0 - 75.0 2018 1:44 [facility] LYMPHOCYTES % (AUTO) - PMC 16.4 16.0 - 52.0 2018 1:44 [facility] MONOCYTES % (AUTO) - PMC 10.6 1.0 - 11.0 2018 1:44 [facility] EOSINOPHILS % (AUTO) - PMC 1.4 0.0 - 7.0 2018 1:44 [facility] BASOPHILS % (AUTO) - PMC 1.0 0.0 - 4.0 2018 1:44 [facility] NUCLEATED RBC % (AUTO) - PMC 0.0 <1 2018 1:44 [facility] NEUTROPHILS # (AUTO) - PMC 6.3 1.5 - 6.6 2018 1:44 [facility] LYMPHOCYTES # (AUTO) - PMC 1.5 1.0 - 3.5 2018 1:44 [facility] MONOCYTES # (AUTO) - PMC 1.0 <1.0 2018 1:44 [facility] EOSINOPHILS # (AUTO) - PMC 0.1 <0.7 2018 1:44 [facility] BASOPHILS # (AUTO) - PMC 0.1 <0.1 2018 1:44 [facility] NUCLEATED RBC # (AUTO) - PMC 0.00 <1 2018 1:44 [facility] 2018 1:35 EDT 2018 1:40 EDT us Mayela Gibbons MD PACKAGES & DNA PROBE ORDERA BLES Final Result [facility] * TROPONIN I (2018 1:35 EDT) Troponin I (ng/mL) <0.05 <0.10 2018 2:[address] [facility] Comment: REFERENCE RANGE: Negative: <0.10 ng/mL Indeterminate: 0.10-0.80 ng/mL Positive: >0.80 ng/mL ........................................... The results of this assay can be falsely decreased due to the consumption of Biotin. 2018 1:35 EDT 2018 1:41 EDT [facility] - 2018 2:16 EDT Collected by venipuncture by a member of the ED staff. us Mayela Gibbons MD CHEMISTRY & BLOOD GAS ORDER MADELIN Final Result [facility] * (ABNORMAL) BASIC METABOLIC PANEL,RANDOM - PMC (2018 1:35 EDT) Sodium 138 136 - 145 2018 2:07 [facility] Potassium 3.5 3.5 - 5.1 2018 2:07 [facility] Chloride 104 96 - 107 2018 2:07 [facility] CO2 Total 22.3 21 - 32 2018 2:07 [facility] Anion Gap 11.7 2018 2:07 [facility] BUN 20 7 - 25 2018 2:07 [facility] Creatinine 0.99 0.7 - 1.30 2018 2:07 [facility] Estimated GFR >60 >60 2018 2:07 [facility] Comment: EGFR UNITS: mL/min/1.73 m 2 CKD-EPI Equation used to calculate. Glucose 118 70 - 180 2018 2:07 [facility] Calcium 8.4(L) 8.5 - 10.5 2018 2:07 [facility] 2018 1:35 EDT 2018 1:41 EDT [facility] - 2018 2:16 EDT Collected by venipuncture by a member of the ED staff. us Mayela Gibbons MD CHEMISTRY & BLOOD GAS ORDER MADELIN Final Result Performing Organization Address City/[facility]/ZIP Co de Phone Number [facility] * CT HEAD WO CONTRAST (2018 1:05 EDT) Anatomical Region Laterality Modality Head Other 2018 1:05 EDT Narrative 2018 1:05 EDT [facility] [address] [address] Diagnostic Imaging Report Signed Patient Name:JEAN JEWELL JR Date of :1960 MR Number:[id number] Age:58 Sex:M Category: CT Date of Exam:07/07/18 [...] Procedure Note Ladarius Phillips MD - 11/08/2018 [facility] [address] [id number] Diagnostic Imaging Report Signed Patient Name:JEAN JEWELL JRAccount Number:[id number] Date of :1960 MRNumber:[id number] Age:58 Sex:M Category: CT Date ofExam:07/07/18 Procedure: CT: Head; without contrastAccession: [id number] Ordering Physician: Mayela Gibbons MD CC: Provider, [...] on filedocumented in this encounter Care Teams Mortgage Loan Counselor Relationship Specialty Start Date End Date Carlos Manuel Cardoso MD [address] [place] [address] PCP - General 01/18/12 08/31/21 Vania Larson MD [address] [facility] [address] [place] [address] PCP - General Family Medicine - Primary Care 09/01/21 11/12/21 Vania Larson MD [address] [facility] [address] [place] [address] PCP - General Family Medicine - Primary Care 12/25/21 06/15/23 Vania Larson MD [address] [facility] [address] [place] [address] PCP - General Family Medicine - Primary Care 06/16/23 08/30/24 Theresa Roberts MD [address] [place] [phone] Orthopaedic Surgery 01/18/24 08/30/24 documented as of this encounter
--- OUTSIDE RECORDS SUMMARY | 2024-11-27 10:20 | XMS_ITS | Encounter Summary ---
Author Organization [facility] Address [address] [place] [address] Care Team Providers Care Leather Toggler Name Role Phone Vania Larson MD Primary Care Provider [phone] Theresa Roberts MD Unavailable [phone] Reason for Visit * Reason Comments Medications Refill Encounter Details Date Type Department Care Team (Late st Contact Info) Description 05/01/2024 Refill [facility] Primary Care [facility] [address] [facility] [place] [address] Vania Larson MD [address] [facility] [address] [place] [phone] Medications Refill Social History Tobacco Use Types [...] living situation today? [facility] a [facility] place [facility] live 09/16/2023 Think about [...] the past 12 months has th e [employer], gas, oil, or water [employer] threatened to shut off services in your home? No 09/16/2023 Education Answer Date Recorded Do you speak a language other than Kiswahili at [facility]? No 09/16/2023 Do you want help with [...] documented as of this encounter Care Teams Leather Toggler Relationship Specialty Start Date End Date Vania Larson MD [address] [facility] [address] [place] [address] PCP - General Family Medicine - Primary Care 06/16/23 08/30/24 Theresa Roberts MD [address] [place] [phone] Orthopaedic Surgery 01/18/24 08/30/24 documented as of this encounter
--- OUTSIDE RECORDS SUMMARY | 2024-11-27 10:20 | XMS_ITS | Encounter Summary ---
Author Organization [facility] Address [address] [place] [address] Care Team Providers Care Clinical Informatics Physician Name Role Phone Carlos Manuel Cardoso MD Primary Care Provide r Vania Larson MD Primary Care Provider Vania Larson MD Primary Care Provider Vania Larson MD Primary Care Provider Theresa Roberts MD Unavailable [phone] Encounter Details Date Type Department Care Team (Late st Contact Info) Description 12/25/2020 Historical Results Only [facility] HIST DATA CONV [place] Unknown, Provider, MD Social History Tobacco Use [...] 9:00 EST) WBC 8 L=4.0 H=10.5 10^3/uL [facility] RBC 4.56(L) L=4.70 H=6.00 10^6/uL [facility] Hemoglobin 14.7 L=13.5 H=18.0 g/dl [facility] HCT 45.2 L=42.0 H=52.0 % [facility] MCV 99 L=78 H=100 fl [facility] MCH 32(H) L=27 H=31 pg [facility] MCHC 33 L=32 H=36 g/dl [facility] RDW-SD 13.5 L=11.5 H=14.0 % [facility] PLT 279 L=150 H=450 10^3 [facility] % Neutrophils 53 L=36.0 H=66.0 % [facility] Lymphocytes 28.8 L=24.0 H=44.0 % [facility] % Monocytes 13.6(H) L=0.0 H=10.0 % [facility] % Eosinophils 3.3(H) L=0.0 H=3.0 % [facility] % Basophils 0.9 L=0.0 H=1.0 % [facility] Immature Grans 0.4 L=0.0 H=2.0 % [facility] ABS Neutrophils 4.24 L=1.500 H=7.200 10^3 [facility] Diff Type NOT INDICATED [facility] Comment: IG% equals immature granulocyte which are metas, myelos, and pros. Performed at [place] [address] [place] [address] 12/25/20.1845.CB .COMPLETE 12/25/2020 9:00 EST Narrative [facility] - 12/25/2020 18:45 EST M COMPLETE BLOOD COUNT us Provider Unknown PACKAGES & DNA PROBE ORDERAB LES Final Result [facility] [address] [place] [address] documented in this encounter Visit Diagnoses Not on filedocumented in this encounter Care Teams Clinical Informatics Physician Relationship Specialty Start Date End Date Carlos Manuel Cardoso MD [address] [place] [address] PCP - General 01/18/12 08/31/21 Vania Larson MD [address] [facility] [address] [place] [address] PCP - General Family Medicine - Primary Care 09/01/21 11/12/21 Vania Larson MD [address] [address] PCP - General Family Medicine - Primary Care 12/25/21 06/15/23 Vania Larson MD [address] [address] PCP - General Family Medicine - Primary Care 06/16/23 08/30/24 Theresa Roberts MD [address] [place] [phone] Orthopaedic Surgery 01/18/24 08/30/24 documented as of this encounter
--- OUTSIDE RECORDS SUMMARY | 2024-11-27 10:20 | XMS_ITS | Encounter Summary ---
Author Organization [facility] Address [address] [place] [address] Care Team Providers Care Baffle Installer Name Role Phone Vania Larson MD Primary Care Provider [phone] Theresa Roberts MD Unavailable [phone] Reason for Visit * Reason Onset Date Comments Medications Refill 09/27/2023 Orders (Non Pre-visit) 09/27/2023 Encounter Details Date Type Department Care Team (Late st Contact Info) Description 09/27/2023 Refill [facility] Primary Care [address] [phone] Vania Larson MD [address] [facility] [address] [place] [phone] Medications Refill; Orders (Non Pre-visit) Social History [...] your living situation today? I have a [facility] place to live 09/16/2023 Think about [...] Recorded In the past 12 months has [employer], gas, oil, or water [employer] threatened to shut off services in your home? No 09/16/2023 Education Answer Date Recorded Do you speak a language other than Serbian at [facility]? No 09/16/2023 Do you want help with [...] was requested by: Alena Correa Reference #: [id number] Oxycodone last filled 09/01/23 Last OV 09/16/2023 [...] documented as of this encounter Care Teams Baffle Installer Relationship Specialty Start Date End Date Vania Larson MD 6[address] [facility] [address], [place] [address] PCP - General Family Medicine - Primary Care 06/16/23 08/30/24 Theresa Roberts MD [address] [place] [phone] Orthopaedic Surgery 01/18/24 08/30/24 documented as of this encounter
--- OUTSIDE RECORDS SUMMARY | 2024-11-27 10:20 | XMS_ITS | Encounter Summary ---
Author Organization [facility] Address [address] [place] [address] Care Team Providers Care Upsetter Name Role Phone Carlos Manuel Cardoso MD Primary Care Provide r Vania Larson MD Primary Care Provider Vania Larson MD Primary Care Provider [phone] Vania Larson MD Primary Care Provider [phone] Theresa Roberts MD Unavailable [phone] Encounter Details Date Type Department Care [...] REFLEX - E[facility] 1.82 L=0.36 H=3.74 uIU/mL [facility] Comment:03/25/21.1259.AM .CO MPLETE 03/25/2021 9:00 EST us Provider Unknown CHEMISTRY & BLOOD GAS ORDERA BLES Final Result [facility] [address] [place] [address] documented in this encounter Visit Diagnoses Not on filedocumented in this encounter Care Teams Upsetter Relationship Specialty Start Date End Date Carlos Manuel Cardoso MD [address] [place] [address] PCP - General 01/18/12 08/31/21 Vania Larson MD [address] [facility] [address] [place] [address] PCP - General Family Medicine - Primary Care 09/01/21 11/12/21 Vania Larson MD [address] [facility] [address] [place] [address] PCP - General Family Medicine - Primary Care 12/25/21 06/15/23 Vania Larson MD [address] [facility] [address] [place] [address] PCP - General Family Medicine - Primary Care 06/16/23 08/30/24 Theresa Roberts MD [address] [place] [phone] (work) Orthopaedic Surgery 01/18/24 08/30/24 documented as of this encounter
--- OUTSIDE RECORDS SUMMARY | 2024-11-27 10:20 | XMS_ITS | Encounter Summary ---
Author Organization [facility] Address [address] [place] [address] Care Team Providers Care Guest Relations Manager Name Role Phone Vania Larson MD Primary Care Provider [phone] Theresa Roberts MD Unavailable [phone] Reason for Visit * Reason Onset Date Comments Orders (Non Pre-visit) 10/07/2023 Encounter Details Date Type Department Care Team (Late st Contact Info) Description 10/07/2023 Telephone [facility] Primary Care [address] [phone] Vania Larson MD [address] [facility] [address] [place] [phone] Orders (Non Pre-visit) Social History Tobacco Use [...] Recorded In the past 12 months has [employer], gas, oil, or water [employer] threatened to shut off services in your home? No 09/16/2023 Education Answer Date Recorded Do you speak a language other than Scottish at [facility]? No 09/16/2023 Do you want help with [...] on filedocumented in this encounter Care Teams Guest Relations Manager Relationship Specialty Start Date End Date Vania Larson MD [address] [facility] [address] [address] PCP - General Family Medicine - Primary Care 06/16/23 08/30/24 Theresa Roberts MD [address] [place] [phone] Orthopaedic Surgery 01/18/24 08/30/24 documented as of this encounter
--- OUTSIDE RECORDS SUMMARY | 2024-11-27 10:20 | XMS_ITS | Encounter Summary ---
Author Organization [facility] Address [address] [place] [address] Care Team Providers Care Sash Sticker Name Role Phone Vania Larson MD Primary Care Provider [phone] Theresa Roberts MD Unavailable [phone] Reason for Visit * Reason Comments Medications Refill Encounter Details Date Type Department Care Team (Late st Contact Info) Description 08/01/2023 Refill [facility] Primary Care [facility] 6[address] [facility] [place] [address] Vania Larson MD [address] [facility] [address] [place] [phone] Medications Refill Social History Tobacco Use Types [...] documented as of this encounter Care Teams Sash Sticker Relationship Specialty Start Date End Date Vania Larson MD [address] [address] PCP - General Family Medicine - Primary Care 06/16/23 08/30/24 Theresa Roberts MD [address] [place] [phone] Orthopaedic Surgery 01/18/24 08/30/24 documented as of this encounter
--- OUTSIDE RECORDS SUMMARY | 2024-11-27 10:20 | XMS_ITS | Encounter Summary ---
Author Organization [facility] Address [address] [place] [address] Care Team Providers Care Yard Associate Name Role Phone Carlos Manuel Cardoso MD Primary Care Provide r Vania Larson MD Primary Care Provider [phone] Vania Larson MD Primary Care Provider [phone] Vania Larson MD Primary Care Provider [phone] Theresa Roberts MD Unavailable [phone] Encounter Details Date Type Department Care Team (Late st Contact Info) Description 12/25/2020 Historical Results Only [facility] HIST DATA CONV [place] Unknown, Provider, MD Social History Tobacco Use [...] HDL, LDL) (12/25/2020 9:00 EST) Fasting? R [facility] Cholesterol 191 L=100 H=200 mg/dL [facility] HDL 49 L=40 H=60 mg/dL [facility] Triglyceride 166(H) L=30 H=150 mg/dL [facility] LDL, Calculated 109(H) L=0 H=100 mg/dL [facility] Chol/HDL Ratio 3.9 [facility] LDL/HDL - ECH 2.22 [facility] Comment: ARTHEROSCLEROSIS RISK RATIOS FOR LDL, [...] 60. 12/25/20.1245.KM .COMPLETE 12/25/2020 9:00 EST Narrative [facility] - 12/25/2020 12:45 EST LIPID PANEL us Provider Unknown CHEMISTRY & BLOOD GAS ORDERA BLES Final Result [facility] [address] [place] [address] documented in this encounter Visit Diagnoses Not on filedocumented in this encounter Care Teams Yard Associate Relationship Specialty Start Date End Date Carlos Manuel Cardoso MD [address] [place] [phone] PCP - General 01/18/12 08/31/21 Vania Larson MD 6[address] [facility] [address] [place] [address] PCP - General Family Medicine - Primary Care 09/01/21 11/12/21 Vania Larson MD [address] [facility] [address] [place] [address] PCP - General Family Medicine - Primary Care 12/25/21 06/15/23 Vania Larson MD [address] [facility] [address] [place] [address] PCP - General Family Medicine - Primary Care 06/16/23 08/30/24 Theresa Roberts MD [address] [place] [phone] Orthopaedic Surgery 01/18/24 08/30/24 documented as of this encounter
--- OUTSIDE RECORDS SUMMARY | 2024-11-27 10:20 | XMS_ITS | Encounter Summary ---
Author Organization [facility] Address [address] [place] [address] Care Team Providers Care Technical Applications Scientist Name Role Phone Carlos Manuel Cardoso MD Primary Care Provide r Vania Larson MD Primary Care Provider Vania Larson MD Primary Care Provider Vania Larson MD Primary Care Provider Theresa Roberts MD Unavailable [phone] Encounter Details Date Type Department Care [...] Troponin I (ng/L) <60 L=0 H=60 ng/L [facility] Comment: Normal <60 ng/L Greater [...] & BLOOD GAS ORDERA BLES Final Result [facility] [address] [place] [address] documented in this encounter Visit Diagnoses Not on filedocumented in this encounter Care Teams Technical Applications Scientist Relationship Specialty Start Date End Date Carlos Manuel Cardoso MD [address] [place] [address] PCP - General 01/18/12 08/31/21 Vania Larson MD [address] [place] [address] [address] PCP - General Family Medicine - Primary Care 09/01/21 11/12/21 Vania Larson MD [address] [address] [address] PCP - General Family Medicine - Primary Care 12/25/21 06/15/23 Vania Larson MD [address] [place] [address] [address] PCP - General Family Medicine - Primary Care 06/16/23 08/30/24 Theresa Roberts MD [address] [place] [phone] Orthopaedic Surgery 01/18/24 08/30/24 documented as of this encounter
--- OUTSIDE RECORDS SUMMARY | 2024-11-27 10:20 | XMS_ITS | Encounter Summary ---
Author Organization [facility] Address [address] [place] [address] Care Team Providers Care Deputy District Customs Director Name Role Phone Carlos Manuel Cardoso MD Primary Care Provide r Vania Larson MD Primary Care Provider Vania Larson MD Primary Care Provider Vania Larson MD Primary Care Provider Theresa Roberts MD Unavailable [phone] Encounter Details Date Type Department Care Team (Late st Contact Info) Description 12/25/2020 Historical Results Only [facility] HIST DATA CONV [place] Unknown, Provider, MD Social History Tobacco Use [...] REFLEX - E[facility] 4.88(H) L=0.36 H=3.74 uIU/mL [facility] Comment:12/25/20.1246.KM .CO MPLETE 12/25/2020 9:00 EST us Provider Unknown CHEMISTRY & BLOOD GAS ORDERA BLES Final Result [facility] [address] [place] [address] documented in this encounter Visit Diagnoses Not on filedocumented in this encounter Care Teams Deputy District Customs Director Relationship Specialty Start Date End Date Carlos Manuel Cardoso MD [address] [place] [address] PCP - General 01/18/12 08/31/21 Vania Larson MD [address] [facility] [address] [place] [address] PCP - General Family Medicine - Primary Care 09/01/21 11/12/21 Vania Larson MD [address] [facility] [address] [place] [address] PCP - General Family Medicine - Primary Care 12/25/21 06/15/23 Vania Larson MD [address] [facility] [address] [place] [address] PCP - General Family Medicine - Primary Care 06/16/23 08/30/24 Theresa Roberts MD [address] [place] [phone] Orthopaedic Surgery 01/18/24 08/30/24 documented as of this encounter
--- OUTSIDE RECORDS SUMMARY | 2024-11-27 10:20 | XMS_ITS | Encounter Summary ---
Author Organization [facility] Address [address] [place] [address] Care Team Providers Care Abrasive Worker Name Role Phone Vania Larson MD Primary Care Provider [phone] Theresa Roberts MD Unavailable [phone] Reason for Visit * Reason Comments Medications Refill Encounter Details Date Type Department Care Team (Late st Contact Info) Description 10/30/2023 Refill [facility] Primary Care [facility] [address] [facility] [place] [address] Vania aLrson MD [address] [facility] [address] [place] [phone] Medications Refill Social History Tobacco Use Types [...] the past 12 months has th e [employer], gas, oil, or water [employer] threatened to shut off services in your home? No 09/16/2023 Education Answer Date Recorded Do you speak a language other than Setswana at [facility]? No 09/16/2023 Do you want [...] documented as of this encounter Care Teams Abrasive Worker Relationship Specialty Start Date End Date Vania Larson MD [address] [facility] [address] [place] [address] PCP - General Family Medicine - Primary Care 06/16/23 08/30/24 Theresa Roberts MD [address] [phone] Orthopaedic Surgery 01/18/24 08/30/24 documented as of this encounter
--- OUTSIDE RECORDS SUMMARY | 2024-11-27 10:20 | XMS_ITS | Encounter Summary ---
Author Organization [facility] Address [address] [place] [address] Care Team Providers Care Junk Dealer Name Role Phone Carlos Manuel Cardoso MD Primary Care Provide r Vania Larson MD Primary Care Provider Vania Larson MD Primary Care Provider [phone] Vania Larson MD Primary Care Provider [phone] Theresa Roberts MD Unavailable [phone] Encounter Details Date Type Department Care [...] EST) Hemoglobin A1c 6(H) L=3.8 H=5.6 % [facility] Comment: New ranges are effective 05/04/2019. The Guidelines remain the same If your A1C is this: Your average mean daily plasma blood sugar approximately this: % mg/dl 12.0% 345 11.0% 310 10.0% 275 9.0% 240 8.0% 205 7.0% 170 6.0% 135 5.0% 100 4.0% 65 Source:[employer].\ITLo\Diabetes Care\ITLx\25:275-278,2002. 12/25/20.1258.KM .COMPLETE 12/25/2020 9:00 EST us Provider Unknown CHEMISTRY & BLOOD GAS ORDERA BLES Final Result [facility] [address] [place] [address] documented in this encounter Visit Diagnoses Not on filedocumented in this encounter Care Teams Junk Dealer Relationship Specialty Start Date End Date Carlos Manuel Cardoso MD [address] [place] [phone] PCP - General 01/18/12 08/31/21 Vania Larson MD [address] [facility] [address] [place] [phone] PCP - General Family Medicine - Primary Care 09/01/21 11/12/21 Vania Larson MD [address] [facility] [address] [place] [phone] PCP - General Family Medicine - Primary Care 12/25/21 06/15/23 Vania Larson MD [address] [facility] [address] [place] [phone] PCP - General Family Medicine - Primary Care 06/16/23 08/30/24 Theresa Roberts MD [address] [place] [phone] Orthopaedic Surgery 01/18/24 08/30/24 documented as of this encounter
--- OUTSIDE RECORDS SUMMARY | 2024-11-27 10:21 | XMS_ITS | Encounter Summary ---
Author Organization [facility] Address [address] [place] [address] Care Team Providers Care Chief Petroleum Engineer Name Role Phone Vania Larson MD Primary Care Provider [phone] Theresa Roberts MD Unavailable [phone] Reason for Visit * Reason Onset Date Comments Medications Refill 12/20/2023 Encounter Details Date Type Department Care Team (Late st Contact Info) Description 12/20/2023 Refill [facility] Primary Care [address] [phone] Vania Larson MD [address] [facility] [address], [place] [phone] Medications Refill Social History Tobacco Use Types [...] Recorded In the past 12 months has [employer], [employer], oil, or water [employer] threatened to shut off services in your home? No 09/16/2023 Education Answer Date Recorded Do you speak a language other than Macedonian at [facility]? No 09/16/2023 Do you [...] was requested by: Alena Correa Reference #: [id number] Oxycodone last filled 11/24/2023 Last OV 10/26/2023 Next OV 12/24/2023 Last UDS 07/16/2023 positive for oxycodone and cannabinoids Last CSA signed 07/15/2023 * Telephone Encounter - BriannaKeeley Amanda - 12/20/2023 1314 EST Patient requesting refill of Oxycodone to be sent to [facility] documented in this encounter Plan of [...] documented as of this encounter Care Teams Chief Petroleum Engineer Relationship Specialty Start Date End Date Vania Larson MD [address] [facility] [address], [place] [address] PCP - General Family Medicine - Primary Care 06/16/23 08/30/24 Theresa Roberts MD [address] [phone] Orthopaedic Surgery 01/18/24 08/30/24 documented as of this encounter
--- OUTSIDE RECORDS SUMMARY | 2024-11-27 10:21 | XMS_ITS | Encounter Summary ---
Author Organization [facility] Address [address] [place] [address] Care Team Providers Care Founder And President Name Role Phone Vania Larson MD Primary Care Provider [phone] Theresa Roberts MD Unavailable [phone] Reason for Visit * Reason Comments Medications Refill Encounter Details Date Type Department Care Team (Late st Contact Info) Description 11/01/2023 Refill [facility] Primary Care [facility] [address] [facility] [place] [address] Vania Larson MD [address] [facility] [address] [place] [phone] Medications Refill Social History Tobacco Use Types [...] place to sleep or slept in a snf (including now)? No 01/12/2023 Interpersonal Safety Answer [...] your living situation today? I have a [facility] place to live 09/16/2023 Think about [...] the past 12 months has th e [employer], gas, oil, or water [employer] threatened to shut off services in your home? No 09/16/2023 Education Answer Date Recorded Do you speak a language other than Vietnamese at [facility]? No 09/16/2023 Do you want [...] documented as of this encounter Care Teams Founder And President Relationship Specialty Start Date End Date Vania Larson MD [address] [facility] [address], [place] [address] PCP - General Family Medicine - Primary Care 06/16/23 08/30/24 Theresa Roberts MD [address] [facility] [address] [place] [phone] Orthopaedic Surgery 01/18/24 08/30/24 documented as of this encounter
--- OUTSIDE RECORDS SUMMARY | 2024-11-27 10:21 | XMS_ITS | Encounter Summary ---
Author Organization [facility] Address [address] [place] [address] Care Team Providers Care Border Machine Operator Name Role Phone Vania Larson MD Primary Care Provider [phone] Theresa Roberts MD Unavailable [phone] Reason for Visit * Reason Onset Date Comments Medications Refill 11/22/2023 Encounter Details Date Type Department Care Team (Late st Contact Info) Description 11/22/2023 Refill [facility] Primary Care [address] [phone] Vania Larson MD [address] [facility] 9[place] [phone] Medications Refill Social History Tobacco Use Types [...] your living situation today? I have a [facility] place to live 09/16/2023 Think about [...] Recorded In the past 12 months has [employer], [employer], oil, or water [employer] threatened to shut off services in your home? No 09/16/2023 Education Answer Date Recorded Do you speak a language other than Occitan at [facility]? No 09/16/2023 [...] of Assessment Author No 11/23/2022 14:50 Marlin Glaindo RN * Are you blind or do [...] was requested by: Alena Correa Reference #: [id number] weave defect charting clerk checked no discrepancies noted. Last Fill:10/26/23 Next [...] documented as of this encounter Care Teams Border Machine Operator Relationship Specialty Start Date End Date Vania Larson MD [address] [facility] 9[place] [address] PCP - General Family Medicine - Primary Care 06/16/23 08/30/24 Theresa Roberts MD [address] [place] [phone] Orthopaedic Surgery 01/18/24 08/30/24 documented as of this encounter
== END 2024-11-27 09:36 | disposition home or self-care (01) ==
LOC: HO.HOS 09:04
PROVIDERS: Visit Provider Physician Assistant
DX: M19.011 Primary osteoarthritis, right shoulder (principal); M19.012 Primary osteoarthritis, left shoulder; M75.102 Unspecified rotator cuff tear or rupture of left shoulder, not specified as traumatic
CPT/HCPCS: 99213; G2211

== ENCOUNTER → 2024-11-27 09:03 | Outpatient (BNVA) | payer OTHER, SELFPAY | PROVIDERS: Visit Provider Physician Assistant | DX: M19.011 Primary osteoarthritis, right shoulder (principal); M19.012 Primary osteoarthritis, left shoulder; M75.102 Unspecified rotator cuff tear or rupture of left shoulder, not specified as traumatic | CPT/HCPCS: 99212 ==